=== PATIENT | female | born 1995 | race Hispanic/Latino ===

== ENCOUNTER 2018-06-23 15:54 | Emergency (ER) | payer OTHER, SELFPAY ==
--- OUTSIDE RECORDS SUMMARY | 2018-06-23 15:56 | XMS REPORT ---
:1995 Author Organization [facility] Address [address] [place] [address] [address]. Castillo [address] [place] [address] Care Team Providers Name Role Phone UNKNOWN, REFFERING Primary Care Provider Unavailable THEO WING Unavailable Unavailable Problems This patient has no known problems. Allergies, Adverse Reactions, Alerts This patient has no known allergies or adverse reactions. Medications This patient has no known medications. Results Test Description Test Time Test Comments Text Results Atomic Results Result Comments HIV Rapid 2017-01-28 11:44:00 Test Item Value Reference Range Comments HIV 1/2 Antibody (test Non-Reactive Non-Reactive HIV1/2 Antibody screen result code=HIV1/2AB) indicates the absence of HIV1 and [id number].However, A Non-Reactive screen result does not rule out exposure orinfection. If an acute infection is suspected, HIV RNA Quantitative is recommended. P24 Antigen (test Non-Reactive Non-Reactive P24 Ag screen result indicates code=P24) the absence of P24 antigen, which is anindicator of HIV-1 acute infection.However, A Non-Reactive screen does not rule out exposure or infection.If acute HIV-1 is suspected, HIV RNA Quantitative is recommended. Hep B Surface [id number] 09:41:00 Test Item Value Reference Range Comments Hep Bs Ag (test code=HBSAG) Nonreactive Non-Reactive BHCG, Serum, [id number] 08:32:00 Test Item Value Reference Range Comments Preg Qual [Se] (test code=BSHCG) POSITIVE Negative Comprehensive Metabolic [id number] 08:31:00 Test Item Value Reference Range Comments Sodium (test code=NA) 137 mmol/L 135-145 Potassium (test code=K) 3.6 mmol/L 3.5-5.1 Chloride (test code=CL) 102 mmol/L 98-105 Carbon Dioxide (test 22 mmol/L 22-29 code=CO2) Glucose (test code=GLU) 67 mg/dL 70-115 Blood Urea Nitrogen 4 mg/dL 6-20 (test code=BUN) Creatinine (test 0.4 mg/dL 0.5-0.9 code=CREAT) Calcium (test code=CA) 8.9 mg/dL 8.3-10.5 Prot Total (test 5.6 g/dL 6.4-8.3 code=TP) Albumin (test code=ALB) 3.2 g/dL 3.5-5.2 A/G Ratio (test 1.3 Ratio code=AGRATIO) Globulin (test 2.4 2.9-3.1 code=GLOB) Bili Total (test 0.4 mg/dL 0.1-0.9 code=TBIL) Alk Phos (test 66 U/L 35-104 code=APHOS) AST (test code=AST) 22 U/L 1-32 ALT (test code=ALT) 13 U/L 1-33 BUN/Creatinine Ratio 10.0 (test code=BCRATIO) Anion Gap (test 13 mmol/L 7-16 code=AGAP) Estimated GFR (test >60 mL/min/1.73m2 eGFR (estimated Glomerular code=GFR) Filtration Rate) is an estimated value,calculated from the patient's serum creatinine using the MDRD equation.It is NOT the patient's actual GFR. The eGFR provides a more clinicallyuseful measure of kidney disease than serum creatinine alone.This calculation takes sex and race into account, if the informationis provided. If the race is not provided, and the patient isAfrican-Beninese, multiply by 1.212. If sex is not provided, and thepatient is female, multiply by 0.742. Results for patients <18 years ofage have not been validated by the MDRD study and should be interpretedwith caution.eGFR Result Interpretation:eGFR > or=60 is in the Normal RangeeGFR < 60 may mean kidney diseaseeGFR < 15 may mean kidney failureRanges recommended by the National Kidney Foundation,http://nkdep.nih .gov TIBC and [id number] 08:31:00 Test Item Value Reference Range Comments Iron (test code=FE) 26 ug/dL 37-145 UIBC (test code=UIBC) 406 ug/dL 112-346 TIBC (test code=TIBC) 432 ug/dL 149-491 % Saturation (test code=PSAT) 6 % 20-50 CBC with [id number] 08:19:00 Test Item Value Reference Range Comments WBC (test code=WBC) 14.3 K/cumm 4.4-10.5 RBC (test code=RBC) 3.28 M/cumm 3.75-5.20 Hemoglobin (test code=HGB) 8.9 gm/dL 12.2-14.8 Hematocrit (test code=HCT) 28.4 % 36.5-44.4 MCV (test code=MCV) 86.3 fL 80-100 MCH (test code=MCH) 27.0 pg 27.0-32.5 MCHC (test code=MCHC) 31.3 g/dL 32.0-37.5 RDW (test code=RDW) 14.4 % 11.5-14.5 Platelet Count (test code=PLTCT) 363 K/cumm 140-440 MPV (test code=MPV) 7.5 fL Diff Method (test code=DIFFM) Auto Neutrophil (test code=NEUT) 71.6 % 36-70 Lymphocyte (test code=LYMPH) 18.6 % 12-44 Monocyte (test code=MONO) 7.7 % 0-11 Eosinophil (test code=EOS) 1.9 % 0-7 Basophil (test code=BASO) 0.3 % 0-2 Neutro Abs (test code=ANEUT) 10.2 K/cumm 1.6-7.4 Lymph Abs (test code=ALYMPH) 2.6 K/cumm 0.5-4.6 Estill Abs (test code=AMONO) 1.1 K/cumm 0.0-1.2 Eos Abs (test code=AEOS) 0.27 K/cumm 0.00-0.74 Baso Abs (test code=ABASO) 0.0 K/cumm 0.00-0.21 RPR, [id number] 11:04:00 Test Item Value Reference Range Comments RPR (test code=RPR) Non-Reactive Non-Reactive Thyroid Stimulating Hormone (TSH)2017-01-26 05:33:00 Test Item Value Reference Range Comments TSH (test code=TSH) 1.00 mIU/mL 0.270-4.200 Comprehensive Metabolic [id number] 05:23:00 Test Item Value Reference Range Comments Sodium (test code=NA) 137 mmol/L 135-145 Potassium (test code=K) 3.6 mmol/L 3.5-5.1 Chloride (test code=CL) 104 mmol/L 98-105 Carbon Dioxide (test 21 mmol/L 22-29 code=CO2) Glucose (test code=GLU) 78 mg/dL 70-115 Blood Urea Nitrogen 5 mg/dL 6-20 (test code=BUN) Creatinine (test 0.5 mg/dL 0.5-0.9 code=CREAT) Calcium (test code=CA) 8.5 mg/dL 8.3-10.5 Prot Total (test 5.2 g/dL 6.4-8.3 code=TP) Albumin (test code=ALB) 3.1 g/dL 3.5-5.2 A/G Ratio (test 1.5 Ratio code=AGRATIO) Globulin (test 2.1 2.9-3.1 code=GLOB) Bili Total (test 0.3 mg/dL 0.1-0.9 code=TBIL) Alk Phos (test 64 U/L 35-104 code=APHOS) AST (test code=AST) 14 U/L 1-32 ALT (test code=ALT) 8 U/L 1-33 BUN/Creatinine Ratio 10.0 (test code=BCRATIO) Anion Gap (test 12 mmol/L 7-16 code=AGAP) Estimated GFR (test >60 mL/min/1.73m2 eGFR (estimated Glomerular code=GFR) Filtration Rate) is an estimated value,calculated from the patient's serum creatinine using the MDRD equation.It is NOT the patient's actual GFR. The eGFR provides a more clinicallyuseful measure of kidney disease than serum creatinine alone.This calculation takes sex and race into account, if the informationis provided. If the race is not provided, and the patient isAfrican-Beninese, multiply by 1.212. If sex is not provided, and thepatient is female, multiply by 0.742. Results for patients <18 years ofage have not been validated by the MDRD study and should be interpretedwith caution.eGFR Result Interpretation:eGFR > or=60 is in the Normal RangeeGFR < 60 may mean kidney diseaseeGFR < 15 may mean kidney failureRanges recommended by the National Kidney Foundation,http://nkdep.nih .gov Lipid [id number] 05:23:00 Test Item Value Reference Range Comments Cholesterol (test 203 mg/dL 0-200 code=CHOL) Triglycerides (test 153 mg/dL 9-200 code=TRIG) HDL (test code=HDL) 73 mg/dL 50-60 Chol/HDL (test 2.8 Ratio 0.0-4.4 code=CHOLPHDL) LDL, Calculated (test 99 0-130 (NOTE)RISK OF HEART code=LDLC) DISEASEPublished by Beninese Heart AssociationAnalyte Optimal Boderline Increased RiskCHOL <200 200-239 >240TRIG <150 150-199 >200HDL Male: >60 <40HDL Female: >60 <50LDL <100 130-159 >160LDL NEAR OPTIMAL IS 100-129 VLDL (test code=VLDL) 31 mg/dL 5-40 LDL/HDL (test code=LDLPHDL) 1 CBC with [id number] 05:05:00 Test Item Value Reference Range Comments WBC (test code=WBC) 14.1 K/cumm 4.4-10.5 RBC (test code=RBC) 2.97 M/cumm 3.75-5.20 Hemoglobin (test code=HGB) 8.2 gm/dL 12.2-14.8 Hematocrit (test code=HCT) 25.5 % 36.5-44.4 MCV (test code=MCV) 85.6 fL 80-100 MCH (test code=MCH) 27.7 pg 27.0-32.5 MCHC (test code=MCHC) 32.4 g/dL 32.0-37.5 RDW (test code=RDW) 13.8 % 11.5-14.5 Platelet Count (test code=PLTCT) 321 K/cumm 140-440 MPV (test code=MPV) 7.7 fL Diff Method (test code=DIFFM) Auto Neutrophil (test code=NEUT) 74.8 % 36-70 Lymphocyte (test code=LYMPH) 15.7 % 12-44 Monocyte (test code=MONO) 7.2 % 0-11 Eosinophil (test code=EOS) 2.0 % 0-7 Basophil (test code=BASO) 0.2 % 0-2 Neutro Abs (test code=ANEUT) 10.6 K/cumm 1.6-7.4 Lymph Abs (test code=ALYMPH) 2.2 K/cumm 0.5-4.6 Estill Abs (test code=AMONO) 1.0 K/cumm 0.0-1.2 Eos Abs (test code=AEOS) 0.29 K/cumm 0.00-0.74 Baso Abs (test code=ABASO) 0.0 K/cumm 0.00-0.21
--- NOTE | 2018-06-23 16:39 | ER ---
Nurse's Notes [facility] Name: Kelsea Toussaint Age: 22 yrs Sex: Female : 1995 Arrival Date: 06/23/2018 Time: 15:57 Bed DIS1 Private MD: Diagnosis: Hordeolum internum right upper eyelid Presentation: 06/23 16:02 Presenting complaint: Patient states: "I though I had a stye but now I don't know what aa5 it is on my eye". Transition of care: patient was not received from another setting of care. Onset of symptoms was May 2018. Risk Assessment: Do you want to hurt yourself or someone else? Patient reports no desire to harm self or others. Initial Sepsis Screen: Does the patient meet any 2 criteria? No. Patient's initial sepsis screen is negative. Does the patient have a suspected source of infection? No. Patient's initial sepsis screen is negative. Care prior to arrival: None. 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 - Social history:: Smoking status: Patient/guardian denies using tobacco. - Ebola Screening: : No symptoms or risks identified at this time. Screenin:15 Abuse screen: Denies threats or abuse. Nutritional screening: No deficits noted. aa5 Tuberculosis screening: No symptoms or risk factors identified. Fall Risk None identified. Assessment: 16:08 General: Appears comfortable, Behavior is calm, cooperative. Pain: Complains of pain in aa5 right upper eyelid. Neuro: Level of Consciousness is awake, alert, obeys commands, Oriented to person, place, time, situation. Cardiovascular: No deficits noted. Respiratory: Airway is patent Respiratory effort is even, unlabored, Respiratory pattern is regular, symmetrical. GI: No signs and/or symptoms were reported involving the gastrointestinal system. : No signs and/or symptoms were reported regarding the genitourinary system. EENT: stye noted to right upper eyelid . Derm: Skin is pink, warm \\T\\ dry. Musculoskeletal: Range of motion: intact in all extremities. Vital Signs: 16:03 BP 112 / 71; Pulse 88; Resp 16 S; Temp 99.0(TE); Pulse Ox 99% on R/A; Weight 50.8 kg aa5 (R); Height 5 ft. 0 in. (152.40 cm) (R); Pain 7/10; 16:03 Body Mass Index 21.87 (50.80 kg, 152.40 cm) aa5 ED Course: 15:57 Patient arrived in ED. mr 16:01 Arm band placed on. aa5 16:01 Patient has correct armband on for positive identification. aa5 16:03 Triage completed. aa5 16:10 Liliana Gipson, RN is Primary Nurse. aa5 16:15 No provider procedures requiring assistance completed. aa5 16:18 Delvis Neri PA is PHCP. cp 16:18 Cortez Syed MD is Attending Physician. cp 16:38 Charline Toledo MD is Referral Physician. cp 17:06 Patient did not have IV access during this emergency room visit. ss Administered Medications: No medications were administered Outcome: 16:39 Discharge ordered by MD. cp 17:06 Discharged to home ambulatory, with family. ss 17:06 Condition: good 17:06 Discharge instructions given to patient, family, Instructed on discharge instructions, follow up and referral plans. medication usage, Demonstrated understanding of instructions, follow-up care, medications, Prescriptions given X 2. 17:07 Patient left the ED. ss Signatures: Shani Cullen Audri, RN RN aa5 Mahi Lynch RN RN ss Delvis Neri PA PA cp Corrections: (The following items were deleted from the chart) 16:05 16:03 BP 112 / 71; Pulse 88bpm; Resp 16bpm; Spontaneous; Pulse Ox 99% RA; Temp 99.0F aa5 Temporal; aa5
--- NOTE | 2018-06-23 16:39 | EDPHYS ---
Physician Documentation [facility] Name: Kelsea Toussaint Age: 22 yrs Sex: Female : 1995 Arrival Date: 06/23/2018 Time: 15:57 Bed DIS1 Private MD: ED Physician Cortez Syed HPI: 06/23 16:33 This 22 yrs old Female presents to ER via Ambulatory with complaints of Eye cp Swelling. 16:33 The patient is experiencing swelling, right upper eyelid. Onset: The symptoms/episode cp began/occurred 1 week(s) ago. Duration: the symptoms are continuous. Associated signs and symptoms: Pertinent negatives: fever, drainage, redness. Patient wears glasses. 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 - Social history:: Smoking status: Patient/guardian denies using tobacco. - Ebola Screening: : No symptoms or risks identified at this time. ROS: 16:35 Constitutional: Negative for body aches, chills, fever, poor PO intake. cp 16:35 Eyes: Positive for swelling, of the right upper eyelid, Negative for discharge, redness, visual disturbance. 16:35 ENT: Negative for drainage from ear(s), ear pain, sore throat, hoarseness. 16:35 Respiratory: Negative for cough, shortness of breath, wheezing. 16:35 Abdomen/GI: Negative for abdominal pain. 16:35 Skin: Negative for cellulitis, rash. 16:35 Neuro: Negative for altered mental status, headache. 16:35 All other systems are negative. Exam: 16:36 Head/Face: Normocephalic, atraumatic. cp 16:36 Constitutional: The patient appears in no acute distress, alert, awake, non-toxic, well developed, well nourished. 16:36 Eyes: Periorbital structures: appear normal, Pupils: equal, round, and reactive to light and accomodation, Extraocular movements: intact throughout, Conjunctiva: normal, no exudate, no injection, Lids and lashes: stye, seen on the right lid. 16:36 ENT: External ear(s): are unremarkable, Ear canal(s): are normal, clear, TM's: dullness, bilaterally, Nose: is normal, Mouth: Lips: moist, Oral mucosa: pink and intact, moist, Posterior pharynx: is normal, airway is patent, no erythema, no exudate, Voice: is normal. 16:36 Neck: ROM/movement: is normal, is supple, without pain, no range of motions limitations, no nuchal rigidity, Lymph nodes: no appreciated lymphadenopathy. 16:36 Chest/axilla: Inspection: normal. 16:36 Cardiovascular: Rate: normal. 16:36 Respiratory: the patient does not display signs of respiratory distress, Respirations: normal, no use of accessory muscles, no retractions, no splinting, no tachypnea. 16:36 Skin: cellulitis, is not appreciated, no rash present. Vital Signs: 16:03 BP 112 / 71; Pulse 88; Resp 16 S; Temp 99.0(TE); Pulse Ox 99% on R/A; Weight 50.8 kg aa5 (R); Height 5 ft. 0 in. (152.40 cm) (R); Pain 7/10; 16:03 Body Mass Index 21.87 (50.80 kg, 152.40 cm) aa5 MDM: 16:31 Patient medically screened. cp 16:38 Data reviewed: vital signs, nurses notes, and as a result, I will discharge patient. cp 16:38 Differential diagnosis: Foreign body in right eye. stye. Counseling: I had a detailed cp discussion with the patient and/or guardian regarding: the historical points, exam findings, and any diagnostic results supporting the discharge/admit diagnosis, the need for outpatient follow up, an opthalmologist, to return to the emergency department if symptoms worsen or persist or if there are any questions or concerns that arise at home. 06/23 16:58 Order name: Urine Dipstick--Ancillary (enter results) eb 06/23 16:58 Order name: Urine --Ancillary (enter results) 06/23 16:41 Order name: Urine Test (obtain specimen); Complete Time: 16:59 cp Administered Medications: No medications were administered Disposition: 17:10 Chart complete. cp 17:30 Co-signature as Attending Physician, Cortez Syed MD. rn Disposition: 06/23/18 16:39 Discharged to Home. Impression: Hordeolum internum right upper eyelid. - Condition is Stable. - Discharge Instructions: Stye. - Prescriptions for Erythromycin 5 mg/gram (0.5 %) Ophthalmic Ointment - apply 1 centimeter by OPHTHALMIC route 2-3 times daily for 7 days apply to right upper lid; 1 tube. Doxycycline Monohydrate 100 mg Oral Tablet - take 1 tablet by ORAL route every 12 hours for 10 days; 20 tablet. - Medication Reconciliation Form, Thank You Letter, Antibiotic Education, Prescription Opioid Use form. - Follow up: Charline Toledo MD; When: 1 week; Reason: swelling persists. - Problem is new. - Symptoms are unchanged. - Notes: Apply warm compresses to right upper eyelid throughout day Signatures: Dispatcher [employer] EDMS Cortez Syed MD MD rn Calderon, Audri RN RN aa5 Mahi Lynch RN RN ss Delvis Neri, HALIMA PA cp Corrections: (The following items were deleted from the chart) 17:07 16:39 06/23/2018 16:39 Discharged to Home. Impression: Hordeolum internum right upper ss eyelid. Condition is Stable. Forms are Medication Reconciliation Form, Thank You Letter, Antibiotic Education, Prescription Opioid Use. Follow up: Charline Toledo; When: 1 week; Reason: swelling persists. Problem is new. Symptoms are unchanged. cp 06/24 16:27 06/23 16:45 Differential diagnosis: Foreign body in stye, cellulitis cp cp
[2018-06-23 18:35] LABS: Urine Blood NEGATIVE (NEG); Urine Glucose NEGATIVE (NEG); Urine Protein TRACE (NEG)
== END 2018-06-23 17:07 | disposition home or self-care (01) ==
LOC: ER 15:54
DX: H00.021 Hordeolum internum right upper eyelid (principal); Z88.0 Allergy status to penicillin; Z88.1 Allergy status to other antibiotic agents; Z88.5 Allergy status to narcotic agent; Z88.8 Allergy status to other drugs, medicaments and biological substances
CPT/HCPCS: 81003; 81025; 99282

== ENCOUNTER 2018-10-20 00:27 | Emergency (ER) | payer SELFPAY ==
--- OUTSIDE RECORDS SUMMARY | 2018-10-20 00:29 | XMS REPORT ---
:1995 [facility] Address [address] [place] [address] Dr. Castillo [address] [place] [address] Care Team Providers Name Role Phone UNKNOWN, [...] code=HIV1/2AB) indicates the absence of HIV1 and [id number].However, A Non-Reactive screen result does not rule [...] RNA Quantitative is recommended. Hep B Surface [id number] 09:41:00 Test Item Value Reference Range Comments Hep Bs Ag (test code=HBSAG) Nonreactive Non-Reactive BHCG, Serum, [id number] 08:32:00 Test Item Value Reference Range Comments Preg Qual [Se] (test code=BSHCG) POSITIVE Negative Comprehensive Metabolic [id number] 08:31:00 Test Item Value Reference Range Comments [...] race is not provided, and the patient isAfrican-Azerbaijani, multiply by 1.212. If sex is not [...] the National Kidney Foundation,http://nkdep.nih .gov TIBC and [id number] 08:31:00 Test Item Value Reference Range Comments Iron (test code=FE) 26 ug/dL 37-145 UIBC (test code=UIBC) 406 ug/dL 112-346 TIBC (test code=TIBC) 432 ug/dL 149-491 % Saturation (test code=PSAT) 6 % 20-50 CBC with [id number] 08:19:00 Test Item Value Reference Range Comments [...] Lymph Abs (test code=ALYMPH) 2.6 K/cumm 0.5-4.6 Leake Abs (test code=AMONO) 1.1 K/cumm 0.0-1.2 Eos Abs (test code=AEOS) 0.27 K/cumm 0.00-0.74 Baso Abs (test code=ABASO) 0.0 K/cumm 0.00-0.21 RPR, [id number] 11:04:00 Test Item Value Reference Range Comments RPR (test code=RPR) Non-Reactive Non-Reactive Thyroid Stimulating Hormone (TSH)2017-01-26 05:33:00 Test Item Value Reference Range Comments TSH (test code=TSH) 1.00 mIU/mL 0.270-4.200 Comprehensive Metabolic [id number] 05:23:00 Test Item Value Reference Range Comments [...] race is not provided, and the patient isAfrican-Azerbaijani, multiply by 1.212. If sex is not provided, and thepatient is female, multiply by 0.742. Results for patients <18 years ofage have not been validated by the MDRD study and should be interpretedwith caution.eGFR Result Interpretation:eGFR > or=60 is in the Normal RangeeGFR < 60 may mean kidney diseaseeGFR < 15 may mean kidney failureRanges recommended by the National Kidney Foundation,http://nkdep.nih .gov Lipid [id number] 05:23:00 Test Item Value Reference Range Comments Cholesterol (test 203 mg/dL 0-200 code=CHOL) Triglycerides (test 153 mg/dL 9-200 code=TRIG) HDL (test code=HDL) 73 mg/dL 50-60 Chol/HDL (test 2.8 Ratio 0.0-4.4 code=CHOLPHDL) LDL, Calculated (test 99 0-130 (NOTE)RISK OF HEART code=LDLC) DISEASEPublished by [place]ij[place] Heart AssociationAnalyte Optimal Boderline Increased RiskCHOL <200 200-239 >240TRIG <150 150-199 >200HDL Male: >60 <40HDL Female: >60 <50LDL <100 130-159 >160LDL NEAR OPTIMAL IS 100-129 VLDL (test code=VLDL) 31 mg/dL 5-40 LDL/HDL (test code=LDLPHDL) 1 CBC with [id number] 05:05:00 Test Item Value Reference Range Comments [...] Lymph Abs (test code=ALYMPH) 2.2 K/cumm 0.5-4.6 Leake Abs (test code=AMONO) 1.0 K/cumm 0.0-1.2 Eos Abs (test code=AEOS) 0.29 K/cumm 0.00-0.74 Baso Abs (test code=ABASO) 0.0 K/cumm 0.00-0.21
[2018-10-20] MEDS ORDERED: KETOROLAC 30 MG/ML INJ ONE (01:00)
[2018-10-20] MEDS ORDERED: ONDANSETRON 4 MG/2 ML VIAL ONE (01:00)
[2018-10-20] MEDS ORDERED: NA CHLORIDE 0.9% 500 ML ONE (01:00)
[2018-10-20 01:37] LABS: Absolute Lymphocytes (CBC) 2.9 K/uL (0.7-4.9); Basophils % 0.5 % (0-1.3); Eosinophils % 1.7 % (0-4.4); Hematocrit 31.4 % (36.0-45.0); Lymphocytes % 28.6 % (15.3-44.8); MPV 8.1 fL (7.6-11.3); Monocytes % 9.6 % (3.3-12.3); RBC Red Blood Cell Count 4.46 M/uL (3.86-4.86)
[2018-10-20 01:46] LABS: ALT/SGPT 16 U/L (12-78); AST/SGOT 19 U/L (15-37); Albumin 3.2 g/dL (3.4-5.0); Alkaline Phosphatase 59 U/L (45-117); BUN Blood Urea Nitrogen 14 mg/dL (7-18); Bicarbonate 25 mmol/L (21-32); Bilirubin Direct < 0.1 mg/dL (0-0.2); Bilirubin Total 0.2 mg/dL (0.2-1.0); Glucose Level 108 mg/dL (74-106); Lipase 241 U/L (73-393); Potassium 3.4 mmol/L (3.5-5.1); Protein, Total 8.1 g/dL (6.4-8.2); Sodium Level 139 mmol/L (136-145)
[2018-10-20 02:33] LABS: Urine Blood 2+ (NEG); Urine Glucose NEGATIVE (NEG); Urine Protein NEGATIVE (NEG); Urine Specific Gravity 1.025 (1.005-1.030); Urine pH 6.5 (5.0-7.0)
--- NOTE | 2018-10-20 03:54 | EDPHYS ---
Physician Documentation [facility] Name: Kelsea Toussaint Age: 23 yrs Sex: Female : 1995 Arrival Date: 10/20/2018 Time: 00:28 Bed 16 Private MD: ED Physician Delvis Anaya HPI: 10/20 00:44 This 23 yrs old Female presents to ER via Ambulatory with complaints of Flank rogelio Pain - right side. 00:44 The patient complains of pain in the right mid back. The pain does not radiate. Onset: rogelio The symptoms/episode began/occurred today. Modifying factors: The symptoms are alleviated by nothing. remaining still, the symptoms are aggravated by movement. Associated signs and symptoms: The patient has no apparent associated signs or symptoms. Severity of pain: At its worst the pain was mild in the emergency department the pain is unchanged. The patient has not experienced similar symptoms in the past. 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 - Social history:: Smoking status: Patient/guardian denies using tobacco, Patient uses alcohol, occasionally. Patient/guardian denies using street drugs, IV drugs. - Ebola Screening: : Patient negative for fever greater than or equal to 101.5 degrees Fahrenheit, and additional compatible Ebola Virus Disease symptoms Patient denies exposure to infectious person Patient denies travel to an Ebola-affected area in the 21 days before illness onset. - Family history:: not pertinent. ROS: 00:44 Constitutional: Negative for fever, chills, and weight loss, Eyes: Negative for injury, rogelio pain, redness, and discharge, ENT: Negative for injury, pain, and discharge, Neck: Negative for injury, pain, and swelling, Cardiovascular: Negative for chest pain, palpitations, and edema, Abdomen/GI: Negative for abdominal pain, nausea, vomiting, diarrhea, and constipation, : Negative for injury, bleeding, discharge, and swelling, MS/Extremity: Negative for injury and deformity, Skin: Negative for injury, rash, and discoloration, Neuro: Negative for headache, weakness, numbness, tingling, and seizure, Psych: Negative for depression, anxiety, suicide ideation, homicidal ideation, and hallucinations, Allergy/Immunology: Negative for hives, rash, and allergies, Endocrine: Negative for neck swelling, polydipsia, polyuria, polyphagia, and marked weight changes, Hematologic/Lymphatic: Negative for swollen nodes, abnormal bleeding, and unusual bruising. 00:44 Respiratory: Positive for pleurisy, of the right scapular area and right mid back. Exam: 00:44 Constitutional: This is a well developed, well nourished patient who is awake, alert, rogelio and in no acute distress. Head/Face: Normocephalic, atraumatic. Eyes: Pupils equal round and reactive to light, extra-ocular motions intact. Lids and lashes normal. Conjunctiva and sclera are non-icteric and not injected. Cornea within normal limits. Periorbital areas with no swelling, redness, or edema. ENT: Nares patent. No nasal discharge, no septal abnormalities noted. Tympanic membranes are normal and external auditory canals are clear. Oropharynx with no redness, swelling, or masses, exudates, or evidence of obstruction, uvula midline. Mucous membranes moist. Neck: Trachea midline, no thyromegaly or masses palpated, and no cervical lymphadenopathy. Supple, full range of motion without nuchal rigidity, or vertebral point tenderness. No Meningismus. Chest/axilla: Normal chest wall appearance and motion. Nontender with no deformity. No lesions are appreciated. Cardiovascular: Regular rate and rhythm with a normal S1 and S2. No gallops, murmurs, or rubs. Normal PMI, no JVD. No pulse deficits. Respiratory: Lungs have equal breath sounds bilaterally, clear to auscultation and percussion. No rales, rhonchi or wheezes noted. No increased work of breathing, no retractions or nasal flaring. Abdomen/GI: Soft, non-tender, with normal bowel sounds. No distension or tympany. No guarding or rebound. No evidence of tenderness throughout. Back: No spinal tenderness. No costovertebral tenderness. Full range of motion. Skin: Warm, dry with normal turgor. Normal color with no rashes, no lesions, and no evidence of cellulitis. MS/ Extremity: Pulses equal, no cyanosis. Neurovascular intact. Full, normal range of motion. Neuro: Awake and alert, GCS 15, oriented to person, place, time, and situation. Cranial nerves II-XII grossly intact. Motor strength 5/5 in all extremities. Sensory grossly intact. Cerebellar exam normal. Normal gait. Psych: Awake, alert, with orientation to person, place and time. Behavior, mood, and affect are within normal limits. Vital Signs: 00:36 BP 130 / 90; Pulse 84; Resp 16; Temp 98.9(O); Pulse Ox 94% on R/A; Weight 52.62 kg (R); ao Height 5 ft. 0 in. (152.40 cm) (R); Pain 10/10; 01:45 BP 115 / 72; Pulse 83; Resp 20 S; Pulse Ox 100% on R/A; cc3 02:23 BP 122 / 73; Pulse 84; Resp 20 S; Pulse Ox 100% on R/A; cc3 03:30 BP 116 / 83; Pulse 81; Resp 17 S; Pulse Ox 100% on R/A; cc3 00:36 Body Mass Index 22.65 (52.62 kg, 152.40 cm) ao MDM: 00:34 Patient medically screened. cp 00:46 Data reviewed: vital signs, nurses notes, lab test result(s), EKG, radiologic studies, [facility] CT scan, plain films. 10/20 00:44 Order name: Basic Metabolic Panel; Complete Time: 03:05 [facility] 10/20 00:44 Order name: CBC with Diff; Complete Time: 03:05 [facility] 10/20 00:44 Order name: Creatinine for Radiology; Complete Time: 03:05 [facility] 10/20 00:44 Order name: Hepatic Function; Complete Time: 03:05 [facility] 10/20 00:44 Order name: Lipase; Complete Time: 03:05 [facility] 10/20 00:44 Order name: Urine Culture [facility] 10/20 00:44 Order name: Chest Single View XRAY [facility] 10/20 00:44 Order name: CT Aorta for Dissection [facility] 10/20 01:24 Order name: Urine Dipstick--Ancillary (enter results); Complete Time: 03:05 mw2 10/20 01:24 Order name: Urine --Ancillary (enter results); Complete Time: 03:05 mw2 10/20 00:44 Order name: IV Saline Lock; Complete Time: :11 rogelio 10/20 00:44 Order name: Labs collected and sent; Complete Time: : [facility] 10/20 00:44 Order name: Urine Dipstick-Ancillary (obtain specimen); Complete Time: 01:36 [facility] 10/20 00:44 Order name: Urine Test (obtain specimen); Complete Time: :36 [facility] Administered Medications: 01:00 Drug: NS 0.9% 500 ml Route: IV; Rate: bolus; Site: left antecubital; cc3 01:40 Follow up: Response: No adverse reaction; IV Status: Completed infusion; IV Intake: cc3 500ml 01:05 Drug: TORadol 30 mg Route: IVP; Site: left antecubital; cc3 01:40 Follow up: Response: No adverse reaction; Pain is decreased cc3 01:07 Drug: Zofran 4 mg Route: IVP; Site: left antecubital; cc3 01:40 Follow up: Response: No adverse reaction cc3 04:00 Drug: Potassium Effervescent Tablet 25 mEq Route: PO; cc3 04:15 Follow up: Response: No adverse reaction cc3 Disposition: 10/20/18 03:52 Discharged to Home. Impression: Other ovarian cysts - 7.6 cm right dermoid cyst, Pleurisy, Anemia, unspecified, Hypokalemia. - Condition is Stable. - Discharge Instructions: Iron Deficiency Anemia, Adult, Anemia, Nonspecific, Ovarian Cyst, Pleurisy, Ovarian Cyst, [id number], Pleurisy, Mnql-tw-[id number], Iron Deficiency Anemia, Adult, Ohsg-id-Gjlh, Hypokalemia. - Prescriptions for Tramadol 50 mg Oral Tablet - take 1 tablet by ORAL route every 8 hours as needed; 26 tablet. Motrin IB 200 mg Oral Tablet - take 2 tablet by ORAL route every 6 hours As needed as needed with food; 30 tablet. - Medication Reconciliation Form, Thank You Letter, Antibiotic Education, Prescription Opioid Use form. - Follow up: Private Physician; When: 2 - 3 days; Reason: Recheck today's complaints, Continuance of care, Re-evaluation by your physician. Follow up: Rachel Hall MD; When: 2 - 3 days; Reason: Recheck today's complaints, Continuance of care, Re-evaluation by your physician. - Problem is new. - Symptoms have improved. Signatures: Dispatcher [employer] EDMS Delvis Anaya MD MD cha Page, Corey, PA PA cp Ortiz, Alex, RN RN Faby Tidwell cc3 Corrections: (The following items were deleted from the chart) 03:54 03:52 10/20/2018 03:52 Discharged to Home. Impression: Other ovarian cysts - 7.6 cm rogelio right dermoid cyst; Pleurisy. Condition is Stable. Forms are Medication Reconciliation Form, Thank You Letter, Antibiotic Education, Prescription Opioid Use. Follow up: Private Physician; When: 2 - 3 days; Reason: Recheck today's complaints, Continuance of care, Re-evaluation by your physician. Problem is new. Symptoms have improved. [facility] 03:56 03:54 10/20/2018 03:52 Discharged to Home. Impression: Other ovarian cysts - 7.6 cm rogelio right dermoid cyst; Pleurisy. Condition is Stable. Discharge Instructions: Ovarian Cyst, Pleurisy, Ovarian Cyst, Yfyc-[id number]-Qwyj, Pleurisy, Mywv-fw-Vqag. Prescriptions for Tramadol 50 mg Oral Tablet - take 1 tablet by ORAL route every 8 hours as needed; 26 tablet, Motrin IB 200 mg Oral Tablet - take 2 tablet by ORAL route every 6 hours As needed as needed with food; 30 tablet. and Forms are Medication Reconciliation Form, Thank You Letter, Antibiotic Education, Prescription Opioid Use. Follow up: Private Physician; When: 2 - 3 days; Reason: Recheck today's complaints, Continuance of care, Re-evaluation by your physician. Follow up: Rachel Hall; When: 2 - 3 days; Reason: Recheck today's complaints, Continuance of care, Re-evaluation by your physician. Problem is new. Symptoms have improved. [facility] 04:16 03:56 10/20/2018 03:52 Discharged to Home. Impression: Other ovarian cysts - 7.6 cm cc3 right dermoid cyst; Pleurisy; Anemia, unspecified; Hypokalemia. Condition is Stable. Discharge Instructions: Ovarian Cyst, Pleurisy, Ovarian Cyst, Whoj-mb-Kjuc, Pleurisy, Ccvq-xh-Theh, Iron Deficiency Anemia, Adult, Anemia, Nonspecific, Iron Deficiency Anemia, Adult, Xelj-fh-Njdm, Hypokalemia. Prescriptions for Tramadol 50 mg Oral Tablet - take 1 tablet by ORAL route every 8 hours as needed; 26 tablet, Motrin IB 200 mg Oral Tablet - take 2 tablet by ORAL route every 6 hours As needed as needed with food; 30 tablet. and Forms are Medication Reconciliation Form, Thank You Letter, Antibiotic Education, Prescription Opioid Use. Follow up: Private Physician; When: 2 - 3 days; Reason: Recheck today's complaints, Continuance of care, Re-evaluation by your physician. Follow up: Rachel Hall; When: 2 - 3 days; Reason: Recheck today's complaints, Continuance of care, Re-evaluation by your physician. Problem is new. Symptoms have improved. rogelio
--- NOTE | 2018-10-20 03:54 | ER ---
Nurse's Notes [facility] Name: Kelsea Toussaint Age: 23 yrs Sex: Female : 1995 Arrival Date: 10/20/2018 Time: 00:28 Bed 16 Private MD: Diagnosis: Other ovarian cysts-7.6 cm right dermoid cyst;Pleurisy;Anemia, unspecified;Hypokalemia Presentation: 10/20 00:34 Presenting complaint: Patient states: Had back pain on the right side started at 2000. ao Patient denies nausea and or vomiting. Transition of care: patient was not received from another setting of care. Onset of symptoms was October 19, 2018 at 20:00. Risk Assessment: Do you want to hurt yourself or someone else? Patient reports no desire to harm self or others. Initial Sepsis Screen: Does the patient meet any 2 criteria? No. Patient's initial sepsis screen is negative. Does the patient have a suspected source of infection? No. Patient's initial sepsis screen is negative. Care prior to arrival: None. 00:34 Method Of Arrival: Ambulatory ao 00:34 Acuity: VICENTE 3 ao Triage Assessment: 00:35 General: Appears in no apparent distress. uncomfortable, Behavior is calm, cooperative, cc3 appropriate for age. Pain: Complains of pain in right flank pain. EENT: No signs and/or symptoms were reported regarding the EENT system. Neuro: Level of Consciousness is awake, alert, obeys commands, Oriented to person, place, time, situation, Appropriate for age. Cardiovascular: Denies chest pain. Respiratory: Airway is patent Respiratory effort is even, unlabored, Respiratory pattern is regular, symmetrical. GI: Abdomen is round non-distended. : No signs and/or symptoms were reported regarding the genitourinary system. Derm: No signs and/or symptoms reported regarding the dermatologic system. Musculoskeletal: Circulation, motion, and sensation intact. Range of motion: intact in all extremities. 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 - Social history:: Smoking status: Patient/guardian denies using tobacco, Patient uses alcohol, occasionally. Patient/guardian denies using street drugs, IV drugs. - Ebola Screening: : Patient negative for fever greater than or equal to 101.5 degrees Fahrenheit, and additional compatible Ebola Virus Disease symptoms Patient denies exposure to infectious person Patient denies travel to an Ebola-affected area in the 21 days before illness onset. - Family history:: not pertinent. Screenin:38 Abuse screen: Denies threats or abuse. Denies injuries from another. Nutritional ao screening: No deficits noted. Tuberculosis screening: No symptoms or risk factors identified. Fall Risk None identified. Assessment: 00:35 General: see triage assessment. cc3 01:40 Reassessment: Patient appears in no apparent distress at this time. Patient and/or cc3 family updated on plan of care and expected duration. Pain level reassessed. Patient is alert, oriented x 3, equal unlabored respirations, skin warm/dry/pink. 02:23 Reassessment: Patient appears in no apparent distress at this time. Patient and/or cc3 family updated on plan of care and expected duration. Pain level reassessed. Patient is alert, oriented x 3, equal unlabored respirations, skin warm/dry/pink. Patient came back from CT scan department. 03:30 Reassessment: Patient appears in no apparent distress at this time. Patient and/or cc3 family updated on plan of care and expected duration. Pain level reassessed. Patient is alert, oriented x 3, equal unlabored respirations, skin warm/dry/pink. 04:15 Reassessment: Patient appears in no apparent distress at this time. Patient and/or cc3 family updated on plan of care and expected duration. Pain level reassessed. Patient is alert, oriented x 3, equal unlabored respirations, skin warm/dry/pink. Dr. Anaya discharged the patient home with prescription given. IV cannula removed and patient left ER vitally stable and ambulatory with her friend. Vital Signs: 00:36 BP 130 / 90; Pulse 84; Resp 16; Temp 98.9(O); Pulse Ox 94% on R/A; Weight 52.62 kg (R); ao Height 5 ft. 0 in. (152.40 cm) (R); Pain 10/10; 01:45 BP 115 / 72; Pulse 83; Resp 20 S; Pulse Ox 100% on R/A; cc3 02:23 BP 122 / 73; Pulse 84; Resp 20 S; Pulse Ox 100% on R/A; cc3 03:30 BP 116 / 83; Pulse 81; Resp 17 S; Pulse Ox 100% on R/A; cc3 00:36 Body Mass Index 22.65 (52.62 kg, 152.40 cm) ao ED Course: 00:28 Patient arrived in ED. am2 00:34 Delvis Neri PA is PHCP. cp 00:34 Delvis Anaya MD is Attending Physician. cp 00:35 Triage completed. ao 00:37 Faby Domínguez is Primary Nurse. cc3 00:37 Arm band placed on right wrist. Patient placed in an exam room, on a stretcher, on ao oxygen, on pulse oximetry, Patient notified of wait time. 00:38 Patient has correct armband on for positive identification. Pulse ox on. NIBP on. ao 01:00 Inserted saline lock: 20 gauge in left antecubital area, using aseptic technique. Blood cc3 collected. 01:08 Chest Single View XRAY In Process Unspecified. EDMS 01:33 Radiology exam delayed due to lab results not completed at this time. (HCG) (BUN/Creatinine) test not completed at this time. 02:17 CT completed. Patient tolerated procedure well. Patient moved to CT via wheelchair. Patient moved back from CT. 02:18 CT Aorta for Dissection In Process Unspecified. EDMS 03:54 Rachel Hall MD is Referral Physician. rogelio 04:15 No provider procedures requiring assistance completed. IV discontinued, intact, cc3 bleeding controlled, No redness/swelling at site. Pressure dressing applied. Administered Medications: 01:00 Drug: NS 0.9% 500 ml Route: IV; Rate: bolus; Site: left antecubital; cc3 01:40 Follow up: Response: No adverse reaction; IV Status: Completed infusion; IV Intake: cc3 500ml 01:05 Drug: TORadol 30 mg Route: IVP; Site: left antecubital; cc3 01:40 Follow up: Response: No adverse reaction; Pain is decreased cc3 01:07 Drug: Zofran 4 mg Route: IVP; Site: left antecubital; cc3 01:40 Follow up: Response: No adverse reaction cc3 04:00 Drug: Potassium Effervescent Tablet 25 mEq Route: PO; cc3 04:15 Follow up: Response: No adverse reaction cc3 Intake: 01:40 IV: 500ml; Total: 500ml. cc3 Outcome: 03:52 Discharge ordered by MD. mercado 04:15 Discharged to home ambulatory, with friend. cc3 04:15 Condition: stable 04:15 Discharge instructions given to patient, Instructed on discharge instructions, follow up and referral plans. medication usage, Demonstrated understanding of instructions, follow-up care, medications, Prescriptions given X 2. 04:16 Patient left the ED. cc3 Signatures: Dispatcher [employer] EDMS Delvis Anaya MD MD cha Hagler, Delvis Vasquez PA PA cp Ortiz, Alex, RN RN Cynthia Smith Charlene cc3
[2018-10-20] MEDS ORDERED: POTASSIUM 25 MEQ EFFERV TAB ONE (04:07)
--- NOTE | 2018-10-20 08:32 | RAD REPORT ---
EXAM DESCRIPTION: CT - Angio Aorta For Dissection - 10/20/2018 3:55 am CLINICAL HISTORY: Chest pain radiating to the back. DISSECTION COMPARISON: No comparisons TECHNIQUE: CT angiography of the aorta was performed with MIPs. All CT scans are performed using dose optimization technique as appropriate and may include automated exposure control or mA/KV adjustment according to patient size. FINDINGS: A left aortic arch is present with normal branching pattern of the great vessels.No acute aortic finding is seen such as aneurysm, penetrating ulcer or dissection. The celiac axis, SMA, JEANINE and renal arteries are widely patent. No evidence of pulmonary embolism. The lungs are clear. The liver demonstrates no focal mass or biliary dilatation.The spleen, pancreas, adrenal glands and k idneys are within normal limits for arterial phase imaging. No bowel obstruction, free fluid or abscess.No pathologic enlarged lymphadenopathy identified. Mild thoracolumbar scoliosis noted.L5-S1 posterior disc protrusion suspected. Large anterior right pelvic mass is present compressing the urinary bladder. This measures 7.2 x 6.5 cm contains varying densities including a calcification. This likely represents a ovarian dermoid. IMPRESSION: No acute aortic finding is demonstrated. Large ovarian dermoid suspected on the right (7.2 x 6.5 cm). Consider followup MR female pelvis greg col for further assessment.
--- NOTE | 2018-10-20 08:34 | RAD REPORT ---
EXAM DESCRIPTION: RAD - Chest Single View - 10/20/2018 1:06 am CLINICAL HISTORY: COUGH Chest pain. COMPARISON: Chest Pa And Lat (2 Views) dated 01/22/2016; Angio Aorta For Dissection dated 10/20/2018 FINDINGS: Portable technique limits examination quality. The lungs are grossly clear. The heart is normal in size. No displaced fractures. IMPRESSION: No acute intrathoracic process suspected.
== END 2018-10-20 04:16 | disposition home or self-care (01) ==
LOC: ER 00:27
DX: N83.291 Other ovarian cyst, right side (principal); R09.1 Pleurisy; D64.9 Anemia, unspecified; E87.6 Hypokalemia; Z88.0 Allergy status to penicillin; Z88.1 Allergy status to other antibiotic agents; Z88.5 Allergy status to narcotic agent; Z88.8 Allergy status to other drugs, medicaments and biological substances
CPT/HCPCS: 36415; 71045; 71275; 74175; 80048; 80076; 81003; 81025; 83690; 85025; 87086; 87088; 96361; 96374; 96375; 99285; J2405; Q9967

== ENCOUNTER 2020-11-17 04:21 | Emergency (ER) | payer SELFPAY ==
--- OUTSIDE RECORDS SUMMARY | 2020-11-17 04:24 | XMS REPORT | Continuity of Care Document ---
:1995 Author Organization [facility] t Address [address] [place] [address] Care Team Providers Name Role Phone UNKNOWN Primary Care Physician Unavailable Visit, Nurse Attending Clinician Unavailable Kareem ELLSWORTH, N Attending Clinician Melodie WING Attending Clinician Unavailable Melodie WING Admitting Clinician Unavailable Problems This patient has no known problems. Allergies, Adverse Reactions, Alerts This patient has no known allergies or adverse reactions. Medications This patient has no known medications. Procedures This patient has no known procedures. Encounters Start End Encounter Admission Attending Care Care Encounter Source Date/Time Date/Time Type Type Clinicians Facility Department ID 2020-08-08 2020-08-08 Nurse Visit, [facility] [id number] 15:11:27 15:30:04 Visit Shalonda INSURANCE VERIFICATION CLERK [id number] Nurse [facility] [id number] MATERNAL [id number] & CHILD 107 [facility] 2020-05-09 2020-05-09 Nurse Visit, LAJOSE RAMON [id number] 08:07:49 08:48:50 Visit Janellechxiomara INSURANCE VERIFICATION CLERK [id number] Nurse [facility] [id number] MATERNAL [id number] & CHILD 107 [facility] 2020-05-09 2020-05-09 Telephone MALKA Serna [id number] 00:00:00 00:00:00 Richelle Rush INSURANCE VERIFICATION CLERK [id number] [facility] [id number] MATERNAL [id number] & CHILD [address] [place] [address] Results Test Description Test Time Test Comments Results Result Comments Source HIV Rapid 2017-01-28 11:44:00 Test Item Value Reference Range Interpretation Comme nts HIV 1/2 Antibody (test Non-Reactive Non-Reactive N HIV1/ 2 Antibody screen result code = HIV1/2AB) indicates t he absence of HIV1 and MNC8ibysujptu.H owever, A Non-Reactive sc reen result does not rule out exposu re orinfection. If an acute infect ion is suspected, HIV RNA Quantit ative is recommended. P24 Antigen (test code Non-Reactive Non-Reactive N P24 A g screen result indicates the = P24) absence of P24 antigen, which is anindicator of HIV-1 acute infection.Howev er, A Non-Reactive screen does not rule out exposure or infection.If acute HIV-1 is suspected, HIV RNA Quantitative is recommended. Hep B Surface [id number] 09:41:00 Test Item Value Reference Range Interpretation Comments Hep Bs Ag (test code = HBSAG) Nonreactive Non-Reactive A BHCG, Serum, [id number] 08:32:00 Test Item Value Reference Range Interpretation Comments Preg Qual [Se] (test code = BSHCG) POSITIVE Negative A TIBC and [id number] 08:31:00 Test Item Value Reference Range Interpretation Comments Iron (test code = FE) 26 ug/dL 37-145 L UIBC (test code = UIBC) 406 ug/dL 112-346 H TIBC (test code = TIBC) 432 ug/dL 149-491 N % Saturation (test code = PSAT) 6 % 20-50 L Comprehensive Metabolic [id number] 08:31:00 Test Item Value Reference Range Interpretation Comments Sodium (test code = 137 mmol/L 135-145 N NA) Potassium (test 3.6 mmol/L 3.5-5.1 N code = K) Chloride (test code 102 mmol/L 98-105 N = CL) Carbon Dioxide 22 mmol/L 22-29 N (test code = CO2) Glucose (test code 67 mg/dL 70-115 L = GLU) Blood Urea Nitrogen 4 mg/dL 6-20 L (test code = BUN) Creatinine (test 0.4 mg/dL 0.5-0.9 L code = CREAT) Calcium (test code 8.9 mg/dL 8.3-10.5 N = CA) Prot Total (test 5.6 g/dL 6.4-8.3 L code = TP) Albumin (test code 3.2 g/dL 3.5-5.2 L = ALB) A/G Ratio (test 1.3 Ratio code = AGRATIO) Globulin (test code 2.4 2.9-3.1 L = GLOB) Bili Total (test 0.4 mg/dL 0.1-0.9 N code = TBIL) Alk Phos (test code 66 U/L 35-104 N = APHOS) AST (test code = 22 U/L 1-32 N AST) ALT (test code = 13 U/L 1-33 N ALT) BUN/Creatinine 10.0 Ratio (test code = BCRATIO) Anion Gap (test 13 mmol/L 7-16 N code = AGAP) Estimated GFR (test >60 eGFR (es timated code = GFR) mL/min/1.73m2 Glomerular Fareed tration Rate) is an est imated value,calculate d from the patient's s jimmy creatinine usin g the MDRD equation.I t is NOT the patient 's actual GFR. The eGFR provides a more clinicallyusefu l measure of kidn ey disease than se rum creatinine alone.This calculation kavitha es sex and race into account, if the informationis provided. If th e race is not provided , and the patient isAfrican-Ameri can, multiply by 1.2 12. If sex is not prov ided, and thepatient is female, multipl y by 0.742. Results for patients <18 ye ars ofage have not been validated by th e MDRD study and shoul d be interpretedwith caution.eGFR Re sult Interpretation: eGFR > or = 60 is in t he Normal RangeeGF R < 60 may mean kidney diseaseeGFR < 1 5 may mean kidney failureRange s recommended by the National Kidney Foundation,http ://nkd ep.nih.gov CBC with [id number] 08:19:00 Test Item Value Reference Range Interpretation Comments WBC (test code = WBC) 14.3 K/cumm 4.4-10.5 H RBC (test code = RBC) 3.28 M/cumm 3.75-5.20 L Hemoglobin (test code = HGB) 8.9 gm/dL 12.2-14.8 L Hematocrit (test code = HCT) 28.4 % 36.5-44.4 L MCV (test code = MCV) 86.3 fL 80-100 N MCH (test code = MCH) 27.0 pg 27.0-32.5 N MCHC (test code = MCHC) 31.3 g/dL 32.0-37.5 L RDW (test code = RDW) 14.4 % 11.5-14.5 N Platelet Count (test code = 363 K/cumm 140-440 N PLTCT) MPV (test code = MPV) 7.5 fL Diff Method (test code = DIFFM) Auto Neutrophil (test code = NEUT) 71.6 % 36-70 H Lymphocyte (test code = LYMPH) 18.6 % 12-44 N Monocyte (test code = MONO) 7.7 % 0-11 N Eosinophil (test code = EOS) 1.9 % 0-7 N Basophil (test code = BASO) 0.3 % 0-2 N Neutro Abs (test code = ANEUT) 10.2 K/cumm 1.6-7.4 H Lymph Abs (test code = ALYMPH) 2.6 K/cumm 0.5-4.[address] Abs (test code = AMONO) 1.1 K/cumm 0.0-1.2 N Eos Abs (test code = AEOS) 0.27 K/cumm 0.00-0.74 N Baso Abs (test code = ABASO) 0.0 K/cumm 0.00-0.21 N RPR, [id number] 11:04:00 Test Item Value Reference Range Interpretation Comments RPR (test code = RPR) Non-Reactive Non-Reactive N Thyroid Stimulating Hormone (TSH)2017-01-26 05:33:00 Test Item Value Reference Range Interpretation Comments TSH (test code = TSH) 1.00 mIU/mL 0.270-4.200 N Comprehensive Metabolic [id number] 05:23:00 Test Item Value Reference Range Interpretation Comments Sodium (test code = 137 mmol/L 135-145 N NA) Potassium (test 3.6 mmol/L 3.5-5.1 N code = K) Chloride (test code 104 mmol/L 98-105 N = CL) Carbon Dioxide 21 mmol/L 22-29 L (test code = CO2) Glucose (test code 78 mg/dL 70-115 N = GLU) Blood Urea Nitrogen 5 mg/dL 6-20 L (test code = BUN) Creatinine (test 0.5 mg/dL 0.5-0.9 N code = CREAT) Calcium (test code 8.5 mg/dL 8.3-10.5 N = CA) Prot Total (test 5.2 g/dL 6.4-8.3 L code = TP) Albumin (test code 3.1 g/dL 3.5-5.2 L = ALB) A/G Ratio (test 1.5 Ratio code = AGRATIO) Globulin (test code 2.1 2.9-3.1 L = GLOB) Bili Total (test 0.3 mg/dL 0.1-0.9 N code = TBIL) Alk Phos (test code 64 U/L 35-104 N = APHOS) AST (test code = 14 U/L 1-32 N AST) ALT (test code = 8 U/L 1-33 N ALT) BUN/Creatinine 10.0 Ratio (test code = BCRATIO) Anion Gap (test 12 mmol/L 7-16 N code = AGAP) Estimated GFR (test >60 eGFR (es timated code = GFR) mL/min/1.73m2 Glomerular Fareed tration Rate) is an est imated value,calculate d from the patient's s jimmy creatinine usin g the MDRD equation.I t is NOT the patient 's actual GFR. The eGFR provides a more clinicallyusefu l measure of kidn ey disease than se rum creatinine alone.This calculation kavitha es sex and race into account, if the informationis provided. If th e race is not provided , and the patient isAfrican-Ameri can, multiply by 1.2 12. If sex is not prov ided, and thepatient is female, multipl y by 0.742. Results for patients <18 ye ars ofage have not been validated by th e MDRD study and rivka nicole be interpretedwith caution.eGFR Re sult Interpretation: eGFR > or = 60 is in t he Normal RangeeGF R < 60 may mean kidney diseaseeGFR < 1 5 may mean kidney failureRange s recommended by the National Kidney Foundation,http ://nkd ep.nih.gov Lipid [id number] 05:23:00 Test Item Value Reference Range Interpretation Comments Cholesterol (test 203 mg/dL 0-200 H code = CHOL) Triglycerides (test 153 mg/dL 9-200 N code = TRIG) HDL (test code = 73 mg/dL 50-60 H HDL) Chol/HDL (test code 2.8 Ratio 0.0-4.4 N = CHOLPHDL) LDL, Calculated 99 0-130 N (NOTE)RISK O F HEART (test code = LDLC) DISEASEPu blished by [place] Heart AssociationAnal yte Optim al Boderline Increased RiskC HOL <200 200-239 >240TRI G <150 150-199 >200HDL Male: >60 <40HDL Female: >60 <50 LDL < 100 130-15 9 >160 LDL NEAR OPTIMAL IS 100- 129 VLDL (test code = 31 mg/dL 5-40 N VLDL) LDL/HDL (test code = 1 LDLPHDL) CBC with [id number] 05:05:00 Test Item Value Reference Range Interpretation Comments WBC (test code = WBC) 14.1 K/cumm 4.4-10.5 H RBC (test code = RBC) 2.97 M/cumm 3.75-5.20 L Hemoglobin (test code = HGB) 8.2 gm/dL 12.2-14.8 L Hematocrit (test code = HCT) 25.5 % 36.5-44.4 L MCV (test code = MCV) 85.6 fL 80-100 N MCH (test code = MCH) 27.7 pg 27.0-32.5 N MCHC (test code = MCHC) 32.4 g/dL 32.0-37.5 N RDW (test code = RDW) 13.8 % 11.5-14.5 N Platelet Count (test code = 321 K/cumm 140-440 N PLTCT) MPV (test code = MPV) 7.7 fL Diff Method (test code = DIFFM) Auto Neutrophil (test code = NEUT) 74.8 % 36-70 H Lymphocyte (test code = LYMPH) 15.7 % 12-44 N Monocyte (test code = MONO) 7.2 % 0-11 N Eosinophil (test code = EOS) 2.0 % 0-7 N Basophil (test code = BASO) 0.2 % 0-2 N Neutro Abs (test code = ANEUT) 10.6 K/cumm 1.6-7.4 H Lymph Abs (test code = ALYMPH) 2.2 K/cumm 0.5-4.[address] Abs (test code = AMONO) 1.0 K/cumm 0.0-1.2 N Eos Abs (test code = AEOS) 0.29 K/cumm 0.00-0.74 N Baso Abs (test code = ABASO) 0.0 K/cumm 0.00-0.21 N
[2020-11-17 05:06] LABS: Absolute Lymphocytes (CBC) 1.1 K/uL (0.7-4.9); Basophils % 0.3 % (0-1.3); Hematocrit 37.7 % (36.0-45.0); Lymphocytes % 7.2 % (15.3-44.8); RBC Red Blood Cell Count 4.35 M/uL (3.86-4.86)
[2020-11-17 05:13] LABS: BUN Blood Urea Nitrogen 7 mg/dL (7-18); Bicarbonate 23 mmol/L (21-32); Glucose Level 160 mg/dL (74-106); Sodium Level 140 mmol/L (136-145)
[2020-11-17 05:17] LABS: Protime INR 0.95
[2020-11-17] MEDS ORDERED: ACETAMINOPHEN 500 MG TAB ONE (05:44)
[2020-11-17] MEDS ORDERED: KETOROLAC 30 MG/ML INJ ONE (05:52)
[2020-11-17] MEDS ORDERED: FENTANYL CITR 100 MCG/2 ML ONE (06:21)
[2020-11-17 06:38] LABS: Blood Morphology Comment NOT SEEN (NOT SEEN); Platelet Estimate ADEQ
--- NOTE | 2020-11-17 08:39 | RAD REPORT ---
EXAM DESCRIPTION: CT - Lower Ext Angio - 11/17/2020 7:38 am CLINICAL HISTORY: knee injury Trauma, knee injury COMPARISON: Knee Right 3 View dated 11/17/2020; Angio Aorta For Dissection dated 10/20/2018 FINDINGS: CT angiography of the right lower extremity was performed with volume rendering. Fracture involving the fibular head is present. Impacted fracture the medial tibial plateau is also s een with 3-4 mm of depression. A small lipohemarthrosis is present. No evidence of vascular injury or flow abnormality of the right lower extremity arterial system. No soft tissue mass or hematoma is seen. 8 cm right adnexal lesion is seen which may represent a hemorrhagic cyst or dermoid. This is incomple tely assessed was present on the 2019 comparative study. Follow-up pelvic sonography or MRI of the pe lvis could be obtained if clinically indicated. IMPRESSION: No evidence of significant flow abnormality of the right lower extremity arterial system .
--- NOTE | 2020-11-17 10:04 | ER ---
Nurse's Notes [facility] Name: Kelsea Toussaint Age: 25 yrs Sex: Female : 1995 Arrival Date: 11/17/2020 Time: : Bed 2 Private MD: Diagnosis: Acute, closed right tibial plateau fracture with minimal depression;Acute, closed right fibular head fracture, nondisplaced. 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 Coronavirus screen: Client denies travel out of the [place] in the last 14 days. Ebola Screen: No symptoms or risks identified at this time. Initial Sepsis Screen: Does the patient meet any 2 criteria? No. Patient's initial sepsis screen is negative. Does the patient have a suspected source of infection? No. Patient's initial sepsis screen is negative. Risk Assessment: Do you want to hurt yourself or someone else? Patient reports no desire to harm self or others. Onset of symptoms was November 17, 2020 at 04:00. 04:41 Method Of Arrival: Wheelchair rv 04:41 Acuity: VICENTE 3 rv Triage Assessment: 04:43 General: Appears uncomfortable, Behavior is crying. Pain: Complains of pain in right rv knee. Neuro: Level of Consciousness is awake, alert, obeys commands, Oriented to person, place, time, situation. Cardiovascular: Patient's skin is warm and dry. Respiratory: Airway is patent Respiratory effort is even, unlabored. Musculoskeletal: Swelling present in right knee. 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 - Social history:: Smoking status: Patient denies any tobacco usage or history of. Screenin:43 Abuse screen: Denies threats or abuse. Denies injuries from another. Nutritional rv screening: No deficits noted. Tuberculosis screening: No symptoms or risk factors identified. Fall Risk None identified. Assessment: 05:39 Reassessment: patient is crying from pain. vital signs as follows: 112/64, 131HR, 19RR, rv 100%RA. referred to Dr Stone. Toradol given as ordered. 06:04 Reassessment: Dr. Stone aware of patient discomfort, crying; Patient reports symptoms lp1 of back rash related to episode when given Morphine and PCN previously; Verbal order by Dr. Stone for Fentanyl 50mcg IV now. 07:00 Reassessment: No changes from previously documented assessment. Patient and/or family tw2 updated on plan of care and expected duration. Pain level reassessed. Patient is alert, oriented x 3, equal unlabored respirations, skin warm/dry/pink. 07:55 Reassessment: No changes from previously documented assessment. Patient and/or family tw2 updated on plan of care and expected duration. Pain level reassessed. Patient is alert, oriented x 3, equal unlabored respirations, skin warm/dry/pink. 09:04 Reassessment: Patient appears in no apparent distress at this time. Patient and/or tw2 family updated on plan of care and expected duration. Pain level reassessed. Patient is alert, oriented x 3, equal unlabored respirations, skin warm/dry/pink. pt appears to be sleeping at this time. 10:43 Reassessment: Patient appears in no apparent distress at this time. No changes from tw2 previously documented assessment. Patient and/or family updated on plan of care and expected duration. Pain level reassessed. Patient is alert, oriented x 3, equal unlabored respirations, skin warm/dry/pink. Vital Signs: 04:41 BP 117 / 72; Pulse 106; Resp 16; Temp 98.4; Pulse Ox 97% ; Weight 68.04 kg; Height 5 rv ft. (152.40 cm); Pain 10/10; 05:41 BP 112 / 64; Pulse 131; Resp 19; Pulse Ox 100% on R/A; rv 06:59 BP 103 / 69; Pulse 115; Resp 17; Pulse Ox 100% on R/A; rv 07:55 BP 117 / 73; Pulse 105; Resp 16; Pulse Ox 95% on R/A; tw2 09:05 BP 105 / 60; Pulse 98; Resp 17; Pulse Ox 96% on R/A; tw2 10:22 BP 102 / 71; Pulse 105; Resp 17; Pulse Ox 98% on R/A; tw2 04:41 Body Mass Index 29.29 (68.04 kg, 152.40 cm) rv ED Course: 04:22 Patient arrived in ED. am2 04:22 Jae Stone MD is Attending Physician. 7 04:39 Gino Nair, RN is Primary Nurse. rv 04:42 Triage completed. rv 04:43 Arm band placed on right wrist. Patient placed in the treatment room, on a stretcher, rv Patient notified of wait time. 04:44 Patient has correct armband on for positive identification. Pulse ox on. NIBP on. rv 04:44 Initial lab(s) drawn, by me, sent to lab. Inserted saline lock: 20 gauge in right rv antecubital area, using aseptic technique. Blood collected. 04:58 Knee Right 3 View XRAY In Process Unspecified. EDMS 06:34 Tib Fib Right XRAY In Process Unspecified. EDMS 06:36 Ankle Right 3 View XRAY In Process Unspecified. EDMS 06:36 Foot Right 3 View XRAY In Process Unspecified. EDMS 07:12 Attending Physician role handed off by Jae Stone MD rn 07:12 Cortez Syed MD is Attending Physician. rn 07:38 Lower Ext Angio In Process Unspecified. EDMS 09:05 Primary Nurse role handed off by Gino Nair, TRICIA tw2 09:05 Nisha Cox, RN is Primary Nurse. tw2 10:02 Renan Calle MD is Referral Physician. rn 10:43 No provider procedures requiring assistance completed. IV discontinued, intact, tw2 bleeding controlled, No redness/swelling at site. Pressure dressing applied. Administered Medications: 05:29 Drug: Tylenol 1000 mg Route: PO; rv 05:39 Drug: TORadol 30 mg Route: IVP; Site: right antecubital; rv 06:09 Drug: fentaNYL (PF) 50 mcg {Note: rass 1.} Route: IVP; Site: right antecubital; rv 10:21 Follow up: Response: No adverse reaction; Pain is decreased; RASS: Alert and Calm (0) tw2 06:21 Drug: NS 0.9% 1000 ml Route: IV; Rate: 1000 ml; Site: right antecubital; rv 07:22 Follow up: Response: No adverse reaction; IV Status: Completed infusion; IV Intake: tw2 1000ml Intake: 07:22 IV: 1000ml; Total: 1000ml. Outcome: 10:03 Discharge ordered by . rn 10:43 Discharged to home via wheelchair, with crutches. tw2 10:43 Condition: stable 10:43 Discharge instructions given to patient, Instructed on discharge instructions, follow up and referral plans. no drinking with medication, no driving heavy equipment, medication usage, safety practices, crutch walking, Demonstrated understanding of instructions, follow-up care, medications, crutch walking, Prescriptions given X 1. 10:44 Patient left the ED. Signatures: Dispatcher [employer] EDMS Cortez Syed MD MD rn Pena, Laura, RN RN lp1 Nisha Cox RN RN tw2 Cynthia Desir Ronaldo, RN RN Jae Sampson MD MD [id number]
--- NOTE | 2020-11-17 10:05 | EDPHYS ---
Physician Documentation [facility] Name: Kelsea Toussaint Age: 25 yrs Sex: Female : 1995 Arrival Date: 11/17/2020 Time: 04: Bed 2 Private MD: ED Physician Cortez Syed HPI: 11/17 05:16 This 25 yrs old Female presents to ER via Wheelchair with complaints of Knee mh7 Injury. 05:16 The patient presents with an injury. The complaints affect the right knee. Context: The mh7 problem was sustained on a street or driveway, resulted from the patient falling, Lifting someone, the patient is not able to bear weight, the patient is not able to ambulate, Problem is a result from a previous injury: No. Onset: The symptoms/episode began/occurred today. Modifying factors: The symptoms are alleviated by nothing. the symptoms are aggravated by movement, weight bearing. Associated signs and symptoms: Pertinent positives: swelling, Pertinent negatives calf tenderness, fever, nausea, numbness, rash, tingling, vomiting, warmth, weakness. 05:19 Treatment prior to arrival includes: no previous treatment. Severity of symptoms: At mh7 their worst the symptoms were moderate, earlier today, in the emergency department the symptoms are unchanged. 05:19 States that she had been drinking alcohol and lifted someone weighing over 200 lbs then mh7 fell onto her right knee.. 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 - Social history:: Smoking status: Patient denies any tobacco usage or history of. ROS: 05:19 Constitutional: Negative for fever, chills, and weight loss, Eyes: Negative for injury, mh7 pain, redness, and discharge, ENT: Negative for injury, pain, and discharge, Neck: Negative for injury, pain, and swelling, Cardiovascular: Negative for chest pain, palpitations, and edema, Respiratory: Negative for shortness of breath, cough, wheezing, and pleuritic chest pain, Abdomen/GI: Negative for abdominal pain, nausea, vomiting, diarrhea, and constipation, Back: Negative for injury and pain, : Negative for injury, bleeding, discharge, and swelling, Skin: Negative for injury, rash, and discoloration, Neuro: Negative for headache, weakness, numbness, tingling, and seizure, Psych: Negative for depression, anxiety, suicide ideation, homicidal ideation, and hallucinations, Allergy/Immunology: Negative for hives, rash, and allergies, Endocrine: Negative for neck swelling, polydipsia, polyuria, polyphagia, and marked weight changes, Hematologic/Lymphatic: Negative for swollen nodes, abnormal bleeding, and unusual bruising. Exam: 05:34 Head/Face: Normocephalic, atraumatic. Eyes: Pupils equal round and reactive to light, mh7 extra-ocular motions intact. Lids and lashes normal. Conjunctiva and sclera are non-icteric and not injected. Cornea within normal limits. Periorbital areas with no swelling, redness, or edema. Neck: Trachea midline, no thyromegaly or masses palpated, and no cervical lymphadenopathy. Supple, full range of motion without nuchal rigidity, or vertebral point tenderness. No Meningismus. Chest/axilla: Normal chest wall appearance and motion. Nontender with no deformity. No lesions are appreciated. Cardiovascular: Regular rate and rhythm with a normal S1 and S2. No gallops, murmurs, or rubs. Normal PMI, no JVD. No pulse deficits. Respiratory: Lungs have equal breath sounds bilaterally, clear to auscultation and percussion. No rales, rhonchi or wheezes noted. No increased work of breathing, no retractions or nasal flaring. Abdomen/GI: Soft, non-tender, with normal bowel sounds. No distension or tympany. No guarding or rebound. No evidence of tenderness throughout. Back: No spinal tenderness. No costovertebral tenderness. Full range of motion. Skin: Warm, dry with normal turgor. Normal color with no rashes, no lesions, and no evidence of cellulitis. 05:34 Neuro: Awake and alert, GCS 15, oriented to person, place, time, and situation. Cranial nerves II-XII grossly intact. Motor strength 5/5 in all extremities. Sensory grossly intact. Cerebellar exam normal. Normal gait. Psych: Awake, alert, with orientation to person, place and time. Behavior, mood, and affect are within normal limits. 05:34 Constitutional: The patient appears in no acute distress, alert, awake, uncomfortable. 05:34 Musculoskeletal/extremity: Extremities: noted in the right leg and right knee: decreased ROM, pain, swelling, tenderness, ROM: limited active range of motion, in the right leg and right knee, limited active range of motion due to pain, in the right leg and right knee, limited passive range of motion due to pain, in the right leg and right knee, Circulation is intact in all extremities. Pulses: are normal with no appreciated deficits, Perfusion: the patient is normally perfused throughout, Perfusion: the extremity is normally perfused throughout, Calf tenderness, is absent, Edema, is not appreciated, Sensation intact. Compartment Syndrome exam of affected extremity: is normal. no numbness, no tingling, no sensation deficit, no palor, no weak pulses, Joints: the right knee displays limited range of motion, painful range of motion, swelling, tenderness, Weight bearing: is unable to bear weight, Tendon exam: specific tendon testing normal through active and passive range of motion Vital Signs: 04:41 BP 117 / 72; Pulse 106; Resp 16; Temp 98.4; Pulse Ox 97% ; Weight 68.04 kg; Height 5 rv ft. (152.40 cm); Pain 10/10; 05:41 BP 112 / 64; Pulse 131; Resp 19; Pulse Ox 100% on R/A; rv 06:59 BP 103 / 69; Pulse 115; Resp 17; Pulse Ox 100% on R/A; rv 07:55 BP 117 / 73; Pulse 105; Resp 16; Pulse Ox 95% on R/A; tw2 09:05 BP 105 / 60; Pulse 98; Resp 17; Pulse Ox 96% on R/A; tw2 10:22 BP 102 / 71; Pulse 105; Resp 17; Pulse Ox 98% on R/A; tw2 04:41 Body Mass Index 29.29 (68.04 kg, 152.40 cm) rv MDM: 07:13 Patient medically screened. rn 07:13 Differential diagnosis: dislocation, closed fracture, contusion. Data reviewed: vital rn signs, nurses notes, radiologic studies, plain films. Counseling: I had a detailed discussion with the patient and/or guardian regarding: the historical points, exam findings, and any diagnostic results supporting the discharge/admit diagnosis, radiology results. ED course: Signed out to me by Dr. Stone, his plan is to obtain CT angio lower extremity to make sure vasculature ok, and wants to dc home for ortho f/u if CT angio neg.. 10:02 ED course: CT angio leg no acute findings, will dc home per Luis Dsouza's plan with knee rn immobilizer and ortho f/u, non-weight bearing.. 11/17 04:33 Order name: Basic Metabolic Panel [facility] 11/17 04:33 Order name: CBC with Diff; Complete Time: 07:11 [facility] 11/17 04:33 Order name: Type And Screen; Complete Time: 06:16 [facility] 11/17 04:33 Order name: Protime (+inr); Complete Time: 06:16 [facility] 11/17 04:33 Order name: Ptt, Activated; Complete Time: 06:16 [facility] 11/17 04:33 Order name: Test, Serum; Complete Time: 06:16 [facility] 11/17 04:32 Order name: Knee Right 3 View XRAY [facility] 11/17 04:33 Order name: Basic Metabolic Panel; Complete Time: 05:19 [facility] 11/17 05:08 Order name: Tib Fib Right XRAY [facility] 11/17 05:08 Order name: Ankle Right 3 View XRAY [facility] 11/17 05:08 Order name: Foot Right 3 View XRAY [facility] 11/17 05:12 Order name: Manual Differential; Complete Time: 07:11 [facility] 11/17 06:30 Order name: ABO/RH no charge; Complete Time: 07:11 [facility] 11/17 07:08 Order name: Lower Ext Angio [facility] 11/17 04:33 Order name: Labs collected and sent; Complete Time: 04:44 [facility] 11/17 10:20 Order name: Knee Immobilizer; Complete Time: 10:20 tw2 11/17 10:20 Order name: Crutches; Complete Time: 10:20 tw2 Administered Medications: 05:29 Drug: Tylenol 1000 mg Route: PO; rv 05:39 Drug: TORadol 30 mg Route: IVP; Site: right antecubital; rv 06:09 Drug: fentaNYL (PF) 50 mcg {Note: rass 1.} Route: IVP; Site: right antecubital; rv 10:21 Follow up: Response: No adverse reaction; Pain is decreased; RASS: Alert and Calm (0) tw2 06:21 Drug: NS 0.9% 1000 ml Route: IV; Rate: 1000 ml; Site: right antecubital; rv 07:22 Follow up: Response: No adverse reaction; IV Status: Completed infusion; IV Intake: tw2 1000ml Disposition: 11/17/20 10:03 Discharged to Home. Impression: Acute, closed right tibial plateau fracture with minimal depression, Acute, closed right fibular head fracture, nondisplaced.. - Condition is Stable. - Discharge Instructions: Knee Immobilizer, Tibial and Fibular Fracture, Adult, Nondisplaced Tibial Plateau Fracture. - Prescriptions for Tramadol 50 mg Oral Tablet - take 1 tablet by ORAL route every 8 hours as needed; 20 tablet. - Medication Reconciliation Form, Thank You Letter, Antibiotic Education, Prescription Opioid Use, SBAR form form. - Follow up: Renan Calle MD; When: 2 - 3 days; Reason: Recheck today's complaints, Re-evaluation by your physician. - Problem is new. - Symptoms have improved. Signatures: Dispatcher [employer] EDMS Cortez Syed MD MD rn Pena, Laura RN RN lp1 Nisha Cox RN RN tw2 Gino Nair RN RN rv Jae Stone MD MD 7 Corrections: (The following items were deleted from the chart) 10:04 10:03 11/17/2020 10:03 Discharged to Home. Impression: Acute, closed right tibial rn plateau fracture with minimal depression. Condition is Stable. Forms are SBAR form, Medication Reconciliation Form, Thank You Letter, Antibiotic Education, Prescription Opioid Use. Follow up: Dr. Renan Calle; When: 2 - 3 days; Reason: Recheck today's complaints, Re-evaluation by your physician. Problem is new. Symptoms have improved. rn 10:44 10:04 11/17/2020 10:03 Discharged to Home. Impression: Acute, closed right tibial tw2 plateau fracture with minimal depression; Acute, closed right fibular head fracture, nondisplaced.. Condition is Stable. Forms are SBAR form, Medication Reconciliation Form, Thank You Letter, Antibiotic Education, Prescription Opioid Use. Follow up: Dr. Renan Calle; When: 2 - 3 days; Reason: Recheck today's complaints, Re-evaluation by your physician. Problem is new. Symptoms have improved. rn
[2020-11-17 10:48] VITALS: TEMP 98.4
[2020-11-17 10:55] VITALS: BP 102/71; O2SAT 98
--- NOTE | 2020-11-17 11:36 | RAD REPORT ---
EXAM DESCRIPTION: XR Right Knee, 3 Views CLINICAL HISTORY: Trauma TECHNIQUE: Three views of the right knee. COMPARISON: No relevant prior studies available. FINDINGS: Bones/joints: There is acute nondisplaced fracture of the proximal right fibular head. There is a nondisplaced fracture fragment of the medial right tibial metaphysis. No dislocation. Soft tissues: No abnormality noted. IMPRESSION: There are acute fractures of the proximal right fibular head and medial tibial plateau. Electronically signed by: Princess Lin MD 11/17/2020 5:15 AM WOOLEN TESTER Due to temporary technical issues with the PACS/Fluency reporting system, reports are being signed by the in house radiologist without review as a courtesy to ensure prompt reporting. The interpreting r adiologist is fully responsible for the content of the report.
--- NOTE | 2020-11-17 11:38 | RAD REPORT ---
EXAM DESCRIPTION: Tib Fib Right CLINICAL HISTORY: Trauma/pain COMPARISON: None. FINDINGS: 2 views of the right tibia/fibula. Acute minimally displaced fracture of the fibular head. Minimally depressed medial tibial plateau fracture. Normal osseous mineralization. IMPRESSION: 1. Acute minimally displaced fracture of the fibular head. 2. Minimally depressed medial tibial plateau fracture. Electronically signed by: Jatinder Paige 11/17/2020 6:42 AM DIRECTOR NEWS Due to temporary technical issues with the PACS/Fluency reporting system, reports are being signed by the in house radiologist without review as a courtesy to ensure prompt reporting. The interpreting r adiologist is fully responsible for the content of the report.
--- NOTE | 2020-11-17 11:39 | RAD REPORT ---
EXAM DESCRIPTION: Ankle Right 3 View CLINICAL HISTORY: Trauma COMPARISON: None. FINDINGS: 3 views of the right ankle. No acute fracture or dislocation. Normal osseous mineralizatio n. Tibial plafond and talar dome have appropriate alignment. IMPRESSION: Electronically signed by: Jatinder Paige 11/17/2020 6:42 AM STRUCTURAL STEEL IRONWORKER -[id number] Due to temporary technical issues with the PACS/Fluency reporting system, reports are being signed by the in house radiologist without review as a courtesy to ensure prompt reporting. The interpreting r adiologist is fully responsible for the content of the report.
--- NOTE | 2020-11-17 11:40 | RAD REPORT ---
EXAM DESCRIPTION: Foot Right 3 View CLINICAL HISTORY: Trauma COMPARISON: None. FINDINGS: 3 views of the right foot. No acute fracture or dislocation. Normal osseous mineralization . Tarsals and metatarsals appear appropriately aligned. IMPRESSION: 1. No acute fracture or dislocation. Electronically signed by: Jatinder Paige 11/17/2020 6:43 AM MARBLE CEILING INSTALLER Due to temporary technical issues with the PACS/Fluency reporting system, reports are being signed by the in house radiologist without review as a courtesy to ensure prompt reporting. The interpreting r adiologist is fully responsible for the content of the report.
== END 2020-11-17 10:44 | disposition home or self-care (01) ==
LOC: ER 04:21
PROC: 2W3QX1Z Immobilization of Right Lower Leg using Splint (ICD-10-PCS; principal; 2020-11-17)
DX: S82.141A Displaced bicondylar fracture of right tibia, initial encounter for closed fracture (principal); S82.831A Other fracture of upper and lower end of right fibula, initial encounter for closed fracture; W19.XXXA Unspecified fall, initial encounter; Y93.89 Activity, other specified; Y92.89 Other specified places as the place of occurrence of the external cause; Z88.0 Allergy status to penicillin; Z88.1 Allergy status to other antibiotic agents; Z88.5 Allergy status to narcotic agent; Z88.8 Allergy status to other drugs, medicaments and biological substances
CPT/HCPCS: 36415; 73706; 80048; 84703; 85025; 85610; 85730; 86850; 86900; 86901; 96361; 96374; 96375; 99284; J3010; Q9967

== ENCOUNTER 2021-10-31 12:37 | Emergency (ER) | payer SELFPAY ==
--- OUTSIDE RECORDS SUMMARY | 2021-10-31 12:46 | XMS REPORT | Continuity of Care Document ---
:1995 Author Organization [facility] t Address [address] [place] [address] Care Team Providers Name Role Phone UNKNOWN Primary Care Physician Unavailable KELVIN HERNÁNDEZ Attending Clinician Unavailable Naomi GLEASON Attending Clinician Unavailable Kelvin Hernández MD Attending Clinician Summer SHERIFF Attending Clinician Unavailable Michelle Andrews MD Attending Clinician Tanner FITZPATRICK Attending Clinician Unavailable Room, Ortho Cast Attending Clinician Unavailable Doctor Unassigned, Name Attending Clinician Unavailable Tanner Powers Attending Clinician Bree USE R Attending Clinician Sarah CLARKE, M Attending Clinician Unavailable Saad CLARKE, M Attending Clinician Only, Test Attending Clinician Unavailable Ksenia Leon Attending Clinician Unavailable Visit, Nurse Attending Clinician Unavailable Naomi Girard Attending Clinician Shikha MINIATURE SET CONSTRUCTOR, N Attending Clinician Victor Manuel TRIVEDI Attending Clinician Unavailable Bri MEJIAP, R Attending Clinician Ksenia GREGORY Attending Clinician Unavailable BETZY VALDEZ Attending Clinician Unavailable Gina CLARKE, C Attending Clinician Bhargav, Attending Clinician Unavailable Shanna PALOMARES, Hattie Attending Clinician Melodie WING Attending Clinician Unavailable KELVIN HERNÁNDEZ Admitting Clinician Unavailable Kelvin Hernández MD Admitting Clinician Melodie WING Admitting Clinician Unavailable Payers Payer Name Policy Type Policy Number Effective Date Expiration Date S ource PHCS GENERIC [id number] 2020 00:00:00 MEDICAID PENDING PENDING 2021 00:00:00 WEBT[place] [id number] 2020 00:00:00 [place] [id number] 2020 WOMEN 00:00:00 Advance Directives Directive Decision Effective Termination Comments Source Date Date Healthcare Agents on N/A [facility] FileNameRelationshipHealthcare [facility] Agent Medical RelationshipCommunicationMercedes Zearing Bhavna [facility] Care [phone] (Mobile) m Problems Condition Condition Condition Status Onset Resolution Last Treating Co mments Source Name Details Category Date Date Treatment Clinician Date Derangemen Derangemen Disease Active Overview : Univers t of right t of right 507 Formattin ity of knee knee 00:00: g of this [place] ligament ligament 00 note Medica l might be Branch different from the original. Added automatic ally from request for surgery [id number] Closed Closed Disease Active Overview: Univer s fracture fracture 12-16 Formattin ity of of right of right 00:00: g of this [place] tibial tibial 00 note Medical plateau, plateau, might be Bran ch initial initial different encounter encounter from the original. Added automatic ally from request for surgery [id number] Knee Knee Disease Active Univers dislocatio dislocatio 12-16 it y of n, right, n, right, 00:00: [place] initial initial 00 Medical encounter encounter Bran ch Right knee Right knee Disease Active Overview : Univers pain, pain, 3-09 Formattin ity of unspecifie unspecifie 00:00: g of this [place] d d 00 note Medical chronicity chronicity might be Branch different from the original. Added automatic ally from request for surgery [id number] Over Over Disease Active Univers weight weight 8-10 ity of 00:00: [place] 00 Medical Branch Pain Pain Disease Active Univers pelvic pelvic 8-10 ity of 00:00: [place] 00 Medical Branch History of History of Disease Active U nivers chlamydia chlamydia 4-04 ity of 00:00: [place] [facility] Branch History of History of Disease Active U nivers depression depression 4-04 it y of 00:00: [place] 00 Medical Branch History of History of Disease Active U nivers anxiety anxiety 4-04 ity of 00:00: [place] 00 Medical Branch History of History of Disease Active Overview : Univers suicide suicide 4-04 Formattin ity o f attempt attempt 00:00: g of this [place] 00 note Medical might be Branch different from the original. 2017 with Tylenol overdose Right Right Disease Active Univers ovarian ovarian 4-04 ity of cyst cyst 00:00: [place] 00 Medical Branch Screening Screening Disease Active Uni vers examinatio examinatio 06-17 it y of n for STD n for STD 00:00: [place] renee (sexually (sexually 00 Medi nancy transmitte transmitte Br anch d disease) d disease) Disease Resolve 2018-12-28 2018-12-28 Univers labor in labor in d 5-14 00:00:00 20:15:13 it y of third third 00:00: [place] trimester trimester 00 Medi nancy without without Branch delivery delivery Non-stress Non-stress Disease Resolve 2018-12-28 2018-12-28 Univers test test d 5-11 00:00:00 20:15:10 ity of nonreactiv nonreactiv 00:00: [place] 00 Medical Branch Chlamydia Chlamydia Disease Resolve 2018-12-28 2018-12-28 Univers infection infection d 5-10 00:00:00 20:15:02 it[place] of affecting affecting 00:00[place]ancy in third in third Branch trimester, trimester, antepartum antepartum Threatened Threatened Disease Resolve 20182018-12-28 2018-12-28 Univers premature premature d 5-10 00:00:00 20:15:21 ity of labor labor 00:00: [place] complicati complicati 00 Me dical ng ng Branch , , less than less than 37 weeks, 37 weeks, antepartum antepartum , third , third trimester trimester 30 weeks 30 weeks Disease Resolve 20182018-12-28 2018-12-28 Univers gestation gestation d 5-10 00:00:00 20:14:55 ity of of of 00:00: [place] 00 Medi nancy Branch Yeast Yeast Disease Resolve 2018-12-28 2018-12-28 Univers infection infection d 5-10 00:00:00 20:15:27 ity of 00:00: [place] 00 Medical Branch Disease Resolve 2018-12-28 2018-12-28 Univers heart heart d 5-10 00:00:00 20:15:08 ity of rate/rhyth rate/rhyth 00:00: [place] m m 00 Medical abnormalit abnormalit Br anch y y affecting affecting management management of mother of mother Ovarian Ovarian Disease Resolve 2018-12-28 2018-12-28 Univers cyst in cyst in d 5-10 00:00:00 20:16:29 [place] of 00:[place]: [place] Anemia of Anemia of Disease Resolve 2018-12-28 2018-12-28 Univers mother in mother in d 4-26 00:00:00 20:14:59 ity of , , 00:00: [place] antepartum antepartum 00 Me dictn Branch Chlamydia Chlamydia Disease Resolve 2018-12-28 2018-12-28 Univers d 3-28 00:00:00 20:15:03 ity of 00:00: [place] 00 Medical Branch Supervisio Supervisio Disease Resolve 2018-12-28 2018-12-28 Univers n of high n of high d 3-27 00:00:00 20:15:19 ity of risk risk 00:00: [place] , , 00 Me dical antepartum antepartum Br anch , third , third trimester trimester Missed Missed Disease Resolve 2018-12-28 2018-12-28 Univers menses menses d 3-27 00:00:00 20:14:57 ity of 00:00: [place] 00 Medical Branch Tylenol Tylenol Disease Resolve 2018-12-28 2018-12-28 Univers overdose, overdose, d 01-24 00:00:00 20:15:25 ity of intentiona intentiona 00:00: [place] 00 Medical self-harm, self-harm, Br anch initial initial encounter encounter 34 weeks 34 weeks Disease Resolve 2018-12-27 2018-12-27 Univers gestation gestation d 6-12 00:00:00 21:41:55 ity of of of 00:00: [place] 00 [facility] Branch Disease Resolve 2018-12-27 2018-12-27 Univers labor in labor in d 6-12 00:00:00 21:41:55 it y of third third 00:00: [place] trimester trimester 00 [facility] with with Branch delivery, delivery, fetus 1 fetus 1 Liveborn Liveborn Disease Resolve 2018-12-27 2018-12-27 Univers infant by infant by d 6-12 00:00:00 21:41:55 ity of vaginal vaginal 00:00: [place] delivery delivery 00 Medica l Branch Precipitou Precipitou Disease Resolve 2018-12-27 2018-12-27 Univers s s d 6-12 00:00:00 21:41:55 ity of delivery, delivery, 00:00[place] delivered delivered 00 [facility] (current [facility] ation) Multiparit Multiparit Disease Resolve 2018-02-02 2018-02-02 Univers y y d 3 00:00:00 15:15:19 ity of 00:00: [place] 00 Medical Branch Disease Resolve 2017-06-17 2017-06-17 Univers care and care and d 05-09 00:00:00 16:24:53 it y of examinatio examinatio 00:00: [place] n of n of 00 Medical lactating lactating Bran ch mother mother Anemia of Anemia of Disease Resolve 2017-06-17 2017-06-17 Univers mother in mother in d 8-14 00:00:00 16:24:52 ity of , , 00:00: [place] 00 Me dical condition condition Bran ch Chlamydia Chlamydia Disease Resolve 2015-092017-06-17 2017-06-17 Univers infection infection d 2-20 00:00:00 16:25:00 ity of affecting affecting 00:00: [place] 00 [facility] 40 weeks 40 weeks Disease Resolve 2017-05-09 2017-05-09 Univers gestation gestation d 7-24 00:00:00 20:05:17 ity of of of 00:00: [place] 00 [facility] Research Research Disease Resolve 2017-05-09 2017-05-09 Univers study study d 7- 00:00:00 20:05:13 ity of patient: patient: 00:00: [place] ARRIVE- ARRIVE- 00 Medical Expectant Expectant Bran ch Managment Managment Arm Arm Pain of Pain of Disease Resolve 2017-05-09 2017-05-09 Univers round round d 7-05 00:00:00 20:05:23 ity of ligament ligament 00:00: [place] affecting affecting 00 [facility] , , Br anch antepartum antepartum Anemia of Anemia of Disease Resolve 2017-05-09 2017-05-09 Univers mother in mother in d 5-24 00:00:00 20:05:10 ity of , , 00:00: [place] antepartum antepartum 00 Me dical Branch 28 weeks 28 weeks Disease Resolve 2017-05-09 2017-05-09 Univers gestation gestation d 5-02 00:00:00 20:05:00 ity of of of 00:00: [place] 00 [facility] Maternal Maternal Disease Resolve 2017-05-09 2017-05-09 Univers mental mental d 5-02 00:00:00 20:05:06 ity of disorder, disorder, 00:00[place] antepartum antepartum 00 Me dical , third , third Branch trimester trimester Ovarian Ovarian Disease Resolve 2017-05-09 2017-05-09 Univers cyst cyst d 1-13 00:00:00 20:04:53 ity of affecting affecting 00:00: [place] , , 00 Me dical antepartum antepartum Br anch Supervisio Supervisio Disease Resolve 2015-092017-05-09 2017-05-09 Univers n of n of d 11-11 00:00:00 20:05:20 ity of high-risk high-risk 00:00: [place] 00 Medi nancy with with Branch insufficie insufficie nt nt care care Flu Flu Disease Resolve 2015-092017-05-09 2017-05-09 Univers vaccine vaccine d 11-11 00:00:00 20:04:57 ity of need need 00:00: [place] 00 Medical Branch Suicide Suicide Disease Resolve 2017-04-18 2017-04-18 Univers d 01-25 00:00:00 23:20:39 ity of 00:00: [place] 00 Medical Branch Bruise Bruise Disease Resolve 2014-092016-09-10 2016-09-10 Univers d 10-15 00:00:00 21:44:36 ity of 00:00: [place] 00 Medical Branch Surveillan Surveillan Disease Resolve 2016-09-10 2016-09-10 Univers ce of ce of d 05-16 00:00:00 21:44:38 ity of previously previously 00:00[place] prescribed prescribed 00 Me dical contracept contracept Br anch rose method rose method Breakthrou Breakthrou Disease Resolve 2016-09-10 2016-09-10 Univers gh gh d 05-16 00:00:00 21:44:33 ity of bleeding bleeding 00:00: [place] on on 00 Medical Nexplanon Nexplanon Bran ch Nexplanon Nexplanon Disease Resolve 2016-09-10 2016-09-[address] d 05-16 00:00:00 21:44:37 it y of 00:00: [place] 00 Medical Branch Anemia Anemia Disease Resolve 2016-09-10 2016-09-10 Univers d 05-16 00:00:00 21:44:35 ity of 00:00: [place] 00 Medical Branch Allergies, Adverse Reactions, Alerts Allergy Allergy Status Severity Reaction(s) Onset Inactive Treating Comm ents Source Name Type Date Date Clinician MORPHINE DRUG Active Anaphylaxis Uni vers INGREDI 03-09 ity of 00:00: [place] 00 Medical Branch PROMETHA DRUG Active Anaphylaxis Uni vers ZINE INGREDI 6-14 ity of 00:00: [place] 00 Medical Branch Morphine Propensi Active Anaphylaxis 2017-0 U nivers ty to 6-14 ity of adverse 00:00: [place] reaction 00 Medical s Branch Prometha Propensi Active Anaphylaxis 2017-0 U nivers zine ty to 614 ity of adverse 00:00: [place] reaction 00 Medical s Branch CODEINE DRUG Active Anaphylaxis 2014-0 Univ ers INGREDI 04-03 ity of 00:00: [place] 00 Medical Branch PENICILL Drug Active Rash 2014-0 Univers INS Class 04-03 ity of 00:00: [place] 00 Medical Branch Codeine Propensi Active Anaphylaxis 2015-0 Un jose ty to 04-03 ity of adverse 00:00: [place] reaction 00 Medical s Branch Penicill Propensi Active Rash 2014-0 Univer s ins ty to 04-03 ity of adverse 00:00: [place] reaction 00 Medical s Branch Social History Social Habit Start Date Stop Date Quantity Comments Source Exposure to Not sure [facility] SARS-CoV-2 [place] Medical (event) Branch Alcohol intake 2021-04-23 2021-04-23 Current drinker Unive rsity of 00:00:00 00:00:00 of alcohol [place] Medical (finding) Branch Tobacco use and 2021-04-23 2021-04-23 Never used Universit y of exposure 00:00:00 00:00:00 [place] [facility] History SDOH 2020-05-05 2020-05-05 3 University o f Alcohol Frequency 00:00:00 00:00:00 [place] M edical Branch History SDOH 2020-05-05 2020-05-05 3 University o f Alcohol Std 00:00:00 00:00:00 [place] Medical Drinks Branch History SDKY 2020-05-05 2020-05-05 99 University o f Alcohol Binge 00:00:00 00:00:00 [place] Medic al Branch Alcohol Comment 2016-09-10 2016-09-10 before she found Uni versity of 00:00:00 00:00:00 out she was [place] [facility] History of 2014-09-10 Smoker University of tobacco use 00:00:00 [facility] Branch Sex Ass[birth year] Universit y of 00:00:00 00:00:00 [place] [facility] Smoking Status Start Date Stop Date Source Former smoker 2021-04-23 00:00:00 2021-04-23 00:00:00 [facility] Medical Branch Medications Ordered Filled Start Stop Current Ordering Indication Dosage Frequency Signature Comments Components Source Medication Medication Date Date Medication? Clinician (SIG) Name Name HYDROcodone 2020- No 1{tbl} 1 tablet, Univers -acetaminop 02-03 Oral, ity of hen (NORCO 19:00: 19:38 ONCE, 1 [place] 5) 5-325 mg 00 :00 dose, Tue Med ical tablet 1 02/03/21 at Branc h tablet 1400, Routine, PACU HYDROcodone 2020- No 1{tbl} 1 tablet, Univers -acetaminop 02-03 Oral, ity of hen (NORCO 19:00: 19:38 ONCE, 1 [place] 5) 5-325 mg 00 :00 dose, Tue Med ical tablet 1 02/03/21 at Bran h tablet 1400, Routine, PACU HYDROmorpho Yes .2mg 0.2 mg, Uni vers ne 02-03 Slow IV ity of (DILAUDID) 18:57: Push, [place] injection 00 Q5MIN PRN, Medi nancy 0.2 mg 10 doses, Branch Starting Tue02/03/21 at 1357, Until Discontinu ed, Routine, Pain (scale 7-10), PACU
Us e approved by (Faculty): PACU USE -ANESTHESI A SERVICE-HY DROMORPHON E INJECTIONS ondansetron Yes 4mg 4 mg, Slow Univers (ZOFRAN 02-03 IV Push, ity of (PF)) 18:57: PRN, 1 [place] injection 4 00 dose, Medical mg Starting Branch Tue02/03/21 at 1357, Until Discontinu ed, Routine, Nausea and Vomiting (N/V), PACU acetaminoph No 1000mg 1,000 mg, Univers en ADULT 02-0312 IV ity of (OFIRMEV) 18:57: 18:56 Infusion, [place] injection 00 :00 Administer Medi nancy 1,000 mg over 15 Branch Minutes, Q6HPRN, Starting Tue02/03/21 at 1357, Until 02/04/21 at 1356, Routine, Pain (scale 4-6), PACU
In dication: Perioperat rose Patient acetaminoph 2020- No 1000mg 1,000 mg, Univers en ADULT 02-03 IV ity of (OFIRMEV) 18:57: 22:30 [place]fusion, [place] injection 00 :38 Administer Medi nancy 1,000 mg over 15 Branch Minutes, Q6HPRN, Starting Tue02/03/21 at 1357, Until Tue02/03/21 at 1730, Routine, Pain (scale 4-6), PACU
In dication: Perioperat rose Patient HYDROmorpho 2020- No .2mg 0.2 mg, Un jose ne 02-03 Slow IV ity of (DILAUDID) 18:57: 22:30 Push, [place] injection 00 :38 Q5MIN PRN, Medi nancy 0.2 mg 10 doses, Branch Starting Tue02/03/21 at 1357, Until Tue02/03/21 at 1730, Routine, Pain (scale 7-10), PACU
Us e approved by (Faculty): PACU USE -ANESTHESI A SERVICE-HY DROMORPHON E INJECTIONS ondansetron 2020- No 4mg 4 mg, Slow Univers (ZOFRAN 02-03 IV Push, ity of (PF)) 18:57: 22:30 PRN, 1 [place] injection 4 00 :38 dose, Medical mg Starting Branch Tue02/03/21 at 1357, Until Tue02/03/21 at 1730, Routine, Nausea and Vomiting (N/V), PACU FENTanyl PF Yes 25ug 25 mcg, Uni vers (SUBLIMAZE 02-03 Slow IV ity of (PF)) 18:56: Push, [place] injection 59 Q5MIN PRN, Medi nancy 25 mcg 4 doses, Branch Starting Tue02/03/21 at 1356, Until Discontinu ed, Routine, Pain (scale 4-6), PACU FENTanyl PF 2020- No 25ug 25 mcg, Un jose (SUBLIMAZE 02-03 Slow IV ity o f (PF)) 18:56: 22:30 Push, [place] injection 59 :38 Q5MIN PRN, Medi nancy 25 mcg 4 doses, Branch Starting Tue02/03/21 at 1356, Until Tue02/03/21 at 1730, Routine, Pain (scale 4-6), PACU lactated 2020- No 1000mL at 42 Unive rs ringers IV 5-11 05-11 mL/hr, ity of infusion 17:00: 17:52 1,000 mL, [place] 1,000 mL 00 :00 IV Medical Infusion, Branch ONCE, 1 dose, Tue02/03/21 at 1200, Routine, DSU Pre-op lactated 2020- No 1000mL at 42 Unive rs ringers IV 5-11 05-11 mL/hr, ity of infusion 17:00: 17:52 1,000 mL, [place] 1,000 mL 00 :00 IV Medical Infusion, Branch ONCE, 1 dose, Tue02/03/21 at 1200, Routine, DSU Pre-op methocarbam 2020-0 Yes [id number] 500mg Take 1 Univers oL 500 mg 5-11 [id number] tablet by ity of tablet 00:00: mouth (four) Medical times Branch daily. ketorolac 2020-0 Yes [id number] 10mg Take 1 Un jose 10 mg 5-11 tablet by ity of tablet 00:00: mouth 00 every 8 Medical (eight) Branch hours. methocarbam 2020-0 Yes [id number] 500mg Take 1 Univers oL 500 mg 5-11 [id number] tablet by ity of tablet 00:00: mouth (four) Medical times Branch daily. ketorolac 2020-0 Yes [id number] 10mg Take 1 Un jose 10 mg 5-11 tablet by ity of tablet 00:00: mouth 00 every 8 Medical (eight) Branch hours. methocarbam 2021-0 Yes [id number] 500mg Take 1 Univers oL 500 mg 5-11 [id number] tablet by ity of tablet 00:00: mouth 4 (four) Medical times Branch daily. ketorolac 2021-0 Yes [id number] 10mg Take 1 Un jose 10 mg 5-11 tablet by ity of tablet 00:00: [place] 00 every 8 Medical (eight) Branch hours. methocarbam 2021-0 Yes [id number] 500mg Take 1 Univers oL 500 mg 5-11 [id number] tablet by ity of tablet 00:00: mouth 4 (four) Medical times Branch daily. ketorolac 1-0 Yes [id number] 10mg Take 1 Un jose 10 mg 5-11 tablet by ity of tablet 00:00: mouth [place] 00 every 8 Medical (eight) Branch hours. methocarbam 2021-0 Yes [id number] 500mg Take 1 Univers oL 500 mg 5-11 [id number] tablet by ity of tablet 00:00: mouth 4 (four) Medical times Branch daily. ketorolac 2021-0 Yes [id number] 10mg Take 1 Un jose 10 mg 5-11 tablet by ity of tablet 00:00: mouth [place] 00 every 8 Medical (eight) Branch hours. methocarbam 2020-0 Yes [id number] 500mg Take 1 Univers oL 500 mg 5-11 [id number] tablet by ity of tablet 00:00: mouth (four) Medical times Branch daily. ketorolac 2020-0 Yes [id number] 10mg Take 1 Un jose 10 mg 5-11 tablet by ity of tablet 00:00: mouth [place] 00 every 8 Medical (eight) Branch hours. methocarbam 2020-0 Yes [id number] 500mg Take 1 Univers oL 500 mg 5-11 [id number] tablet by ity of tablet 00:00: mouth (four) Medical times Branch daily. ketorolac 2021-0 Yes [id number] 10mg Take 1 Un jose 10 mg 5-11 tablet by ity of tablet 00:00: mouth [place] 00 every 8 Medical (eight) Branch hours. methocarbam 1-0 Yes [id number] 500mg Take 1 Univers oL 500 mg 5-11 [id number] tablet by ity of tablet 00:00: mouth (four) Medical times Branch daily. ketorolac 2021-0 Yes [id number] 10mg Take 1 Un jose 10 mg 5-11 tablet by ity of tablet 00:00: mouth [place] 00 every 8 Medical (eight) Branch hours. methocarbam 2021-0 Yes [id number] 500mg Take 1 Univers oL 500 mg 5-11 [id number] tablet by ity of tablet 00:00: mouth 4 [place] 00 (four) Medical times Branch daily. ketorolac 2021-0 Yes [id number] 10mg Take 1 Un jose 10 mg 5-11 tablet by ity of tablet 00:00: mouth 00 every 8 Medical (eight) Branch hours. methocarbam 2021-0 Yes [id number] 500mg Take 1 Univers oL 500 mg 5-11 [id number] tablet by ity of tablet 00:00: mouth (four) Medical times Branch daily. ketorolac 2021-0 Yes [id number] 10mg Take 1 Un jose 10 mg 5-11 tablet by ity of tablet 00:00: [place] 00 every 8 Medical (eight) Branch hours. methocarbam 2021-0 Yes [id number] 500mg Take 1 Univers oL 500 mg 5-11 [id number] tablet by ity of tablet 00:00: mouth (four) Medical times Branch daily. ketorolac 1-0 Yes [id number] 10mg Take 1 Un jose 10 mg 5-11 tablet by ity of tablet 00:00: mouth every 8 Medical (eight) Branch hours. methocarbam 1-0 Yes [id number] 500mg Take 1 Univers oL 500 mg 5-11 [id number] tablet by ity of tablet 00:00: mouth (four) Medical times Branch daily. ketorolac 1-0 Yes [id number] 10mg Take 1 Un jose 10 mg 5-11 tablet by ity of tablet 00:00: [place] 00 every 8 Medical (eight) Branch hours. methocarbam 2021-0 Yes [id number] 500mg Take 1 Univers oL 500 mg 5-11 [id number] tablet by ity of tablet 00:00: mouth (four) Medical times Branch daily. ketorolac 2021-0 Yes [id number] 10mg Take 1 Un jose 10 mg 5-11 tablet by ity of tablet 00:00: mouth 00 every 8 Medical (eight) Branch hours. methocarbam 2021-0 Yes [id number] 500mg Take 1 Univers oL 500 mg 5-11 [id number] tablet by ity of tablet 00:00: mouth (four) Medical times Branch daily. ketorolac 2021-0 Yes [id number] 10mg Take 1 Un jose 10 mg 5-11 tablet by ity of tablet 00:00: mouth [place] 00 every 8 Medical (eight) Branch hours. methocarbam Yes [id number] 500mg Take 1 Univers oL 500 mg 5-11 [id number] tablet by ity of tablet 00:00: mouth 4 [place] 00 (four) Medical times Branch daily. ketorolac Yes [id number] 10mg Take 1 Un jose 10 mg 5-11 tablet by ity of tablet 00:00: mouth [place] 00 every 8 Medical (eight) Branch hours. cephALEXin 2020- No 500mg 500 mg, Un jose (KEFLEX) 01-14 Oral, ONCE ity of capsule 500 08:00: 07:06 NOW, 1 [place] mg 00 :00 dose, Tue Medical 01/14/21 at Branch 0300, DEVIN
Re ason for Anti-Infec tive: Empiric Therapy for Suspected Infection< br>Empiric Therapy Site: Skin / Soft tissue
Duration of therapy: 72 hours acetaminoph 2020- No 1{tbl} 1 tablet, [facility] en-codeine 01-14 Oral, ity of (TYLENOL 07:30: 06:25 ONCE, 1 [place] #3) 300-30 00 :00 dose, Tue Medi nancy mg tablet 1 01/14/21 at anch tablet 0230, DEVIN acetaminoph 2020- No 650mg 650 mg, U nivers en 01-14 Oral, ity of (TYLENOL) 05:15: 04:17 ONCE, 1 [place] tablet 650 00 :00 dose, Tue Medi nancy mg 01/14/21 at Branch 0015, DEVIN ketorolac 2020- No 15mg 15 mg, Unive rs (TORADOL) 01-14 Slow IV ity of injection 05:15: 04:40 Push, [place] 15 mg 00 :00 ONCE, 1 Medical dose, [facility] Branch 01/14/21 at 0015, DEVIN
Fa culty member approving Restricted medication : CHRISTINA BRITT cephALEXin 2020- No [id number] 500mg Take 1 Univers 500 mg 01-14 capsule by ity of capsule 00:00: 04:59 mouth 4 [place] 00 :00 (four) Medical times Branch daily for 7 days. acetaminoph 2020- No [id number] 1{tbl} Take 1 U nivers en-codeine 4-21 04-29 tablet by ity of 300-30 mg 00:00: 04:59 mouth [place] tablet 00 :00 every 6 Medical (six) Branch hours as needed for Pain (scale 7-10) for up to 7 days. Indication s: acute pain cephALEXin No [id number] 500mg Take 1 Univers 500 mg 4-21 -29 capsule by ity of capsule 00:00: 04:59 mouth 4 [place] 00 :00 (four) Medical times Branch daily for 7 days. acetaminoph 2020- No [id number] 1{tbl} Take 1 U nivers en-codeine 4-21 -29 tablet by ity of 300-30 mg 00:00: 04:59 mouth [place] tablet 00 :00 every 6 Medical (six) Branch hours as needed for Pain (scale 7-10) for up to 7 days. Indication s: acute pain cephALEXin No [id number] 500mg Take 1 Univers 500 mg 4-21 -29 capsule by ity of capsule 00:00: 04:59 mouth 4 [place] 00 :00 (four) Medical times Branch daily for 7 days. acetaminoph 2020- No [id number] 1{tbl} Take 1 U nivers en-codeine 4-21 -29 tablet by ity of 300-30 mg 00:00: 04:59 mouth [place] tablet 00 :00 every 6 Medical (six) Branch hours as needed for Pain (scale 7-10) for up to 7 days. Indication s: acute pain cephALEXin No [id number] 500mg Take 1 Univers 500 mg 4-21 -29 capsule by ity of capsule 00:00: 04:59 mouth 4 [place] 00 :00 (four) Medical times Branch daily for 7 days. acetaminoph 2020- No [id number] 1{tbl} Take 1 U nivers en-codeine 4-21 04-29 tablet by ity of 300-30 mg 00:00: 04:59 mouth [place] tablet 00 :00 every 6 Medical (six) Branch hours as needed for Pain (scale 7-10) for up to 7 days. Indication s: acute pain traMADoL 50 2020-0 2020- No [id number] 50mg Take 1 Uni vers mg tablet 01-01-16 tablet by ity of 00:00: 04:59 mouth [place] 00 :00 every 6 Medical (six) Branch hours as needed for Pain (scale 7-10) for up to 7 days. Indication s: acute pain traMADoL 50 2020-0 1- No [id number] 50mg Take 1 Uni vers mg tablet 01-01-16 tablet by ity of 00:00: 04:59 mouth [place] 00 :00 every 6 Medical (six) Branch hours as needed for Pain (scale 7-10) for up to 7 days. Indication s: acute pain aspirin 325 2020-0 Yes Closed 325mg Take 1 U nivers mg tablet 3-27 fracture of tablet by ity of 00:00: right mouth [place] 00 tibial daily. [facility] initial encounter aspirin 325 2020-0 Yes Closed 325mg Take 1 U nivers mg tablet 3-27 fracture of tablet by ity of 00:00: right mouth [place] 00 tibial daily. [facility] initial encounter aspirin 325 2020-0 Yes Closed 325mg Take 1 U nivers mg tablet 3-27 fracture of tablet by ity of 00:00: right mouth [place] 00 tibial daily. [facility] initial encounter aspirin 325 2020-0 Yes Closed 325mg Take 1 U nivers mg tablet 3-27 fracture of tablet by ity of 00:00: right mouth [place] 00 tibial daily. [facility] initial encounter aspirin 325 2020-0 Yes [id number] 325mg Take 1 Univers mg tablet 3-27 [id number] tablet by ity of 00:00: mouth [place] 00 daily. [facility] Branch aspirin 325 2020-0 Yes [id number] 325mg Take 1 Univers mg tablet 3-27 [id number] tablet by ity of 00:00: mouth [place] 00 daily. [facility] Branch aspirin 325 2020-0 Yes [id number] 325mg Take 1 Univers mg tablet 3-27 [id number] tablet by ity of 00:00: mouth [place] 00 daily. [facility] Branch aspirin 325 2020-0 Yes [id number] 325mg Take 1 Univers mg tablet 3-27 [id number] tablet by ity of 00:00: mouth [place] 00 daily. Medical Branch aspirin 325 2020-0 Yes [id number] 325mg Take 1 [facility] mg tablet 3- 376066 tablet by ity of 00:00: mouth [place] 00 daily. Medical Branch aspirin 325 2020-0 Yes [id number] 325mg Take 1 [facility] mg tablet 3-27 [id number] tablet by ity of 00:00: mouth [place] 00 daily. Medical Branch aspirin 325 2020-0 Yes [id number] 325mg Take 1 [facility] mg tablet 3- 408190 tablet by ity of 00:00: mouth [place] 00 daily. Medical Branch aspirin 325 2020-0 Yes [id number] 325mg Take 1 [facility] mg tablet 3- 657767 tablet by ity of 00:00: mouth [place] 00 daily. Medical Branch aspirin 325 2020-0 Yes [id number] 325mg Take 1 [facility] mg tablet 3- 770694 tablet by ity of 00:00: mouth [place] 00 daily. Medical Branch aspirin 325 2020-0 Yes [id number] 325mg Take 1 [facility] mg tablet 3 [id number] tablet by ity of 00:00: mouth [place] 00 daily. Medical Branch aspirin 325 2020-0 Yes [id number] 325mg Take 1 [facility] mg tablet 3 193388 tablet by ity of 00:00: mouth [place] 00 daily. Medical Branch aspirin 325 2020-0 Yes [id number] 325mg Take 1 [facility] mg tablet 3- 094307 tablet by ity of 00:00: mouth [place] 00 daily. Medical Branch aspirin 325 2020-0 Yes [id number] 325mg Take 1 [facility] mg tablet 3 [id number] tablet by ity of 00:00: mouth [place] 00 daily. Medical Branch aspirin 325 2020-0 Yes [id number] 325mg Take 1 [facility] mg tablet 3- 407133 tablet by ity of 00:00: mouth [place] 00 daily. Medical Branch aspirin 325 2020-0 2020- No [id number] 325mg Take 1 [facility] mg tablet 12-20 [id number] tablet by it y of 00:00: 00:00 mouth [place] 00 :00 daily. Medical Branch aspirin 325 2020-0 2021- No [id number] 325mg Take 1 [facility] mg tablet 12-20 [id number] tablet by it y of 00:00: 00:00 mouth [place] 00 :00 daily. Medical Branch gabapentin 2020-0 Yes Closed 100mg Take 1 Un jose 100 mg 3-26 fracture of capsule by ity of capsule 00:00: right mouth tibial (three) Medical plateau, times Branch initial daily. encounter methocarbam 2020-0 Yes Closed 500mg Take 1 U nivers oL 500 mg 3-26 fracture of tablet by ity of tablet 00:00: right mouth tibial (four) Medical plateau, times Branch initial daily. encounter gabapentin 2020-0 Yes Closed 100mg Take 1 Un jose 100 mg 3-26 fracture of capsule by ity of capsule 00:00: right mouth tibial (three) Medical plateau, times Branch initial daily. encounter methocarbam 2020-0 Yes Closed 500mg Take 1 U nivers oL 500 mg 3-26 fracture of tablet by ity of tablet 00:00: right mouth tibial (four) Medical plateau, times Branch initial daily. encounter gabapentin 2020- Yes Closed 100mg Take 1 Un jose 100 mg 3-26 fracture of capsule by ity of capsule 00:00: right mouth tibial (three) Medical plateau, times Branch initial daily. encounter methocarbam 2020-0 Yes Closed 500mg Take 1 U nivers oL 500 mg 3-26 fracture of tablet by ity of tablet 00:00: right mouth tibial (four) Medical plateau, times Branch initial daily. encounter gabapentin 2020-0 Yes Closed 100mg Take 1 Un jose 100 mg 3-26 fracture of capsule by ity of capsule 00:00: right mouth tibial (three) Medical plateau, times Branch initial daily. encounter methocarbam 2020-0 Yes Closed 500mg Take 1 U nivers oL 500 mg 3-26 fracture of tablet by ity of tablet 00:00: right mouth tibial (four) Medical plateau, times Branch initial daily. encounter gabapentin 2020-0 Yes [id number] 100mg Take 1 [facility] 100 mg 3-26 [id number] capsule by ity o f capsule 00:00: mouth (three) Medical times Branch daily. gabapentin 2020-0 Yes [id number] 100mg Take 1 Univers 100 mg 3-26 [id number] capsule by ity o f capsule 00:00: mouth (three) Medical times Branch daily. gabapentin 202-0 Yes [id number] 100mg Take 1 Univers 100 mg 3-26 [id number] capsule by ity o f capsule 00:00: mouth 3 (three) Medical times Branch daily. gabapentin 202-0 Yes [id number] 100mg Take 1 Univers 100 mg 3-26 [id number] capsule by ity o f capsule 00:00: mouth 3 (three) Medical times Branch daily. gabapentin 2020-0 Yes [id number] 100mg Take 1 Univers 100 mg 3-26 [id number] capsule by ity o f capsule 00:00: mouth 3 (three) Medical times Branch daily. gabapentin 2020-0 Yes [id number] 100mg Take 1 Univers 100 mg 3-26 [id number] capsule by ity o f capsule 00:00: mouth 3 (three) Medical times Branch daily. gabapentin 2020-0 Yes [id number] 100mg Take 1 Univers 100 mg 3-26 [id number] capsule by ity o f capsule 00:00: mouth (three) Medical times Branch daily. gabapentin 2020-0 Yes [id number] 100mg Take 1 Univers 100 mg 3-26 [id number] capsule by ity o f capsule 00:00: mouth (three) Medical times Branch daily. gabapentin 2020-0 Yes [id number] 100mg Take 1 Univers 100 mg 3-26 [id number] capsule by ity o f capsule 00:00: mouth (three) Medical times Branch daily. gabapentin 2020-0 Yes [id number] 100mg Take 1 Univers 100 mg 3-26 [id number] capsule by ity o f capsule 00:00: mouth (three) Medical times Branch daily. gabapentin 2020-0 Yes [id number] 100mg Take 1 Univers 100 mg 3-26 [id number] capsule by ity o f capsule 00:00: mouth 3 (three) Medical times Branch daily. gabapentin 2020-0 Yes [id number] 100mg Take 1 Univers 100 mg 3-26 [id number] capsule by ity o f capsule 00:00: mouth 3 (three) Medical times Branch daily. methocarbam 2021-0 Yes [id number] 500mg Take 1 Univers oL 500 mg 3-26 [id number] tablet by ity of tablet 00:00: mouth 4 (four) Medical times Branch daily. gabapentin 202-0 Yes [id number] 100mg Take 1 Univers 100 mg 3-26 [id number] capsule by ity o f capsule 00:00: mouth (three) Medical times Branch daily. methocarbam 202-0 Yes [id number] 500mg Take 1 Univers oL 500 mg 3-26 [id number] tablet by ity of tablet 00:00: mouth (four) Medical times Branch daily. gabapentin 2020-0 Yes [id number] 100mg Take 1 Univers 100 mg 3-26 [id number] capsule by ity o f capsule 00:00: mouth (three) Medical times Branch daily. methocarbam 2020-0 Yes [id number] 500mg Take 1 Univers oL 500 mg 3-26 [id number] tablet by ity of tablet 00:00: mouth (four) Medical times Branch daily. gabapentin 2020-0 Yes [id number] 100mg Take 1 [facility] 100 mg 3-26 [id number] capsule by ity o f capsule 00:00: mouth (three) Medical times Branch daily. methocarbam 2020-0 Yes [id number] 500mg Take 1 Univers oL 500 mg 3-26 [id number] tablet by ity of tablet 00:00: mouth (four) Medical times Branch daily. gabapentin 2020-0 Yes [id number] 100mg Take 1 [facility] 100 mg 3-26 [id number] capsule by ity o f capsule 00:00: mouth (three) Medical times Branch daily. methocarbam 2020-0 Yes [id number] 500mg Take 1 Univers oL 500 mg 3-26 [id number] tablet by ity of tablet 00:00: mouth (four) Medical times Branch daily. gabapentin 2020-0 Yes [id number] 100mg Take 1 Univers 100 mg 3-26 [id number] capsule by ity o f capsule 00:00: mouth (three) Medical times Branch daily. methocarbam 2020-0 Yes [id number] 500mg Take 1 Univers oL 500 mg 3-26 [id number] tablet by ity of tablet 00:00: mouth (four) Medical times Branch daily. gabapentin 2020-0 Yes [id number] 100mg Take 1 [facility] 100 mg 3-26 [id number] capsule by ity o f capsule 00:00: mouth (three) Medical times Branch daily. methocarbam 2020-0 Yes [id number] 500mg Take 1 Univers oL 500 mg 3-26 [id number] tablet by ity of tablet 00:00: mouth (four) Medical times Branch daily. gabapentin 2020-0 Yes [id number] 100mg Take 1 Univers 100 mg 3-26 [id number] capsule by ity o f capsule 00:00: mouth 3 (three) Medical times Branch daily. methocarbam 2020-0 Yes [id number] 500mg Take 1 Univers oL 500 mg 3-26 [id number] tablet by ity of tablet 00:00: mouth (four) Medical times Branch daily. gabapentin 2020-0 Yes [id number] 100mg Take 1 Univers 100 mg 3-26 [id number] capsule by ity o f capsule 00:00: mouth (three) Medical times Branch daily. methocarbam 2020-0 Yes [id number] 500mg Take 1 Univers oL 500 mg 3-26 [id number] tablet by ity of tablet 00:00: mouth (four) Medical times Branch daily. gabapentin 2020-0 Yes [id number] 100mg Take 1 Univers 100 mg 3-26 [id number] capsule by ity o f capsule 00:00: mouth (three) Medical times Branch daily. methocarbam 2020-0 Yes [id number] 500mg Take 1 Univers oL 500 mg 3-26 [id number] tablet by ity of tablet 00:00: mouth (four) Medical times Branch daily. gabapentin 2020-0 Yes [id number] 100mg Take 1 Univers 100 mg 3-26 [id number] capsule by ity o f capsule 00:00: mouth (three) Medical times Branch daily. methocarbam 2020-0 Yes [id number] 500mg Take 1 Univers oL 500 mg 3-26 [id number] tablet by ity of tablet 00:00: mouth (four) Medical times Branch daily. gabapentin 2020-0 Yes [id number] 100mg Take 1 Univers 100 mg 3-26 [id number] capsule by ity o f capsule 00:00: mouth (three) Medical times Branch daily. methocarbam 2020-0 Yes [id number] 500mg Take 1 Univers oL 500 mg 3-26 [id number] tablet by ity of tablet 00:00: mouth (four) Medical times Branch daily. gabapentin 2020-0 Yes [id number] 100mg Take 1 Univers 100 mg 3-26 [id number] capsule by ity o f capsule 00:00: mouth 3 (three) Medical times Branch daily. methocarbam 2020-0 Yes [id number] 500mg Take 1 Univers oL 500 mg 3-26 [id number] tablet by ity of tablet 00:00: mouth 4 (four) Medical times Branch daily. gabapentin 2020-0 Yes [id number] 100mg Take 1 Univers 100 mg 3-26 [id number] capsule by ity o f capsule 00:00: mouth 3 (three) Medical times Branch daily. methocarbam 2020-0 Yes [id number] 500mg Take 1 Univers oL 500 mg 3- [id number] tablet by ity of tablet 00:00: mouth (four) Medical times Branch daily. gabapentin 2020-0 Yes [id number] 100mg Take 1 Univers 100 mg 3-26 [id number] capsule by ity o f capsule 00:00: mouth 3 (three) Medical times Branch daily. gabapentin 2020-0 Yes [id number] 100mg Take 1 Univers 100 mg 3-26 [id number] capsule by ity o f capsule 00:00: mouth 3 (three) Medical times Branch daily. gabapentin 2020-0 Yes [id number] 100mg Take 1 Univers 100 mg 3-26 [id number] capsule by ity o f capsule 00:00: mouth 3 (three) Medical times Branch daily. gabapentin 2020-0 Yes [id number] 100mg Take 1 Univers 100 mg 3-26 [id number] capsule by ity o f capsule 00:00: mouth 3 (three) Medical times Branch daily. methocarbam 2020- No [id number] 500mg Take 1 Univers oL 500 mg -18 02- 095461 tablet by it y of tablet 00:00: 00:00 mouth [place] 00 :00 (four) Medical times Branch daily. methocarbam 2020-0 2020- No [id number] 500mg Take 1 Univers oL 500 mg 3- 05- 113625 tablet by it y of tablet 00:00: 00:00 mouth 4 [place] 00 :00 (four) Medical times Branch daily. Oxycodone 2020-1- No [id number] 10mg Take 1 Unive rs 10 mg Tab 3-26 04-03 tablet by ity of 00:00: 04:59 mouth [place] 00 :00 every 4 Medical (four) Branch hours as needed for Pain (scale 7-10) for up to 7 days. Indication s: acute pain aspirin 81 Yes 81mg Take 81 mg U nivers mg EC 3-17 by mouth ity of tablet 19:17: daily. [place] [address] Medical Branch acetaminoph Yes Take by Un jose en 3-17 mouth ity of (TYLENOL) 19:17: every 6 [place] 325 mg 48 (six) Medical tablet hours as Branch needed. ibuprofen Yes 200mg Take 200 Uni vers (ADVIL) 200 3-17 mg by ity of mg tablet 19:17: mouth [place] 48 every 6 Medical (six) Branch hours as needed. aspirin 81 Yes 81mg Take 81 mg U nivers mg EC 3-17 by mouth ity of tablet 19:17: daily. [address] Branch acetaminoph Yes Take by Un jose en 3-17 mouth ity of (TYLENOL) 19:17: every 6 [place] 325 mg 48 (six) Medical tablet hours as Branch needed. ibuprofen Yes 200mg Take 200 Uni vers (ADVIL) 200 3-17 mg by ity of mg tablet 19:17: mouth [place] 48 every 6 Medical (six) Branch hours as needed. aspirin 81 Yes 81mg Take 81 mg U nivers mg EC 3-10 by mouth ity of tablet 16:17: daily. [address] Branch aspirin 81 Yes 81mg Take 81 mg U nivers mg EC 3-10 by mouth ity of tablet 16:17: daily. [address] Branch aspirin 81 Yes 81mg Take 81 mg U nivers mg EC 3-10 by mouth ity of tablet 16:17: daily. [address] Branch aspirin 81 0 Yes 81mg Take 81 mg U nivers mg EC 3-10 by mouth ity of tablet 16:17: daily. [address] Branch HYDROcodone Yes 1{tbl} Take 1 Un jose -acetaminop 2-26 tablet by ity of hen 5-325 00:00: mouth [place] mg tablet 00 every 6 Medical (six) Branch hours as needed. HYDROcodone 202-0 Yes 1{tbl} Take 1 Un jose -acetaminop 2-26 tablet by ity of hen 5-325 00:00: mouth [place] mg tablet 00 every 6 Medical (six) Branch hours as needed. HYDROcodone 2020-0 Yes 1{tbl} Take 1 Un jose -acetaminop 2-26 tablet by ity of hen 5-325 00:00: mouth [place] mg tablet 00 every 6 Medical (six) Branch hours as needed. HYDROcodone 2020-0 Yes 1{tbl} Take 1 Un jose -acetaminop 2-26 tablet by ity of hen 5-325 00:00: mouth [place] mg tablet 00 every 6 Medical (six) Branch hours as needed. HYDROcodone 2020-0 Yes 1{tbl} Take 1 Un jose -acetaminop 2-26 tablet by ity of hen 5-325 00:00: mouth [place] mg tablet 00 every 6 Medical (six) Branch hours as needed. HYDROcodone 2020-0 Yes 1{tbl} Take 1 Un jose -acetaminop 2-26 tablet by ity of hen 5-325 00:00: mouth [place] mg tablet 00 every 6 Medical (six) Branch hours as needed. azithromyci 2020-0 2020- No [id number] 1000mg Take 2 Univers n 500 mg 8-14 08-16 tablets by ity of tablet 00:00: 04:59 mouth [place] 00 :00 daily for Medical 1 day. Branch azithromyci 2020-0 2020- No [id number] 1000mg Take 2 Univers n 500 mg 8-14 08-16 tablets by ity of tablet 00:00: 04:59 mouth [place] 00 :00 daily for Medical 1 day. Branch azithromyci 2020-0 2020- No [id number] 1000mg Take 2 Univers n 500 mg 8-14 08-16 tablets by ity of tablet 00:00: 04:59 mouth [place] 00 :00 daily for Medical 1 day. Branch azithromyci 2020-0 2020- No [id number] 1000mg Take 2 Univers n 500 mg 8-11 08-13 tablets by ity of tablet 00:00: 04:59 mouth [place] 00 :00 daily for Medical 1 day. Branch azithromyci 2020-0 2020- No [id number] 1000mg Take 2 Univers n 500 mg 05-0613 tablets by ity of tablet 00:00: 04:59 mouth [place] 00 :00 daily for Medical 1 day. Branch [place] 2019-0 2020- No [id number] 1000mg Take 2 Univers n 500 mg 8-13 tablets by ity of tablet 00:00: 04:59 mouth [place] 00 :00 daily for Medical 1 day. Branch No known No [facility] [place] [facility] [place] [facility] [place] [facility] [place] [facility] known [facility] medications [facility] No known [facility] Univers medications [facility] No [facility] Univers medications [facility] No known [facility] Univers medications [facility] No known [facility] Univers medications [facility] No known No Univers medications [facility] No known No Univers medications [facility] No known [facility] Univers medications [facility] No known No Univers medications [facility] No known No Univers medications [facility] No known No Univers medications [facility] No known No Univers medications [facility] No known No Univers medications [facility] Immunizations Ordered Immunization Filled Immunization Date Status Commen ts Source Name Name [facility] 2018-04-18 Completed University of 00:00:00 [place] [id number] 2018-04-18 Completed University of 00:00:00 [facility] 2018-04-18 Completed University of 00[facility]00:00 [facility] 2018-04-18 Completed University of 00[facility]00:00 [facility] 2018-04-18 Completed University of 00[facility]00:00 [facility] 2018-04-18 Completed University of 00[facility]00:00 [facility] 2018-04-18 Completed University of 00:00:00 [facility] 2018-04-18 Completed University of 00[facility]00:00 [facility] 2018-04-18 Completed University of 00[facility]00:00 [facility] 2018-04-18 Completed University of 00:00:00 [facility] 2018-04-18 Completed University of 00:00:00 [place] [facility] HPV9 2018-04-18 Completed University of 00:00:00 [place] [facility] HPV9 2018-04-18 Completed University of 00:00:00 [place] [facility] HPV9 2018-04-18 Completed University of 00:00:00 [place] [facility] HPV9 2018-04-18 Completed University of 00:00:00 [place] [facility] HPV9 2018-04-18 Completed University of 00:00:00 [place] [facility] HPV9 2018-04-18 Completed University of 00:00:00 [place] [facility] HPV9 2018-04-18 Completed University of 00:00:00 [place] [facility] HPV9 2018-04-18 Completed University of 00:00:00 [place] [facility] HPV9 2018-04-18 Completed University of 00:00:00 [place] [facility] HPV9 2018-04-18 Completed University of 00:00:00 [place] [facility] HPV9 2018-04-18 Completed University of 00:00:00 [place] [facility] HPV9 2018-04-18 Completed University of 00:00:00 [place] [facility] HPV9 2018-04-18 Completed University of 00:00:00 [place] [facility] HPV9 2018-04-18 Completed University of 00:00:00 [place] [facility] HPV9 2018-04-18 Completed University of 00:00:00 [place] [facility] HPV9 2018-04-18 Completed University of 00:00:00 [place] [facility] HPV9 2018-04-18 Completed University of 00:00:00 [place] [facility] HPV9 2018-04-18 Completed University of 00:00:00 [place] [facility] HPV9 2018-04-18 Completed University of 00:00:00 [place] [facility] HPV9 2018-04-18 Completed University of 00:00:00 [place] [facility] HPV9 2018-04-18 Completed University of 00:00:00 [place] [facility] HPV9 2018-04-18 Completed University of 00:00:00 [place] [facility] HPV9 2018-04-18 Completed University of 00:00:00 [place] [facility] HPV9 2018-04-18 Completed University of 00:00:00 [place] [facility] HPV9 2018-04-18 Completed University of 00:00:00 [place] [facility] HPV9 2018-04-18 Completed University of 00:00:00 [place] [facility] HPV9 2018-04-18 Completed University of 00:00:00 [place] [facility] HPV9 2018-04-18 Completed University of 00:00:00 [place] [facility] HPV9 2018-04-18 Completed University of 00:00:00 [place] [facility] HPV9 2018-04-18 Completed University of 00:00:00 [place] [facility] HPV9 2018-04-18 Completed University of 00:00:00 [place] [facility] HPV9 2018-04-18 Completed University of 00:00:00 [place] [facility] HPV9 2018-04-18 Completed University of 00:00:00 [place] [facility] HPV9 2018-04-18 Completed University of 00:00:00 [place] [facility] HPV9 2018-04-18 Completed University of 00:00:00 [place] [facility] HPV9 2018-04-18 Completed University of 00:00:00 [place] [facility] HPV9 2018-04-18 Completed University of 00:00:00 [place] [facility] HPV9 2018-04-18 Completed University of 00:00:00 [place] [facility] HPV9 2018-04-18 Completed University of 00:00:00 [place] [facility] HPV9 2018-04-18 Completed University of 00:00:00 [place] [facility] HPV9 2018-04-18 Completed University of 00:00:00 [place] [facility] HPV9 2018-04-18 Completed University of 00:00:00 [place] [facility] HPV9 2018-04-18 Completed University of 00:00:00 [place] [facility] HPV9 2018-04-18 Completed University of 00:00:00 [place] [facility] HPV9 2018-04-18 Completed University of 00:00:00 [place] [facility] HPV9 2018-04-18 Completed University of 00:00:00 [place] [facility] HPV9 2018-04-18 Completed University of 00:00:00 [place] [facility] HPV9 2018-04-18 Completed University of 00:00:00 [place] [facility] HPV9 2018-04-18 Completed University of 00:00:00 [place] [facility] HPV9 2018-04-18 Completed University of 00:00:00 [place] [facility] HPV9 2018-04-18 Completed University of 00:00:00 [place] [facility] HPV9 2018-04-18 Completed University of 00:00:00 [facility] Branch HPV9 2018-04-18 Completed University of 00:00:00 [facility] TDAP 2018-01-17 Completed University of 00:00:00 [facility] TDAP 2018-01-17 Completed University of 00:00:00 [place] [facility] TDAP 2018-01-17 Completed University of 00:00:00 [place] [facility] TDAP 2018-01-17 Completed University of 00:00:00 [place] [facility] TDAP 2018-01-17 Completed University of 00:00:00 [place] [facility] TDAP 2018-01-17 Completed University of 00:00:00 [place] [facility] TDAP 2018-01-17 Completed University of 00:00:00 [place] [facility] TDAP 2018-01-17 Completed University of 00:00:00 [place] [facility] TDAP 2018-01-17 Completed University of 00:00:00 [place] [facility] TDAP 2018-01-17 Completed University of 00:00:00 [place] [facility] TDAP 2018-01-17 Completed University of 00:00:00 [place] [facility] Tdap 2018-01-17 Completed University of 00:00:00 [place] [facility] Tdap 2018-01-17 Completed University of 00:00:00 [place] [facility] Tdap 2018-01-17 Completed University of 00:00:00 [place] [facility] Tdap 2018-01-17 Completed University of 00:00:00 [place] [facility] Tdap 2018-01-17 Completed University of 00:00:00 [place] [facility] Tdap 2018-01-17 Completed University of 00:00:00 [place] [facility] TDAP 2018-01-17 Completed University of 00:00:00 [place] [facility] TDAP 2018-01-17 Completed University of 00:00:00 [place] [facility] TDAP 2018-01-17 Completed University of 00:00:00 [place] [facility] TDAP 2018-01-17 Completed University of 00:00:00 [place] [facility] TDAP 2018-01-17 Completed University of 00:00:00 [place] [facility] TDAP 2018-01-17 Completed University of 00:00:00 [place] [facility] TDAP 2018-01-17 Completed University of 00:00:00 [place] [facility] TDAP 2018-01-17 Completed University of 00:00:00 [place] [facility] TDAP 2018-01-17 Completed University of 00:00:00 [place] [facility] TDAP 2018-01-17 Completed University of 00:00:00 [place] [facility] TDAP 2018-01-17 Completed University of 00:00:00 [place] [facility] TDAP 2018-01-17 Completed University of 00:00:00 [place] [facility] TDAP 2018-01-17 Completed University of 00:00:00 [place] [facility] TDAP 2018-01-17 Completed University of 00:00:00 [place] [facility] TDAP 2018-01-17 Completed University of 00:00:00 [place] [facility] TDAP 2018-01-17 Completed University of 00:00:00 [place] [facility] TDAP 2018-01-17 Completed University of 00:00:00 [place] [facility] TDAP 2018-01-17 Completed University of 00:00:00 [facility] TDAP 2018-01-17 Completed [facility] 00:00:00 [facility] TDAP 2018-01-17 Completed [facility] 00:00:00 [facility] TDAP 2018-01-17 Completed [facility] 00:00:00 [facility] TDAP 2018-01-17 Completed [facility] 00:00:00 [facility] TDAP 2018-01-17 Completed [facility] 00:00:00 [facility] TDAP 2018-01-17 Completed [facility] 00:00:00 [facility] TDAP 2018-01-17 Completed [facility] 00:00:00 [facility] TDAP 2018-01-17 Completed [facility] 00:00:00 [facility] TDAP 2018-01-17 Completed [facility] 00:00:00 [facility] TDAP 2018-01-17 Completed [facility] 00:00:00 [facility] TDAP 2018-01-17 Completed [facility] 00:00:00 [facility] TDAP 2018-01-17 Completed [facility] 00:00:00 [facility] TDAP 2018-01-17 Completed [facility] 00:00:00 [facility] TDAP 2018-01-17 Completed [facility] 00:00:00 [facility] TDAP 2018-01-17 Completed [facility] 00:00:00 [facility] TDAP 2018-01-17 Completed [facility] 00:00:00 [facility] TDAP 2018-01-17 Completed [facility] 00:00:00 [facility] TDAP 2018-01-17 Completed [facility] 00:00:00 [facility] TDAP 2018-01-17 Completed [facility] 00:00:00 [facility] TDAP 2018-01-17 Completed [facility] 00:00:00 [facility] TDAP 2018-01-17 Completed [facility] 00:00:00 [facility] TDAP 2018-01-17 Completed [facility] 00:00:00 [facility] TDAP 2018-01-17 Completed [facility] 00:00:00 [facility] TDAP 2018-01-17 Completed [facility] 00:00:00 [facility] TDAP 2018-01-17 Completed [facility] 00:00:00 [facility] TDAP 2018-01-17 Completed [facility] 00:00:00 [facility] TDAP 2018-01-17 Completed [facility] 00:00:00 [facility] TDAP 2018-01-17 Completed [facility] 00:00:00 [facility] TDAP 2018-01-17 Completed [facility] 00:00:00 [facility] HPV9 2017-06-17 Completed [facility] 00:00:00 [facility] HPV9 2017-06-17 Completed [facility] 00:00:00 [facility] HPV9 2017-06-17 Completed [facility] 00:00:00 [facility] HPV9 2017-06-17 Completed [facility] 00:00:00 [facility] HPV9 2017-06-17 Completed [facility] 00:00:00 [facility] HPV9 2017-06-17 Completed [facility] 00:00:00 [facility] HPV9 2017-06-17 Completed [facility] 00:00:00 [facility] HPV9 2017-06-17 Completed [facility] 00:00:00 [facility] HPV9 2017-06-17 Completed [facility] 00:00:00 [facility] HPV9 2017-06-17 Completed [facility] 00:00:00 [facility] HPV9 2017-06-17 Completed [facility] 00:00:00 [facility] HPV9 2017-06-17 Completed [facility] 00:00:00 [facility] HPV9 2017-06-17 Completed [facility] 00:00:00 [facility] HPV9 2017-06-17 Completed [facility] 00:00:00 [facility] HPV9 2017-06-17 Completed [facility] 00:00:00 [facility] HPV9 2017-06-17 Completed [facility] 00:00:00 [facility] HPV9 2017-06-17 Completed [facility] 00:00:00 [facility] HPV9 2017-06-17 Completed [facility] 00:00:00 [facility] HPV9 2017-06-17 Completed [facility] 00:00:00 [facility] HPV9 2017-06-17 Completed [facility] 00:00:00 [facility] HPV9 2017-06-17 Completed [facility] 00:00:00 [facility] HPV9 2017-06-17 Completed [facility] 00:00:00 [facility] HPV9 2017-06-17 Completed [facility] 00:00:00 [facility] HPV9 2017-06-17 Completed [facility] 00:00:00 [facility] HPV9 2017-06-17 Completed [facility] 00:00:00 [facility] HPV9 2017-06-17 Completed [facility] 00:00:00 [facility] HPV9 2017-06-17 Completed [facility] 00:00:00 [facility] HPV9 2017-06-17 Completed [facility] 00:00:00 [facility] HPV9 2017-06-17 Completed [facility] 00:00:00 [facility] HPV9 2017-06-17 Completed [facility] 00:00:00 [facility] HPV9 2017-06-17 Completed [facility] 00:00:00 [facility] HPV9 2017-06-17 Completed [facility] 00:00:00 [facility] HPV9 2017-06-17 Completed [facility] 00:00:00 [facility] HPV9 2017-06-17 Completed [facility] 00:00:00 [facility] HPV9 2017-06-17 Completed [facility] 00:00:00 [facility] HPV9 2017-06-17 Completed [facility] 00:00:00 [facility] HPV9 2017-06-17 Completed [facility] 00:00:00 [facility] HPV9 2017-06-17 Completed [facility] 00:00:00 [facility] HPV9 2017-06-17 Completed [facility] 00:00:00 [facility] HPV9 2017-06-17 Completed [facility] 00:00:00 [facility] HPV9 2017-06-17 Completed [facility] 00:00:00 [facility] HPV9 2017-06-17 Completed [facility] 00:00:00 [facility] HPV9 2017-06-17 Completed [facility] 00:00:00 [facility] HPV9 2017-06-17 Completed [facility] 00:00:00 [facility] HPV9 2017-06-17 Completed [facility] 00:00:00 [facility] HPV9 2017-06-17 Completed [facility] 00:00:00 [facility] HPV9 2017-06-17 Completed [facility] 00:00:00 [facility] HPV9 2017-06-17 Completed [facility] 00:00:00 [facility] HPV9 2017-06-17 Completed [facility] 00:00:00 [facility] HPV9 2017-06-17 Completed [facility] 00:00:00 [facility] HPV9 2017-06-17 Completed [facility] 00:00:00 [facility] HPV9 2017-06-17 Completed [facility] 00:00:00 [facility] HPV9 2017-06-17 Completed [facility] 00:00:00 [facility] HPV9 2017-06-17 Completed [facility] 00:00:00 [facility] HPV9 2017-06-17 Completed [facility] 00:00:00 [facility] HPV9 2017-06-17 Completed [facility] 00:00:00 [facility] HPV9 2017-06-17 Completed [facility] 00:00:00 [facility] HPV9 2017-06-17 Completed [facility] 00:00:00 [facility] HPV9 2017-06-17 Completed [facility] 00:00:00 [facility] HPV9 2017-06-17 Completed [facility] 00:00:00 [facility] HPV9 2017-06-17 Completed [facility] 00:00:00 [facility] HPV9 2017-06-17 Completed [facility] 00:00:00 [facility] HPV9 2017-06-17 Completed [facility] 00:00:00 [facility] HPV9 2017-06-17 Completed [facility] 00:00:00 [facility] HPV9 2017-04-20 Completed [facility] 00:00:00 [facility] HPV9 2017-04-20 Completed [facility] 00:00:00 [facility] HPV9 2017-04-20 Completed [facility] 00:00:00 [facility] HPV9 2017-04-20 Completed [facility] 00:00:00 [facility] HPV9 2017-04-20 Completed [facility] 00:00:00 [facility] HPV9 2017-04-20 Completed [facility] 00:00:00 [facility] HPV9 2017-04-20 Completed [facility] 00:00:00 [facility] HPV9 2017-04-20 Completed [facility] 00:00:00 [facility] HPV9 2017-04-20 Completed [facility] 00:00:00 [facility] HPV9 2017-04-20 Completed [facility] 00:00:00 [facility] HPV9 2017-04-20 Completed [facility] 00:00:00 [facility] HPV9 2017-04-20 Completed [facility] 00:00:00 [facility] HPV9 2017-04-20 Completed [facility] 00:00:00 [facility] HPV9 2017-04-20 Completed [facility] 00:00:00 [facility] HPV9 2017-04-20 Completed [facility] 00:00:00 [facility] HPV9 2017-04-20 Completed [facility] 00:00:00 [facility] HPV9 2017-04-20 Completed [facility] 00:00:00 [facility] HPV9 2017-04-20 Completed [facility] 00:00:00 [facility] HPV9 2017-04-20 Completed [facility] 00:00:00 [facility] HPV9 2017-04-20 Completed [facility] 00:00:00 [facility] HPV9 2017-04-20 Completed [facility] 00:00:00 [facility] HPV9 2017-04-20 Completed [facility] 00:00:00 [facility] HPV9 2017-04-20 Completed [facility] 00:00:00 [facility] HPV9 2017-04-20 Completed [facility] 00:00:00 [facility] HPV9 2017-04-20 Completed [facility] 00:00:00 [facility] HPV9 2017-04-20 Completed [facility] 00:00:00 [facility] HPV9 2017-04-20 Completed [facility] 00:00:00 [facility] HPV9 2017-04-20 Completed [facility] 00:00:00 [facility] HPV9 2017-04-20 Completed [facility] 00:00:00 [facility] HPV9 2017-04-20 Completed [facility] 00:00:00 [facility] HPV9 2017-04-20 Completed [facility] 00:00:00 [facility] HPV9 2017-04-20 Completed [facility] 00:00:00 [facility] HPV9 2017-04-20 Completed [facility] 00:00:00 [facility] HPV9 2017-04-20 Completed [facility] 00:00:00 [facility] HPV9 2017-04-20 Completed [facility] 00:00:00 [facility] HPV9 2017-04-20 Completed [facility] 00:00:00 [facility] HPV9 2017-04-20 Completed [facility] 00:00:00 [facility] HPV9 2017-04-20 Completed [facility] 00:00:00 [facility] HPV9 2017-04-20 Completed [facility] 00:00:00 [facility] HPV9 2017-04-20 Completed [facility] 00:00:00 [facility] HPV9 2017-04-20 Completed [facility] 00:00:00 [facility] HPV9 2017-04-20 Completed [facility] 00:00:00 [facility] HPV9 2017-04-20 Completed [facility] 00:00:00 [facility] HPV9 2017-04-20 Completed [facility] 00:00:00 [facility] HPV9 2017-04-20 Completed [facility] 00:00:00 [facility] HPV9 2017-04-20 Completed [facility] 00:00:00 [facility] HPV9 2017-04-20 Completed [facility] 00:00:00 [facility] HPV9 2017-04-20 Completed [facility] 00:00:00 [facility] HPV9 2017-04-20 Completed [facility] 00:00:00 [facility] HPV9 2017-04-20 Completed [facility] 00:00:00 [facility] HPV9 2017-04-20 Completed [facility] 00:00:00 [facility] HPV9 2017-04-20 Completed [facility] 00:00:00 [facility] HPV9 2017-04-20 Completed [facility] 00:00:00 [facility] HPV9 2017-04-20 Completed [facility] 00:00:00 [facility] HPV9 2017-04-20 Completed [facility] 00:00:00 [facility] HPV9 2017-04-20 Completed [facility] 00:00:00 [facility] HPV9 2017-04-20 Completed [facility] 00:00:00 [facility] HPV9 2017-04-20 Completed [facility] 00:00:00 [facility] HPV9 2017-04-20 Completed [facility] 00:00:00 [facility] HPV9 2017-04-20 Completed [facility] 00:00:00 [facility] HPV9 2017-04-20 Completed [facility] 00:00:00 [facility] HPV9 2017-04-20 Completed [facility] 00:00:00 [facility] HPV9 2017-04-20 Completed [facility] 00:00:00 [facility] HPV9 2017-04-20 Completed [facility] 00:00:00 [facility] TDAP 2017-02-14 Completed [facility] 00:00:00 [facility] TDAP 2017-02-14 Completed [facility] 00:00:00 [facility] TDAP 2017-02-14 Completed [facility] 00:00:00 [facility] TDAP 2017-02-14 Completed [facility] 00:00:00 [facility] TDAP 2017-02-14 Completed [facility] 00:00:00 [facility] TDAP 2017-02-14 Completed [facility] 00:00:00 [facility] TDAP 2017-02-14 Completed [facility] 00:00:00 [facility] TDAP 2017-02-14 Completed [facility] 00:00:00 [facility] TDAP 2017-02-14 Completed [facility] 00:00:00 [facility] TDAP 2017-02-14 Completed [facility] 00:00:00 [facility] TDAP 2017-02-14 Completed [facility] 00:00:00 [facility] Tdap 2017-02-14 Completed [facility] 00:00:00 [facility] Tdap 2017-02-14 Completed [facility] 00:00:00 [facility] Tdap 2017-02-14 Completed [facility] 00:00:00 [facility] Tdap 2017-02-14 Completed [facility] 00:00:00 [facility] Tdap 2017-02-14 Completed [facility] 00:00:00 [facility] Tdap 2017-02-14 Completed [facility] 00:00:00 [facility] TDAP 2017-02-14 Completed [facility] 00:00:00 [facility] TDAP 2017-02-14 Completed [facility] 00:00:00 [facility] TDAP 2017-02-14 Completed [facility] 00:00:00 [facility] TDAP 2017-02-14 Completed [facility] 00:00:00 [facility] TDAP 2017-02-14 Completed [facility] 00:00:00 [facility] TDAP 2017-02-14 Completed [facility] 00:00:00 [facility] TDAP 2017-02-14 Completed [facility] 00:00:00 [facility] TDAP 2017-02-14 Completed [facility] 00:00:00 [facility] TDAP 2017-02-14 Completed [facility] 00:00:00 [facility] TDAP 2017-02-14 Completed [facility] 00:00:00 [facility] TDAP 2017-02-14 Completed [facility] 00:00:00 [facility] TDAP 2017-02-14 Completed [facility] 00:00:00 [facility] TDAP 2017-02-14 Completed [facility] 00:00:00 [facility] TDAP 2017-02-14 Completed [facility] 00:00:00 [facility] TDAP 2017-02-14 Completed [facility] 00:00:00 [facility] TDAP 2017-02-14 Completed [facility] 00:00:00 [facility] TDAP 2017-02-14 Completed [facility] 00:00:00 [facility] TDAP 2017-02-14 Completed [facility] 00:00:00 [facility] TDAP 2017-02-14 Completed [facility] 00:00:00 [facility] TDAP 2017-02-14 Completed [facility] 00:00:00 [facility] TDAP 2017-02-14 Completed [facility] 00:00:00 [facility] TDAP 2017-02-14 Completed [facility] 00:00:00 [facility] TDAP 2017-02-14 Completed [facility] 00:00:00 [facility] TDAP 2017-02-14 Completed [facility] 00:00:00 [facility] TDAP 2017-02-14 Completed [facility] 00:00:00 [facility] TDAP 2017-02-14 Completed [facility] 00:00:00 [facility] TDAP 2017-02-14 Completed [facility] 00:00:00 [facility] TDAP 2017-02-14 Completed [facility] 00:00:00 [facility] TDAP 2017-02-14 Completed [facility] 00:00:00 [facility] TDAP 2017-02-14 Completed [facility] 00:00:00 [facility] TDAP 2017-02-14 Completed [facility] 00:00:00 [facility] TDAP 2017-02-14 Completed [facility] 00:00:00 [facility] TDAP 2017-02-14 Completed [facility] 00:00:00 [facility] TDAP 2017-02-14 Completed [facility] 00:00:00 [facility] TDAP 2017-02-14 Completed [facility] 00:00:00 [facility] TDAP 2017-02-14 Completed [facility] 00:00:00 [facility] TDAP 2017-02-14 Completed [facility] 00:00:00 [facility] TDAP 2017-02-14 Completed [facility] 00:00:00 [facility] TDAP 2017-02-14 Completed [facility] 00:00:00 [facility] TDAP 2017-02-14 Completed [facility] 00:00:00 [facility] TDAP 2017-02-14 Completed [facility] 00:00:00 [facility] TDAP 2017-02-14 Completed [facility] 00:00:00 [facility] TDAP 2017-02-14 Completed [facility] 00:00:00 [facility] TDAP 2017-02-14 Completed [facility] 00:00:00 [facility] TDAP 2017-02-14 Completed [facility] 00:00:00 [facility] TDAP 2017-02-14 Completed [facility] 00:00:00 [facility] TDAP 2017-02-14 Completed [facility] 00:00:00 [facility] Influenza Virus 2016-09-10 Completed [facility] IM 3+ 00:00:00 [facility] Influenza Virus 2016-09-10 Completed [facility] IM 3+ 00:00:00 [facility] Influenza Virus 2016-09-10 Completed [facility] 3+ 00:00:00 [facility] Influenza Virus 2016-09-10 Completed [facility] 3+ 00:00:00 [facility] Influenza Virus 2016-09-10 Completed [facility] 3+ 00:00:00 [facility] Influenza Virus 2016-09-10 Completed [facility] 3+ 00:00:00 [facility] Influenza Virus 2016-09-10 Completed [facility] 3+ 00:00:00 [facility] Influenza Virus 2016-09-10 Completed [facility] 3+ 00:00:00 [facility] Influenza Virus 2016-09-10 Completed [facility] 3+ 00:00:00 [facility] Influenza Virus 2016-09-10 Completed [facility] 3+ 00:00:00 [facility] Influenza Virus 2016-09-10 Completed [facility] 3+ 00:00:00 [facility] Influenza Virus 2016-09-10 Completed [facility] 3+ 00:00:00 [facility] Influenza Virus 2016-09-10 Completed [facility] 3+ 00:00:00 [facility] Influenza Virus 2016-09-10 Completed [facility] 3+ 00:00:00 [facility] Influenza Virus 2016-09-10 Completed [facility] 3+ 00:00:00 [facility] Influenza Virus 2016-09-10 Completed [facility] IM 3+ 00:00:00 [facility] Influenza Virus 2016-09-10 Completed [facility] 3+ 00:00:00 [facility] Influenza Virus 2016-09-10 Completed [facility] 3+ 00:00:00 [facility] Influenza Virus 2016-09-10 Completed [facility] 3+ 00:00:00 [facility] Influenza Virus 2016-09-10 Completed [facility] 3+ 00:00:00 [facility] Influenza Virus 2016-09-10 Completed [facility] 3+ 00:00:00 [facility] Influenza Virus 2016-09-10 Completed [facility] 3+ 00:00:00 [facility] Influenza Virus 2016-09-10 Completed [facility] 3+ 00:00:00 [facility] Influenza Virus 2016-09-10 Completed [facility] 3+ 00:00:00 [facility] Influenza Virus 2016-09-10 Completed [facility] 3+ 00:00:00 [facility] Influenza Virus 2016-09-10 Completed [facility] 3+ 00:00:00 [facility] Influenza Virus 2016-09-10 Completed [facility] 3+ 00:00:00 [facility] Influenza Virus 2016-09-10 Completed [facility] 3+ 00:00:00 [facility] Influenza Virus 2016-09-10 Completed [facility] 3+ 00:00:00 [facility] Influenza Virus 2016-09-10 Completed [facility] 3+ 00:00:00 [facility] Influenza Virus 2016-09-10 Completed [facility] 3+ 00:00:00 [facility] Influenza Virus 2016-09-10 Completed [facility] 3+ 00:00:00 [facility] Influenza Virus 2016-09-10 Completed [facility] 3+ 00:00:00 [facility] Influenza Virus 2016-09-10 Completed [facility] 3+ 00:00:00 [facility] Influenza Virus 2016-09-10 Completed [facility] 3+ 00:00:00 [facility] Influenza Virus 2016-09-10 Completed [facility] 3+ 00:00:00 [facility] Influenza Virus 2016-09-10 Completed [facility] 3+ 00:00:00 [facility] Influenza Virus 2016-09-10 Completed [facility] 3+ 00:00:00 [facility] Influenza Virus 2016-09-10 Completed [facility] 3+ 00:00:00 [facility] Influenza Virus 2016-09-10 Completed [facility] 3+ 00:00:00 [facility] Influenza Virus 2016-09-10 Completed [facility] 3+ 00:00:00 [facility] Influenza Virus 2016-09-10 Completed [facility] 3+ 00:00:00 [facility] Influenza Virus 2016-09-10 Completed [facility] 3+ 00:00:00 [facility] Influenza Virus 2016-09-10 Completed [facility] 3+ 00:00:00 [facility] Influenza Virus 2016-09-10 Completed [facility] 3+ 00:00:00 [facility] Influenza Virus 2016-09-10 Completed [facility] 3+ 00:00:00 [facility] Influenza Virus 2016-09-10 Completed [facility] 3+ 00:00:00 [facility] Influenza Virus 2016-09-10 Completed [facility] 3+ 00:00:00 [facility] Influenza Virus 2016-09-10 Completed [facility] 3+ 00:00:00 [facility] Influenza Virus 2016-09-10 Completed [facility] 3+ 00:00:00 [facility] Influenza Virus 2016-09-10 Completed [facility] 3+ 00:00:00 [facility] Influenza Virus 2016-09-10 Completed [facility] 3+ 00:00:00 [facility] Influenza Virus 2016-09-10 Completed [facility] 3+ 00:00:00 [facility] Influenza Virus 2016-09-10 Completed [facility] 3+ 00:00:00 [facility] Influenza Virus 2016-09-10 Completed [facility] 3+ 00:00:00 [facility] Influenza Virus 2016-09-10 Completed [facility] 3+ 00:00:00 [facility] Influenza Virus 2016-09-10 Completed [facility] 3+ 00:00:00 [facility] Influenza Virus 2016-09-10 Completed [facility] 3+ 00:00:00 [facility] Influenza Virus 2016-09-10 Completed [facility] 3+ 00:00:00 [facility] Influenza Virus 2016-09-10 Completed [facility] 3+ 00:00:00 [facility] Influenza Virus 2016-09-10 Completed [facility] 3+ 00:00:00 [facility] Influenza Virus 2016-09-10 Completed [facility] 3+ 00:00:00 [facility] Influenza Virus 2016-09-10 Completed [facility] 3+ 00:00:00 [facility] Influenza Virus 2016-09-10 Completed [facility] 3+ 00:00:00 [facility] Meningococcal 2015-06-24 Completed [facility] Polysaccharide 00:00:00 [facility] (groups A, C, Y and Branc h W-135) conjugate vaccine (MCV4P) Meningococcal 2015-06-24 Completed [facility] Polysaccharide 00:00:00 [facility] (groups A, C, Y and Branc h W-135) conjugate vaccine (MCV4P) Meningococcal 2015-06-24 Completed [facility] Polysaccharide 00:00:00 [facility] (groups A, C, Y and Branc h W-135) conjugate vaccine (MCV4P) Meningococcal 2015-06-24 Completed [facility] Polysaccharide 00:00:00 [facility] (groups A, C, Y and Branc h W-135) conjugate vaccine (MCV4P) Meningococcal 2015-06-24 Completed [facility] Polysaccharide 00:00:00 [facility] (groups A, C, Y and Branc h W-135) conjugate vaccine (MCV4P) Meningococcal 2015-06-24 Completed [facility] Polysaccharide 00:00:00 [facility] (groups A, C, Y and Branc h W-135) conjugate vaccine (MCV4P) Meningococcal 2015-06-24 Completed [facility] Polys[facility] 00:00:00 [place] [facility] (groups A, C, Y and Branc h W-135) conjugate vaccine (MCV4P) Meningococcal 2015-06-24 Completed [facility] Polysaccharide 00:00:00 [place] [facility] (groups A, C, Y and Branc h W-135) conjugate vaccine (MCV4P) Meningococcal 2015-06-24 Completed [facility] Polysaccharide 00:00:00 [place] [facility] (groups A, C, Y and Branc h W-135) conjugate vaccine (MCV4P) Meningococcal 2015-06-24 Completed [facility] Polysaccharide 00:00:00 [place] [facility] (groups A, C, Y and Branc h W-135) conjugate vaccine (MCV4P) Meningococcal 2015-06-24 Completed [facility] Polys[facility] 00:00:00 [place] [facility] (groups A, C, Y and Branc h W-135) conjugate vaccine (MCV4P) Meningococcal 2015-06-24 Completed [facility] Polysaccharide 00:00:00 [place] [facility] (groups A, C, Y and Branc h W-135) conjugate vaccine (MCV4P) Meningococcal 2015-06-24 Completed [facility] Polysaccharide 00:00:00 [place] [facility] (groups A, C, Y and Branc h W-135) conjugate vaccine (MCV4P) Meningococcal 2015-06-24 Completed [facility] Polysaccharide 00:00:00 [place] [facility] (groups A, C, Y and Branc h W-135) conjugate vaccine (MCV4P) Meningococcal 2015-06-24 Completed [facility] Polysaccharide 00:00:00 [place] [facility] (groups A, C, Y and Branc h W-135) conjugate vaccine (MCV4P) Meningococcal 2015-06-24 Completed [facility] Polysaccharide 00:00:00 [place] [facility] (groups A, C, Y and Branc h W-135) conjugate vaccine (MCV4P) Meningococcal 2015-06-24 Completed [facility] Polysaccharide 00:00:00 [place] [facility] (groups A, C, Y and Branc h W-135) conjugate vaccine (MCV4P) Meningococcal 2015-06-24 Completed [facility] Polysaccharide 00:00:00 [place] [facility] (groups A, C, Y and Branc h W-135) conjugate vaccine (MCV4P) Meningococcal 2015-06-24 Completed [facility] Polysaccharide 00:00:00 [place] [facility] (groups A, C, Y and Branc h W-135) conjugate vaccine (MCV4P) Meningococcal 2015-06-24 Completed [facility] Polysaccharide 00:00:00 [place] [facility] (groups A, C, Y and Branc h W-135) conjugate vaccine (MCV4P) Meningococcal 2015-06-24 Completed [facility] Polysaccharide 00:00:00 [place] [facility] (groups A, C, Y and Branc h W-135) conjugate vaccine (MCV4P) Meningococcal 2015-06-24 Completed [facility] Polysaccharide 00:00:00 [place] [facility] (groups A, C, Y and Branc h W-135) conjugate vaccine (MCV4P) Meningococcal 2015-06-24 Completed [facility] Polysaccharide 00:00:00 [place] [facility] (groups A, C, Y and Branc h W-135) conjugate vaccine (MCV4P) Meningococcal 2015-06-24 Completed [facility] Polysaccharide 00:00:00 [place] [facility] (groups A, C, Y and Branc h W-135) conjugate vaccine (MCV4P) Meningococcal 2015-06-24 Completed [facility] Polysaccharide 00:00:00 [place] [facility] (groups A, C, Y and Branc h W-135) conjugate vaccine (MCV4P) Meningococcal 2015-06-24 Completed [facility] Polysaccharide 00:00:00 [place] [facility] (groups A, C, Y and Branc h W-135) conjugate vaccine (MCV4P) Meningococcal 2015-06-24 Completed [facility] Polysaccharide 00:00:00 [place] [facility] (groups A, C, Y and Branc h W-135) conjugate vaccine (MCV4P) Meningococcal 2015-06-24 Completed [facility] Polysaccharide 00:00:00 [place] [facility] (groups A, C, Y and Branc h W-135) conjugate vaccine (MCV4P) Meningococcal 2015-06-24 Completed [facility] Polysaccharide 00:00:00 [place] [facility] (groups A, C, Y and Branc h W-135) conjugate vaccine (MCV4P) Meningococcal 2015-06-24 Completed [facility] Polysaccharide 00:00:00 [place] [facility] (groups A, C, Y and Branc h W-135) conjugate vaccine (MCV4P) Meningococcal 2015-06-24 Completed [facility] Polysaccharide 00:00:00 [place] [facility] (groups A, C, Y and Branc h W-135) conjugate vaccine (MCV4P) Meningococcal 2015-06-24 Completed [facility] Polysaccharide 00:00:00 [place] [facility] (groups A, C, Y and Branc h W-135) conjugate vaccine (MCV4P) Meningococcal 2015-06-24 Completed [facility] Polysaccharide 00:00:00 [place] [facility] (groups A, C, Y and Branc h W-135) conjugate vaccine (MCV4P) Meningococcal 2015-06-24 Completed [facility] Polysaccharide 00:00:00 [place] [facility] (groups A, C, Y and Branc h W-135) conjugate vaccine (MCV4P) Meningococcal 2015-06-24 Completed [facility] Polysaccharide 00:00:00 [place] [facility] (groups A, C, Y and Branc h W-135) conjugate vaccine (MCV4P) Meningococcal 2015-06-24 Completed [facility] Polysaccharide 00:00:00 [place] [facility] (groups A, C, Y and Branc h W-135) conjugate vaccine (MCV4P) Meningococcal 2015-06-24 Completed [facility] Polysaccharide 00:00:00 [place] [facility] (groups A, C, Y and Branc h W-135) conjugate vaccine (MCV4P) Meningococcal 2015-06-24 Completed [facility] Polysaccharide 00:00:00 [place] [facility] (groups A, C, Y and Branc h W-135) conjugate vaccine (MCV4P) Meningococcal 2015-06-24 Completed [facility] Polysaccharide 00:00:00 [place] [facility] (groups A, C, Y and Branc h W-135) conjugate vaccine (MCV4P) Meningococcal 2015-06-24 Completed [facility] Polysaccharide 00:00:00 [place] [facility] (groups A, C, Y and Branc h W-135) conjugate vaccine (MCV4P) Meningococcal 2015-06-24 Completed [facility] Polysaccharide 00:00:00 [place] [facility] (groups A, C, Y and Branc h W-135) conjugate vaccine (MCV4P) Meningococcal 2015-06-24 Completed [facility] Polysaccharide 00:00:00 [place] [facility] (groups A, C, Y and Branc h W-135) conjugate vaccine (MCV4P) Meningococcal 2015-06-24 Completed [facility] Polysaccharide 00:00:00 [place] [facility] (groups A, C, Y and Branc h W-135) conjugate vaccine (MCV4P) Meningococcal 2015-06-24 Completed [facility] Polysaccharide 00:00:00 [place] [facility] (groups A, C, Y and Branc h W-135) conjugate vaccine (MCV4P) Meningococcal 2015-06-24 Completed [facility] Polysaccharide 00:00:00 [place] [facility] (groups A, C, Y and Branc h W-135) conjugate vaccine (MCV4P) Meningococcal 2015-06-24 Completed [facility] Polysaccharide 00:00:00 [place] [facility] (groups A, C, Y and Branc h W-135) conjugate vaccine (MCV4P) Meningococcal 2015-06-24 Completed [facility] Polysaccharide 00:00:00 [place] [facility] (groups A, C, Y and Branc h W-135) conjugate vaccine (MCV4P) Meningococcal 2015-06-24 Completed [facility] Polysaccharide 00:00:00 [place] [facility] (groups A, C, Y and Branc h W-135) conjugate vaccine (MCV4P) Meningococcal 2015-06-24 Completed [facility] Polysaccharide 00:00:00 [place] [facility] (groups A, C, Y and Branc h W-135) conjugate vaccine (MCV4P) Meningococcal 2015-06-24 Completed [facility] Polysaccharide 00:00:00 [place] [facility] (groups A, C, Y and Branc h W-135) conjugate vaccine (MCV4P) Meningococcal 2015-06-24 Completed [facility] Polysaccharide 00:00:00 [place] [facility] (groups A, C, Y and Branc h W-135) conjugate vaccine (MCV4P) Meningococcal 2015-06-24 Completed [facility] Polysaccharide 00:00:00 [place] [facility] (groups A, C, Y and Branc h W-135) conjugate vaccine (MCV4P) Meningococcal 2015-06-24 Completed [facility] Polysaccharide 00:00:00 [place] [facility] (groups A, C, Y and Branc h W-135) conjugate vaccine (MCV4P) Meningococcal 2015-06-24 Completed [facility] Polysaccharide 00:00:00 [place] [facility] (groups A, C, Y and Branc h W-135) conjugate vaccine (MCV4P) Meningococcal 2015-06-24 Completed [facility] Polysaccharide 00:00:00 [place] [facility] (groups A, C, Y and Branc h W-135) conjugate vaccine (MCV4P) Meningococcal 2015-06-24 Completed [facility] Polysaccharide 00:00:00 [place] [facility] (groups A, C, Y and Branc h W-135) conjugate vaccine (MCV4P) Meningococcal 2015-06-24 Completed [facility] Polysaccharide 00:00:00 [place] [facility] (groups A, C, Y and Branc h W-135) conjugate vaccine (MCV4P) Meningococcal 2015-06-24 Completed [facility] Polysaccharide 00:00:00 [place] [facility] (groups A, C, Y and Branc h W-135) conjugate vaccine (MCV4P) Meningococcal 2015-06-24 Completed [facility] Polysaccharide 00:00:00 [place] [facility] (groups A, C, Y and Branc h W-135) conjugate vaccine (MCV4P) Meningococcal 2015-06-24 Completed [facility] Polysaccharide 00:00:00 [place] [facility] (groups A, C, Y and Branc h W-135) conjugate vaccine (MCV4P) Meningococcal 2015-06-24 Completed [facility] Polysaccharide 00:00:00 [place] [facility] (groups A, C, Y and Branc h W-135) conjugate vaccine (MCV4P) Meningococcal 2015-06-24 Completed [facility] Polysaccharide 00:00:00 [place] [facility] (groups A, C, Y and Branc h W-135) conjugate vaccine (MCV4P) Meningococcal 2015-06-24 Completed [facility] Polysaccharide 00:00:00 [place] [facility] (groups A, C, Y and Branc h W-135) conjugate vaccine (MCV4P) Meningococcal 2015-06-24 Completed [facility] Polysaccharide 00:00:00 [place] [facility] (groups A, C, Y and Branc h W-135) conjugate vaccine (MCV4P) Td 2012-05-04 Completed [facility] 00:00:00 [facility] Td 2012-05-04 Completed [facility] 00:00:00 [facility] Td 2012-05-04 Completed [facility] 00:00:00 [facility] Td 2012-05-04 Completed [facility] 00:00:00 [facility] Td 2012-05-04 Completed [facility] 00:00:00 [facility] Td 2012-05-04 Completed [facility] 00:00:00 [facility] Td 2012-05-04 Completed [facility] 00:00:00 [facility] Td 2012-05-04 Completed [facility] 00:00:00 [facility] Td 2012-05-04 Completed [facility] 00:00:00 [facility] Td 2012-05-04 Completed [facility] 00:00:00 [facility] Td 2012-05-04 Completed [facility] 00:00:00 [facility] Td 2012-05-04 Completed [facility] 00[facility]00:00 [facility] Td 2012-05-04 Completed [facility] 00:00:00 [facility] Td 2012-05-04 Completed [facility] 00:00:00 [facility] Td 2012-05-04 Completed [facility] 00:00:00 [facility] Td 2012-05-04 Completed [facility] 00:00:00 [facility] Td 2012-05-04 Completed [facility] 00:00:00 [facility] Td 2012-05-04 Completed [facility] 00:00:00 [facility] Td 2012-05-04 Completed [facility] 00:00:00 [facility] Td 2012-05-04 Completed [facility] 00:00:00 [facility] Td 2012-05-04 Completed [facility] 00:00:00 [facility] Td 2012-05-04 Completed [facility] 00:00:00 [facility] Td 2012-05-04 Completed [facility] 00:00:00 [facility] Td 2012-05-04 Completed [facility] 00:00:00 [facility] Td 2012-05-04 Completed [facility] 00:00:00 [facility] Td 2012-05-04 Completed [facility] 00:00:00 [facility] Td 2012-05-04 Completed [facility] 00:00:00 [facility] Td 2012-05-04 Completed [facility] 00:00:00 [facility] Td 2012-05-04 Completed [facility] 00:00:00 [facility] Td 2012-05-04 Completed [facility] 00:00:00 [facility] Td 2012-05-04 Completed [facility] 00:00:00 [facility] Td 2012-05-04 Completed [facility] 00:00:00 [facility] Td 2012-05-04 Completed [facility] 00:00:00 [facility] Td 2012-05-04 Completed [facility] 00:00:00 [facility] Td 2012-05-04 Completed [facility] 00:00:00 [facility] Td 2012-05-04 Completed [facility] 00:00:00 [facility] Td 2012-05-04 Completed [facility] 00:00:00 [facility] Td 2012-05-04 Completed [facility] 00:00:00 [facility] Td 2012-05-04 Completed [facility] 00:00:00 [facility] Td 2012-05-04 Completed [facility] 00:00:00 [facility] Td 2012-05-04 Completed [facility] 00:00:00 [facility] Td 2012-05-04 Completed [facility] 00:00:00 [facility] Td 2012-05-04 Completed [facility] 00:00:00 [facility] Td 2012-05-04 Completed [facility] 00:00:00 [facility] Td 2012-05-04 Completed [facility] 00:00:00 [facility] Td 2012-05-04 Completed [facility] 00:00:00 [facility] Td 2012-05-04 Completed [facility] 00:00:00 [facility] Td 2012-05-04 Completed [facility] 00:00:00 [facility] Td 2012-05-04 Completed [facility] 00:00:00 [facility] Td 2012-05-04 Completed [facility] 00:00:00 [facility] Td 2012-05-04 Completed [facility] 00:00:00 [facility] Td 2012-05-04 Completed [facility] 00:00:00 [facility] Td 2012-05-04 Completed [facility] 00:00:00 [facility] Td 2012-05-04 Completed [facility] 00:00:00 [facility] Td 2012-05-04 Completed [facility] 00:00:00 [facility] Td 2012-05-04 Completed [facility] 00:00:00 [facility] Td 2012-05-04 Completed [facility] 00:00:00 [facility] Td 2012-05-04 Completed [facility] 00:00:00 [facility] Td 2012-05-04 Completed [facility] 00:00:00 [facility] Td 2012-05-04 Completed [facility] 00:00:00 [facility] Td 2012-05-04 Completed [facility] 00:00:00 [facility] Td 2012-05-04 Completed [facility] 00:00:00 [facility] Td 2012-05-04 Completed [facility] 00:00:00 [facility] Td 2012-05-04 Completed [facility] 00:00:00 [facility] Vital Signs Vital Name Observation Time Observation Value Comments Source Body temperature 2021-04-23 22:11:00 35.61 [facility]isi [facility] Body weight 2021-04-23 22:11:00 64.864 kg [facility] BMI 2021-04-23 22:11:00 27.93 kg/m2 [facility] Body temperature 2021-03-12 19:23:00 36.22 [facility] Body weight 2021-03-12 19:23:00 64.864 kg [facility] BMI 2021-03-12 19:23:00 27.93 kg/m2 [facility] Systolic blood 2021-02-03 20:05:00 107 mm[Hg] Univer sity of pressure [facility] Diastolic blood 2021-02-03 20:05:00 69 mm[Hg] Unive rsity of pressure [facility] Heart rate 2021-02-03 20:05:00 84 /min [facility] Respiratory rate 2021-02-03 20:05:00 14 /min Univ ersity of [facility] Oxygen saturation in 2021-02-03 20:05:00 100 /min [facility] Arterial blood by [facility] Pulse oximetry Branch Body temperature 2021-02-03 19:00:00 36.11 Bisi [facility] ers[facility] of [facility] Body height 2021-02-03 17:53:00 152.4 cm [facility] Body weight 2021-02-03 17:53:00 65.772 kg [facility] BMI 2021-02-03 17:53:00 28.32 kg/m2 [facility] Systolic blood 2021-02-03 20:05:00 107 mm[Hg] Univer sity of pressure [facility] Diastolic blood 2021-02-03 20:05:00 69 mm[Hg] Unive rsity of pressure [facility] Heart rate 2021-02-03 20:05:00 84 /min [facility] Respiratory rate 2021-02-03 20:05:00 14 /min Univ ersity of [facility] Oxygen saturation in 2021-02-03 20:05:00 100 /min [facility] Arterial blood by [facility] nancy Pulse oximetry Branch Body temperature 2021-02-03 19:00:00 36.11 Bisi [facility] Body height 2021-02-03 17:53:00 152.4 cm [facility] Body weight 2021-02-03 17:53:00 65.772 kg [facility] BMI 2021-02-03 17:53:00 28.32 kg/m2 [facility] Body temperature 2021-01-29 21:06:00 36.5 Bisi [facility] Body height 2021-01-29 21:06:00 152.4 cm [facility] Body weight 2021-01-29 21:06:00 65.772 kg [facility] BMI 2021-01-29 21:06:00 28.32 kg/m2 [facility] Body temperature 2021-01-29 21:06:00 36.5 Bisi [facility] Body height 2021-01-29 21:06:00 152.4 cm [facility] Body weight 2021-01-29 21:06:00 65.772 kg [facility] BMI 2021-01-29 21:06:00 28.32 kg/m2 [facility] Body temperature 2021-01-29 21:06:00 36.5 [facility]isi [facility] Body height 2021-01-29 21:06:00 152.4 cm [facility] Body weight 2021-01-29 21:06:00 65.772 kg [facility] BMI 2021-01-29 21:06:00 28.32 kg/m2 [facility] Body temperature 2021-01-29 21:06:00 36.5 [facility]isi [facility] Body height 2021-01-29 21:06:00 152.4 cm [facility] Body weight 2021-01-29 21:06:00 65.772 kg [facility] BMI 2021-01-29 21:06:00 28.32 kg/m2 [facility] Body temperature 2021-01-15 20:45:00 36.06 Bisi [facility] Body weight 2021-01-15 20:45:00 65.772 kg [facility] BMI 2021-01-15 20:45:00 28.32 kg/m2 [facility] Body temperature 2021-01-14 07:00:00 37.11 Bisi Univ ersity of [facility] Oxygen saturation in 2021-01-14 06:55:00 100 /min [facility] of Arterial blood by [facility] Pulse oximetry Branch Systolic blood 2021-01-14 06:55:00 125 mm[Hg] Univer sity of pressure [facility] Diastolic blood 2021-01-14 06:55:00 78 mm[Hg] Unive rsity of pressure [facility] Heart rate 2021-01-14 06:55:00 91 /min [facility]i ty of [facility] Respiratory rate 2021-01-14 06:55:00 17 /min Univ ersity of [facility] Body height 2021-01-14 03:27:00 152.4 cm [facility] of [facility] Body weight 2021-01-14 03:27:00 65.772 kg [facility]i [facility] BMI 2021-01-14 03:27:00 28.32 kg/m2 [facility] Body temperature 2021-01-01 18:34:00 36.11 Bisi [facility] Body weight 2021-01-01 18:34:00 77.111 kg [facility] BMI 2021-01-01 18:34:00 33.20 kg/m2 [facility] Body temperature 2020-12-02 17:24:00 36.5 Bisi [facility] ers[facility] of [facility] Body temperature 2020-11-27 21:22:00 36.06 Bisi Univ ers[facility] of [facility] Body height 2020-11-27 21:22:00 152.4 cm [facility] [place] [facility] Body weight 2020-11-27 21:22:00 65.772 kg [facility] BMI 2020-11-27 21:22:00 28.32 kg/m2 [facility] Systolic blood 2020-05-09 13:29:00 116 mm[Hg] Univer sity of pressure [facility] Diastolic blood 2020-05-09 13:29:00 68 mm[Hg] Unive rsity of pressure [facility] Heart rate 2020-05-09 13:29:00 84 /min [facility] Body temperature 2020-05-09 13:29:00 36.11 Bisi [facility] ers[facility] of [facility] Respiratory rate 2020-05-09 13:29:00 16 /min Univ [facility] Body height 2020-05-09 13:29:00 152.4 cm [facility] Body weight 2020-05-09 13:29:00 63.957 kg [facility] BMI 2020-05-09 13:29:00 27.54 kg/m2 [facility] Systolic blood 2020-05-09 13:29:00 116 mm[Hg] [facility] sity [facility] pressure [facility] Diastolic blood 2020-05-09 13:29:00 68 mm[Hg] Unive rsity of pressure [facility] Heart rate 2020-05-09 13:29:00 84 /min [facility] Body temperature 2020-05-09 13:29:00 36.11 Bisi [facility] Respiratory rate 2020-05-09 13:29:00 16 /min Univ [facility] Body height 2020-05-09 13:29:00 152.4 cm [facility] Body weight 2020-05-09 13:29:00 63.957 kg [facility] BMI 2020-05-09 13:29:00 27.54 kg/m2 [facility] Systolic blood 2020-05-05 14:06:00 114 mm[Hg] [facility]ity of pressure [facility] Diastolic blood 2020-05-05 14:06:00 76 mm[Hg] Unive rsity of pressure [facility] Heart rate 2020-05-05 14:06:00 84 /min [facility] Body temperature 2020-05-05 14:06:00 36.78 Bisi [facility] Respiratory rate 2020-05-05 14:06:00 16 /min [facility] Body height 2020-05-05 14:06:00 152.4 cm [facility] Body weight 2020-05-05 14:06:00 63.64 kg [facility] BMI 2020-05-05 14:06:00 27.40 kg/m2 [facility] Systolic blood 2019-04-26 15:44:00 118 mm[Hg] [facility]ity of pressure [facility] Diastolic blood 2019-04-26 15:44:00 64 mm[facility]Hg[facility] Heart rate 2019-04-26 15:44:00 74 /min [facility] Body temperature 2019-04-26 15:44:00 36.94 Bisi [facility] Respiratory rate 2019-04-26 15:44:00 18 /min [facility] Body height 2019-04-26 15:44:00 152.4 cm [facility] Body weight 2019-04-26 15:44:00 53.156 kg [facility] BMI 2019-04-26 15:44:00 22.89 kg/m2 [facility] Procedures Procedure Date / Time Performing Clinician Source Performed XR KNEE <3 VW RIGHT 2021-03-12 19:35:32 Antonio Hernández [facility] FL TIME OR 2021-02-03 19:08:54 [facility] (NON-REPORTABLE) [facility] [place] TIME OR 2021-02-03 19:08:54 [facility] (NON-REPORTABLE) [facility] EXTERNAL FIXATOR REMOVAL 2021-02-03 18:11:00 Antonio Hernández [facility] OF LOWER EXTREMITY [facility] MANIPULATION KNEE 2021-02-03 18:11:00 [facility]dez [facility] POCT TEST 2021-02-03 17:15:00 Awilda Martinez [facility] POCT TEST 2021-02-03 [facility] 2021-02-03 16:57:00 Antonio Hernández [facility] TESTING) [facility] COVID-19 (ID NOW RAPID 2021-02-03 16:57:[address] [facility] TESTING) [facility] CONSENT/REFUSAL FOR 2021-02-03 16:47:36 Doctor Unassigned, No [facility] [place] [facility] Name [facility] CONSENT/REFUSAL FOR 2021-02-03 16:47:36 [facility] DAY SURGERY - VICTOR 2021-02-03 05:01:00 Doctor Unassigned, No [facility] LAKES Name [facility] XR KNEE <3 VW RIGHT 2021-01-29 21:17:13 Antonio Hernández [facility] XR KNEE <3 VW RIGHT 2021-01-29 21:17:13 Antonio Hernández [facility] XR FEMUR 2 VW RIGHT 2021-01-14 05:04:04 Christina Britt [facility] XR TIBIA FIBULA 2 VW 2021-01-14 05:04:04 Christina Britt [facility] POCT TEST 2021-01-14 04:38:00 Christina Britt [facility] COMP. METABOLIC PANEL 2021-01-14 04:18:00 Christina Britt [facility] ([id number]) [facility] SEDIMENTATION RATE 2021-01-14 04:18:00 Christina Britt [facility] CBC WITH DIFF 2021-01-14 04:18:00 Christina Britt Ramsay o [facility] CONSENT/REFUSAL FOR 2021-01-14 03:11:40 [facility] EXTERNAL PROVIDER 2020-12-09 05:01:00 Doctor Unassigned, No [facility] RECORDS [facility] GC & CHLAMYDIA AMPLIFIED 2020-08-08 22:26:00 [facility] 2020-05-05 13:10:26 [facility]igned, [facility] Plan of Care Planned Activity Planned Date Details Comments Source Future Scheduled 2028-01-18 DTaP,Tdap,and Td [facility] Test 00:00:00 Vaccines (4 - Td) Medical Br anch [code = DTaP,Tdap,and Td Vaccines (4 - Td)] Future Scheduled 2028-01-18 DTaP,Tdap,and Td Univers ity [facility] Test 00:00:00 Vaccines (4 - Td) Medical Br anch [code = DTaP,Tdap,and Td Vaccines (4 - Td)] Future Scheduled 2028-01-18 DTaP,Tdap,and Td Univers ity [facility] Test 00:00:00 Vaccines (4 - Td) Medical Br anch [code = DTaP,Tdap,and Td Vaccines (4 - Td)] Future Scheduled 2028-01-18 DTaP,Tdap,and Td Univers ity [facility] Test 00:00:00 Vaccines (4 - Td) Medical Br anch [code = DTaP,Tdap,and Td Vaccines (4 - Td)] Future Scheduled 2021-08-08 Screening for [facility] Test 00:00:00 Chlamydia trachomatis Medica l Branch (procedure) [code = 018169327] Future Scheduled 2021-08-08 Screening for [facility] Test 00:00:00 Chlamydia trachomatis Medica l Branch (procedure) [code = 600250602] Future Scheduled 2021-08-08 Screening for University [facility] Test 00:00:00 Chlamydia trachomatis Medica l Branch (procedure) [code = 622572463] Future Scheduled 2021-08-08 Screening for [facility] Test 00:00:00 Chlamydia trachomatis Medica l Branch (procedure) [code = 403884591] Future Scheduled 2021-05-27 INFLUENZA VACCINE [facility] [place] [facility] 00:00:00 (Season Ended) [code Medical Branch = INFLUENZA VACCINE (Season Ended)] Future Scheduled 2021-05-27 INFLUENZA VACCINE [facility] [place] Test 00:00:00 (Season Ended) [code Medical Branch = INFLUENZA VACCINE (Season Ended)] Future Scheduled 2021-05-27 INFLUENZA VACCINE [facility] [place] Test 00:00:00 (Season Ended) [code Medical Branch = INFLUENZA VACCINE (Season Ended)] Future Scheduled 2021-05-27 INFLUENZA VACCINE [facility] [place] Test 00:00:00 (Season Ended) [code Medical Branch = INFLUENZA VACCINE (Season Ended)] Future Scheduled 2021-05-05 Depression screening [facility] [place] Test 00:00:00 (procedure) [code = Medical Branch 323334676] Future Scheduled 2021-05-05 Depression screening [facility] [place] Test 00:00:00 (procedure) [code = Medical Branch 566410558] Future Scheduled 2021-05-05 Depression screening [facility] [place] Test 00:00:00 (procedure) [code = Medical Branch 546583062] Future Scheduled 2021-05-05 Depression screening [facility] [place] Test 00:00:00 (procedure) [code = Medical Branch 448115972] Future Scheduled 2021-04-18 Screening for [facility] [place] Test 00:00:00 malignant neoplasm of Medica l Branch cervix (procedure) [code = 640325686] Future Scheduled 2021-04-18 Screening for [facility] [place] Test 00:00:00 malignant neoplasm of Medica l Branch cervix (procedure) [code = 883877971] Future Scheduled 2021-04-18 Screening for [facility] [place] Test 00:00:00 malignant neoplasm of Medica l Branch cervix (procedure) [code = 036133535] Future Scheduled 2021-04-18 Screening for [facility] [place] Test 00:00:00 malignant neoplasm of Medica l Branch cervix (procedure) [code = 492642394] Future Scheduled 2014 Hepatitis C screening [facility] [place] [facility] 00:00:00 (procedure) [code = Medical Branch 540478926] Future Scheduled 2014 Hepatitis C screening [facility] [place] [facility] 00:00:00 (procedure) [code = Medical Branch 011744083] Future Scheduled 2014 Hepatitis C screening [facility] [place] [facility] 00:00:00 (procedure) [code = Medical Branch 363861058] Future Scheduled 2014 Hepatitis C screening [facility] [place] [facility] 00:00:00 (procedure) [code = Medical Branch 848527012] Future Scheduled 2012 SARS-CoV-2 (COVID-19) [facility] [place] [facility] 00:00:00 Vaccine (1) [code = Medical Branch SARS-CoV-2 (COVID-19) Vaccine (1)] Future Scheduled 2012 SARS-CoV-2 (COVID-19) [facility] [place] [facility] 00:00:00 Vaccine (1) [code = Medical Branch SARS-CoV-2 (COVID-19) Vaccine (1)] Future Scheduled 2012 SARS-CoV-2 (COVID-19) [facility] [place] [facility] 00:00:00 Vaccine (1) [code = Medical Branch SARS-CoV-2 (COVID-19) Vaccine (1)] Future Scheduled 2012 SARS-CoV-2 (COVID-19) [facility] [place] [facility] 00:00:00 Vaccine (1) [code = Medical Branch SARS-CoV-2 (COVID-19) Vaccine (1)] Future Scheduled 2002 PNEUMOCOCCAL 0-64 [facility] [place] Test 00:00:00 YEARS COMBINED SERIES Medica l Branch (1 of 3 - PCV13) [code = PNEUMOCOCCAL 0-64 YEARS COMBINED SERIES (1 of 3 - PCV13)] Future Scheduled 2002 PNEUMOCOCCAL 0-64 [facility] [place] Test 00:00:00 YEARS COMBINED SERIES Medica l Branch (1 of 3 - PCV13) [code = PNEUMOCOCCAL 0-64 YEARS COMBINED SERIES (1 of 3 - PCV13)] Future Scheduled 2002 PNEUMOCOCCAL 0-64 [facility] [place] Test 00:00:00 YEARS COMBINED SERIES Medica l Branch (1 of 3 - PCV13) [code = PNEUMOCOCCAL 0-64 YEARS COMBINED SERIES (1 of 3 - PCV13)] Future Scheduled 2002 PNEUMOCOCCAL 0-64 [facility] [place] Test 00:00:00 YEARS COMBINED SERIES Medica l Branch (1 of 3 - PCV13) [code = PNEUMOCOCCAL 0-64 YEARS COMBINED SERIES (1 of 3 - PCV13)] Encounters Start End Encounter Admission Attending Care Care Encounter Source Date/Time Date/Time Type Type Clinicians Facility Department ID 2021-07-26 Outpatient Ksenia HERNÁNDEZ [facility] [id number] Univers 17:44:43 ANTONIO victoria [facility] 2021-07-[address] [facility] [id number] Univers 14:14[facility] [facility] [id number] Univers 07:52:18 [facility] 2021-07-26 Inpatient Ksenia HERNÁNDEZ [facility] [id number] Univers 05:03:23 ANTOINO victoria [facility] 2021-07-26 Inpatient RASTA [facility] SOR [id number] Univers 04:36:19 ANTONIO renita [facility] 2021-11-12 2021-11-12 [facility] [id number] [id number]-20 Univers 13:15:00 13:15:00 CHER [id number] genovevay o f [facility] 2021-11-12 2021-11-12 Outpatient R NASRA, [facility] [id number] Univers 13:15:00 13:15:00 CHER tomasy o aaron [facility] 2021-07-30 2021-07-30 Outpatient R RASTA [facility] [id number] [id number]-20 Univers 16:20:00 16:20:00 ANTONIO [id number] renita [facility] 2021-07-30 2021-07-30 [facility] [id number] Univers 16:20:00 16:20:00 ANTONIO [facility] 2021-05-12 2021-05-12 Outpatient R NASRA, [facility] [id number] [id number]-20 Univers 14:15:00 14:15:00 CHER [id number] ity o [facility] 2021-05-12 2021-05-12 [facility] [id number] Univers 14:15:00 14:15:00 CHER villasenor [facility] 2021-04-23 2021-04-23 [facility] 1.2.840.114 [id number] Univers 16:44:50 23:59:00 Encounter [facility]2.7.2.686 [facility] AT [phone] Az apurva DALE 809 [facility] 2021-04-23 2021-04-23 Office [facility] [id number] Univers 17:05:33 17:15:56 Visit [place] [facility].13.10 [facility] 4.2.7.2.686 [facility] AT [id number] Az apurva DALE 198 [facility] 2021-04-23 2021-04-23 [facility] [id number] Univers 16:40:00 16:40:00 ANTONIO victoria [facility] 2021-04-23 2021-04-23 Outpatient [facility] [id number] [id number]-20 Univers 16:00:00 16:00:00 ANTONIO [id number] [facility] 2021-04-23 2021-04-23 Letter [facility] [id number] Univers 00:00:00 00:00:00 (Out) Antonio SPECIALTY 350.1.13.10 ity of [place] [facility] 4.2.7.2.686 [facility] AT [phone] Az jennaananda CHITO 198 [facility] 2021-03-24 2021-03-24 Outpatient R [facility] [id number] Univers 08:20:00 08:20:00 [id number] ity [facility] 2021-03-24 2021-03-24 [facility] [id number] Univers 08:20:00 08:20:00 JOHANNY ity [facility] 2021-03-17 2021-03-[address] [facility] [id number] Univers 10:00:00 10:00:00 [id number] ity [facility] 2021-03-16 2021-03-16 Outpatient R [facility] [id number] Univers 08:00:00 08:00:00 [id number] ity [facility] 2021-03-16 2021-03-16 [facility] [id number] Univers 08:00:00 08:00:00 [facility] 2021-03-12 2021-03-12 Hospital [facility] 1.2.840.114 [id number] Univers 14:23:47 23:59:00 Encounter Antonio SPECIALTY [id number] ity [place] [facility] 4.2.7.2.686 [facility] AT [phone] Az apurva DALE 809 [facility] 2021-03-12 2021-03-12 Office [facility] [id number] Univers 14:13:56 14:57:27 Visit Antonio SPECIALTY 350.1.13.10 ity of [place] [facility] 4.2.7.2.686 [facility] AT [id number] Az apurva DALE 198 [facility] 2021-03-12 2021-03-12 [facility] [id number] [id number]-20 Univers 14:40:00 14:40:00 ANTONIO [id number] ity [facility] 2021-03-12 2021-03-12 [facility] [id number] Univers 14:40:00 14:40:00 ANTONIO ity [facility] 2021-02-25 2021-02-25 Letter Juliana [facility] 1.2.840.114 [id number] Univers 00:00:00 00:00:00 (Out) Iris Nicole SPECIALTY 350.1.13.10 ity of CARE 4.2.7.2.686 [facility] AT [phone] Az apurva FLORIRenita [address] [place] [address] 2021-02-19 2021-02-19 Outpatient [facility] [id number] [id number]-20 Univers 09:40:00 09:40:00 CATHY [id number] ity [facility] 2021-02-19 2021-02-19 Outpatient R [facility] [id number] Univers 09:40:00 09:40:00 CATHY [facility] 2021-02-05 2021-02-05 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 2.840.114 [id number] Univers 13:59:47 14:29:47 Visit Antonio Hernández SPECIALTY 350 .1.13.10 ity of CARE 4.2.7.2.686 [facility] AT [phone] Az apurva FLORIRenita [address] [place] [address] 2021-02-05 2021-02-05 Outpatient R [facility] [id number] Univers 14:00:00 14:00:00 [id number] ity [facility] 2021-02-05 2021-02-05 Outpatient R [facility] [id number] Univers 14:00:00 14:00:00 ity [facility] 2021-02-04 2021-02-04 Telephone [facility] 1.2.840.114 [id number] Univers 00:00:00 00:00:00 [place] SPECIALTY 350.1.13.10 itSamuel [facility] 4.2.7.2.686 [place] [phone] Az apurva FLORIRenita [address] [place] [address] 2021-02-03 2021-02-03 [facility] 1.2.840.114 [id number] Univers 11:47:00 15:25:00 Encounter [place] [facility] [id number] ity of [place] 4.2.7.2.686 [facility] [id number] [address] ([facility]) 2021-02-03 2021-02-03 Surgery [facility] [id number] Univers 13:50:00 15:11:00 [place] SPECIALTY 350.1.13.10 ity of [facility] 4.2.7.2.686 [facility] AT [phone] Az dical VICTORY 020 [facility] 2021-02-03 2021-02-03 Outpatient Ksenia FITZPATRICK [facility] [id number] [id number]-20 Univers 15:00:00 15:00:00 CATHY [id number] ity [facility] 2021-02-03 2021-02-03 Orders Doctor RATLIFF 1.2.840.114 [id number] Univers 00:00:00 00:00:00 Only Unassigned, ESTRADA 350.1.13.10 ity of [place] [facility] 4.2.7.2.686 Rodrigo [id number] [address] 2021-02-02 2021-02-[address] [facility] [id number] Univers 14:45:00 14:45:00 [id number] ity [facility] 2021-01-29 2021-01-29 [facility] 1.2.840.114 [id number] Univers 16:10:26 23:59:00 Encounter [place] SPECIALTY 350.1.13.10 ity of [facility] 4.2.7.2.686 [facility] [place] AT [phone] Az dicananda VICTORY [address] [place] 2021-01-29 2021-01-29 [facility] [id number] [id number]-20 Univers 16:50:00 16:50:00 ANTONIO [id number] ity of [facility] 2021-01-29 2021-01-29 Outpatient [facility] [id number] Univers 16:50:00 16:50:00 ANTONIO ity [facility] 2021-01-29 2021-01-29 Office [facility] [id number] Univers 15:49:26 16:43:46 Visit Antonio SPECIALTY 350.1.13.10 ity of [place] CARE 4.2.7.2.686 [facility] AT [phone] Az dicananda DALE 198 [facility] 2021-01-22 2021-01-22 [facility] 1.2.922.212 [id number] Univers 00:00:00 00:00:00 Cathy J SPECIALTY 350.1.13.10 ity of CARE 4.2.7.2.686 [facility] AT [phone] Az apurva DALE [address] [place] [address] 2021-01-15 2021-01-15 Office [facility] 1.2.331.801 [id number] Univers 15:42:36 16:25:50 Visit [place] SPECIALTY 350.1.13.10 ity of [facility] 4.2.7.2.686 [facility] AT [phone] Az apurva DALE [address] [place] [address] 2021-01-15 2021-01-15 [facility] [id number] [id number]-20 Univers 15:00:00 15:00:00 ANTONIO [id number] [facility] 2021-01-15 2021-01-15 [facility] [id number] Univers 15:00:00 15:00:00 ANTONIO [facility] 2021-01-13 2021-01-14 Emergency [facility] 1.2.604.161 [id number] Univers 22:42:00 02:25:00 Christina Blancas 350.1.13.10 i ty of [place] 4.2.7.2.686 [facility] [place] [phone] [address] 2021-01-14 2021-01-14 Patient [facility] 1.2.321.634 [id number] Univers 00:00:00 00:00:00 Secure Msg [place] SPECIALTY 350.1.13.10 ity of [place] 4.2.7.2.686 [place] [id number] Az apurva DALE 198 [facility] 2021-01-13 2021-01-13 Nurse Maida Smith 1.2.840.114 [id number] Univers 00:00:00 00:00:00 Triage ESTRADA 350.1.13.10 it y of [facility] 4.2.7.2.686 Rodrigo as [id number] [facility] [address] [place] 2021-01-01 2021-01-01 Office [facility] 1.2.491.405 [id number] Univers 13:28:30 13:48:30 Visit Cathy Hart SPECIALTY 350.1.13.10 ity of [facility] 4.2.7.2.686 [place] [id number] Az apurva DALE [address] [place] [address] 2021-01-01 2021-01-01 Outpatient R [facility] [id number] [id number]-20 Univers 11:00:00 11:00:00 CATHY [id number] [facility] 2021-01-01 2021-01-01 Outpatient R [facility] [id number] Univers 11:00:00 11:00:00 CATHY [facility] 2021-01-01 2021-01-01 Telephone [facility] 1.2.840.114 [id number] Univers 00:00:00 00:00:00 Cathy Hart SPECIALTY 350.1.13.10 ity of [facility] 4.2.7.2.686 [place] [phone] Az apurva DALE [address] [place] [address] 2020-12-23 2020-12-23 Transition Sabino Nash 1.2.840.114 [id number] Univers 00:00:00 00:00:00 of Care Leonie Taylor 350.1.13.10 i ty of [place].2.7.2.686 [place] [id number] [facility] [address] [place] 2020-12-16 2020-12-[address] [facility] 1.2.840.114 [id number] Univers 00:00:00 00:00:00 [place] SPECIALTY 350.1.13.10 ity of [facility] 4.2.7.2.686 [place] [id number] Az dical VICTORY 198 [facility] 2020-12-12 2020-12-12 Laboratory Only, Adc Test [facility] 1.2.840. 114 [id number] Univers 10:51:08 11:06:08 Only Nanette, Cathy Blancas 350.1.13. 10 ity of [place] 4.2.7.2.686 [place] [phone] [facility] [address] [place] 2020-12-12 2020-12-12 Outpatient R [facility] [id number] Univers 11:00:00 11:00:00 [id number] ity [facility] 2020-12-12 2020-12-12 [facility] [id number] Univers 11:00:00 11:00:00 CATHY ity [facility] 2020-12-09 2020-12-09 Orders Doctor RATLIFF 1.2.840.114 [id number] Univers 00:00:00 00:00:00 Only Unassigned, ESTRADA 350.1.13.10 ity of [place] [facility] 4.2.7.2.686 Rodrigo as [id number] [facility] [address] [place] 2020-12-05 2020-12-05 Telephone [facility] 1.2.840.114 [id number] Univers 00:00:00 00:00:00 [place] SPECIALTY 350.1.13.10 ity of [facility] 4.2.7.2.686 [facility] AT [id number] Az dicananda DALE 198 [facility] 2020-12-04 2020-12-[address] [facility] [id number] Univers 14:30:00 14:30:00 [id number] ity [facility] 2020-12-04 2020-12-04 Telephone [facility] 1.2.840.114 [id number] Univers 00:00:00 00:00:00 [place] SPECIALTY 350.1.13.10 ity of [facility] 4.2.7.2.686 [place] [id number] Az dicananda VICTORY 198 [facility] 2020-12-02 2020-12-02 [facility] 1.2.840.114 [id number] Univers 14:52:17 23:59:00 Encounter [place] SPECIALTY 350.1.13.10 ity of [place] C[place] 4.2.7.2.686 [place] AT [id number] Az apurva RUBYY 804 [facility] 2020-12-02 2020-12-02 Office [facility] [id number] Univers 11:19:31 12:10:19 Visit [place] SPECIALTY 350.1.13.10 ity of [place] 4.2.7.2.686 [place] AT [id number] Az apurva DALE 198 [facility] 2020-12-02 2020-12-02 Outpatient Ksenia HERNÁNDEZ [facility] [id number] [id number]-20 Univers 11:50:00 11:50:00 ANTONIO [id number] [facility] 2020-12-02 2020-12-02 Outpatient [facility] [id number] Univers 11:50:00 11:50:00 [facility] 2020-11-27 2020-11-27 [facility] 12.840.114 [id number] Univers 15:25:00 23:59:00 Encounter [place] SPECIALTY 350.1.13.10 ity of [place] CARE 4.2.7.2.686 [place] AT [id number] Az apurva DALE 809 [facility] 2020-11-27 2020-11-27 Office [facility] [id number] Univers 15:14:18 16:21:09 Visit [place] SPECIALTY 350.1.13.10 ity of [place] CARE 4.2.7.2.686 [place] AT [id number] Az apurva DALE 198 [facility] 2020-11-27 2020-11-27 Outpatient Ksenia HERNÁNDEZ [facility] [id number] [id number]-20 Univers 15:00:00 15:00:00 ANTONIO [id number] [facility] 2020-11-27 2020-11-27 Outpatient Ksenia HERNÁNDEZ [facility] [id number] Univers 15:00:00 15:00:00 ANTONIO [facility] 2020-11-19 2020-11-19 Outpatient RICKEY Leon [id number] [facility] 13:30:00 13:30:00 Vance [id number] [facility] 2020-08-08 2020-08-08 Nurse Visit, [facility] 1.2.840.114 [id number] 15:11:27 15:30:04 Visit Ang-Rmchp AUDIO VIDEO TECHNICIAN 350.1.13.10 Nurse REGIONAL 4.2.7.2.686 MATERNAL [id number] & CHILD 107 [facility] 2020-08-08 2020-08-08 Nurse Visit, [facility] Nurse [facility] 1.2 .840.114 [id number] [facility] 15:11:27 15:30:04 Visit Cher Gleason AUDIO VIDEO TECHNICIAN 350.1.13. 10 ity of [facility] 4.2.7.2.686 Rodrigo as MATERNAL [id number] Med ical & CHILD [address] [place] [address] 2020-08-08 2020-08-08 Outpatient R NASRA [facility] [id number] Univers 15:00:00 15:00:00 CHER victoria o f [facility] 2020-08-08 2020-08-08 Outpatient R [facility] [id number] Univers 13:30:00 13:30:00 [id number] [facility] 2020-08-08 2020-08-08 Outpatient R [facility] [id number] Univers 13:30:00 13:30:00 [facility] 2020-05-09 2020-05-09 Nurse Visit, [facility] 1.2.840.114 [id number] 08:07:49 08:48:50 [facility] AUDIO VIDEO TECHNICIAN 350.1.13.10 Nurse REGIONAL 4.2.7.2.686 MATERNAL [id number] & CHILD 107 [facility] 2020-05-09 2020-05-09 Nurse Visit, [facility] Nurse [facility] 1.2 .840.114 [id number] Univers 08:07:49 08:48:50 Visit Vinita Trivedi AUDIO VIDEO TECHNICIAN 350.1.13.10 ity of [facility] 4.2.7.2.686 Rodrigo as MATERNAL [phone] Med ical & CHILD [address] [place] [address] 2020-05-09 2020-05-09 Outpatient R [facility] [id number] Univers 08:00:00 08:00:00 [id number] ity [facility] 2020-05-09 2020-05-09 Outpatient R SHIKHA [facility] [id number] Univers 08:00:00 08:00:00 VINITA ity [facility] 2020-05-09 2020-05-09 Telephone [facility] 1.2.840.114 [id number] 00:00:00 00:00:00 Vinita N AUDIO VIDEO TECHNICIAN 350.1.13.10 REGIONAL 4.2.7.2.686 MATERNAL [id number] & CHILD [address] [place] [address] 2020-05-09 2020-05-09 Telephone [facility] 1.2.840.114 [id number] Univers 00:00:00 00:00:00 Vinita N AUDIO VIDEO TECHNICIAN 350.1.13.10 it y of REGIONAL 4.2.7.2.686 Rodrigo as MATERNAL [phone] Med ical & CHILD [address] [place] [address] 2020-05-06 2020-05-06 Telephone [facility] 1.2.172.021 [id number] [facility] 00:00:00 00:00:00 Rosdulcenda R AUDIO VIDEO TECHNICIAN 350.1.13.10 ity of REGIONAL 4.2.7.2.686 Rodrigo as MATERNAL [phone] [facility] & CHILD [address] [place] [address] 2020-05-05 2020-05-05 Office [facility] 1.2.840.114 [id number] Univers 08:14:02 09:52:07 Visit Rosdulcenda R AUDIO VIDEO TECHNICIAN 350.1.13.10 ity of REGIONAL 4.2.7.2.686 Rodrigo as MATERNAL [id number] [facility] ical & CHILD [address] [place] [address] 2020-05-05 2020-05-05 Outpatient R BRI [facility] [id number] Univers 08:30:00 08:30:00 ROSHUNDA ity o f [facility] 2020-05-05 2020-05-05 Outpatient R BRI [facility] [id number] Univers 08:30:00 08:30:00 ÁLVARO [id number] ity o f [facility] 2020-05-05 2020-05-05 Orders Doctor GAUDENCIO [id number] Univers 00:00:00 00:00:00 Only Unassigned, ESTRADA [id number] ity of [facility] [id number] Rodrigo as [id number] [facility] 009 [place] 2020-02-20 2020-02-20 [facility] [id number] Univers 00:00:00 00:00:00 V[place] N AUDIO VIDEO TECHNICIAN [id number] it y of [facility] [id number] Rodrigo as MATERNAL [id number] Med ical & CHILD [address] [place] [address] 2019-12-26 2019-12-26 Outpatient R [facility] [id number] Univers 12:00:00 12:00:00 [id number] ity of [facility] 2019-12-26 2019-12-26 Outpatient R PARETS [facility] [id number] Univers 12:00:00 12:00:00 COURTNEY ity of [facility] 2019-05-01 2019-05-01 Case Gina RATLIFF [id number] Univers 00:00:00 00:00:00 Management , Elicia DORADO 350.1.13.10 ity of HOSPITAL 4.2.7.2.686 [place] as [phone] [facility] 025 [place] 2019-04-26 2019-04-26 Office Pool, [facility] Resident UNIVERSIT 1.2.8 40.114 [id number] Univers 10:33:39 11:17:37 Visit Cale Otero [facility] 350.1.13.10 ity of [place] [phone] [facility] 113 Branch 2019-03-27 2019-03-27 Patient Doctor GAUDENCIO [id number] Univers 00:00:00 00:00:00 Secure Msg Unassigned, ESTRADA 350.1.13.10 ity of [facility] 4.2.7.2.686 Rodrigo as [phone] Medi nancy 044 Branch 2019-03-23 2019-03-23 Patient Doctor GAUDENCIO [id number] Univers 00:00:00 00:00:00 Secure Msg Unassigned, ESTRADA 350.1.13.10 ity of [facility] 4.2.7.2.686 Rodrigo as [phone] Medi nancy 044 Branch Results Test Description Test Time Test Comments Results Result Sourc e Comments XR KNEE <3 VW 2021-02-24 1. Postsurgical Univer sity of RIGHT 7 changes involving the Rodrigo as Medical 21:26:50 right knee are Branch identified as above.No evidence for acute osseous abnormality is visualized. RL: 2831 ORDERING PHYSICIAN: ANTONIO HERNÁNDEZ 2 VIEWS OF THE RIGHT KNEE. DATE: ?03/12/2021 CLINICAL HISTORY: ?Right knee pain. COMPARISON: ?01/29/2021. FINDINGS: ?Frontal and lateral views of the right knee demonstrate medialplate and screw fixation of a proximal tibial metaphyseal fracture with 2threaded screws traversing the medial tibial plateau. The appearance hasnot changed from the prior study. The previously visualized externalfixation devices within the distal femur and proximal tibia have beenremoved. No evidence for acute fracture or subluxation is identified. Nosignificant knee effusion is present. [facility], Radiant Results Inft User - 03/12/2021 4:27 PM CDT ORDERING PHYSICIAN: ANTONIO HERNÁNDEZ2 VIEWS OF THE RIGHT KNEE.DATE: 03/12/2021LINICAL HISTORY: Right knee pain.COMPARISON: 01/29/2021.FINDINGS: Frontal and lateral views of the right knee demonstrate medialplate and screw fixation of a proximal tibial metaphyseal fracture with 2threaded screws traversing the medial tibial plateau. The appearance hasnot changed from the prior study. The previously visualized externalfixation devices within the distal femur and proximal tibia have beenremoved. No evidence for acute fracture or subluxation is identified. Nosignificant knee effusion is present.IMPRESSION1. Postsurgical changes involving the right knee are identified as above.No evidence for acute osseous abnormality is visualized.RL: 2831 TIME OR 2021-01-24 These images do not Unive rsity of (NON-REPORTABLE) 1 require a Radiology [facility] 19:10:21 diagnostic report. [place] TIME OR 2021-01-24 These images do not Unive rsity of (NON-REPORTABLE) 1 require a Radiology [facility] 19:10:21 diagnostic report. [place] COVID-19 (ID NOW RAPID TESTING) 2021-02-03 17:33:08 Test Item Value Reference Range Interpretation Comme nts SARS-CoV-2 Rapid ID NOW (test code Not Detected Not Detected = 70304-6) GIOVANNI (test code = GIOVANNI) ID NOW COVID-19 Assay is an isothermal nucleic acid amplification test intended for the qualitative detection of nucleic acid from SARS-CoV-2 viral RNA in nasopharyngeal (CEMENT MASON) specimens. It is used under Emergency Use Authorization (EUA) by FDA. The limit of detection (LOD) of the assay is 125 Genome Equivalents/mL. A positive result is indicative of the presence of SARS-CoV-2 RNA. ?Clinical correlation with patient history and other diagnostic information is necessary to determine patient infection status. A negative (Not Detected) result does not preclude SARS-CoV-2 infection. In patients with clinical symptoms and other tests that are consistent with SARS-CoV-2 infection, negative results should be treated as presumptive negative and a new specimen should be tested with alternative PCR molecular test. Invalid: Please collect a new specimen for repeat patient testing if clinically indicated. Lab Interpretation (test code = Normal 51017-1) [facility]2021-02-03 17:33:08 Test Item Value Reference Range Interpretation Comments SARS-CoV-2 Rapid ID NOW Not Detected Not Detected (test code = 38571-6) GIOVANNI (test code = GIOVANNI) ID NOW COVID-19 Assay is an isothermal nucleic acid amplification test intended for the qualitative detection of nucleic acid from SARS-CoV-2 viral RNA in nasopharyngeal (CEMENT MASON) specimens. It is used under Emergency Use Authorization (EUA) by FDA. The limit of detection (LOD) of the assay is 125 Genome Equivalents/mL. A positive result is indicative of the presence of SARS-CoV-2 RNA. ?Clinical correlation with patient history and other diagnostic information is necessary to determine patient infection status. A negative (Not Detected) result does not preclude SARS-CoV-2 infection. In patients with clinical symptoms and other tests that are consistent with SARS-CoV-2 infection, negative results should be treated as presumptive negative and a new specimen should be tested with alternative PCR molecular test. Invalid: Please collect a new specimen for repeat patient testing if clinically indicated. Lab Interpretation Normal (test code = 54783-8) [facility] [id number] 17:15:00 Test Item Value Reference Range Interpretation Comments POCT PREG (test code = 1605) Negative On board controls acceptable with C Yes Line (test code = 3574) POCT PREG LOT # (test code = 3575) POCT PREG TEST DATE (test code = 3576) Lab Interpretation (test code = Normal 73417-4) [facility] [id number] 17:15:00 Test Item Value Reference Range Interpretation Comments POCT PREG (test code = 1605) Negative On board controls acceptable with C Yes Line (test code = 3574) POCT PREG LOT # (test code = 3575) POCT PREG TEST DATE (test code = 3576) Lab Interpretation (test code = Normal 83072-4) [facility]3 VW [id number] 00:16:33 Hardware fixation, securing a proximal tibial fracture withoutcomplication.XR KNEE <3 VW RIGHT INDICATION: pain COMPARISON: 11/27/2020 and 01/14/2021 FINDINGS: External fixator device with screws extending through the femur and tibia.Hardware fixation of the proximal tibial fracture without complicat ion.Healing/healed fibular head fracture. [facility], Radiant Results Inft User - 01/29/2021 7:17 PM CDTXR KNEE <3 VW RIGHTINDICATION: pain COMPARISON: 11/27/2020 and 01/14/2021FINDINGS:External fixator device with screws extending through the femur and tibia.Hardware fixation of the proximal tibial fracture without complication.Healing/healed fibular head fracture.IMPRESSIONHardware fixation, securing a proximal tibial fracture withoutcomplication.[facility]3 VW [id number] 00:16:33 Hardware fixation, securing a proximal tibial fracture withoutcomplication.[facility], Radiant Results Inft User - 01/29/2021 7:17 PM CDTXR KNEE <3 VW RIGHTINDICATION: pain COMPARISON: 11/27/2020 and 01/14/2021FINDINGS:External fixator device with screws extending through the femur and tibia.Hardware fixation of the proximal tibial fracture without complication.Healing/healed fibular head fracture.IMPRESS IONHardware fixation, securing a proximal tibial fracture withoutcomplication. [facility] Worth[facility]. METABOLIC PANEL (89748)2021-01-14 05:30:37 Test Item Value Reference Range Interpretation Comments NA (test code = 141 mmol/L 135-145 1731159545) K (test code = 3.7 mmol/L 3.5-5.0 7756514654) CL (test code = 104 mmol/L 98-108 4960619657) CO2 TOTAL (test code 26 mmol/L 23-31 = 3708588047) AGAP (test code = 2-16 3998452709) BUN (test code = 8 mg/dL 7-23 4434944110) GLUCOSE (test code = 98 mg/dL 70-110 5993976384) CREATININE (test code 0.64 mg/dL 0.50-1.04 = 5254532891) TOTAL BILI (test code 0.5 mg/dL 0.1-1.1 = 3075669096) CALCIUM (test code = 9.0 mg/dL 8.6-10.6 5940970563) T PROTEIN (test code 7.5 g/dL 6.3-8.2 = 8113951228) ALBUMIN (test code = 4.2 g/dL 3.5-5.0 3563119561) ALK PHOS (test code = 54 U/L 34-122 1751260564) ALTv (test code = 10 U/L 5-35 1742-6) AST(SGOT) (test code 26 U/L 13-40 = 8977103113) eGFR (test code = mL/min/1.73m2 3057751758) GIOVANNI (test code = GIOVANNI) Association of Glomerular Filtration Rate (GFR) and Staging of Kidney Disease* + + +- +| GFR (mL/min/1.73 m2) ?| With Kidney Damage ?| ?Without Kidney Damage+ ------+ ----+ ------+| ?>90 ?| ?Stage one ?| ? Normal ?+ -+ + -+| ?60-89 ?| ?Stage two ?| ? Decreased GFR ? + + +- +| ?30-59 ?| ?Stage three ?| ? Stage three ? + + +- +| ?15-29 ?| ?Stage four ? | ? Stage four ?+ -+ + -+| ?<15 (or dialysis) ? ?| ?Stage five ? | ? Stage five ?+ -+ + -+ *Each stage assumes the associated GFR level has been in effect for at least three months. ?Stages 1 to 5, with or without kidney disease, indicate chronic kidney disease. Notes: Determination of stages one and two (with eGFR >59mL/min/1.73 m2) requires estimation of kidney damage for at least three months as defined by structural or functional abnormalities of the kidney, manifested by either:Pathological abnormalities or Markers of kidney damage (including abnormalities in the composition of the blood or urine or abnormalities in imaging tests). [facility] WorthSEDIMENTATION [id number] 05:27:36 Test Item Value Reference Range Interpretation Comments ESR (test code = See_Comment [Automated message] [id number]) The system [employer] generated this result transmitted ref erence range: 0 - 20 m m/HR. The reference r sumeet was not used to interpret this result as normal/abnor mal. Lab Interpretation (test Normal code = 37255-0) [facility] Worth[facility] [id number] 04:38:00 Test Item Value Reference Range Interpretation Comments POCT PREG (test code = 1605) negative On board controls acceptable with present C Line (test code = 3574) POCT PREG LOT # (test code = 3575) [id number] POCT PREG TEST DATE (test 2022-08-25 code = 3576) Lab Interpretation (test code = Normal 81984-2) [facility] WITH [id number] 04:29:05 Test Item Value Reference Range Interpretation Comments WBC (test code = See_Comment [Automated 6690-2) message] The sy stem which generated this result transmitted reference range : 4.30 - 11.10 10*3/?L. The reference range was not used to interpret this result as normal/abnormal . RBC (test code = See_Comment [Automated 789-8) message] The sy stem which generated this result transmitted reference range : 3.93 - 5.25 10*6/?L. The reference range was not used to interpret this result as normal/abnormal . HGB (test code = 12.4 g/dL 11.6-15.0 718-7) HCT (test code = 37.4 % 35.7-45.2 4544-3) MCV (test code = 88.4 fL 80.6-95.5 787-2) MCH (test code = 29.3 pg 25.9-32.8 785-6) MCHC (test code = 33.2 g/dL 31.6-35.1 786-4) RDW-SD (test code = 44.0 fL 39.0-49.9 23248-2) RDW-CV (test code = 13.6 % 12.0-15.5 788-0) PLT (test code = See_Comment H [Automated 777-3) message] The sy stem which generated this result transmitted reference range : 166 - 358 10*3/ ?L. The reference r sumeet was not used to interpret this result as normal/abnormal . MPV (test code = 9.5 fL 9.5-12.9 23911-7) NRBC/100 WBC (test See_Comment [Automat ed code = 3862372937) message] The system which generated this result transmitted reference range : 0.0 - 10.0 /100 WBCs. The refer ence range was not u sed to interpret th is result as normal/abnormal . NRBC x10^3 (test code <0.01 See_Comment [Auto mated = 4664165670) message] The s ystem which generated this result transmitted reference range : 10*3/?L. The reference range was not used to interpret this result as normal/abnormal . GRAN MAT (NEUT) % 60.7 % (test code = 770-8) IMM GRAN % (test code 0.40 % = 1170676719) LYMPH % (test code = 27.2 % 736-9) MONO % (test code = 7.1 % 5905-5) EOS % (test code = 4.1 % 713-8) BASO % (test code = 0.5 % 706-2) GRAN MAT x10^3(ANC) 4.93 10*3/uL 1.88-7.09 (test code = 3507510673) IMM GRAN x10^3 (test 0.03 10*3/uL 0.00-0.06 code = 3964479202) LYMPH x10^3 (test code 2.21 10*3/uL 1.32-3.29 = 731-0) MONO x10^3 (test code 0.58 10*3/uL 0.33-0.92 = 742-7) EOS x10^3 (test code = 0.33 10*3/uL 0.03-0.39 711-2) BASO x10^3 (test code 0.04 10*3/uL 0.01-0.07 = 704-7) Lab Interpretation Abnormal (test code = 66167-7) [facility]OWER EXTRM W/O C [id number] 14:22:00 [facility] 1995 Sex: F Patient Name: PLACIDO WALKER Unit No: [id number] EXAMS: CPT CODE: [id number] CT LOWER EXTRM W/[place] [address] CT OF THE RIGHT KNEE WITH SAGITTAL AND CORONAL RECONSTRUCTIONS DIAGNOSIS: There is a mildly comminuted depressed fracture of the anterior medial tibial plateau with 8 mm of depression. An avulsion fracture of the tibial spines is noted with presumed avulsion of the anterior cruciate ligament and posterior displacement of the tibia relative to the femur Also noted is a displaced fracture of the fibular head with proximal and medial displacement of the proximal fracture fragment. COMMENT: COMPARISON: No prior exams available. Scans were performed with thin sections and reconstructions were obtained. CT radiation dose optimization is achieved for this examination by the use of a CT protocol in accordance with ACR practice standards and adherence to municipal maintenance worker's recommendations. Multiple fractures are present as described. at 1422 Reported and signed by: Claudio Aj MD CC: Vance Leon MD Technologist: Enrique Mantilla,RT(R) CTDI: DLP: Trnscrpt: 11/19/2020 (7158) t.SDR.JCL [facility] NAME: PLACIDO WALKER [address] [facility] PHYS: BRIMA. - Vance Leon MD : 1995 AGE: 25SEX: F [place] [address] LOC: Y.RAD PHONE #: [phone] EXAM DATE: 11/19/2020 STATUS: REG CLI FAX #: [phone] RAD #: D/C DT PAGE 1 Signed Report Patient Name: PLACIDO WALKER Unit No: [id number] EXAMS: CPT CODE: [id number] CT LOWER EXTRM W/[place] [address] <Continued> Orig Print D/T: S: 11/19/2020 (6528) [facility] NAME: PLACIDO WALKER [address] [facility] PHYS: BRIMA. - Vance Leon MD : 1995 AGE: 25 SEX: F [place] [address] LOC: Y.RAD PHONE #: [phone] EXAM DATE: 11/19/2020 STATUS: REG CLI FAX #: [phone] RAD #: D/C DT PAGE 2 Signed ReportGC & CHLAMYDIA AMPLIFIED [id number] 18:22:00 Test Item Value Reference Range Interpretation Comments C. trachomatis Nucleic Negative Negative Acid (test code = 62342-5) N. gonorrhoeae Nucleic Negative Negative Acid (test code = 93975-0) GIOVANNI (test code = GIOVANNI) Reliable results are dependent on adequate specimen collection. ? A positive result obtained from a patient after therapeutic treatment cannot be interpreted as indicating the presence of viable organisms. ?For patients on whom a false positive result may have adverse psychosocial impact, retesting is advised. Indeterminate: Unable to generate a valid test result on this specimen. ?Please submit a new specimen for repeat testing if clinically indicated. Chlamydia trachomatis/Neisseria gonorrhoeae nucleic acid amplification testing (NAAT) has not been validated for medico-legal specimens (sexual abuse in moy-pubertal and pre-pubertal children, sexual assault, and legal cases). ?Culture for Chlamydia trachomatis and/or Neisseria gonorrhoeae from clinically appropriate sites is the method of choice in these cases. ? Results from this testing should be interpreted in conjunction with other laboratory and clinical data available to the clinician.For females in general, a urine specimen is a second-line option because it is considered less sensitive than a cervical swab for Chlamydia trachomatis and/or Neisseria gonorrhoeae NAAT. Lab Interpretation Normal (test code = 94503-6) [facility] Worth[facility] [id number] 11:44:00 Test Item Value Reference Range Interpretation Comments HIV 1/2 Antibody Non-Reactive Non-Reactive N HIV1/2 Anti body screen (test code = result indicate s the HIV1/2AB) absence of HIV1 and RAN6usbdmhgra.H owever, A Non-Reactive screen result does not rule out exposure orinfection. I f an acute infection is suspected, HIV RNA Quantitative is recommended. P24 Antigen (test Non-Reactive Non-Reactive N P24 Ag scr een result code = P24) indicates the a bsence of P24 antigen, which is anindicator of HIV-1 acute infection.Howev er, A Non-Reactive sc reen does not rule o ut exposure or infection.If ac galileo HIV-1 is suspec alexis, HIV RNA Quantit ative is recommended. Hep B Surface [id number] 09:41:00 Test Item Value Reference Range Interpretation Comments Hep Bs Ag (test code = HBSAG) Nonreactive Non-Reactive A BHCG, Serum, [id number] 08:32:00 Test Item Value Reference Range Interpretation Comments Preg Qual [Se] (test code = BSHCG) POSITIVE Negative A Comprehensive Metabolic [id number] 08:31:00 Test Item Value Reference Range Interpretation [...] ars ofage have not been validated by gely wright MDRD study and rivka nicole be interpretedwith caution.eGFR Re sult Interpretation: eGFR > or = 60 is in t he Normal RangeeGF R < 60 may mean kidney diseaseeGFR < 1 5 may mean kidney failureRange s recommended by the National Kidney Foundation,http ://nkd ep.nih.gov TIBC and [id number] 08:31:00 Test Item Value Reference Range Interpretation Comments Iron (test code = FE) 26 ug/dL 37-145 L UIBC (test code = UIBC) 406 ug/dL 112-346 H TIBC (test code = TIBC) 432 ug/dL 149-491 N % Saturation (test code = PSAT) 6 % 20-50 L CBC with [id number] 08:19:00 Test Item Value Reference Range Interpretation [...] code = ALYMPH) 2.6 K/cumm 0.5-4.6 N [place] Abs (test code = AMONO) 1.1 K/cumm 0.0-1.2 N Eos Abs (test code = AEOS) 0.27 K/cumm 0.00-0.74 N Baso Abs (test code = ABASO) 0.0 K/cumm 0.00-0.21 N RPR, [id number] 11:04:00 Test Item Value Reference Range Interpretation Comments RPR (test code = RPR) Non-Reactive Non-Reactive N Thyroid Stimulating Hormone (TSH)2017-01-26 05:33:00 Test Item Value Reference Range Interpretation Comments TSH (test code = TSH) 1.00 mIU/mL 0.270-4.200 N Comprehensive Metabolic [id number] 05:23:00 Test Item Value Reference Range Interpretation [...] the National Kidney Foundation,http ://nkd ep.nih.gov Lipid [id number] 05:23:00 Test Item Value Reference Range Interpretation Comments Cholesterol (test 203 mg/dL 0-200 H code = CHOL) Triglycerides (test 153 mg/dL 9-200 N code = TRIG) HDL (test code = 73 mg/dL 50-60 H HDL) Chol/HDL (test code 2.8 Ratio 0.0-4.4 N = CHOLPHDL) LDL, Calculated 99 0-130 N (NOTE)RISK O F HEART (test code = LDLC) DISEASEPu blished by [place] Heart AssociationAnal yte Optim al Boderline Increased RiskC HOL <200 200-239 >240TRI G <150 150-199 >200HDL Male: >60 <40HDL Female: >60 <50 LDL < 100 130-15 9 >160 LDL NEAR OPTIMAL IS 100- 129 VLDL (test code = 31 mg/dL 5-40 N VLDL) LDL/HDL (test code = 1 LDLPHDL) CBC with [id number] 05:05:00 Test Item Value Reference Range Interpretation [...] code = ALYMPH) 2.2 K/cumm 0.5-4.6 N [place] Abs (test code = AMONO) 1.0 K/cumm 0.0-1.2 N Eos Abs (test code = AEOS) 0.29 K/cumm 0.00-0.74 N Baso Abs (test code = ABASO) 0.0 K/cumm 0.00-0.21 N"
[2021-10-31 13:45] LABS: SARS-COV-2 RT PCR NEGATIVE (NEGATIVE)
[2021-10-31 14:44] LABS: Absolute Lymphocytes (CBC) 1.7 K/uL (0.7-4.9); Hematocrit 39.9 % (36.0-45.0); Lymphocytes % 14.9 % (15.3-44.8); MPV 7.7 fL (7.6-11.3); RBC Red Blood Cell Count 4.57 M/uL (3.86-4.86)
[2021-10-31 14:46] LABS: Urine Blood 1+ (Negative); Urine Glucose Negative (Negative); Urine Protein Negative (Negative); Urine pH 5.5 (5.0-7.0)
[2021-10-31 15:11] LABS: BUN Blood Urea Nitrogen 5 mg/dL (7-18); Bicarbonate 25 mmol/L (21-32); Glucose Level 101 mg/dL (74-106); Sodium Level 137 mmol/L (136-145)
[2021-10-31 15:21] LABS: Urine Bacteria 20-50 /HPF (<20); Urine RBC <5 /HPF (NONE SEEN)
--- NOTE | 2021-10-31 15:21 | RAD REPORT ---
EXAM DESCRIPTION: CT - Abdomen Pelvis W Contrast - 10/31/2021 2:51 pm CLINICAL HISTORY: Abdominal pain COMPARISON: 2019 TECHNIQUE: Computed axial tomography of the abdomen pelvis was obtained. 100 cc Isovue-300 was admin istered intravenously. Oral contrast was not requested which limits evaluation of bowel. All CT scans are performed using dose optimization technique as appropriate and may include automated exposure control or mA/KV adjustment according to patient size. FINDINGS: The liver, spleen, pancreas, adrenal and kidneys appear unremarkable. There is no evidence of diverticulitis. Normal appendix A 8.3 centimeter right adnexal mass contains fat, fluid and calcification. It has enlarged since the prior exam in which it measured 6.7 centimeters. No significant free fluid IMPRESSION: Enlargement of an 8.3 centimeter right adnexal mass consistent with a dermoid
--- NOTE | 2021-10-31 15:28 | ER ---
Nurse's Notes [facility] Name: Kelsea Toussaint Age: 26 yrs Sex: Female : 1995 Arrival Date: 10/31/2021 Time: 12:39 Bed 11 Private MD: Diagnosis: UTI/ Urinary tract infection, site not specified;Acute upper respiratory infection, unspecified Presentation: 10/31 12:52 Chief complaint: Patient states: cough, sharp stomach pain, throwing up, runny nose, jh5 fever. Coronavirus screen: Vaccine status: Patient reports being unvaccinated. Client denies travel out of the [place] in the last 14 days. Ebola Screen: Patient negative for fever greater than or equal to 101.5 degrees Fahrenheit, and additional compatible Ebola Virus Disease symptoms Patient denies exposure to infectious person. Patient denies travel to an Ebola-affected area in the 21 days before illness onset. Initial Sepsis Screen: Does the patient meet any 2 criteria? No. Patient's initial sepsis screen is negative. Does the patient have a suspected source of infection? No. Patient's initial sepsis screen is negative. Risk Assessment: Do you want to hurt yourself or someone else? Patient reports no desire to harm self or others. Onset of symptoms was October 28, 2021. 12:52 Method Of Arrival: Ambulatory [facility] 12:52 Acuity: VICENTE 3 5 Triage Assessment: 12:55 General: Appears in no apparent distress. well groomed, well developed, Behavior is 5 calm, cooperative, appropriate for age. Pain: Complains of pain in abdomen. 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 - Social history:: Smoking status: Patient denies any tobacco usage or history of. Vital Signs: 12:52 BP 130 / 89; Pulse 102; Resp 18; Temp 97.5; Pulse Ox 99% ; Weight 65.77 kg; Height 5 [facility] ft. 0 in. (152.40 cm); 12:52 Body Mass Index 28.32 (65.77 kg, 152.40 cm) [facility] ED Course: 12:39 Patient arrived in ED. as 12:50 Bryanna Zhu FNP-C [facility] kb 12:50 Cortez Syed MD is Attending Physician. kb 12:55 Triage completed. [facility] 12:55 Arm band placed on right wrist. [facility] 14:29 Cathy Bailey, RN is Primary Nurse. [facility] 14:51 CT Abd/Pelvis - IV Contrast Only In Process Unspecified. EDMS Administered Medications: 15:31 Drug: Macrobid (nitrofurantoin) 100 mg Route: PO; [facility] Outcome: 15:28 Discharge ordered by MD. kb 15:35 Patient left the ED. [facility] Signatures: Dispatcher [employer] EDMS Bryanna Zhu FNP-C FNP-Jael Smith as Cathy Bailey, RN RN [facility]
--- NOTE | 2021-10-31 15:28 | EDPHYS ---
Physician Documentation [facility] Name: Kelsea Toussaint Age: 26 yrs Sex: Female : 1995 Arrival Date: 10/31/2021 Time: 12:39 Bed 11 Private MD: ED Physician Cortez Syed HPI: 10/31 15:08 This 26 yrs old Female presents to ER via Ambulatory with complaints of Sore kb Throat, Cough, Vomiting, Fever. 15:08 The patient has not recently seen a physician. Pt reports abd pain, n/v, fever, cough, kb runny nose and sore throat. 15:08 The patient presents with abdominal pain right lower quadrant. Onset: The kb symptoms/episode began/occurred 3 day(s) ago. The symptoms do not radiate. Associated signs and symptoms: Pertinent positives: fever, nausea, vomiting. The symptoms are described as constant. Modifying factors: The symptoms are alleviated by nothing, the symptoms are aggravated by nothing. Severity of pain: At its worst the pain was moderate in the emergency department the pain is unchanged. The patient has not experienced similar symptoms in the past. 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 - Social history:: Smoking status: Patient denies any tobacco usage or history of. ROS: 15:08 Cardiovascular: Negative for chest pain, palpitations, and edema. kb 15:08 Constitutional: Positive for fever. 15:08 ENT: Positive for rhinorrhea, sore throat. 15:08 Respiratory: Positive for cough. 15:08 Abdomen/GI: Positive for abdominal pain, nausea and vomiting, Negative for diarrhea, constipation. 15:08 All other systems are negative. Exam: 15:07 Constitutional: This is a well developed, well nourished patient who is awake, alert, kb and in no acute distress. Head/Face: Normocephalic, atraumatic. ENT: Moist Mucous membranes Cardiovascular: Regular rate and rhythm with a normal S1 and S2. No gallops, murmurs, or rubs. No pulse deficits. Respiratory: Respirations even and unlabored. No increased work of breathing. Talking in full sentences Skin: Warm, dry with normal turgor. Normal color. MS/ Extremity: Pulses equal, no cyanosis. Neurovascular intact. Full, normal range of motion. Neuro: Awake and alert, GCS 15, oriented to person, place, time, and situation. Moves all extremities. Normal gait. Psych: Awake, alert, with orientation to person, place and time. Behavior, mood, and affect are within normal limits. 15:07 Abdomen/GI: Inspection: abdomen appears normal, Bowel sounds: normal, in all quadrants, Palpation: soft, in all quadrants, moderate abdominal tenderness, in the right lower quadrant. Vital Signs: 12:52 BP 130 / 89; Pulse 102; Resp 18; Temp 97.5; Pulse Ox 99% ; Weight 65.77 kg; Height 5 jh5 ft. 0 in. (152.40 cm); 12:52 Body Mass Index 28.32 (65.77 kg, 152.40 cm) jh5 MDM: 12:50 Patient medically screened. kb 15:07 Data reviewed: vital signs, nurses notes. Data interpreted: Pulse oximetry: on room air kb is 99 %. Interpretation: normal. 15:27 Counseling: I had a detailed discussion with the patient and/or guardian regarding: the kb historical points, exam findings, and any diagnostic results supporting the discharge/admit diagnosis, lab results, radiology results, the need for outpatient follow up, a family practitioner, to return to the emergency department if symptoms worsen or persist or if there are any questions or concerns that arise at home. 10/31 12:54 Order name: Strep; Complete Time: 13:21 kb 10/31 12:54 Order name: COVID-19/FLU A+B (Document "Date of Onset" if Symptomatic); Complete Time: kb 13:49 10/31 12:54 Order name: Basic Metabolic Panel; Complete Time: 15:13 kb 10/31 12:54 Order name: CBC with Diff; Complete Time: 14:49 kb 10/31 13:21 Order name: Throat Culture EDKY 10/31 14:44 Order name: Urine Dipstick-Ancillary; Complete Time: 14:49 EDMS 10/31 12:54 Order name: IV Saline Lock; Complete Time: 14:29 kb 10/31 12:54 Order name: Labs collected and sent; Complete Time: 14:29 kb 10/31 12:55 Order name: CT Abd/Pelvis - IV Contrast Only; Complete Time: 15:24 kb 10/31 13:51 Order name: Urine Dipstick-Ancillary (obtain specimen); Complete Time: 14:45 kb 10/31 14:45 Order name: Urine --Ancillary (enter results) 10/31 14:46 Order name: Urine Microscopic Only; Complete Time: 15:22 ss 10/31 15:22 Order name: Urine Culture EDKY 10/31 13:51 Order name: Urine Test (obtain specimen); Complete Time: 14:45 kb Administered Medications: 15:31 Drug: Macrobid (nitrofurantoin) 100 mg Route: PO; jh5 Disposition: 15:57 Co-signature as Attending Physician, Cortez Syed MD. rn Disposition Summary: 10/31/21 15:28 Discharge Ordered Location: Home kb Condition: Stable kb Diagnosis - UTI/ Urinary tract infection, site not specified kb - Acute upper respiratory infection, unspecified kb Followup: kb - With: Emergency Department - When: As needed - Reason: Worsening of condition Followup: kb - With: Private Physician - When: 2 - 3 days - Reason: Recheck today's complaints, Continuance of care, Re-evaluation by your physician Discharge Instructions: - Discharge Summary Sheet kb - Urinary Tract Infection, Adult, [id number] kb - Upper Respiratory Infection, Adult, [id number] kb - Viral Respiratory Infection, [id number] kb Forms: - Medication Reconciliation Form kb - Thank You Letter kb - Antibiotic Education kb - Prescription Opioid Use kb Prescriptions: - Macrobid 100 mg Oral Capsule - take 1 capsule by ORAL route every 12 hours for 10 days; 20 capsule; Refills: kb 0, Product Selection Permitted Signatures: Dispatcher [employer] EDBryanna Shannon, MACHINE FELLER-C MACHINE FELLER-Cortez Arteaga MD MD rn Rees, Jessica, RN RN 5
[2021-10-31] MEDS ORDERED: NITROFURAN MACRO 100 MG CAP PO ONE (15:32)
[2021-10-31 16:20] VITALS: BP 130/89; TEMP 97.5; O2SAT 99
== END 2021-10-31 15:35 | disposition home or self-care (01) ==
LOC: ER 12:37
DX: N39.0 Urinary tract infection, site not specified (principal); J06.9 Acute upper respiratory infection, unspecified; Z20.822 Contact with and (suspected) exposure to COVID-19; Z88.0 Allergy status to penicillin; Z88.1 Allergy status to other antibiotic agents; Z88.5 Allergy status to narcotic agent; Z88.8 Allergy status to other drugs, medicaments and biological substances
CPT/HCPCS: 0240U; 36415; 74177; 80048; 81003; 81015; 81025; 82565; 85025; 87070; 87081; 87086; 87088; 99283; Q9967

== ENCOUNTER 2022-01-27 17:35 | Emergency (ER) | payer SELFPAY ==
--- OUTSIDE RECORDS SUMMARY | 2022-01-27 17:39 | XMS REPORT | Continuity of Care Document ---
:1995 Author Organization [facility] t Address [address] [place] [address] Care Team Providers Name Role Phone UNKNOWN Primary Care Physician Unavailable Naomi Girard Attending Clinician Kelvin Hernández MD Attending Clinician Ksenia Leon Attending Clinician Unavailable Visit, Nurse Attending Clinician Unavailable Victor Manuel Angel Attending Clinician Melodie WING Attending Clinician Unavailable Melodie WING Admitting Clinician Unavailable Payers Payer Name Policy Type Policy Number Effective Date Expiration Date S greg [facility] [id number] 2020 [facility] [id number] 00:00:00 [facility] dical 2020-[facility] Branch tPPO Advance Directives Directive Decision Effective Termination Comments Source Date Date Healthcare Agents on N/A [facility] ersity FileNameRelationshipHealthcare [facility] Agent Medical RelationshipCommunicationMershare medical [facility] Care [phone] (Mobile) m Problems Condition Condition Condition Status Onset Resolution Last Treating Co mments Source Name Details Category Date Date Treatment Clinician Date Gonorrhea Gonorrhea Disease Active Uni vers 2-09 ity of 00:00: [place] 00 Medical Branch Other Other Disease Active Univers general general 11-02 ity of counseling [place] advice and advice 00 Me dical for for Branch contracept contracept rose rose management management Derangemen Derangemen Disease Active Overview : Univers t of right t of right 01-30 Added it y of knee knee 00:00: automatic [place] ligament ligament 00 ally from Med ical request Branch for surgery [id number] Derangemen Derangemen Disease Active Overview : Univers t of right t of right 01-30 Formattin ity of knee knee 00:00: g of this [place] ligament ligament 00 note Medica l might be Branch different from the original. Added automatic ally from request for surgery [id number] Closed Closed Disease Active Overview: Univer s fracture fracture 12-16 Formattin ity of of right of right 00:00: g of this Rodrigo as tibial tibial 00 note Medical plateau, plateau, might be Bran ch initial initial different encounter encounter from the original. Added automatic ally from request for surgery [id number] Knee Knee Disease Active Univers dislocatio dislocatio 12-16 it y of n, right, n, right, [place] initial initial 00 Medical encounter encounter Bran ch Right knee Right knee Disease Active Overview : Univers pain, pain, 12-02 Formattin ity of unspecifie unspecifie 00:00: g of this [place] d d 00 note Medical chronicity chronicity might be Branch different from the original. Added automatic ally from request for surgery [id number] Over Over Disease Active Univers weight weight 8-10 ity of 00:00: [place] 00 Medical Branch Pain Pain Disease Active Univers pelvic pelvic 8-10 ity of 00:00: [place] 00 Medical Branch History of History of Disease Active U nivers chlamydia chlamydia 4-04 ity of 00:00: [place] [facility] History of History of Disease Active U nivers depression depression 4-04 it y of 00:00: [place] [facility] History of History of Disease Active U nivers anxiety anxiety 4-04 ity of 00:00: [place] [facility] History of History of Disease Active Overview : Univers suicide suicide 4-04 Formattin ity o f attempt attempt 00:00: g of this [place] 00 note Medical might be Branch different from the original. 2017 with Tylenol overdose Right Right Disease Active Univers ovarian ovarian 4-04 ity of cyst cyst 00:00: [place] 00 Medical Branch Disease Resolve 2018-12-28 2018-12-28 Univers labor in labor in d 5-14 00:00:00 20:15:13 it y of third third 00:00: [place] trimester trimester 00 [facility] without without Branch delivery delivery Non-stress Non-stress Disease Resolve 2018-12-28 2018-12-28 Univers test test d 5-11 00:00:00 20:15:10 ity of nonreactiv nonreactiv [place] Medical [place] Chlamydia Chlamydia Disease Resolve 2018-12-28 2018-12-28 Univers infection infection d 5-10 00:00:00 20:15:02 [place] of affecting affecting 00[place] 00 [facility] in third in third Branch trimester, trimester, antepartum antepartum Threatened Threatened Disease Resolve 2018-12-28 2018-12-28 Univers premature premature d 5-10 00:00:00 20:15:21 ity of labor labor 00:00: [place] complicati complicati 00 Me dical ng ng Branch , , less than less than 37 weeks, 37 weeks, antepartum antepartum , third , third trimester trimester 30 weeks 30 weeks Disease Resolve 2018-12-28 2018-12-28 Univers gestation gestation d 5-10 00:00:00 20:14:55 ity of of of 00:00: [place] 00 [facility] Branch Yeast Yeast Disease Resolve 2018-12-28 2018-12-28 Univers infection infection d 5-10 00:00:00 20:15:27 ity of 00:00: [address] Branch Disease Resolve 2018-12-28 2018-12-28 Univers heart heart d 5- 00:00:00 20:15:08 ity of rate/rhyth rate/rhyth 00:00[place] m [place] 00 Medical abnormalit abnormalit Br anch y y affecting affecting management management of mother of mother Ovarian Ovarian Disease Resolve 2018-12-28 2018-12-28 Univers cyst in cyst in d 5- 00:00:00 20:16:29 [place] of [place] [facility] Anemia of Anemia of Disease Resolve 2018-12-28 2018-12-28 Univers mother in mother in d - 00:00:00 20:14:59 ity of , , [place] antepartum antepartum 00 [facility] Branch Chlamydia Chlamydia Disease Resolve 2018-12-28 2018-12-28 Univers d 3-28 00:00:00 20:15:03 ity of 00:00: [address] Branch Supervisio Supervisio Disease Resolve 2018-12-28 2018-12-28 Univers n of high n of high d 3-27 00:00:00 20:15:19 ity of risk risk 00:00: [place] , , 00 Wy dical antepartum antepartum Br anch , third , third trimester trimester Missed Missed Disease Resolve 2018-12-28 2018-12-28 Univers menses menses d 3-27 00:00:00 20:14:57 ity of 00:00: [address] Branch Tylenol Tylenol Disease Resolve 2018-12-28 2018-12-28 Univers overdose, overdose, d 5 00:00:00 20:15:25 ity of intentiona intentiona 00:00[place] 00 Medical self-harm, self-harm, Br anch initial initial encounter encounter 34 weeks 34 weeks Disease Resolve 2018-12-27 2018-12-27 Univers gestation gestation d 6-12 00:00:00 21:41:55 ity of of of 00:00: [place] 00 [facility] Branch Disease Resolve 2018-12-27 2018-12-27 Univers labor in labor in d 6-12 00:00:00 21:41:55 it y of third third 00:00: [place] trimester trimester 00 [facility] with with Branch delivery, delivery, fetus 1 fetus 1 Liveborn Liveborn Disease Resolve 2018-12-27 2018-12-27 Univers by by d 6-12 00:00:00 21:41:55 ity of vaginal vaginal 00:00: [place] delivery delivery 00 Medica l Branch Precipitou Precipitou Disease Resolve 2018-12-27 2018-12-27 Univers s s d 6-12 00:00:00 21:41:55 ity of delivery, delivery, 00[place] delivered 00 [facility] (current (current [facility] Multiparit Multiparit Disease Resolve 2018-02-02 2018-02-02 Univers y y d 3-27 00:00:00 15:15:19 ity of 00:00: [place] 00 Medical Branch Screening Screening Disease Active 2017-12-20 2017-12-20 Univers examinatio examinatio 06-17 00:00:00 15:56:47 ity of n for STD n for STD 00:00: [place] s (sexually (sexually 00 [facility] transmitte transmitte Br anch d disease) d disease) Disease Resolve 2017-06-17 2017-06-17 Univers care and care and d 8-14 00:00:00 16:24:53 it y of examinatio examinatio [...] of affecting affecting 00:[place] [facility] Branch 40 weeks 40 weeks Disease Resolve 2017-05-09 2017-05-09 Univers gestation gestation d 7-24 00:00:00 20:05:17 ity of of of 00:00: [place] 00 [facility] Research Research Disease Resolve 2017-05-09 2017-05-09 [facility] study study d 7- 00:00:00 20:05:13 ity of patient: patient: 00:00: [place] ARRIVE- ARRIVE- 00 Medical Expectant Expectant Bran ch Managment Managment Arm Arm Pain of Pain of Disease Resolve 2017-05-09 2017-05-09 [facility] round round d 7-05 00:00:00 20:05:23 ity of ligament ligament 00:00: [place] affecting affecting 00 [facility] , , Br anch antepartum antepartum Anemia of Anemia of Disease Resolve 2017-05-09 2017-05-09 Univers mother in mother in d 5-24 00:00:00 20:05:10 ity of , , [place] antepartum antepartum 00 Me dical Branch 28 weeks 28 weeks Disease Resolve 2017-05-09 2017-05-09 [facility] gestation gestation d 5-02 00:00:00 20:05:00 ity of of of 00:00: [place] 00 [facility] Branch Maternal Maternal Disease Resolve 2017-05-09 2017-05-09 [facility] mental mental d 5-02 00:00:00 20:05:06 ity [...] 2017-05-09 Univers n of n of d 2-16 00:00:00 20:05:20 ity of high-risk high-risk 00:[place] 00 [facility] with with Branch insufficie insufficie nt nt care care Flu Flu Disease Resolve 2015-092017-05-09 2017-05-09 Univers vaccine vaccine d 2-16 00:00:00 20:04:57 ity of need need 00:00: [...] ents Source Name Type Date Date Clinician Morphine Propensi Active Anaphylaxis 2016-0 U nivers ty to 6-14 ity of adverse 00:00: [place] reaction 00 Medical s Branch Prometha Propensi Active Anaphylaxis U nivers zine ty to 6-14 ity of adverse 00:00: [place] reaction Medical s Branch Penicill Propensi Active Rash Univer s ins ty to 7-09 ity of adverse 00:00: [place] reaction 00 Medical s Branch Social History Social Habit Start Date Stop Date Quantity Comments Source Exposure to Not sure [facility] SARS-CoV-2 [place] [facility] (event) Branch Alcohol intake 2021-11-06 2021-11-06 Current drinker Unive rsity of 00:00:00 00:00:00 of alcohol [place] [facility] (finding) Branch Tobacco use and 2021-01-15 2021-01-15 Never used Universit y of exposure 00:00:00 00:00:00 [place] [facility] History SDOH 2020-05-05 2020-05-05 3 University o f Alcohol Frequency 00:00:00 00:00:00 [place] M edical Branch History [facility] 2020-05-05 2020-05-05 3 University o f Alcohol Std 00:00:00 00:00:00 [place] Medical Drinks Branch History [facility] 2020-05-05 2020-05-05 99 University o f Alcohol Binge 00:00:00 00:00:00 [place] [facility] Branch Alcohol Comment 2016-09-10 2016-09-10 before she found Uni versity of 00:00:00 00:00:00 out she was [place] [facility] History of 2014-09-10 Smoker University of tobacco use 00:00:00 [facility] [place] [facility] Sex Assigned At [birth year] Universit y of 00:00:00 00:00:00 [facility] [place] [facility] Smoking Status Start Date Stop Date Source Former smoker 2021-04-23 00:00:00 2021-04-23 00:00:00 Universi ty of [facility] [place] [facility] Medications Ordered Filled Start Stop Current Ordering Indication Dosage Frequency Signature Comments Components Source Medication Medication Date Date Medication? Clinician (SIG) Name Name metroNIDAZO Yes [id number] 500mg Take 1 Univers LE 500 mg 2-22 tablet by ity o f tablet 00:00: mouth 2 [place] 00 (two) Medical times Branch daily. Nitrofurant Yes 100mg Take 100 U nivers oin&Nit. 2-07 mg by ity of Macrocryst 11:18: mouth. [place] (MACROBID) 31 Medical 100 mg Branch capsule aspirin 325 Yes Closed 325mg Take 1 U nivers mg tablet 3-27 fracture of tablet by ity of 00:00: right mouth [place] 00 tibial daily. Medical plateau, Branch initial encounter aspirin 325 Yes Closed 325mg Take 1 U nivers mg tablet 3-27 fracture of tablet by ity of 00:00: right mouth [place] 00 tibial daily. Medical plateau, Branch initial encounter aspirin 325 Yes Closed 325mg Take 1 U nivers mg tablet 3-27 fracture of tablet by ity of 00:00: right mouth tibial daily. Medical plateau, Branch initial encounter aspirin 325 2020-0 Yes Closed 325mg Take 1 U nivers mg tablet 3-27 fracture of tablet by ity of 00:00: right mouth tibial daily. Medical plateau, Branch initial encounter gabapentin Yes Closed 100mg Take 1 Un jose 100 mg 3-26 fracture of capsule by ity of capsule 00:00: right mouth tibial (three) Medical plateau, times Branch initial daily. encounter methocarbam Yes Closed 500mg Take 1 U nivers oL 500 mg 3-26 fracture of tablet by ity of tablet 00:00: right mouth tibial (four) Medical plateau, times Branch initial daily. encounter gabapentin Yes Closed 100mg Take 1 Un jose 100 mg 3-26 fracture of capsule by ity of capsule 00:00: right mouth tibial (three) Medical plateau, times Branch initial daily. encounter methocarbam Yes Closed 500mg Take 1 U nivers oL 500 mg 3-26 fracture of tablet by ity of tablet 00:00: right mouth tibial (four) Medical plateau, times Branch initial daily. encounter gabapentin 0 Yes Closed 100mg Take 1 Un jose 100 mg 3-26 fracture of capsule by ity of capsule 00:00: right mouth tibial (three) Medical plateau, times Branch initial daily. encounter methocarbam Yes Closed 500mg Take 1 U nivers oL 500 mg 3-26 fracture of tablet by ity of tablet 00:00: right mouth tibial (four) Medical plateau, times Branch initial daily. encounter gabapentin Yes Closed 100mg Take 1 Un jose 100 mg 3-26 fracture of capsule by ity of capsule 00:00: right mouth tibial (three) Medical plateau, times Branch initial daily. encounter methocarbam 0 Yes Closed 500mg Take 1 U nivers oL 500 mg 3-26 fracture of tablet by ity of tablet 00:00: right mouth tibial (four) Medical plateau, times Branch initial daily. encounter Immunizations Ordered Immunization Filled Immunization Date Status Commen ts Source Name Name HPV9 2018-04-18 Completed University of 00:00:00 [facility] [place] [facility] HPV9 2018-04-18 Completed University of 00:00:00 [facility] [place] [facility] HPV9 2018-04-18 Completed University of 00:00:00 [facility] [place] [facility] HPV9 2018-04-18 Completed University of 00:00:00 [facility] [place] [facility] HPV9 2018-04-18 Completed University of 00:00:00 [facility] [place] [facility] TDAP 2018-01-17 Completed University of 00:00:00 [facility] [place] [facility] TDAP 2018-01-17 Completed University of 00:00:00 [facility] [place] [facility] TDAP 2018-01-17 Completed University of 00:00:00 [facility] [place] [facility] TDAP 2018-01-17 Completed University of 00:00:00 [facility] [place] [facility] TDAP 2018-01-17 Completed University of 00:00:[address] [facility] 2017-06-17 Completed University of 00:00:[address] [facility] [place] 2017-06-17 Completed University of 00:00:[address] [facility] [place] 2017-06-17 Completed University of 00:00:[address] [facility] [place] 2017-06-17 Completed University of 00:00:[address] [facility] [place] 2017-06-17 Completed University of 00:00:[address] [facility] [place] 2017-04-20 Completed University of 00:00:[address] [facility] [place] 2017-04-20 Completed University of 00:00:[address] [facility] 2017-04-20 Completed University of 00:00:[address] [facility] [place] 2017-04-20 Completed University of 00:00:[address] [facility] [place] 2017-04-20 Completed University of 00:00:00 [facility] [place] [facility] TDAP 2017-02-14 Completed University of 00:00:00 [facility] [place] [facility] TDAP 2017-02-14 Completed University of 00:00:00 [facility] [place] [facility] TDAP 2017-02-14 Completed University of 00:00:00 [facility] [place] [facility] TDAP 2017-02-14 Completed University of 00:00:00 [facility] [place] [facility] TDAP 2017-02-14 Completed University of 00:00:00 [facility] [place] [facility] Influenza Virus 2016-09-10 Completed Universit y of Vaccine Quad IM 3+ 00:00:00 [facility] Influenza Virus 2016-09-10 Completed Universit y of Vaccine Quad IM 3+ 00:00:00 [facility] Influenza Virus 2016-09-10 Completed Universit y of Vaccine Quad IM 3+ 00:00:00 [facility] Influenza Virus 2016-09-10 Completed Universit y of Vaccine Quad IM 3+ 00:00:00 [facility] Influenza Virus 2016-09-10 Completed Universit y of Vaccine Quad IM 3+ 00:00:00 [facility] Meningococcal 2015-06-24 Completed University of Polysaccharide 00:00:00 [...] Meningococcal 2015-06-24 Completed University of Polysaccharide 00:00:00 [place] Medi nancy (groups A, C, Y and Branc h W-135) conjugate vaccine (MCV4P) Meningococcal 2015-06-24 Completed University of Polysaccharide 00:00:00 [place] Medi nancy (groups A, C, Y and Branc h W-135) conjugate vaccine (MCV4P) Td 2012-05-04 Completed University of 00:00:00 [facility] [place] [facility] Td 2012-05-04 Completed University of 00:00:00 [facility] [place] [facility] Td 2012-05-04 Completed University of 00:00:00 [facility] [place] [facility] Td 2012-05-04 Completed University of 00:00:00 [facility] [place] [facility] Td 2012-05-04 Completed University of 00:00:00 [facility] [place] [facility] Vital Signs Vital Name Observation Time Observation Value Comments Source Body temperature 2021-01-29 21:06:00 36.5 [facility] Body height 2021-01-29 21:06:00 152.4 cm [facility] Body weight 2021-01-29 21:06:00 65.772 kg [facility] BMI 2021-01-29 21:06:00 28.32 kg/m2 [facility] Procedures Procedure Date / Time Performed Performing Clinician Sourc e XR KNEE <3 VW RIGHT 2021-01-29 21:17:13 Jesse Hernández ity of [place] [facility] [facility] Plan of Care Planned Activity Planned Date Details Comments Source Future Scheduled 2028-01-18 DTaP,Tdap,and Td Univers ity [facility] Test 00:00:00 Vaccines (4 - Td) Medical Br anch [code = DTaP,Tdap,and Td Vaccines (4 - Td)] Future Scheduled 2028-01-18 DTaP,Tdap,and Td Univers ity [facility] Test 00:00:00 Vaccines (4 - Td) Medical Br anch [code = DTaP,Tdap,and Td Vaccines (4 - Td)] Future Scheduled 2028-01-18 DTaP,Tdap,and Td Univers ity [facility] Test 00:00:00 Vaccines (4 - Td) Medical Br anch [code = DTaP,Tdap,and Td Vaccines (4 - Td)] Future Scheduled 2028-01-18 DTaP,Tdap,and Td Univers ity [facility] Test 00:00:00 Vaccines (4 - Td) Medical Br anch [code = DTaP,Tdap,and Td Vaccines (4 - Td)] Future Scheduled 2021-08-08 Screening for [facility] Test 00:00:00 Chlamydia trachomatis Medica l Branch (procedure) [code = 630116439] Future Scheduled 2021-08-08 Screening for [facility] Test 00:00:00 Chlamydia trachomatis Medica l Branch (procedure) [code = 827465820] Future Scheduled 2021-08-08 Screening for [facility] Test 00:00:00 Chlamydia trachomatis Medica l Branch (procedure) [code = 788287325] Future Scheduled 2021-08-08 Screening for [facility] Test 00:00:00 Chlamydia trachomatis Medica l Branch (procedure) [code = 383547510] Future Scheduled 2021-05-27 INFLUENZA VACCINE [facility] [place] Test 00:00:00 (Season Ended) [code Medical Branch = INFLUENZA VACCINE (Season Ended)] Future Scheduled 2021-05-27 INFLUENZA VACCINE [facility] [place] Test 00:00:00 (Season Ended) [code Medical Branch = INFLUENZA VACCINE (Season Ended)] Future Scheduled 2021-05-27 INFLUENZA VACCINE [facility] [place] Test 00:00:00 (Season Ended) [code Medical Branch = INFLUENZA VACCINE (Season Ended)] Future Scheduled 2021-05-27 INFLUENZA VACCINE [facility] [place] Test 00:00:00 (Season Ended) [code Medical Branch = INFLUENZA VACCINE (Season Ended)] Future Scheduled 2021-05-05 Depression screening Uni [facility] [place] Test 00:00:00 (procedure) [code = Medical Branch [id number]] Future Scheduled 2021-05-05 Depression screening [facility] [place] Test 00:00:00 (procedure) [code = Medical Branch [id number]] Future Scheduled 2021-05-05 Depression screening Uni [facility] [place] Test 00:00:00 (procedure) [code = Medical Branch [id number]] Future Scheduled 2021-05-05 Depression screening [facility] [place] Test 00:00:00 (procedure) [code = Medical Branch [id number]] Future Scheduled 2021-04-18 Screening for [facility] [place] Test 00:00:00 malignant neoplasm of Medica l Branch cervix (procedure) [code = 443609945] Future Scheduled 2021-04-18 Screening for [facility] [place] Test 00:00:00 malignant neoplasm of Medica l Branch cervix (procedure) [code = 688292530] Future Scheduled 2021-04-18 Screening for [facility] [place] Test 00:00:00 malignant neoplasm of Medica l Branch cervix (procedure) [code = 891510737] Future Scheduled 2021-04-18 Screening for [facility] [place] Test 00:00:00 malignant neoplasm of Medica l Branch cervix (procedure) [code = 398481116] Future Scheduled 2014 Hepatitis C screening Un iversity of [place] Test 00:00:00 (procedure) [code = Medical Branch [id number]] Future Scheduled 2014 Hepatitis C screening [facility] [place] Test 00:00:00 (procedure) [code = Medical Branch [id number]] Future Scheduled 2014 Hepatitis C screening [facility] [place] Test 00:00:00 (procedure) [code = Medical Branch [id number]] Future Scheduled 2014 Hepatitis C screening [facility] [place] Test 00:00:00 (procedure) [code = Medical Branch [id number]] Future Scheduled 2012 SARS-CoV-2 (COVID-19) Un iversity [...] Scheduled 2002 PNEUMOCOCCAL 0-64 [facility] [place] Test 00:00:00 YEARS COMBINED SERIES Medica l Branch (1 of 3 - PCV13) [code = PNEUMOCOCCAL 0-64 YEARS COMBINED SERIES (1 of 3 - PCV13)] Future Scheduled 2002 PNEUMOCOCCAL 0-64 [facility] [place] Test 00:00:00 YEARS COMBINED SERIES Medica l Branch (1 of 3 - PCV13) [code = PNEUMOCOCCAL 0-64 YEARS COMBINED SERIES (1 of 3 - PCV13)] Future Scheduled 2002 PNEUMOCOCCAL 0-64 [facility] [place] Test 00:00:00 YEARS COMBINED SERIES Medica l Branch (1 of 3 - PCV13) [code = PNEUMOCOCCAL 0-64 YEARS COMBINED SERIES (1 of 3 - PCV13)] Future Scheduled 2002 PNEUMOCOCCAL 0-64 [facility] s[facility] [place] Test 00:00:00 YEARS COMBINED SERIES Medica l Branch (1 of 3 - PCV13) [code = PNEUMOCOCCAL 0-64 YEARS COMBINED SERIES (1 of 3 - PCV13)] Encounters Start End Encounter Admission Attending Care Care Encounter Source Date/Time Date/Time Type Type Clinicians Facility Department ID 2021-11-17 2021-11-17 Marielle Gleason [facility] [id number] [facility] 00:00:00 00:00:00 Cara Salgado JOINT FINISHER [id number] ity [facility] [id number] Rodrigo as MATERNAL [phone] Med ical & CHILD [address] [place] [address] 2020-11-19 2020-11-19 Outpatient RICKEY Leon RADI [id number] [facility] 13:30:00 13:30:00 Vance [id number] [facility] 2020-08-08 2020-08-08 Nurse Visit, [facility] [id number] 15:11:27 15:30:04 Visit [facility] JOINT FINISHER [id number] Nurse REGIONAL [id number] MATERNAL [id number] & CHILD 107 [facility] 2020-05-09 2020-05-09 Nurse Visit, [facility] [id number] 08:07:49 08:48:50 Visit [facility] JOINT FINISHER [id number] Nurse REGIONAL [id number] MATERNAL [phone] & CHILD 107 [facility] 2020-05-09 2020-05-09 [facility] [id number] 00:00:00 00:00:00 Richelle Rush JOINT FINISHER [id number] REGIONAL [id number] MATERNAL [phone] & CHILD 107 [facility] Results Test Description Test Time Test Comments Results Result Sour e Comments XR KNEE <3 VW Hardware fixation, Un iversity of RIGHT 7 securing a proximal [place] [facility] 00:16:33 tibial fracture Branch withoutcomplication. [facility], Radiant Results Inft User - 01/29/2021 7:17 PM CDTXR KNEE <3 VW RIGHTINDICATION: pain COMPARISON: 11/27/2020 and 01/14/2021FINDINGS:Ex ternal fixator device with screws extending through the femur and tibia.Hardware fixation of the proximal tibial fracture without complication.Healing /healed fibular head fracture.IMPRESSIONH ardware fixation, securing a proximal tibial fracture withoutcomplication. - CT LOWER EXTRM 2020-10-28 W/O C RT 4 14:22:00 [facility] 1995 Sex: F * Patient Name: PLACIDO WALKER Unit No: [id number] EXAMS: CPT CODE: [id number] CT LOWER EXTRM W/[place] [address] [place] OF THE RIGHT KNEE WITH SAGITTAL [...] with ACR practice standards and adherence to advertising job titles's recommendations. Multiple fractures are present as described. at 1422 Reported and signed by: Claudio Aj MD CC: Vance Leon MD Technologist: Enrique Mantilla,RT(R) CTDI: DLP: Trnscrpt: 11/19/2020 (1422) t.SDR.JCL [facility] NAME: PLACIDO WALKER [address] [facility] PHYS: [id number] - Vance Leon MD : 1995 AGE: 25 SEX: F [place], [place] [address] LOC: Y.RAD PHONE #: [phone] EXAM DATE: 11/19/2020 STATUS: REG CLI FAX #: [phone] RAD #: D/C DT PAGE 1 Signed Report Patient Name: PLACIDO WALKER Unit No: [id number] EXAMS: CPT CODE: [id number] CT LOWER EXTRM W/[place] [address] <Continued> Orig Print D/T: S: 11/19/2020 (1425) [facility] NAME: PLACIDO WALKER [address] PHYS: Vance Crocker MD : 1995 AGE: 25 SEX: F [place], [place] [address] LOC: Y.RAD PHONE #: [phone] EXAM DATE: 11/19/2020 STATUS: REG CLI FAX #: [phone] RAD #: D/C DT PAGE 2 Signed Report HIV Rapid 2017-01-28 11:44:00 Test Item Value Reference Range Interpretation Comme nts HIV 1/2 Antibody (test Non-Reactive Non-Reactive N HIV1/ 2 Antibody screen result code = HIV1/2AB) indicates t he absence of HIV1 and QSH0tjrwdjaee.H owever, A Non-Reactive sc reen result does [...] RNA Quantitative is recommended. Hep B Surface [id number] 09:41:00 Test Item Value Reference Range Interpretation Comments Hep Bs Ag (test code = HBSAG) Nonreactive Non-Reactive A BHCG, Serum, [id number] 08:32:00 Test Item Value Reference Range Interpretation Comments Preg Qual [Se] (test code = BSHCG) POSITIVE Negative A Comprehensive Metabolic [id number] 08:31:00 Test Item Value Reference Range Interpretation [...] validated by th e MDRD study and savannahul d be interpretedwith caution.eGFR Re sult Interpretation: eGFR > or = 60 is in t he Normal RangeeGF R < 60 may mean kidney diseaseeGFR < 1 5 may mean kidney failureRange s recommended by the National Kidney Foundation,http ://nkd ep.nih.gov TIBC and [id number] 08:31:00 Test Item Value Reference Range Interpretation Comments Iron (test code = FE) 26 ug/dL 37-145 L UIBC (test code = UIBC) 406 ug/dL 112-346 H TIBC (test code = TIBC) 432 ug/dL 149-491 N % Saturation (test code = PSAT) 6 % 20-50 L CBC with [id number] 08:19:00 Test Item Value Reference Range Interpretation [...] code = ALYMPH) 2.6 K/cumm 0.5-4.6 N Aiken Abs (test code = AMONO) 1.1 K/cumm 0.0-1.2 N Eos Abs (test code = AEOS) 0.27 K/cumm 0.00-0.74 N Baso Abs (test code = ABASO) 0.0 K/cumm 0.00-0.21 N RPR, [id number] 11:04:00 Test Item Value Reference Range Interpretation Comments RPR (test code = RPR) Non-Reactive Non-Reactive N Thyroid Stimulating Hormone (TSH)2017-01-26 05:33:00 Test Item Value Reference Range Interpretation Comments TSH (test code = TSH) 1.00 mIU/mL 0.270-4.200 N Comprehensive Metabolic [id number] 05:23:00 Test Item Value Reference Range Interpretation [...] is not provided , and the patient isPietro can, multiply by 1.2 12. If sex is not prov ided, and thepatient is female, multipl y by 0.742. Results for patients <18 ye ars ofage have not been validated by th e MDRD study and rivka d be interpretedwith caution.eGFR Re sult Interpretation: eGFR > or = 60 is in t he Normal RangeeGF R < 60 may mean kidney diseaseeGFR < 1 5 may mean kidney failureRange s recommended by the National Kidney Foundation,http ://nkd ep.nih.gov Lipid [id number] 05:23:00 Test Item Value Reference Range Interpretation Comments Cholesterol (test 203 mg/dL 0-200 H code = CHOL) Triglycerides (test 153 mg/dL 9-200 N code = TRIG) HDL (test code = 73 mg/dL 50-60 H HDL) Chol/HDL (test code 2.8 Ratio 0.0-4.4 N = CHOLPHDL) LDL, Calculated 99 0-130 N (NOTE)RISK O F HEART (test code = LDLC) DISEASEPu blished by [place] Heart AssociationAnal yte Optim al Boderline Increased RiskC HOL <200 200-239 >240TRI G <150 150-199 >200HDL Male: >60 <40HDL Female: >60 <50 LDL < 100 130-15 9 >160 LDL NEAR OPTIMAL IS 100- 129 VLDL (test code = 31 mg/dL 5-40 N VLDL) LDL/HDL (test code = 1 LDLPHDL) CBC with [id number] 05:05:00 Test Item Value Reference Range Interpretation [...] code = ALYMPH) 2.2 K/cumm 0.5-4.6 N Aiken Abs (test code = AMONO) 1.0 K/cumm 0.0-1.2 N Eos Abs (test code = AEOS) 0.29 K/cumm 0.00-0.74 N Baso Abs (test code = ABASO) 0.0 K/cumm 0.00-0.21 N
[2022-01-27 18:36] LABS: Urine Blood 3+ (Negative); Urine Glucose Negative (Negative); Urine Protein 1+ (Negative); Urine Specific Gravity >=1.030 (1.005-1.030); Urine pH 6.5 (5.0-7.0)
[2022-01-27 19:02] LABS: Urine Bacteria <20 /HPF (<20); Urine RBC <5 /HPF (NONE SEEN)
[2022-01-27 19:24] LABS: Absolute Lymphocytes (CBC) 1.7 K/uL (0.7-4.9); Hematocrit 37.6 % (36.0-45.0); Lymphocytes % 20.7 % (15.3-44.8); MPV 8.3 fL (7.6-11.3); RBC Red Blood Cell Count 4.34 M/uL (3.86-4.86)
[2022-01-27 19:28] LABS: Protime INR 1.04
[2022-01-27 19:40] LABS: BUN Blood Urea Nitrogen 10 mg/dL (7-18); Bicarbonate 29 mmol/L (21-32); Glucose Level 94 mg/dL (74-106); Potassium 3.7 mmol/L (3.5-5.1); Sodium Level 139 mmol/L (136-145)
[2022-01-27 19:42] LABS: HCG, Quantitative < 1 mIU/mL (1-3)
--- NOTE | 2022-01-27 20:19 | RAD REPORT ---
EXAM DESCRIPTION: US - Extremity Venous Uni Ltd - 01/27/2022 8:11 pm CLINICAL HISTORY: Swelling COMPARISON: None. TECHNIQUE: Real-time sonographic evaluation of the right lower extremity deep venous system was perf ormed. FINDINGS: Normal compressibility, flow augmentation, phasic flow and spontaneous flow is identified in the right lower extremity deep venous system. No intraluminal filling defects seen. IMPRESSION: No DVT in the right lower extremity.
--- NOTE | 2022-01-27 20:23 | RAD REPORT ---
EXAM DESCRIPTION: US - Transvaginal Study Probe - 01/27/2022 8:11 pm CLINICAL HISTORY: VAGINAL BLEEDING Abdomen Pelvis W Contrast dated 10/31/2021 FINDINGS: The uterus is normal in size, shape and echotexture. The uterus measures 8.4 cm The endometrial stripe measures 5 mm, normal. Complex right adnexal mass with cystic and solid components measuring 9 cm x 7.6 cm x 5.8 cm. There i s an echogenic portion which shadowing along the margin. The left ovary measures 2.4 x 1.5 x 2.4 cm w ith volume of 4.4 cc. Blood flow is present in the left ovary. IMPRESSION: Right adnexal mass consistent with a dermoid. The left ovary demonstrates vascular flow.
[2022-01-27] MEDS ORDERED: KETOROLAC 30 MG/ML INJ ONE (20:40)
--- NOTE | 2022-01-27 21:14 | ER ---
Nurse's Notes [facility] Name: Kelsea Toussaint Age: 26 yrs Sex: Female : 1995 Arrival Date: 01/27/2022 Time: 17:43 Bed 26 Private MD: Diagnosis: Other ovarian cysts Presentation: 01/27 18:08 Chief complaint: Patient states: Spotting since yesterday, LMP 2 weeks ago. Coronavirus jl7 screen: At this time, the client does not indicate any symptoms associated with coronavirus-19. Ebola Screen: No symptoms or risks identified at this time. Initial Sepsis Screen: Does the patient meet any 2 criteria? No. Patient's initial sepsis screen is negative. Does the patient have a suspected source of infection? No. Patient's initial sepsis screen is negative. Risk Assessment: Do you want to hurt yourself or someone else? Patient reports no desire to harm self or others. Onset of symptoms was January 26, 2022. 18:08 Method Of Arrival: Ambulatory 7 18:08 Acuity: VICENTE 3 jl7 Triage Assessment: 18:10 General: Appears in no apparent distress. uncomfortable, Behavior is calm, cooperative, jl7 appropriate for age. Pain: Complains of pain in anterior aspect of right lateral abdomen Pain currently is 7 out of 10 on a pain scale. : Reports vaginal bleeding that is spotty. 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 - Social history:: Smoking status: Patient denies any tobacco usage or history of. Screenin:10 Abuse screen: Denies threats or abuse. Nutritional screening: No deficits noted. jb4 Tuberculosis screening: No symptoms or risk factors identified. Fall Risk None identified. Assessment: 18:10 General: Appears in no apparent distress. comfortable, Behavior is calm, cooperative. jb4 Pain: Complains of pain in right lower quadrant Pain radiates to right low back Pain currently is 7 out of 10 on a pain scale. Neuro: Level of Consciousness is awake, alert, obeys commands, Oriented to person, place, time, situation. Cardiovascular: Patient's skin is warm and dry. Respiratory: Airway is patent Respiratory effort is even, unlabored, Respiratory pattern is regular, symmetrical. GI: Abdomen is flat, non-distended. : Urine is clear. EENT: No signs and/or symptoms were reported regarding the EENT system. Derm: Skin is intact, Skin is pink, warm \T\ dry. Musculoskeletal: Circulation, motion, and sensation intact. Range of motion: intact in all extremities. 19:00 Reassessment: Patient appears in no apparent distress at this time. Patient and/or jb4 family updated on plan of care and expected duration. Pain level reassessed. Patient is alert, oriented x 3, equal unlabored respirations, skin warm/dry/pink. 20:00 Reassessment: Patient appears in no apparent distress at this time. Patient and/or jb4 family updated on plan of care and expected duration. Pain level reassessed. Patient is alert, oriented x 3, equal unlabored respirations, skin warm/dry/pink. 21:00 Reassessment: Patient appears in no apparent distress at this time. Patient and/or jb4 family updated on plan of care and expected duration. Pain level reassessed. Patient is alert, oriented x 3, equal unlabored respirations, skin warm/dry/pink. 22:00 Reassessment: Patient appears in no apparent distress at this time. Patient and/or jb4 family updated on plan of care and expected duration. Pain level reassessed. Patient is alert, oriented x 3, equal unlabored respirations, skin warm/dry/pink. 22:22 Reassessment: Attempted to call report, Receiving facility hung up, attempted to call jb4 back. placed on hold for 7 minutes with no answer. 22:40 Reassessment: Patient reports pain 8/10, Verbal order per Dr. Hernandez for Fentanyl lp1 25mcg IV now; EMS at bedside for transfer. Vital Signs: 18:08 BP 142 / 95; Pulse 92; Resp 17; Temp 98.2; Pulse Ox 97% on R/A; Weight 68.04 kg; Height jl7 5 ft. 0 in. (152.40 cm); Pain 7/10; 20:00 BP 130 / 66; Pulse 93; Resp 16; Pulse Ox 99% on R/A; jb4 22:00 BP 142 / 80; Pulse 78; Resp 16; Pulse Ox 98% on R/A; jb4 18:08 Body Mass Index 29.29 (68.04 kg, 152.40 cm) jl7 ED Course: 17:43 Patient arrived in ED. am2 17:49 Delvis Neri PA is PHCP. cp 17:49 Cortez Syed MD is Attending Physician. cp 18:02 Cale Thompson, TRICIA is Primary Nurse. jb4 18:09 Triage completed. jl7 18:10 Arm band placed on right wrist. jl7 18:10 Patient has correct armband on for positive identification. Bed in low position. Call jb4 light in reach. Side rails up X 1. Client placed on continuous cardiac and pulse oximetry monitoring. NIBP monitoring applied. 18:10 Initial lab(s) drawn, by me. Inserted saline lock: 20 gauge in right antecubital area, jb4 using aseptic technique. Blood collected. 19:19 Joesph Hernandez MD is Attending Physician. cp 20:13 US Extremity Venous Unilateral Ltd In Process Unspecified. EDMS 20:13 US Transvaginal Study (Probe) In Process Unspecified. EDMS 21:42 initiated a transfer with Juliet Galvin from [facility] Transfer [facility]. mw2 21:54 administrative approval given by Juliet Galvin/ patient has been accepted to [address] to the ER/ Dr. Howell accepted the patient in transfer/report to be called to [phone]. 22:49 No provider procedures requiring assistance completed. Patient transferred, IV remains jb4 in place. Administered Medications: 20:37 Drug: Ketorolac 15 mg Route: IVP; Site: right antecubital; jb4 21:00 Follow up: Response: No adverse reaction; Marked relief of symptoms jb4 22:02 Drug: NS 0.9% 1000 ml Route: IV; Rate: 1 bolus; Site: right antecubital; jb4 22:48 Follow up: Response: No adverse reaction; IV Status: Infusion continued upon transfer jb4 22:02 Drug: fentaNYL (PF) 25 mcg Route: IVP; Site: right antecubital; jb4 22:20 Follow up: Response: No adverse reaction; Marked relief of symptoms jb4 22:46 Drug: fentaNYL (PF) 25 mcg Route: IVP; Site: right antecubital; jb4 22:48 Follow up: Response: Medication administered at discharge. jb4 Outcome: 21:13 ER care complete, transfer ordered by MD. hsieh 22:49 Transferred by ground EMS to [facility], Transfer form jb4 completed. X-rays sent w/ patient. 22:49 Condition: improved 22:49 Discharge instructions given to patient, Instructed on the need for transfer, Demonstrated understanding of instructions. 22:49 Patient left the ED. jb4 Signatures: Dispatcher [employer] EDMS Cary Echeverria, RN RN lp1 Delvis Neri PA PA cp Bryson, James RN RN jb4 Angela Dubon RN RN jl7 Cynthia Desir 2 Marcela Foster 2
--- NOTE | 2022-01-27 21:15 | EDPHYS ---
Physician Documentation [facility] Name: Kelsea Toussaint Age: 26 yrs Sex: Female : 1995 Arrival Date: 01/27/2022 Time: 17:43 Bed 26 Private MD: ED Physician Joesph Hernandez HPI: 01/27 18:30 This 26 yrs old Female presents to ER via Ambulatory with complaints of cp Vaginal Bleeding, Nausea/Vomiting. 18:30 The patient presents with vaginal bleeding that is moderate, with clots. Onset: The cp symptoms/episode began/occurred yesterday, and became worse today. Associated signs and symptoms: Pertinent positives: nausea, vomiting, lower abdominal pain, Pertinent negatives: constipation, diarrhea, dysuria, fever. The patient is sexually active, does not use protection during intercourse. The patient's method of control includes nothing. 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 - Social history:: Smoking status: Patient denies any tobacco usage or history of. ROS: 18:35 Abdomen/GI: Positive for abdominal pain, nausea, vomiting, Negative for diarrhea, cp constipation. 18:35 Constitutional: Negative for body aches, chills, fever. cp 18:35 Respiratory: Negative for cough, shortness of breath, wheezing. 18:35 : Positive for vaginal bleeding, Negative for urinary symptoms. 18:35 Cardiovascular: Negative for chest pain, palpitations. cp 18:35 Neuro: Negative for altered mental status, dizziness, headache, weakness. 18:35 All other systems are negative. Exam: 18:40 Constitutional: The patient appears in no acute distress, alert, awake, non-toxic, well cp developed, well nourished. 18:40 Head/Face: Normocephalic, atraumatic. cp 18:40 Eyes: Periorbital structures: appear normal, Conjunctiva: normal, no exudate, no injection, Sclera: no appreciated abnormality, Lids and lashes: appear normal, bilaterally. 18:40 ENT: External ear(s): are unremarkable, Nose: is normal, Mouth: Lips: moist, Oral mucosa: pink and intact, moist, Posterior pharynx: Airway: no evidence of obstruction, patent. 18:40 Chest/axilla: Inspection: normal. 18:40 Cardiovascular: Rate: normal, Rhythm: regular, Edema: is not appreciated, JVD: is not appreciated. 18:40 Respiratory: the patient does not display signs of respiratory distress, Respirations: normal, no use of accessory muscles, no retractions, labored breathing, is not present, Breath sounds: are clear throughout, no decreased breath sounds, no stridor, no wheezing. 18:40 Abdomen/GI: Inspection: abdomen appears normal, Bowel sounds: active, all quadrants, Palpation: soft, in all quadrants, moderate abdominal tenderness, in the right lower quadrant, rebound tenderness, is not appreciated, voluntary guarding, is elicited in the right lower quadrant. 18:40 Back: CVA tenderness, is absent. 18:40 Neuro: Orientation: to person, place \\T\\ time. Mentation: is normal, Motor: moves all fours, strength is normal, Sensation: is normal. Vital Signs: 18:08 BP 142 / 95; Pulse 92; Resp 17; Temp 98.2; Pulse Ox 97% on R/A; Weight 68.04 kg; Height jl7 5 ft. 0 in. (152.40 cm); Pain 7/10; 20:00 BP 130 / 66; Pulse 93; Resp 16; Pulse Ox 99% on R/A; jb4 22:00 BP 142 / 80; Pulse 78; Resp 16; Pulse Ox 98% on R/A; jb4 18:08 Body Mass Index 29.29 (68.04 kg, 152.40 cm) jl7 MDM: 18:05 Patient medically screened. cp 19:00 Differential diagnosis: appendicitis, cervicitis, dysfunctional uterine bleeding, cp dysmenorrhea, ectopic , malignancy, ovarian cyst, pelvic inflammatory disease, ruptured ectopic , uterine fibroids, urinary tract infection, vaginosis. 20:33 Counseling: I had a detailed discussion with the patient and/or guardian regarding: the cp historical points, exam findings, and any diagnostic results supporting the discharge/admit diagnosis, lab results, radiology results. 20:33 Data reviewed: vital signs, nurses notes, lab test result(s), radiologic studies, cp ultrasound. 20:35 Physician consultation: Rachel Hall MD regarding consult, patient's condition, cp left message on voicemail. 21:10 ED course: VSS. Patient reports continued abdominal pain and her primary HAND COLLATOR cp physician is at [facility]. Patient requests transfer to [facility] facility. 22:06 Physician consultation: was contacted at 21:55, regarding regarding transfer, to [facility]. cp patient's condition, accepting physician will be DR Howell, gynecology services. 01/27 18:15 Order name: Urine Microscopic Only; Complete Time: 19:52 01/27 19:52 Interpretation: Normal except: SQEPI 10-20. cp 01/27 18:36 Order name: Urine Dipstick-Ancillary; Complete Time: 18:49 EDND 01/27 18:49 Interpretation: Normal except: UKET Trace; UBLD 3+; UPROT 1+. cp 01/27 18:51 Order name: Basic Metabolic Panel; Complete Time: 19:52 01/27 19:53 Interpretation: Reviewed. cp 01/27 18:51 Order name: CBC with Diff; Complete Time: 19:52 01/27 19:53 Interpretation: Normal except: RDW 16.8. cp 01/27 18:51 Order name: Quantitative Hcg; Complete Time: 19:52 cp 01/27 19:53 Interpretation: Reviewed. cp 01/27 18:51 Order name: US Extremity Venous Unilateral Ltd; Complete Time: 20:28 cp 01/27 20:28 Interpretation: Report reviewed. cp 01/27 18:51 Order name: US Transvaginal Study (Probe); Complete Time: 20:28 cp 01/27 20:29 Interpretation: Reviewed report. cp 01/27 18:51 Order name: PT-INR; Complete Time: 19:52 cp 01/27 20:14 Interpretation: Reviewed. cp 01/27 18:51 Order name: Ptt, Activated; Complete Time: 19:52 cp 01/27 20:14 Interpretation: Reviewed. cp 01/27 21:37 Order name: COVID-19/FLU A+B (Document "Date of Onset" if Symptomatic); Complete Time: cp 22:36 01/27 22:36 Interpretation: Reviewed. 01/27 18:15 Order name: Urine Dipstick-Ancillary (obtain specimen); Complete Time: 18:37 cp 01/27 18:15 Order name: Urine Test (obtain specimen); Complete Time: 18:37 cp 01/27 18:51 Order name: IV Saline Lock; Complete Time: 18:54 cp 01/27 18:51 Order name: Labs collected and sent; Complete Time: 19:12 cp 01/27 18:51 Order name: NPO; Complete Time: 18:54 cp Administered Medications: 20:37 Drug: Ketorolac 15 mg Route: IVP; Site: right antecubital; jb4 21:00 Follow up: Response: No adverse reaction; Marked relief of symptoms jb4 22:02 Drug: NS 0.9% 1000 ml Route: IV; Rate: 1 bolus; Site: right antecubital; jb4 22:48 Follow up: Response: No adverse reaction; IV Status: Infusion continued upon transfer jb4 22:02 Drug: fentaNYL (PF) 25 mcg Route: IVP; Site: right antecubital; jb4 22:20 Follow up: Response: No adverse reaction; Marked relief of symptoms jb4 22:46 Drug: fentaNYL (PF) 25 mcg Route: IVP; Site: right antecubital; jb4 22:48 Follow up: Response: Medication administered at discharge. jb4 Disposition: 01/28 00:28 Co-signature as Attending Physician, Joesph Hernandez MD I agree with the assessment and kdr plan of care. Disposition Summary: 01/27/22 21:13 Transfer Ordered Transfer Location: [facility] cp Reason: Higher level of care cp Condition: Stable cp Problem: new cp Symptoms: have improved cp Accepting Physician: DR Howell(01/27/22 22:49) jb4 Diagnosis - Other ovarian cysts cp Forms: - Medication Reconciliation Form cp - SBAR form cp Signatures: Dispatcher [employer] Joesph Watts MD MD kdr Pena, Laura RN RN lp1 Delvis Neri PA PA Cale Cruz RN RN jb4 Angela Dubon RN RN jl7 Corrections: (The following items were deleted from the chart) 01/27 22:06 21:13 Doctor hsieh cp 22:49 22:06 DR Lynda hsieh jb4
[2022-01-27] MEDS ORDERED: FENTANYL CITR 100 MCG/2 ML ONE ×2 (22:01→22:47)
[2022-01-27] MEDS ORDERED: NA CHLORIDE 0.9% 1,000 ML ONE (22:01)
[2022-01-27 22:35] LABS: SARS-COV-2 RT PCR NEGATIVE (NEGATIVE)
[2022-01-27 23:28] VITALS: TEMP 98.2
[2022-01-27 23:33] VITALS: BP 142/80; O2SAT 98
== END 2022-01-27 22:49 | disposition short-term general hospital (02) ==
LOC: ER 17:35
DX: N83.299 Other ovarian cyst, unspecified side (principal); R11.2 Nausea with vomiting, unspecified; Z88.0 Allergy status to penicillin; Z88.1 Allergy status to other antibiotic agents; Z88.5 Allergy status to narcotic agent; Z88.8 Allergy status to other drugs, medicaments and biological substances
CPT/HCPCS: 0240U; 36415; 76830; 80048; 81003; 81015; 84702; 85025; 85610; 85730; 93971; 96361; 96374; 96375; 99285; J3010; J7030

== ENCOUNTER 2022-08-22 19:54 | Emergency (ER) | payer SELFPAY ==
--- OUTSIDE RECORDS SUMMARY | 2022-08-22 19:59 | XMS REPORT | Continuity of Care Document ---
:1995 Author Organization [facility] t Address [address] [place] [address] Care Team Providers Name Role Phone Vinita Angel Primary Care Physician ANTONIO HERNÁNDEZ Attending Clinician Unavailable CHER GLEASON Attending Clinician Unavailable AMERICA EGAN Attending Clinician Unavailable Provider, [facility] Attending Clinician Unavailable America Egan CNM Attending Clinician Doctor Unassigned, [place] Attending Clinician Unavailable SONNY GREGORY Attending Clinician Unavailable Rosibel Cher MARTE Attending Clinician ANIKET NGUYEN Attending Clinician Unavailable Moisés Nguyen MDng Ivan Attending Clinician Pcp, Patient Does Not Have A Attending Clinician [id number] Visit, [facility] Nurse Attending Clinician Unavailable Bri ELLSWORTH, Sonny Mccormack Attending Clinician Rasta PALOMARES, Antonio Warren Attending Clinician [phone] JOHANNY SHERIFF Attending Clinician Unavailable Iris Andrews MD Attending Clinician CATHY RICARDO Attending Clinician Unavailable Room, s Ortho Cast Attending Clinician Unavailable Nanette ELLSWORTH, Cathy Hart Attending Clinician CHRISTINA BRITT Attending Clinician Unavailable Christina Spann Attending Clinician Sarah RNMaida Attending Clinician Unavailable Saad CLARKE, Leonie Sewell Attending Clinician Only, Adc Test Attending Clinician Unavailable Vance Leon Attending Clinician Unavailable Vinita Angel Attending Clinician VINITA TRIVEDI Attending Clinician Unavailable LALY TUBBS Attending Clinician Unavailable Gina CLARKE, Elicia Salgado Attending Clinician [facility] Resident Attending Clinician Unavailable Cale Otero MD Attending Clinician THEO WING Attending Clinician Unavailable ANTONIO HERNÁNDEZ Admitting Clinician Unavailable ANIKET NGUYEN Admitting Clinician Unavailable Aniket Nguyen MD Admitting Clinician Antonio Hernández MD Admitting Clinician [phone] CHRISTINA BRITT Admitting Clinician Unavailable THEO WING Admitting Clinician Unavailable Payers Payer Name Policy Type Policy Number Effective Date Expiration Date S jaida PHCS GENERIC [id number] 2020 00:00:00 MEDICAID PENDING PENDING 2021 00:00:00 WEBT[place] [id number] 2020 00:00:00 [place]ALTHY [place] [id number] 2020 WOMEN 00:00:00 Problems Condition Condition Condition Status Onset Resolution Last Treating Co mments Source Name Details Category Date Date Treatment Clinician Date Gonorrhea Gonorrhea Disease Active Uni vers 209 ity of 00:00: [place] 00 Medical Branch [...] Added automatic ally from request for surgery [id number] Derangemen Derangemen Disease Active Overview : Univers t of right t of right 01-30 Added it y of knee knee 00:00: automatic [place] ligament ligament 00 ally from [facility] ica request Branch for surgery [id number] Closed Closed Disease Active Overview: Univer s fracture fracture 12-16 Formattin ity of of right of right 00:00: g of this [place] as tibial tibial 00 note Medical plateau, plateau, might be Bran ch initial initial different encounter encounter from the original. Added automatic ally from request for surgery [id number] Knee Knee Disease Active Univers dislocatio dislocatio 12-16 it y of n, right, n, right, [place] initial 00 Medical encounter encounter Bran ch Right knee Right knee Disease Active Overview : Univers pain, pain, 12-02 Formattin ity of unspecifie unspecifie 00:00: g of this [place] d d note Medical chronicity chronicity might be Branch different from the original. Added automatic ally from request for surgery [id number] Right knee Right knee Disease Active Overview : Univers pain, pain, 3-09 Formattin ity of unspecifie unspecifie 00:00: g of this [place] d d note Medical chronicity chronicity might be Branch different from the original. Added automatic ally from request for surgery [id number] Over Over Disease Active Univers weight weight 8-10 ity of 00:00: [place] 00 Medical Branch Pain Pain Disease Active Univers pelvic pelvic 8-10 ity of 00:00: [place] 00 Medical Branch History of History of Disease Active U nivers chlamydia chlamydia 4-04 ity of 00:00: [place] [facility] History of History of Disease Active U nivers depression depression 4-04 it y of 00:00: [place] [facility] History of History of Disease Active U nivers anxiety anxiety 4-04 ity of 00:00: [place] [facility] History of History of Disease Active Overview : Univers suicide suicide 4-04 Formattin ity o f attempt attempt 00:00: g of this [place] 00 note Medical might be Branch different from the original. 2017 with Tylenol overdose Right Right Disease Active Univers ovarian ovarian 4-04 ity of cyst cyst 00:00: [place] 00 Medical Branch Disease Resolve 2018-12-28 2018-12-28 Univers labor in labor in d 5-14 00:00:00 20:15:13 it y of third third 00:00: [place] trimester trimester 00 [facility] without without Branch delivery delivery Non-stress Non-stress Disease Resolve 2018-12-28 2018-12-28 Univers test test d 5-11 00:00:00 20:15:10 [place]y of nonreactiv nonreactiv [place] Medical [place] Chlamydia Chlamydia Disease Resolve 2018-12-28 2018-12-28 Univers infection infection d 5-10 00:00:00 20:15:02 [place] of affecting affecting 00:00[place] 00 [facility] in third in third Branch trimester, trimester, [...] 00:00:00 20:14:55 ity of of of 00:00: [place] 00 [facility] Branch Yeast Yeast Disease Resolve 2018-12-28 2018-12-28 Univers infection infection d 5-10 00:00:00 20:15:27 ity of 00:00: [address] Branch Disease Resolve 2018-12-28 2018-12-28 Univers heart heart d 5- 00:00:00 20:15:08 ity of rate/rhyth rate/rhyth 00:00[place] 00 Medical abnormalit abnormalit Br anch y y affecting affecting management management of mother of mother Ovarian Ovarian Disease Resolve 2018-12-28 2018-12-28 Univers cyst in cyst in d 5- 00:00:00 20:16:29 [place] of 00:[place] 00 [facility] Branch Anemia of Anemia of Disease Resolve 2018-12-28 2018-12-28 Univers mother in mother in d 4- 00:00:00 20:14:59 ity of , , 00:00[place] antepartum [facility]partum [facility] Chlamydia Chlamydia Disease Resolve 2018-12-28 2018-12-28 Univers d 3-28 00:00:00 20:15:03 ity of 00:00: [address] Branch Supervisio Supervisio Disease Resolve 2018-12-28 2018-12-28 Univers n of high n of high d 3-27 00:00:00 20:15:19 ity of risk risk 00:00: [place] , , 00 Ga dical antepartum antepartum Br anch , third , third trimester trimester Missed Missed Disease Resolve 2018-12-28 2018-12-28 Univers menses menses d 3-27 00:00:00 20:14:57 ity of 00:00: [address] Branch Tylenol Tylenol Disease Resolve 2018-12-28 2018-12-28 Univers overdose, overdose, d 5 00:00:00 20:15:25 ity of intentiona intentiona 00:00[place] 00 Medical self-harm, self-harm, Br anch initial initial encounter encounter 34 weeks 34 weeks Disease Resolve 2018-12-27 2018-12-27 Univers gestation gestation d 6-12 00:00:00 21:41:55 ity of of of 00:00: [place] 00 [facility] nancy Branch Disease Resolve 2018-12-27 2018-12-27 Univers labor in labor in d 6-12 00:00:00 21:41:55 it y of third third 00:00: [place] trimester trimester 00 [facility] with with Branch delivery, delivery, fetus 1 fetus 1 Liveborn Liveborn Disease Resolve 2018-12-27 2018-12-27 Univers infant by by d 6-12 00:00:00 21:41:55 ity of vaginal vaginal 00:00: [place] delivery delivery 00 Medica l Branch Precipitou Precipitou Disease Resolve 2018-12-27 2018-12-27 Univers s s d 6- 00:00:00 21:41:55 ity of delivery, delivery, 00[place] delivered 00 [facility] (current ([facility] Branch [facility] Multiparit Multiparit Disease Resolve 2018-02-02 2018-02-02 Univers y y d 12-20 00:00:00 15:15:19 ity of 00:00: [place] 00 Medical Branch Screening Screening Disease Active 2017-12-20 2017-12-20 Univers examinatio examinatio 06-17 00:00:00 15:56:47 ity of n for STD n for STD 00:00[place] (sexually (sexually 00 [facility] transmitte transmitte Br anch d disease) d [...] of affecting affecting 00:00[place] 00 [facility] Branch 40 weeks 40 weeks Disease Resolve 2017-05-09 2017-05-09 Univers gestation gestation d 7-24 00:00:00 20:05:17 ity of of of 00:00: [place] 00 [facility] Research Research Disease Resolve 2017-05-09 2017-05-09 [facility] study study d 7-12 00:00:00 20:05:13 ity of patient: patient: 00:00: [place] ARRIVE- ARRIVE- 00 Medical Expectant Expectant Bran ch Managment Managment Arm Arm Pain of Pain of Disease Resolve 2017-05-09 2017-05-09 Univers round round d 7-05 00:00:00 20:05:23 ity of ligament ligament 00:00: [place] affecting affecting 00 [facility] , , Br anch antepartum antepartum Anemia of Anemia of Disease Resolve 2017-05-09 2017-05-09 Univers mother in mother in d 5-24 00:00:00 20:05:10 ity of , , 00:00[place] antepartum antepartum 00 Me dical Branch 28 weeks 28 weeks Disease Resolve 2017-05-09 2017-05-09 Univers gestation gestation d 5-02 00:00:00 20:05:00 ity of of of 00:00: [place] 00 [facility] Branch Maternal Maternal Disease Resolve 2017-05-09 2017-05-09 Univers [...] of high-risk high-risk 00:00[place] 00 [facility] with with Branch insufficie insufficie nt nt care care Flu Flu Disease Resolve 2015-092017-05-09 2017-05-09 Univers vaccine vaccine d 2-16 00:00:00 20:04:57 ity of need need 00:00: [place] 00 Medical Branch Suicide Suicide Disease Resolve 2017-04-18 2017-04-18 Univers d - 00:00:00 23:20:39 ity of 00:00: [place] 00 Medical Branch Bruise Bruise Disease Resolve 2014-092016-09-10 2016-09-10 Univers d - 00:00:00 21:44:36 ity of 00:00: [place] 00 [...] of bleeding bleeding 00:00: [place] on on Medical Nexplanon Nexplanon Bran Nexplanon Nexplanon Disease Resolve 2016-09-10 2016-09-10 Univers [...] MORPHINE DRUG Active Anaphylaxis Uni vers INGREDI 6-14 ity of 00:00: [place] 00 Medical Branch PROMETHA DRUG Active Anaphylaxis Uni vers ZINE INGREDI 6-14 ity of 00:00: [place] 00 Medical Branch Morphine Propensi Active Anaphylaxis U nivers ty to 6-14 ity of adverse 00:00: [place] reaction 00 Medical s Branch Prometha Propensi Active Anaphylaxis U nivers zine ty to 6-14 ity of adverse 00:00: [place] reaction Medical s Branch Penicill Propensi Active Rash Univer s ins ty to 7-09 ity of adverse 00:00: [place] reaction 00 Medical s Branch Penicill Propensi Active Rash Univer s ins ty to 04-03 ity of adverse 00:00: [place] reaction 00 Medical s Branch PENICILL Drug Active Rash Univers INS Class 04-03 ity of 00:00: [place] 00 Medical Branch Penicill Propensi Active Rash Univer s ins ty to 04-03 ity of adverse 00:00: [place] reaction 00 Medical s Branch Social History Social Habit Start Date Stop Date Quantity Comments Source Exposure to 2022-08-07 2022-08-17 Not sure [facility] SARS-CoV-2 00:00:00 13:40:00 [place] [facility] (event) Branch Alcohol intake 2022-08-17 2022-08-17 Current drinker Unive rsity of 00:00:00 00:00:00 of alcohol [place] [facility] (finding) Branch History [facility] 2020-05-05 2020-05-05 3 University o f Alcohol Frequency 00:00:00 00:00:00 [facility] edical Branch History [facility] 2020-05-05 2020-05-05 3 University o f Alcohol Std 00:00:00 00:00:00 [place] Medical Drinks Branch History SDAL 2020-05-05 2020-05-05 99 University o f Alcohol Binge 00:00:00 00:00:00 [place] [facility] al Branch Tobacco use and 2016-09-10 2016-09-10 Smokeless tobacco Un iversity of exposure 00:00:00 00:00:[address] [facility] Alcohol Comment 2016-09-10 2016-09-10 before she found Uni versity of 00:00:00 00:00:00 out she was [facility] Branch History of 2014-09-10 Smoker University of tobacco use 00:00:00 [facility] Sex [birth year] At [birth year] Universit y of 00:00:00 00:00:00 [facility] Smoking Status Start Date Stop Date Source Ex-smoker 2016-09-10 00:00:00 2016-09-10 00:00:00 Universi ty of [place] [facility] Medications Ordered Filled Start Stop Current Ordering Indication Dosage Frequency Signature Comments Components Source Medication Medication Date Date Medication? Clinician (SIG) Name Name cefTRIAXone 2021-09- No [id number] 500mg Univers (ROCEPHIN) 10-17 ity of injection 20:15: 20:23 [place] 500 mg 00 :00 Medical Branch cefTRIAXone 2021-09- No [id number] 500mg 500 mg, Univers (ROCEPHIN) 10-17 Intramuscu it y of injection 20:15: 20:23 [place], ONCE, [place] 500 mg 00 :00 1 dose, On [facility] 08/17/22 at 1430, DEVIN
Re ason for Anti-Infec tive: Empiric Therapy for Suspected Infection< br>Empiric Therapy Site: Pelvic
Duration of therapy: 5 days cefTRIAXone 2021-09- No [id number] 500mg Univers (ROCEPHIN) 10-17 ity of injection 20:15: :23 [place] 500 mg 00 :00 [facility] Branch cefTRIAXone 2021-09- No [id number] 500mg 500 mg, Univers (ROCEPHIN) 10-17 Intramuscu it y of injection 20:15: 20:23 [place], ONCE, [place] 500 mg 00 :00 1 dose, On [facility] 08/17/22 at 1430, DEVIN
Re ason for Anti-Infec tive: Empiric Therapy for Suspected Infection< br>Empiric Therapy Site: Pelvic
Duration of therapy: 5 days cefTRIAXone 2021-09- No [id number] 250mg Univers (ROCEPHIN) 10-17 ity of 250 mg in 20:00: 20:16 [place] lidocaine 00 :37 Medical 1% (PF) Branch (XYLOCAINE) 1 mL injection cefTRIAXone 2021-09- No [id number] 250mg Univers (ROCEPHIN) 10-17 ity of 250 mg in 20:00: 20:16 [place] lidocaine 00 :37 Medical 1% (PF) Branch (XYLOCAINE) 1 mL injection ibuprofen Yes [id number] 600mg Take 1 Univers 600 mg 5-05 [id number] tablet by ity of tablet 00:00: mouth [place] 00 every 6 Medical (six) Branch hours as needed for Pain (scale 1-3) or Pain (scale 4-6). ibuprofen Yes [id number] 600mg Take 1 Univers 600 mg 5-05 [id number] tablet by ity of tablet 00:00: mouth [place] 00 every 6 Medical (six) Branch hours as needed for Pain (scale 1-3) or Pain (scale 4-6). ibuprofen 2021-0 Yes [id number] 600mg Take 1 Univers 600 mg 5- [id number] tablet by ity of tablet 00:00: mouth [place] 00 every 6 Medical (six) Branch hours as needed for Pain (scale 1-3) or Pain (scale 4-6). ibuprofen 2021-0 Yes [id number] 600mg Take 1 Univers 600 mg 5- [id number] tablet by ity of tablet 00:00: mouth [place] 00 every 6 Medical (six) Branch hours as needed for Pain (scale 1-3) or Pain (scale 4-6). acetaminoph 2022- No [id number] 650mg Take 2 Univers en 325 mg 5-05 05- [id number] tablets by i ty of tablet 00:00: 04:59 mouth [place] 00 :00 every 6 Medical (six) Branch hours as needed for Pain (scale 1-3), Pain (scale 4-6) or Alternate with ibuprofen for pain scale 4-6. acetaminoph 2022- No [id number] 650mg Take 2 Univers en 325 mg 5-05 05- [id number] tablets by i ty of tablet 00:00: 04:59 mouth [place] 00 :00 every 6 Medical (six) Branch hours as needed for Pain (scale 1-3), Pain (scale 4-6) or Alternate with ibuprofen for pain scale 4-6. acetaminoph 2022- No [id number] 650mg Take 2 Univers en 325 mg 5-05 - [id number] tablets by i ty of tablet 00:00: 04:59 mouth [place] 00 :00 every 6 Medical (six) Branch hours as needed for Pain (scale 1-3), Pain (scale 4-6) or Alternate with ibuprofen for pain scale 4-6. acetaminoph 2022- No [id number] 650mg Take 2 Univers en 325 mg 5-05 05-06 [id number] tablets by i ty of tablet 00:00: 04:59 mouth [place] 00 :00 every 6 Medical (six) Branch hours as needed for Pain (scale 1-3), Pain (scale 4-6) or Alternate with ibuprofen for pain scale 4-6. HYDROcodone 0 2021- No [id number] 1{tbl} Take 1 U nivers -acetaminop 5-05 05-13 tablet by it y of hen 5-325 00:00: 04:59 mouth [place] mg tablet 00 :00 every 6 Medical (six) Branch hours as needed for Pain (scale 7-10) for up to 7 days. Indication s: acute pain aspirin 325 2020-0 Yes Closed 325mg Take 1 U nivers mg tablet 3-27 fracture of tablet by ity of 00:00: right mouth tibial daily. Medical plateau, Branch initial encounter aspirin 325 0 Yes Closed 325mg Take 1 U nivers mg tablet 3-27 fracture of tablet by ity of 00:00: right mouth tibial daily. Medical plateau, Branch initial encounter aspirin 325 0 Yes Closed 325mg Take 1 U nivers [...] by ity of tablet 00:00: right mouth 4 tibial (four) Medical plateau, times Branch initial daily. encounter gabapentin Yes Closed 100mg Take 1 Un jose 100 mg 3-26 fracture of capsule by ity of capsule 00:00: right mouth 3 tibial (three) Medical plateau, times Branch initial daily. encounter methocarbam Yes Closed 500mg Take 1 U nivers oL 500 mg 3-26 fracture of tablet by ity of tablet 00:00: right mouth 4 tibial (four) Medical plateau, times Branch initial daily. encounter Immunizations Ordered Immunization Filled Immunization Date Status Commen ts Source Name Name [facility] 2018-04-18 Completed University of 00:00:00 [facility] HPV9 2018-04-18 Completed University of 00:00:00 [facility] HPV9 2018-04-18 Completed University of 00:00:00 [facility] HPV9 2018-04-18 Completed University of 00:00:00 [facility] HPV9 2018-04-18 Completed University of 00:00:00 [facility] Branch HPV9 2018-04-18 Completed University of 00:00:00 [facility] Branch HPV9 2018-04-18 Completed University of 00:00:00 [facility] HPV9 2018-04-18 Completed University of 00:00:00 [facility] TDAP 2018-01-17 Completed University of 00:00:00 [facility] TDAP 2018-01-17 Completed University of 00:00:00 [facility] Branch TDAP 2018-01-17 Completed University of 00:00:00 [facility] TDAP 2018-01-17 Completed University of 00:00:00 [facility] TDAP 2018-01-17 Completed University of 00:00:00 [facility] Branch TDAP 2018-01-17 Completed University of 00:00:00 [facility] Branch TDAP 2018-01-17 Completed University of 00:00:00 [facility] TDAP 2018-01-17 Completed University of 00:00:00 [facility] HPV9 2017-06-17 Completed University of 00:00:00 [facility] HPV9 2017-06-17 Completed University of 00:00:00 [facility] HPV9 2017-06-17 Completed University of 00:00:00 [facility] Branch HPV9 2017-06-17 Completed University of 00:00:00 [facility] Branch HPV9 2017-06-17 Completed University of 00:00:00 [facility] Branch HPV9 2017-06-17 Completed University of 00:00:00 [facility] HPV9 2017-06-17 Completed University of 00:00:00 [facility] Branch HPV9 2017-06-17 Completed University of 00:00:00 [facility] Branch HPV9 2017-04-20 Completed University of 00:00:00 [facility] Branch HPV9 2017-04-20 Completed University of 00:00:00 [facility] Branch HPV9 2017-04-20 Completed University of 00:00:00 [facility] Branch HPV9 2017-04-20 Completed University of 00:00:00 [facility] Branch HPV9 2017-04-20 Completed University of 00:00:00 [facility] HPV9 2017-04-20 Completed University of 00:00:00 [facility] HPV9 2017-04-20 Completed University of 00:00:00 [facility] HPV9 2017-04-20 Completed University of 00:00:00 [facility] TDAP 2017-02-14 Completed University of 00:00:00 [facility] TDAP 2017-02-14 Completed University of 00:00:00 [facility] TDAP 2017-02-14 Completed University of 00:00:00 [facility] TDAP 2017-02-14 Completed University of 00:00:00 [facility] TDAP 2017-02-14 Completed University of 00:00:00 [facility] TDAP 2017-02-14 Completed University of 00:00:00 [facility] TDAP 2017-02-14 Completed University of 00:00:00 [facility] TDAP 2017-02-14 Completed University of 00:00:00 [facility] Influenza Virus 2016-09-10 Completed Universit y of Vaccine Quad IM 3+ 00:00:00 [facility] Influenza Virus 2016-09-10 Completed Universit y of Vaccine Quad IM 3+ 00:00:00 [facility] Influenza Virus 2016-09-10 Completed Universit y of Vaccine Quad IM 3+ 00:00:00 [facility] Influenza Virus 2016-09-10 Completed Universit y of Vaccine Quad IM 3+ 00:00:00 [facility] Influenza Virus 2016-09-10 Completed Universit y of Vaccine Quad IM 3+ 00:00:00 [facility] Influenza Virus 2016-09-10 Completed Universit y of Vaccine Quad IM 3+ 00:00:00 [facility] Influenza Virus 2016-09-10 Completed Universit y of Vaccine Quad IM 3+ 00:00:00 [facility] Influenza Virus 2016-09-10 Completed Universit y of Vaccine Quad IM 3+ 00:00:00 [facility] Meningococcal 2015-06-24 Completed University of Polysaccharide [...] (MCV4P) Td 2012-05-04 Completed University of 00:00:00 [facility] Td 2012-05-04 Completed University of 00:00:00 [facility] Td 2012-05-04 Completed University of 00:00:00 [facility] Td 2012-05-04 Completed University of 00:00:00 [facility] Td 2012-05-04 Completed University of 00:00:00 [place] [facility] Td 2012-05-04 Completed University of 00:00:00 [place] [facility] Td 2012-05-04 Completed University of 00:00:00 [place] [facility] Td 2012-05-04 Completed University 00:00:00 [facility] Vital Signs Vital Name Observation Time Observation Value Comments Source Systolic blood 2022-08-17 19:41:00 127 mm[Hg] Univer sity of pressure [place] [facility] Diastolic blood 2022-08-17 19:41:00 71 mm[Hg] Unive rsity of pressure [place] [facility] Heart rate 2022-08-17 19:41:00 110 /min Universi ty of [facility] Branch Body temperature 2022-08-17 19:41:00 36.67 Bisi [facility] ersity of [facility] Respiratory rate 2022-08-17 19:41:00 16 /min [facility] ersity [facility] Body height 2022-08-17 19:41:00 152.[address] [facility] Body weight 2022-08-17 19:41:00 74.072 kg Universi ty of [place] [facility] BMI 2022-08-17 19:41:00 31.89 kg/m2 Universi ty of [facility] Branch Body temperature 2021-01-29 21:06:00 36.5 Bisi [facility] ersity of [facility] Body height 2021-01-29 21:06:00 152.4 cm Universi ty of [place] [facility] Body weight 2021-01-29 21:06:00 65.772 kg Universi ty of [facility] BMI 2021-01-29 21:06:00 28.32 kg/m2 Universi ty of [place] [facility] Body temperature 2021-01-29 21:06:00 36.5 Bisi [facility] ersity of [facility] Body height 2021-01-29 21:06:00 152.4 cm Universi ty of [place] [facility] Body weight 2021-01-29 21:06:00 65.772 kg Universi ty of [facility] BMI 2021-01-29 21:06:00 28.32 kg/m2 Universi ty of [facility] Procedures Procedure Date / Time Performed Performing Clinician Sourc e GC & CHLAMYDIA 2022-08-17 22:22:00 America Egan [facility] AMPLIFIED ASSAY [facility] POCT TEST 2022-08-17 19:45:00 America Egan [facility] EXTERNAL PROVIDER 2022-02-09 05:01:00 Doctor [facility] RECORDS Name Medical Branch XR KNEE <3 VW RIGHT 2021-01-29 21:17:13 Antonio Hernández [facility] Plan of Care Planned Activity Planned Date Details Comments Source Future Scheduled 2028-01-18 [facility]dap[facility] Vaccines (4 - Td) Medical Br anch [code = DTaP,Tdap,and Td Vaccines (4 - Td)] Future Scheduled 2028-01-18 DTaP,Tdap,and Td Univers ity [facility] Test 00:00:00 Vaccines (4 - Td) Medical Br anch [code = DTaP,Tdap,and Td Vaccines (4 - Td)] Future Scheduled 2028-01-18 [facility]dap,[facility] Td [facility] Vaccines (4 - Td) Medical Br anch [code = DTaP,Tdap,and Td Vaccines (4 - Td)] Future Scheduled 2028-01-18 DTaP,Tdap,and Td Univers ity [facility] Test 00:00:00 Vaccines (4 - Td) Medical Br anch [code = DTaP,Tdap,and Td Vaccines (4 - Td)] Future Scheduled 2021-08-08 Screening for [facility] Test 00:00:00 Chlamydia trachomatis Medica l Branch (procedure) [code = 404558283] Future Scheduled 2021-08-08 Screening for [facility] Test 00:00:00 Chlamydia trachomatis Medica l Branch (procedure) [code = 457115154] Future Scheduled 2021-08-08 Screening for [facility] Test 00:00:00 Chlamydia trachomatis Medica l Branch (procedure) [code = 149749340] Future Scheduled 2021-08-08 Screening for [facility] Test 00:00:00 Chlamydia trachomatis Medica l Branch (procedure) [code = 933044653] Future Scheduled 2021-05-[address] [facility]00:00 (Season Ended) [code Medical Branch [...] Test 00:00:00 (procedure) [code = Medical Branch 775944545] Future Scheduled 2021-05-05 Depression screening [facility] [place] Test 00:00:00 (procedure) [code = Medical Branch 788679041] Future Scheduled 2021-05-05 Depression screening [facility] [place] Test 00:00:00 (procedure) [code = Medical Branch 052675508] Future Scheduled 2021-05-05 Depression screening [facility] [place] Test 00:00:00 (procedure) [code = Medical Branch 766090759] Future Scheduled 2021-04-18 Screening for [facility] [place] Test 00:00:00 malignant neoplasm of Medica l Branch cervix (procedure) [code = 394913181] Future Scheduled 2021-04-18 Screening for [facility] [place] Test 00:00:00 malignant neoplasm of Medica l Branch cervix (procedure) [code = 245283565] Future Scheduled 2021-04-18 Screening for [facility] [place] Test 00:00:00 malignant neoplasm of Medica l Branch cervix (procedure) [code = 786385557] Future Scheduled 2021-04-18 Screening for [facility] [place] Test 00:00:00 malignant neoplasm of Medica l Branch cervix (procedure) [code = 559737217] Future Scheduled 2014 Hepatitis C screening [facility] [place] Test 00:00:00 (procedure) [code = Medical Branch [id number]] Future Scheduled 2014 Hepatitis C screening [facility] [place] Test 00:00:00 (procedure) [code = Medical Branch 232752410] Future Scheduled 2014 Hepatitis C screening [facility] [place] Test 00:00:00 (procedure) [code = Medical Branch 698152953] Future Scheduled 2014 Hepatitis C screening [facility] [place] Test 00:00:00 (procedure) [code = Medical Branch 951251178] Future Scheduled 2012 SARS-CoV-2 (COVID-19) Un iversity [...] Scheduled 2002 PNEUMOCOCCAL 0-64 [facility] [place] Test 00:00:00 YEARS COMBINED SERIES Medica l Branch (1 of 3 - PCV13) [code = PNEUMOCOCCAL 0-64 YEARS COMBINED SERIES (1 of 3 - PCV13)] Future Scheduled 2002 PNEUMOCOCCAL 0-64 [facility] [place] Test 00:00:00 YEARS COMBINED SERIES Medica l Branch (1 of 3 - PCV13) [code = PNEUMOCOCCAL 0-64 YEARS COMBINED SERIES (1 of 3 - PCV13)] Future Scheduled 2002 PNEUMOCOCCAL 0-64 [facility] [place] Test 00:00:00 YEARS COMBINED SERIES Medica l Branch (1 of 3 - PCV13) [code = PNEUMOCOCCAL 0-64 YEARS COMBINED SERIES (1 of 3 - PCV13)] Future Scheduled 2002 PNEUMOCOCCAL 0-64 [facility] [place] Test 00:00:00 YEARS COMBINED SERIES Medica l Branch (1 of 3 - PCV13) [code = PNEUMOCOCCAL 0-64 YEARS COMBINED SERIES (1 of 3 - PCV13)] Encounters Start End Encounter Admission Attending Care Care Encounter Source Date/Time Date/Time Type Type Clinicians Facility Department ID 2021-07-26 Outpatient R [facility]STA [facility] [id number] Univers 17:44:43 ANTONIO victoria [facility] 2021-07-26 Emergency [facility] [id number] Univers 14:14:[address] [facility] 2021-07-26 Emergency [facility] [id number] Univers 07:52:[address] [facility] 2021-07-26 [id number] Univers 05:03:23 ANTONIO julien [facility] 2021-07-26 Inpatient RASTA [facility] SOR [id number] Univers 04:36:19 ANTONIO renita [facility] 2022-08-17 2022-08-17 Outpatient R JULISA [facility] [id number] Univers 13:15:00 14:36:01 AMERICA tomasrenita [facility] 2022-08-17 2022-08-17 Office Provider, Shalonda [facility] 1 .2.840.114 [id number] Univers 13:15:00 14:36:01 Visit America Egan SLOT ROUTER 350.1.13.1 0 ity of [facility] 4.2.7.2.686 Rodrigo as MATERNAL [phone] Med ical & CHILD [address] [place] [address] 2022-08-17 2022-08-17 Outpatient R [facility] [id number] Univers 11:30:00 11:30:00 ity [facility] 2022-05-17 2022-05-17 Outpatient R ROSIBEL [facility] [id number] Univers 10:30:00 10:30:00 CHER tomasy o f [facility] 2022-02-11 2022-02-11 Outpatient R [facility] [id number] Univers 13:15:00 13:[facility] 2022-02-09 Orders Doctor RATLIFF 1.2.840.114 [id number] Univers 00:00:00 00:00:00 Only Unassigned, ESTRADA 350.1.13.10 [facility] 4.2.7.2.686 Rodrigo as [phone] [facility] 009 Branch 2022-02-01 2022-02-01 Outpatient Ksenia GREGORY [facility] [id number] Univers 10:30:00 10:30:00 [address]ANDIS tomasy o f [facility] 2022-02-01 2022-02-01 Outpatient Ksenia GREGORY [facility] [id number] Univers 10:30:00 10:30:00 [address] o f [facility] 2022-02-01 2022-02-01 [facility] 1.2.840.114 [id number] Univers 00:00:00 00:00:00 Cher Salgado SLOT ROUTER 350.1.13.10 ity [facility] 4.2.7.2.686 Rodrigo as MATERNAL [phone] Med ical & CHILD [address] [place] [address] 2022-01-28 2022-01-28 Outpatient X [facility] ERT [id number] Univers 00:18:00 09:00:00 MARCIAL ity [facility] 2022-01-28 2022-01-28 Emergency RAMON Nguyen 1.2.590.549 [id number] Univers 00:18:00 09:00:00 Marcial ESTRADA 350.1.13.10 it y [facility] 4.2.7.2.686 Rodrigo as [phone] [facility] 104 Branch 2022-01-28 2022-01-28 Outpatient X [facility] ERT [id number] Univers 00:18:00 09:00:[address] [facility] 2022-01-28 2022-01-28 Surgery RAMON Nguyen 1.2.840.114 [id number] Univers 02:20:00 05:25:00 Marcial ESTRADA 350.1.13.10 it y [facility] 4.2.7.2.686 Rodrigo as [phone] [facility] 103 Branch 2022-01-28 2022-01-28 Telephone Pcp, UNIVERSIT 1.2.840.114 [id number] Univers 00:00:00 00:00:00 Patient Y HEALTH 350.1.13.10 i ty of [facility] 4.2.7.2.686 Rodrigo as Have A [phone] [address] 2021-11-17 2021-11-17 [facility] 1.2.840.114 [id number] Univers 00:00:00 00:00:00 Cher Naomi SLOT ROUTER 350.1.13.10 ity of [facility] 4.2.7.2.686 Rodrigo as MATERNAL [phone] [facility] CH[facility] [address] [place] [address] 2021-11-12 2021-11-12 Outpatient R [facility] [id number] Univers 13:15:00 13:15:00 CHER villasenor [facility] 2021-11-06 2021-11-06 [facility] 1.2 .840.114 [id number] Univers 09:00:00 09:37:49 Visit Sonny Gregory SLOT ROUTER 350.1.13.10 ity of [facility] 4.2.7.2.686 Rodrigo as MATERNAL [phone] [address] 2021-11-06 2021-11-06 Outpatient Ksen[facility] [id number] Univers 09:00:00 09:00:[address] [facility] 2021-11-04 2021-11-04 Telephone [facility] 1.2.840.114 [id number] Univers 00:00:00 00:00:00 Cher Salgado SLOT ROUTER 350.1.13.10 ity of [facility] 4.2.7.2.686 Rodrigo as MATERNAL [phone] [facility] CHILD [address] [place] [address] 2021-11-03 2021-11-03 Outpatient [facility]sen[facility] [id number] Univers 11:00:00 11:00:[address] o f [facility] 2021-11-03 2021-11-03 Telephone [facility] 1.2.840.114 [id number] Univers 00:00:00 00:00:00 Cher Naomi SLOT ROUTER 350.1.13.10 ity of [facility] 4.2.7.2.686 Rodrigo as MATERNAL [phone] [facility] ical & CHILD [address] [place] [address] 2021-11-02 2021-11-02 Outpatient R ROSIBEL [facility] [id number] Univers 11:00:00 11:58:37 CHER villasenor [facility] 2021-11-02 2021-11-02 Office [facility] 1.2.232.342 [id number] Univers 11:00:00 11:58:37 Visit Cher Salgado SL[place] ROUTER 350.1.13.10 ity [facility] 4.2.7.2.686 Rodrigo as MATERNAL [phone] [facility] & CHILD [address] [place] [address] 2021-11-02 2021-11-02 Outpatient R ROSIBEL [facility] [id number] Univers 11:00:00 11:58:37 CHER villasenor [facility] 2021-11-02 2021-11-02 Outpatient R [facility] [id number] Univers 11:00:00 11:00:00 CHER villasenor [facility] 2021-07-30 2021-07-30 Outpatient [facility] [id number] Univers 16:20:00 16:20:00 ANTONIO victoria [facility] 2021-05-12 2021-05-12 Outpatient R ROSIBEL [facility] [id number] Univers 14:15:00 14:15:00 CHER villasenor [facility] 2021-04-23 2021-04-23 Hospital [facility] 1.2.840.114 [id number] Univers 16:44:50 23:59:00 Encounter Antonio MARIAH 350.1.13.10 [facility] [place].2.7.2.[place] [phone] [place] apurva DALE [address] [place] [address] 2021-04-23 2021-04-23 Outpatient [facility] [id number] Univers 16:44:50 23:59:00 ANTONIO victoria [facility] 2021-04-23 2021-04-23 Office [facility] 1.2.086.899 [id number] Univers 17:05:33 17:15:56 Visit Antonio SPECIALTY 350.1.13.10 ity of [place] [phone] [place] apurva DALE 198 [facility] 2021-04-23 2021-04-23 Outpatient Ksenia H[facility] [id number] Univers 16:40:00 16:40:00 ANTONIO victoria [facility] 2021-04-23 2021-04-23 Letter [facility] 1.2.130.718 [id number] Univers 00:00:00 00:00:00 (Out) Antonio SPECIALTY 350.1.13.10 ity of [place] [facility] 4.2.7.2.686 [facility] [phone] [place] apurva DALE 198 [facility] 2021-03-24 2021-03-24 Outpatient Ksenia [facility] [id number] Univers 08:20:00 08:20:00 JOHANNY [facility] 2021-03-16 2021-03-16 Outpatient Ksenia [facility] [id number] Univers 08:00:00 08:00:00 JOHANNY renita [facility] 2021-03-12 2021-03-12 [facility] 1.2.840.114 [id number] [facility] [place] 14:23:47 23:59:00 Encounter Antonio SPECIALTY 350.1.13.10 ity [place] [facility] 4.2.7.2.686 [facility] AT [phone] [place] apurva DALE 809 [facility] 2021-03-12 2021-03-12 Outpatient Ksenia [facility] [id number] Univers 14:23:47 23:59:00 ANTONIO victoria [facility] 2021-03-12 2021-03-12 Office [facility] 1.2.630.056 [id number] Univers 14:13:56 14:57:27 Visit Antonio SPECIALTY 350.1.13.10 ity of [place] [phone] [place] apurva DALE 198 [facility] 2021-03-122021-03-12 Outpatient R RASTA [facility] [id number] Univers 14:40:00 14:40:00 ANTONIO victoria [facility] 2021-02-25 2021-02-25 Jana Andrews [facility] 1.2.840.114 [id number] Univers 00:00:00 00:00:00 (Out) Iris Martinez SPECIALTY 350.1.13.10 ity of CARE 4.2.7.2.686 [facility] AT [phone] [place] jennaananda RUBYRenita [address] [place] [address] 2021-02-19 2021-02-19 Outpatient R NANETTE [facility] [id number] Univers 09:40:00 09:40:00 CATHY victoria [facility] 2021-02-05 2021-02-05 Wildlife Manager Room, Vls Ortho Cast [facility] 1. 2.840.114 [id number] Univers 13:59:47 14:29:47 Visit Antonio Hernández SPECIALTY 350 .1.13.10 ity of [facility] 4.2.7.2.686 [facility] AT [phone] [place] apurva FLORIRenita [address] [place] [address] 2021-02-05 2021-02-05 Outpatient R [facility] [id number] Univers 14:00:00 14:00:[address] [facility] 2021-02-04 2021-02-04 Telephone [facility] 1.2.840.114 [id number] Univers 00:00:00 00:00:00 Antonio SPECIALTY 350.1.13.10 ity of [place] HERNANDEZ 4.2.7.2.686 [facility] AT [phone] Ga jennaananda RUBYRenita [address] [place] [address] 2021-02-03 2021-02-03 Hospital Rasta [facility] 1.2.840.114 [id number] Univers 11:47:00 15:25:00 Encounter [facility] 350.1.13.10 ity of [place] 4.2.7.2.686 [facility] [phone] [address] ([facility]) 2021-02-03 2021-02-03 [facility] 1.2.840.657 [id number] Univers 13:50:00 15:11:00 Antonio SPECIALTY 350.1.13.10 ity of [place] [facility] 4.2.7.2.[place] [phone] Me dical VICTORY 020 [facility] 2021-02-03 2021-02-03 Orders Doctor GAUDENCIO 1.2.840.114 [id number] Univers 00:00:00 00:00:00 Only Unassigned, ESTRADA 350.1.13.10 ity of [place] [facility] 4.2.7.2.686 Rodrigo as [phone] [address] 2021-01-29 2021-01-29 Outpatient [facility] [id number] Univers 16:10:26 23:59:[address] [facility] 2021-01-29 2021-01-29 Hospital [facility] 1.2.840.114 [id number] Univers 16:10:26 23:59:00 Encounter Antonio SPECIALTY 350.1.13.10 ity of [facility] 4.2.7.2.686 [place] AT [phone] Ga dicananda VICTORY 809 [facility] 2021-01-29 2021-01-29 Outpatient Ksenia HERNÁNDEZ [facility] [id number] Univers 16:50:00 16:50:[address] [facility] 2021-01-29 2021-01-29 Office [facility] 1.2.316.896 [id number] Univers 15:49:26 16:43:46 Visit Antonio SPECIALTY 350.1.13.10 ity of [place] [facility] 4.2.7.2.686 [place] [phone] Ga dical VICTORY 198 [facility] 2021-01-22 2021-01-22 [facility] 1.2.347.030 [id number] Univers 00:00:00 00:00:00 Cathy J SPECIALTY 350.1.13.10 ity of [place]2.7.2.[place] AT [phone] Ga dical VICTORY 198 [facility] 2021-01-15 2021-01-15 Office [facility] 1.2.047.574 [id number] Univers 15:42:36 16:25:50 Visit Antonio SPECIALTY 350.1.13.10 ity [facility] 4.2.7.2.[place] AT [phone] [place] apurva DALE 198 [facility] 2021-01-15 2021-01-15 Outpatient [facility] [id number] Univers 15:00:00 15:00:00 ANTONIO ity [facility] 2021-01-13 2021-01-14 Emergency [facility] ERT [id number] Univers 22:42:00 02:25:00 CHRISTINA ity [facility] 2021-01-13 2021-01-14 Emergency [facility] 1.2.334.595 [id number] Univers 22:42:00 02:25:00 Christina Blancas 350.1.13.10 i ty [facility] [place]2.7.2.[place] [phone] [facility] [address] [place] 2021-01-14 2021-01-14 Patient [facility] 1.2.410.378 [id number] Univers 00:00:00 00:00:00 Secure Msg Antonio SPECIALTY 350.1.13.10 ity [facility] 4.2.7.2.[place] AT [phone] [place] apurva DALE 198 [facility] 2021-01-13 2021-01-13 Nurse Maida Smith 1.2.840.114 [id number] Univers 00:00:00 00:00:00 Triage ESTRADA 350.1.13.10 it y of [facility] 4.2.7.2.686 Rodrigo as [phone] [facility] [address] [place] 2021-01-01 2021-01-01 Office [facility] 1.2.770.753 [id number] Univers 13:28:30 13:48:30 Visit Cathy Hart SPECIALTY 350.1.13.10 ity of [facility] 4.2.7.2.686 [place] AT [phone] [place] apurva DALE 198 [facility] 2021-01-01 2021-01-01 Outpatient [facility] [id number] Univers 11:00:00 11:00:[address] [facility] 2021-01-01 2021-01-01 Telephone Nanette [facility] 1.2.840.114 [id number] Univers 00:00:00 00:00:00 Cathy Hart SPECIALTY 350.1.13.10 ity of [place] 4[place]2.7.2.[place] [phone] [place] apurva DALE 198 [facility] 2020-12-23 2020-12-23 Transition Sabino Nash 1.2.840.114 [id number] Univers 00:00:00 00:00:00 of Care Leonie Taylor 350.1.13.10 i ty of [place] 4.2.7.2.686 [place] [phone] [facility] [address] [place] 2020-12-16 2020-12-16 Telephone [facility] 1.2.840.114 [id number] Univers 00:00:00 00:00:00 Antonio SPECIALTY 350.1.13.10 ity of [facility] 4.2.7.2.686 [place] AT [phone] Ga jennaananda RUBYRenita 198 [facility] 2020-12-12 2020-12-12 Laboratory Only, Adc Test [facility] 1.2.840. 114 [id number] Univers 10:51:08 11:06:08 Only Cathy Ricardo 350.1.13. 10 ity of [place] 4[place]2.7.2.686 [place] [phone] [facility] [address] [place] 2020-12-12 2020-12-12 Outpatient R NANETTE [facility] [id number] Univers 11:00:00 11:00:[address] [facility] 2020-12-09 2020-12-09 Orders Doctor RATLIFF 1.2.840.114 [id number] Univers 00:00:00 00:00:00 Only Unassigned, ESTRADA 350.1.13.10 ity of [place] [facility] 4.2.7.2.686 Rodrigo as [phone] [facility] [address] [place] 2020-12-05 2020-12-05 Telephone [facility] 1.2.840.114 [id number] Univers 00:00:00 00:00:00 Antonio SPECIALTY 350.1.13.10 ity of [place] 4.2.7.2.686 [place] AT [phone] [place] apurva DALE 198 [facility] 2020-12-04 2020-12-04 Telephone [facility] 1.2.840.114 [id number] Univers 00:00:00 00:00:00 Antonio SPECIALTY 350.1.13.10 ity of [place] 4.2.7.2.686 [place] AT [phone] [place] apurva DALE 198 [facility] 2020-12-02 2020-12-02 [facility] 1.2.840.114 [id number] [facility] [place] 14:52:17 23:59:00 Encounter Antonio SPECIALTY 350.1.13.10 ity of [place] 4.2.7.2.686 [place] AT [id number] Ga apurva DALE 804 [facility] 2020-12-02 2020-12-02 Office [facility] 1.2.666.135 [id number] Univers 11:19:31 12:10:19 Visit Antonio SPECIALTY 350.1.13.10 ity of [place] 4.2.7.2.686 [place] AT [phone] [place] apurva DALE 198 [facility] 2020-12-02 2020-12-02 Outpatient [facility] [id number] Univers 11:50:00 11:50:[address] [facility] 2020-11-27 2020-11-27 [facility] 1.2.840.114 [id number] Univers 15:25:00 23:59:00 Encounter Antonio SPECIALTY 350.1.13.10 ity of [place] 4.2.7.2.686 [place] AT [phone] Ga apurva DALE 809 [facility] 2020-11-27 2020-11-27 Office [facility] 1.2.804.626 [id number] Univers 15:14:18 16:21:09 Visit Antonio SPECIALTY 350.1.13.10 ity of [place] 4.2.7.2.686 [place] AT [phone] [place] apurva DALE [address] [place] [address] 2020-11-27 2020-11-27 Outpatient R RASTA [facility] [id number] Univers 15:00:00 15:00:00 ANTONIO [facility] 2020-11-19 2020-11-19 Outpatient RICKEY Leon HCATO [id number] [facility] 14:10:29 14:10:29 [facility] 2020-08-08 2020-08-08 Nurse Visit, [facility] 1.2.840.114 [id number] 15:11:27 15:30:04 Visit Shalonda SLOT ROUTER 350.1.13.10 [facility] 4.2.7.2.686 MATERNAL [phone] & CHILD [address] [place] [address] 2020-08-08 2020-08-08 Nurse Visit, JanelleRmmehdi Nurse [facility] 1.2 .840.114 [id number] Univers 15:11:27 15:30:04 Visit Cher Gleason SLOT ROUTER 350.1.13. 10 [facility] 4.2.7.2.686 Rodrigo as MATERNAL [phone] Med ical & CHILD [address] [place] [address] 2020-08-08 2020-08-08 Outpatient R ROSIBEL [facility] [id number] Univers 15:00:00 15:00:[address] [facility] 2020-08-08 2020-08-08 Outpatient R [facility] [id number] Univers 13:30:00 13:30:00 [facility] 2020-05-09 2020-05-09 Nurse Visit, [facility] 1.2.840.114 [id number] 08:07:49 08:48:50 Visit Shalonda SLOT ROUTER 350.1.13.10 [facility] 4.2.7.2.686 MATERNAL [phone] & CHILD [address] [place] [address] 2020-05-09 2020-05-09 Nurse Visit, JanelleRmchxiomara Nurse [facility] 1.2 .840.114 [id number] Univers 08:07:49 08:48:50 Visit Vinita Trivedi SLOT ROUTER 350.1.13.10 ity of REGIONAL 4.2.7.2.686 Rodrigo as MATERNAL [phone] [facility] ical & CHILD [address] [place] [address] 2020-05-09 2020-05-09 Outpatient R SHIKHA [facility] [id number] Univers 08:00:00 08:00:[address] [facility] 2020-05-09 2020-05-09 Telephone [facility] 1.2.840.114 [id number] 00:00:00 00:00:00 Vinita Victor Manuel [employer] [id number] REGIONAL [id number] MATERNAL [phone] & CHILD [address] [place] [address] 2020-05-09 2020-05-09 [facility] 1.2.840.114 [id number] [facility] 00:00:00 00:00:00 Vinita Victor Manuel SL[employer] R[employer]TER 350.1.13.10 it y of REGIONAL [id number] Rodrigo as MATERNAL [phone] Med ical & CHILD [address] [place] [address] 2020-05-06 2020-05-06 [facility]phone [facility] [id number] Univers 00:00:00 00:00:00 Sonny R SL[employer] R[employer]TER 350.1.13.10 ity of REGIONAL [id number] Rodrigo as MATERNAL [phone] [facility] [address] [place] [address] 2020-05-05 2020-05-05 Office [facility] 1.2.840.114 [id number] Univers 08:14:02 09:52:07 Visit Sonny Mccormack SL[employer] ROUTER 350.1.13.10 ity of [facility] [id number] Rodrigo as MATERNAL [phone] [facility] [address] [place] [address] 2020-05-05 2020-05-05 Outpatient R BRI [facility] [id number] Univers 08:30:00 08:30:00 CHELLYNDA ity o f [facility] 2020-05-05 2020-05-05 Orders Doctor RATLIFF [id number] Univers 00:00:00 00:00:00 Only Unassigned, ESTRADA [id number] ity of [facility] 4.2.7.2.686 Rodrigo as [phone] [facility] [address] 2020-02-20 2020-02-20 Telephone Shikha [facility] [id number] Univers 00:00:00 00:00:00 Vinita Rush SL[employer]OUTER [id number] it y of REG[facility] 4.2.7.2.686 Rodrigo as MATERNAL [phone] Med ical & CHILD 107 [facility] 2019-12-26 2019-12-26 Outpatient R PARETS [facility] [id number] Univers 12:00:00 12:00:[address] of [facility] 2019-05-01 2019-05-01 Case Fuentes JOHN [id number] Univers 00:00:00 00:00:00 Management , Elicia Salgado ESTRADA [id number] ity of HOSPITAL 4.2.7.2.686 Rodrigo as [phone] [facility] [address] 2019-04-26 2019-04-26 Office Pool, [facility] Resident UNIVERSIT 1.2.8 40.114 [id number] Univers 10:33:39 11:17:37 Visit Cale Otero [facility] 350.1.13.10 ity of CL[place] [phone] [facility] [address] 2019-03-27 2019-03-27 Patient Doctor GAUDENCIO [id number] Univers 00:00:00 00:00:00 Secure Msg Unassigned, ESTRADA 350.1.13.10 ity of [facility] 4.2.7.2.686 Rodrigo as [phone] [facility] [address] [place] 2019-03-23 2019-03-23 Patient Doctor GAUDENCIO [id number] Univers 00:00:00 00:00:00 Secure Msg Unassigned, ESTRADA 350.1.13.10 ity of [facility] 4.2.7.2.686 Rodrigo as [phone] [address] Results Test Description Test Time Test Comments Results Result Comments Source POCT TEST 2022-08-17 19:48:00 Test Item Value Reference Range Interpretation Comme nts POCT PREG (test code = 1605) Positive On board controls acceptable with C Line (test code = 3574) Yes POCT PREG LOT # (test code = 3575) POCT PREG TEST DATE (test code = 3576) [id number] 19:48:00 Test Item Value Reference Range Interpretation Comments POCT PREG (test code = 1605) Positive On board controls acceptable with C Yes Line (test code = 3574) POCT PREG LOT # (test code = 3575) POCT PREG TEST DATE (test code = 3576) [facility]3 VW [id number] 00:16:33 Hardware fixation, securing a proximal tibial fracture withoutcomplication.[facility], Radiant Results Inft User - 01/29/2021 7:17 PM CDTXR KNEE <3 VW RIGHTINDICATION: pain COMPARISON: 11/27/2020 and 01/14/2021FINDINGS:External fixator device with screws extending through the femur and tibia.Hardware fixati on of the proximal tibial fracture without complication.Healing/healed fibular head fracture.IMPRESSIONHardware fixation, securing a proximal tibial fracture withoutcomplication.[facility]TRM W/O C RT 2020-11-19 14:22:00 [facility] DANIELLE : 1995 Sex: F Patient Name: WALKERTRENA WOLFLAQUITA SANTOS Unit No: [id number] EXAMS: CPT CODE: [id number] CT LOWER EXTRM W/O C [id number] CT OF THE RIGHT KNEE WITH SAGITTAL AND CORONAL RECONSTRUCTIONS DIAGNOSIS: There is a mildly comminuted depressed fracture of the anterior medial tibial plateau with 8 mm of depression. An avulsion fracture of the tibial spines is noted with presumed avulsion of the anterior cruciate ligament andposterior displacement of the tibia relative to the [...] with ACR practice standards and adherence to pathologist assistant's recommendations. Multiple fractures are present as described. at 1422 Reported and signed by: Claudio Aj MD CC: Vance Leon MD Technologist: Enrique Mantilla,RT(R) CTDI: DLP: Trnscrpt: 11/19/2020 (1422) t.SDR.JCL [facility] NAME: PLACIDO WALKER [address] [facility] PHYS: BRIMA. - Vance Leon MD : 1995 AGE: 25 SEX: F [place] [address] LOC: Y.RAD PHONE #: [phone] EXAM DATE: 11/19/2020 STATUS: REG CLI FAX #: [phone] RAD #: D/C DT PAGE 1 Signed Report Patient Name: PLACIDO WALKER Unit No: [id number] EXAMS: CPT CODE: [id number] CT LOWER EXTRM W/[place] [address] (Continued) Orig Print D/T: S: 11/19/2020 (1425) [facility] NAME: PLACIDO WALKER [address] [facility] PHYS: BRIMA. - Vance Leon MD : 1995 AGE: 25 SEX: F [place] [address] LOC: Y.RAD PHONE #: [phone] EXAM DATE: 11/19/2020 STATUS: REG CLI FAX #: [phone] RAD #: D/C DT PAGE 2 Signed ReportHIV [id number] 11:44:00 Test Item Value Reference Range Interpretation Comments HIV 1/2 Antibody Non-Reactive Non-Reactive N HIV1/2 Anti body screen (test code = result indicate s the HIV1/2AB) absence of HIV1 and TLV6reawzjppx.H owever, A Non-Reactive screen result does not [...] rule o ut exposure or infection.If ac alturas HIV-1 is suspec alexis, HIV RNA Quantit ative is recommended. Hep B Surface [id number] 09:41:00 Test Item Value Reference Range Interpretation Comments Hep Bs Ag (test code = HBSAG) Nonreactive Non-Reactive A BHCG, Serum, [id number] 08:32:00 Test Item Value Reference Range Interpretation Comments Preg Qual [Se] (test code = BSHCG) POSITIVE Negative A Comprehensive Metabolic [id number] 08:31:00 Test Item Value Reference Range Interpretation [...] National Kidney Foundation,http ://nkd ep.nih.gov TIBC and [id number] 08:31:00 Test Item Value Reference Range Interpretation Comments Iron (test code = FE) 26 ug/dL 37-145 L UIBC (test code = UIBC) 406 ug/dL 112-346 H TIBC (test code = TIBC) 432 ug/dL 149-491 N % Saturation (test code = PSAT) 6 % 20-50 L CBC with [id number] 08:19:00 Test Item Value Reference Range Interpretation [...] code = ALYMPH) 2.6 K/cumm 0.5-4.6 N Stephenson Abs (test code = AMONO) 1.1 K/cumm 0.0-1.2 N Eos Abs (test code = AEOS) 0.27 K/cumm 0.00-0.74 N Baso Abs (test code = ABASO) 0.0 K/cumm 0.00-0.21 N RPR, [id number] 11:04:00 Test Item Value Reference Range Interpretation Comments RPR (test code = RPR) Non-Reactive Non-Reactive N Thyroid Stimulating Hormone (TSH)2017-01-26 05:33:00 Test Item Value Reference Range Interpretation Comments TSH (test code = TSH) 1.00 mIU/mL 0.270-4.200 N Comprehensive Metabolic [id number] 05:23:00 Test Item Value Reference Range Interpretation [...] the National Kidney Foundation,http ://nkd ep.nih.gov Lipid [id number] 05:23:00 Test Item Value Reference Range Interpretation [...] DISEASEPu blished by [place] Heart AssociationAnal yte Optimal Boderli ne Increased RiskC HOL <200 200-239 >240TRI G <150 150-199 >200HDL Male: >60 <40HDL Fem jun: >60 <50LDL < 100 130-159 >160LDL NEAR OPTIMAL IS 100- 129 VLDL (test code = 31 mg/dL 5-40 N VLDL) LDL/HDL (test code = 1 LDLPHDL) CBC with [id number] 05:05:00 Test Item Value Reference Range Interpretation [...] code = ALYMPH) 2.2 K/cumm 0.5-4.6 N Stephenson Abs (test code = AMONO) 1.0 K/cumm 0.0-1.2 N Eos Abs (test code = AEOS) 0.29 K/cumm 0.00-0.74 N Baso Abs (test code = ABASO) 0.0 K/cumm 0.00-0.21 N
--- NOTE | 2022-08-22 21:22 | RAD REPORT ---
EXAM DESCRIPTION: US - Transvaginal OB - 08/22/2022 8:54 pm CLINICAL HISTORY: with vaginal bleeding COMPARISON: None. FINDINGS: The uterus measures 10 x 5 x 5 centimeters. The endometrial stripe measures 16 millimeter s. A gestational sac is not seen. Right oophorectomy. Left ovary normal in size and echotexture The right and left adnexa unremarkable No significant free fluid IMPRESSION: Nonvisualization of a gestational sac within the endometrium. These findings could represent an early intrauterine in which the gestational sac is not se en. and even an ectopic can also result in this appearance. This all should be cor related clinically and with serial beta HCG levels. Followup endovaginal sonogram in 1 week recommend ed
[2022-08-22 21:38] LABS: Absolute Lymphocytes (CBC) 2.7 K/uL (0.7-4.9); Hematocrit 37.4 % (36.0-45.0); Lymphocytes % 21.4 % (15.3-44.8); MCV 87.4 fL (80-100); MPV 7.7 fL (7.6-11.3); RBC Red Blood Cell Count 4.28 M/uL (3.86-4.86)
[2022-08-22 22:07] LABS: Urine Blood 3+ (Negative); Urine Glucose Negative (Negative); Urine Protein 1+ (Negative); Urine pH 6.5 (5.0-7.0)
[2022-08-22 23:36] LABS: Potassium 3.7 mmol/L (3.5-5.1)
[2022-08-22] MEDS ORDERED: NITROFURAN MACRO 100 MG CAP PO ONE (23:59)
[2022-08-23] MEDS ORDERED: FENTANYL CITR 100 MCG/2 ML ONE (00:15)
[2022-08-23] MEDS ORDERED: ONDANSETRON 4 MG/2 ML VIAL ONE (00:15)
--- NOTE | 2022-08-23 00:28 | EDPHYS ---
Physician Documentation [facility] Name: Kelsea Toussaint Age: 27 yrs Sex: Female : 1995 Arrival Date: 08/22/2022 Time: 19:55 Bed 8 Private MD: ED Physician Matt Ferreira HPI: 08/22 20:13 This 27 yrs old Female presents to ER via Ambulatory with complaints of jmm Vaginal Bleeding, + Preg <12wks. 20:13 The patient presents to the emergency department with vaginal bleeding, that is jmm moderate. Previous pregnancies: in previous pregnancies patient has had. The patient has not experienced similar symptoms in the past. This is a 27 year old that presents to the ED with complaints of heavy vaginal bleeding beginning earlier today. Patient states she is approx 5 to 6 weeks . . ROUND UP RING HAND: 20:13 3, Living 2 jmm 21:00 LMP 07/02/2022 kb3 Historical: - Allergies: 21:00 Amoxicillin; kb3 21:00 Codeine; kb3 21:00 Morphine; kb3 21:00 PENICILLINS; kb3 21:00 Promethazine; kb3 - Home Meds: 21:00 None [Active]; kb3 - PMHx: 21:00 Ovarian cyst; kb3 - PSHx: 21:00 Right oopherectomy; kb3 - Immunization history:: Adult Immunizations up to date, Client reports receiving the 2nd dose of the Covid vaccine, Last tetanus immunization: up to date. - Social history:: Smoking status: Patient denies any tobacco usage or history of. ROS: 20:13 Constitutional: Negative for fever, chills, and weight loss, Cardiovascular: Negative jmm for chest pain, palpitations, and edema, Respiratory: Negative for shortness of breath, cough, wheezing, and pleuritic chest pain. 20:13 : Positive for vaginal bleeding. 20:13 All other systems are negative. Exam: 20:13 Constitutional: This is a well developed, well nourished patient who is awake, alert, jmm and in no acute distress. Head/Face: atraumatic. Eyes: EOMI, no conjunctival erythema appreciated ENT: Moist Mucus Membranes Neck: Trachea midline, Supple Chest/axilla: Normal chest wall appearance and motion. Cardiovascular: Regular rate and rhythm. No edema appreciated Respiratory: Normal respirations, no respiratory distress appreciated Abdomen/GI: Non distended Back: Normal ROM Skin: General appearance color normal MS/ Extremity: Moves all extremities, no obvious deformities appreciated, no edema noted to the lower extremities Neuro: Awake and alert Psych: Behavior is normal, Mood is normal, Patient is cooperative and pleasant Vital Signs: 20:57 BP 121 / 77; Pulse 89; Resp 20; Temp 99.1; Pulse Ox 98% ; Weight 73.94 kg; Height 5 ft. kb3 0 in. (152.40 cm); Pain 2/10; 23:00 BP 127 / 86; Pulse 82; Resp 16; Pulse Ox 100% on R/A; jb4 08/23 00:42 BP 131 / 90; Pulse 83; Resp 16; Pulse Ox 100% on R/A; jb4 08/22 20:57 Body Mass Index 31.83 (73.94 kg, 152.40 cm) kb3 MDM: 08/22 20:26 Patient medically screened. [facility] 08/23 00:24 Data reviewed: vital signs, nurses notes. Counseling: I had a detailed discussion with [facility] the patient and/or guardian regarding: the historical points, exam findings, and any diagnostic results supporting the discharge/admit diagnosis, lab results, radiology results, the need for outpatient follow up, to return to the emergency department if symptoms worsen or persist or if there are any questions or concerns that arise at home. ED course: Patient will follow up with her obgyn tomorrow for reevaluation. Patient otherwise given strict return precautions. Patient understood and agrees with the plan of care. . 08/22 20:13 Order name: Abo/rh Typing; Complete Time: 23:32 [facility] 08/22 20:13 Order name: Basic Metabolic Panel; Complete Time: 23:37 [facility] 08/22 20:13 Order name: CBC with Diff; Complete Time: 22:19 [facility] 08/22 20:13 Order name: Quantitative Hcg; Complete Time: 23:37 [facility] 08/22 22:07 Order name: Urine Dipstick-Ancillary; Complete Time: 22:19 [facility] 08/22 23:01 Order name: Test Urine - POC sp 08/22 20:13 Order name: IV Saline Lock; Complete Time: 22:01 [facility] 08/22 20:13 Order name: Labs collected and sent; Complete Time: 22:01 [facility] 08/22 20:56 Order name: Transvaginal OB; Complete Time: 21:24 [facility] 08/22 20:13 Order name: NPO; Complete Time: 22:01 [facility] 08/22 20:13 Order name: Urine Dipstick-Ancillary (obtain specimen); Complete Time: 22:07 [facility] Administered Medications: 00:04 CANCELLED (allergyy): morphine 4 mg IVP once over 4 mins [facility] 00:10 Drug: Nitrofurantoin 100 mg Route: PO; jb4 00:44 Follow up: Response: No adverse reaction jb4 00:28 Drug: Zofran (Ondansetron) 4 mg Route: IVP; Site: right antecubital; jb4 00:44 Follow up: Response: No adverse reaction; Marked relief of symptoms jb4 00:28 Drug: fentaNYL (PF) 50 mcg Route: IVP; Site: right antecubital; jb4 00:43 Follow up: Response: No adverse reaction; Marked relief of symptoms; Pain is decreased jb4 Disposition: 01:13 Co-signature as Attending Physician, Matt Ferreira MD I agree with the assessment and rt plan of care. Disposition Summary: 08/23/22 00:27 Discharge Ordered Location: Home [facility] Condition: Stable [facility] Diagnosis - Threatened [facility] - UTI/ Urinary tract infection, site not specified [facility] Followup: [facility] - With: Private Physician - When: Tomorrow - Reason: Recheck today's complaints, Continuance of care, Re-evaluation by your physician Discharge Instructions: - Discharge Summary Sheet [facility] - Threatened Miscarriage [facility] Forms: - Medication Reconciliation Form [facility] - Thank You Letter [facility] - Antibiotic Education [facility] - Prescription Opioid Use [facility] Prescriptions: - Macrobid 100 mg Oral Capsule - take 1 capsule by ORAL route every 12 hours for 7 days; 14 capsule; Refills: 0, [facility] Product Selection Permitted Signatures: Dispatcher [employer] EDMS Carlton Harden PA PA jmCale Carmona, RN RN jb4 Iris Lagunas, RN RN kb3 Matt Ferreira MD MD rt Corrections: (The following items were deleted from the chart) 08/22 20:56 20:16 OB [employer]+US.RAD.BRZ ordered. EDNE EDMS 08/23 00:04 00:04 morphine 4 mg IVP once over 4 mins ordered. kaela sherwood
--- NOTE | 2022-08-23 00:28 | ER ---
Nurse's Notes [facility] Name: Kelsea Toussaint Age: 27 yrs Sex: Female : 1995 Arrival Date: 08/22/2022 Time: 19:55 Bed 8 Private MD: Diagnosis: Threatened ;UTI/ Urinary tract infection, site not specified Presentation: 08/22 20:33 Chief complaint[facility] to [facility]. 20:57 Chief complaint: Patient states: mild cramping and vaginal bleeding with clots that kb3 began at 1800 today. Pt reports positive test last week. LMP 07/02/2022. A0. Coronavirus screen: Vaccine status: Patient reports being unvaccinated. Client denies travel out of the [place] in the last 14 days. Ebola Screen: Patient negative for fever greater than or equal to 101.5 degrees Fahrenheit, and additional compatible Ebola Virus Disease symptoms Patient denies exposure to infectious person. Patient denies travel to an Ebola-affected area in the 21 days before illness onset. Initial Sepsis Screen: Does the patient meet any 2 criteria? No. Patient's initial sepsis screen is negative. Does the patient have a suspected source of infection? No. Patient's initial sepsis screen is negative. Risk Assessment: Do you want to hurt yourself or someone else? Patient reports no desire to harm self or others. Onset of symptoms was August 22, 2022 at 18:00. 20:57 Method Of Arrival: Ambulatory [facility] 20:57 Acuity: VICENTE 3 kb3 Triage Assessment: 21:00 General: Appears in no apparent distress. Behavior is calm, cooperative. Pain: kb3 Complains of pain in right lower quadrant and left lower quadrant Pain does not radiate. Pain currently is 2 out of 10 on a pain scale. Quality of pain is described as crampy. : Reports vaginal bleeding that is bright red, with clots. 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 - Social history:: Smoking status: Patient denies any tobacco usage or history of. Screenin:08 Abuse screen: Denies threats or abuse. Denies injuries from another. Nutritional aa9 screening: No deficits noted. Tuberculosis screening: No symptoms or risk factors identified. Fall Risk None identified. Assessment: 21:50 General: Appears in no apparent distress. comfortable, Behavior is calm, cooperative, aa9 appropriate for age. 21:50 Pain: Complains of pain in suprapubic area Quality of pain is described as crampy, Pain aa9 began 3 hours ago. Neuro: Level of Consciousness is awake, alert, obeys commands, Oriented to person, place, time, situation. Cardiovascular: Capillary refill < 3 seconds Patient's skin is warm and dry. Respiratory: Airway is patent Respiratory effort is even, unlabored. GI: No signs and/or symptoms were reported involving the gastrointestinal system. : Parent/caregiver report the patient having vaginal bleeding that is bright red with clots. Derm: Skin is intact, is healthy with good turgor, Skin is pale. 23:00 Reassessment: Patient appears in no apparent distress at this time. Patient and/or jb4 family updated on plan of care and expected duration. Pain level reassessed. Patient is alert, oriented x 3, equal unlabored respirations, skin warm/dry/pink. 08/23 00:42 Reassessment: Patient appears in no apparent distress at this time. Patient and/or jb4 family updated on plan of care and expected duration. Pain level reassessed. Patient is alert, oriented x 3, equal unlabored respirations, skin warm/dry/pink. Vital Signs: 08/22 20:57 BP 121 / 77; Pulse 89; Resp 20; Temp 99.1; Pulse Ox 98% ; Weight 73.94 kg; Height 5 ft. kb3 0 in. (152.40 cm); Pain 2/10; 23:00 BP 127 / 86; Pulse 82; Resp 16; Pulse Ox 100% on R/A; jb4 08/23 00:42 BP 131 / 90; Pulse 83; Resp 16; Pulse Ox 100% on R/A; jb4 08/22 20:57 Body Mass Index 31.83 (73.94 kg, 152.40 cm) kb3 ED Course: 08/22 19:55 Patient arrived in ED. jl7 20:00 Carlton Harden PA is PHCP. jmm 20:00 Matt Ferreira MD is Attending Physician. jmm 20:56 Transvaginal OB In Process Unspecified. EDMS 21:00 Triage completed. kb3 21:00 Arm band placed on right wrist. kb3 21:05 Taty Rodriguez, TRICIA is Primary Nurse. aa9 21:43 Missed attempt(s): 20 gauge in right antecubital area. Bleeding controlled, band aid aa9 applied, catheter tip intact. 21:50 Inserted saline lock: 20 gauge in right hand, using aseptic technique. Blood collected. aa9 22:01 Abo/rh Typing Sent. aa9 22:01 Basic Metabolic Panel Sent. aa9 22:01 Quantitative Hcg Sent. aa9 22:09 Patient has correct armband on for positive identification. Bed in low position. Call aa9 light in reach. Side rails up X2. Warm blanket given. 22:09 No provider procedures requiring assistance completed. aa9 08/23 00:42 IV discontinued, intact, bleeding controlled, No redness/swelling at site. Pressure jb4 dressing applied. Administered Medications: 00:04 CANCELLED (allergyy): morphine 4 mg IVP once over 4 mins jm 00:10 Drug: Nitrofurantoin 100 mg Route: PO; jb4 00:44 Follow up: Response: No adverse reaction jb4 00:28 Drug: Zofran (Ondansetron) 4 mg Route: IVP; Site: right antecubital; jb4 00:44 Follow up: Response: No adverse reaction; Marked relief of symptoms jb4 00:28 Drug: fentaNYL (PF) 50 mcg Route: IVP; Site: right antecubital; jb4 00:43 Follow up: Response: No adverse reaction; Marked relief of symptoms; Pain is decreased jb4 Medication: 08/22 22:09 VIS not applicable for this client. aa9 Outcome: 08/23 00:27 Discharge ordered by . jmm 00:42 Discharged to home ambulatory, with family. jb4 00:42 Condition: stable 00:42 Discharge instructions given to patient, Instructed on discharge instructions, follow up and referral plans. medication usage, Demonstrated understanding of instructions, follow-up care, medications, Prescriptions given X 2. 00:44 Patient left the ED. jb4 Signatures: Dispatcher [employer] EDMS Carlton Harden PA PA jmm Bryson, James RN RN jb4 Angela Dubon RN RN jl7 Taty Rodriguez, RN RN aa9 Iris Lagunas, RN RN kb3
[2022-08-23 00:48] VITALS: TEMP 99.1
[2022-08-23 00:50] VITALS: O2SAT 100
[2022-08-23 00:51] VITALS: BP 131/90
== END 2022-08-23 00:44 | disposition home or self-care (01) ==
LOC: ER 19:54
DX: O20.0 Threatened abortion (principal); N39.0 Urinary tract infection, site not specified
CPT/HCPCS: 36415; 76817; 80048; 81003; 81025; 84702; 85025; 86900; 86901; 96374; 96375; 99284; J2405; J3010

== ENCOUNTER 2023-08-07 03:49 | Emergency (ER) | payer SELFPAY ==
--- OUTSIDE RECORDS SUMMARY | 2023-08-07 03:54 | XMS REPORT | Continuity of Care Document ---
:1995 Author Organization [facility] t Address [address] [place] [address] [place] [id number] Care Team Providers Name Role Phone UNKNOWN, REFFERING Primary Care Physician Unavailable ANTONIO HERNÁNDEZ Attending Clinician Unavailable AMERICA EGAN Attending Clinician Unavailable Lab, [facility] Attending Clinician Unavailable America Egan CNM Attending Clinician CHER GLEASON Attending Clinician Unavailable Cliff Hickman MD Attending Clinician ALLYSON PORRAS Attending Clinician Unavailable ALLYSON PORRAS Attending Clinician Unavailable Trimester, [facility] Attending Clinician Unavailable Rosibel Cher MARTE Attending Clinician [phone] Doctor Unassigned, [place] Attending Clinician Unavailable Provider, Ang-chp Temp Attending Clinician Unavailable SONNY GREGORY Attending Clinician Unavailable ANIKET NGUYEN Attending Clinician Unavailable Wendy PALOMARES, Aniket Love Attending Clinician Pcp, Patient Does Not Have A Attending Clinician [phone] Visit, [facility] Nurse Attending Clinician Unavailable Sonny Merida Attending Clinician Rasta PALOMARES, Antonio Warren Attending Clinician [phone] JOHANNY SHERIFF Attending Clinician Unavailable Iris Andrews MD Attending Clinician CATHY RICARDO Attending Clinician Unavailable [facility] Ortho Cast Attending Clinician Unavailable Cathy Powers Attending Clinician CHRISTINA BRITT Attending Clinician Unavailable Christina Spann Attending Clinician Sarah CLARKE, Maida Sewell Attending Clinician Unavailable Leonie Nash RN Attending Clinician Only, Adc Test Attending Clinician Unavailable Vance Leon Attending Clinician Unavailable Vinita Angel Attending Clinician VINITA TRIVEDI Attending Clinician Unavailable LALY TUBBS Attending Clinician Unavailable Gina CLARKE, Elicia Salgado Attending Clinician [facility] Attending Clinician Unavailable Cale Otero MD Attending Clinician THEO WING Attending Clinician Unavailable ANTONIO HERNÁNDEZ Admitting Clinician Unavailable ANIKET NGUYEN Admitting Clinician Unavailable Aniket Nguyen MD Admitting Clinician Antonio Hernández MD Admitting Clinician [phone] CHRISTINA BRITT Admitting Clinician Unavailable THEO WING Admitting Clinician Unavailable Payers Payer Name Policy Type Policy Number Effective Date Expiration Date S our PHCS GENERIC [id number] 2020 00:00:00 MEDICAID PENDING PENDING 2021 00:00:00 [place] [id number] 2020 00:00:00 [place] [id number] 2020 WOMEN 00:00:00 Problems Condition Condition Condition Status Onset Resolution Last Treating Co mments Source Name Details Category Date Date Treatment Clinician Date Multiparit Multiparit Disease Active 2021-09 U nivers y y 10-23 ity of 00:00: [place] 00 Medical Branch Supervisio Supervisio Disease Active 2021-09 U nivers n of n of 10-23 ity of high-risk high-[place] Vaginal Vaginal Disease Active 2021-09 Overview: Univ ers bleeding bleeding 10-23 Formattin ity of during during 00:00: g of this [place] 00 note Medi nancy might be Branch different from the original. Beta at [facility] 9628 Gonorrhea Gonorrhea Disease Active Uni vers 11-04 ity of 00:00: [place] 00 Medical Branch Gonorrhea Gonorrhea Disease Active Overview: Univers in in 11-04 Formattin ity of 00:00: [place] of this [place] 00 note Medical might be Branch different from the original. pending corona Other Other Disease Active Univers general general 11-02 ity of counseling counseling 00:[place] and advice and advice 00 Nh dical for for Branch contracept contracept rose rose management management Derangemen Derangemen Disease Active Overview : Univers t of right t of right 01-30 Formattin ity of knee knee 00:00: g of this [place] ligament ligament 00 note Medica l might be Branch different from the original. Added automatic ally from request for surgery [id number] Closed Closed Disease Active Overview: Univer s fracture fracture 12-16 Formattin ity of of right of right 00:00: g of this [place] as tibial tibial 00 note Medical plateau, plateau, might be Bran ch initial initial different encounter encounter from the original. Added automatic ally from request for surgery [id number] Knee Knee Disease Active Univers dislocatio dislocatio 12-16 it y of n, right, n, right, [place] initial 00 Medical encounter encounter Bran ch Right knee Right knee Disease Active Overview : Univers pain, pain, 3-09 Formattin ity of unspecifie unspecifie 00:00: g of this [place] 00 note Medical chronicity chronicity might be Branch different from the original. Added automatic ally from request for surgery [id number] Right knee Right knee Disease Active Overview : Univers pain, pain, 3-09 Formattin ity of unspecifie unspecifie 00:00: g of this [place] 00 note Medical chronicity chronicity might be Branch different from the original. Added automatic ally from request for surgery [id number] Obesity in Obesity in Disease Active U nivers 8-10 ity of 00:00: 00 Medical Branch Over Over Disease Active Univers weight weight 8-10 ity of 00:00: Medical Branch Pain Pain Disease Active Univers pelvic pelvic 8-10 ity of 00:00: Medical Branch History of History of Disease Active U nivers chlamydia chlamydia 4-04 ity of 00:00: Medical Branch History of History of Disease Active U nivers depression depression 4-04 it y of 00:00: 00 Medical Branch History of History of Disease Active U nivers anxiety anxiety 4-04 ity of 00:00: Medical Branch History of History of Disease Active Overview : Univers suicide suicide 4-04 Formattin ity o f attempt attempt 00:00: g of this 00 note Medical might be Branch different from the original. 2017 with Tylenol overdose Right Right Disease Active Univers ovarian ovarian 4-04 ity of cyst cyst 00:00: 00 Medical Branch Allergies, Adverse Reactions, Alerts Allergy Allergy Status Severity Reaction(s) Onset Inactive Treating Comm ents Source Name Type Date Date Clinician MORPHINE DRUG Active Anaphylaxis 2017- Uni vers INGREDI 6-14 ity of 00:00: [place] 00 Medical Branch PROMETHA DRUG Active Anaphylaxis 2017- Uni vers ZINE INGREDI 6-14 ity of 00:00: 00 Medical Branch Morphine Propensi Active Anaphylaxis 2017-0 U nivers ty to 6-14 ity of adverse 00:00: [place] reaction 00 Medical s Branch Prometha Propensi Active Anaphylaxis 2017-0 U nivers zine ty to 6-14 ity of adverse 00:00: [place] reaction 00 Medical s Branch Penicill Propensi Active Rash 2014- Univer s ins ty to 04-03 ity of adverse 00:00: [place] reaction 00 Medical s Branch PENICILL Drug Active Rash 2014- Univers INS Class 04-03 ity of 00:00: [place] 00 Medical Branch Penicill Propensi Active Rash 2014-0 Univer s ins ty to 04-03 ity of adverse 00:00: [place] reaction 00 Medical s Branch Social History Social Habit Start Date Stop Date Quantity Comments Source ASSERTION 2022-07-16 University of 00:00:00 [facility] Branch Sexual orientation Univer [facility]ity [facility] [place] [facility] [place] Exposure to 2022-09-18 2022-09-28 Not sure University of SARS-CoV-2 (event) 00:00:00 09:43:00 [facility] History of Social 2022-08-17 2022-08-17 Univers ity of function 00:00:00 00:00:00 [facility] Alcohol intake 2020-05-05 2020-05-05 Current drinker Unive rsity of 00:00:00 00:00:00 of alcohol [place] [facility] (finding) Branch History SDAZ 2020-05-05 2020-05-05 3 University o f Alcohol Frequency 00:00:00 00:00:00 [place] M edical [facility] History SDAZ 2020-05-05 2020-05-05 3 University o f Alcohol Std Drinks 00:00:00 00:00:00 [place] [facility] History SDAZ 2020-05-05 2020-05-05 99 University o f Alcohol Binge 00:00:00 00:00:00 [place] [facility] Tobacco use and 2016-09-10 2016-09-10 Smokeless Universit y of exposure 00:00:00 00:00:00 tobacco non-user [facility] dical Branch Alcohol Comment 2016-09-10 2016-09-10 before she found Uni versity of 00:00:00 00:00:00 out she was [place] [facility] History of tobacco 2014-09-10 Cigarette Smoker University of use 00:00:00 [facility] Sex Ass[birth year] At [birth year] Universit y of 00:00:00 00:00:00 [facility] Smoking Status Start Date Stop Date Source Ex-smoker 2016-09-10 00:00:00 2016-09-10 00:00:00 [facility] [place] [facility] [place] Medications Ordered Filled Start Stop Current Ordering Indication Dosage Frequency Signature Comments Components Source Medication Medication Date Date Medication? Clinician (SIG) Name Name No known 2021-09 No No known Unive rs medications 1-29 medication it y of 14:39: s [address] No known 2021-09 No No known Unive rs medications 1-29 medication it y of 14:39: s [address] ibuprofen 2021-09- No [id number] 800mg Take 1 Univers 800 mg 1-29 12-14 tablet by ity of tablet 00:00: 05:59 mouth [place] 00 :00 every 6 Medical (six) Branch hours as needed for Pain (scale 1-3) or Pain (scale 4-6) for up to 14 days. ibuprofen 2021-09- No [id number] 800mg Take 1 Univers 800 mg 1-29 12-14 tablet by ity of tablet 00:00: 05:59 mouth [place] 00 :00 every 6 Medical (six) Branch hours as needed for Pain (scale 1-3) or Pain (scale 4-6) for up to 14 days. ibuprofen 2021-09- No [id number] 800mg Take 1 Univers 800 mg 1-29 12-14 tablet by ity of tablet 00:00: 05:59 mouth [place] 00 :00 every 6 Medical (six) Branch hours as needed for Pain (scale 1-3) or Pain (scale 4-6) for up to 14 days. ibuprofen 2021-09- No [id number] 800mg Take 1 Univers 800 mg 1-29 12-14 tablet by ity of tablet 00:00: 05:59 mouth [place] 00 :00 every 6 Medical (six) Branch hours as needed for Pain (scale 1-3) or Pain (scale 4-6) for up to 14 days. ibuprofen 2021-09- No [id number] 800mg Take 1 Univers 800 mg 1-29 12-14 tablet by ity of tablet 00:00: 05:59 mouth [place] 00 :00 every 6 Medical (six) Branch hours as needed for Pain (scale 1-3) or Pain (scale 4-6) for up to 14 days. ibuprofen 2021-09- No [id number] 800mg Take 1 Univers 800 mg 1-29 12-14 tablet by ity of tablet 00:00: 05:59 mouth [place] 00 :00 every 6 Medical (six) Branch hours as needed for Pain (scale 1-3) or Pain (scale 4-6) for up to 14 days. cefTRIAXone 2021-09- No [id number] 500mg Univers (ROCEPHIN) 10-17 ity of injection 20:15: 20:23 [place] 500 mg 00 :00 [facility] Branch cefTRIAXone 2021-09- No [id number] 500mg 500 mg, Univers (ROCEPHIN) 10-17 Intramuscu it y of injection 20:15: 20:23 [place], ONCE, [place] 500 mg 00 :00 1 dose, On [facility] 08/17/22 at 1430, DEVIN
Re ason for Anti-Infec tive: Empiric Therapy for Suspected Infection< br>Empiric Therapy Site: Pelvic
Duration of therapy: 5 days cefTRIAXone 2021-09- No [id number] 500mg Univers (ROCEPHIN) 10-17 ity of injection 20:15: 20:23 [place] 500 mg 00 :00 [facility] Branch cefTRIAXone 2021-09- No [id number] 500mg 500 mg, Univers (ROCEPHIN) 10-17 Intramuscu it y of injection 20:15: 20:23 [place], ONCE, [place] 500 mg 00 :00 1 dose, On [facility] 08/17/22 at 1430, DEVIN
Re ason for Anti-Infec tive: Empiric Therapy for Suspected Infection< br>Empiric Therapy Site: Pelvic
Duration of therapy: 5 days cefTRIAXone 2021-09- No [id number] 250mg Univers (ROCEPHIN) 10-17 ity of 250 mg in 20:00: 20:16 [place] lidocaine 00 :37 Medical 1% (PF) Branch (XYLOCAINE) 1 mL injection cefTRIAXone 2021-09- No [id number] 250mg Univers (ROCEPHIN) 10-17 ity of 250 mg in 20:00: 20:16 [place] lidocaine 00 :37 Medical 1% (PF) Branch (XYLOCAINE) 1 mL injection ibuprofen Yes [id number] 600mg Take 1 Univers 600 mg 5-05 [id number] tablet by ity of tablet 00:00: mouth [place] 00 every 6 Medical (six) Branch hours as needed for Pain (scale 1-3) or Pain (scale 4-6). ibuprofen 2021-0 Yes [id number] 600mg Take 1 Univers 600 mg 5-05 [id number] tablet by ity of tablet 00:00: mouth [place] 00 every 6 Medical (six) Branch hours as needed for Pain (scale 1-3) or Pain (scale 4-6). ibuprofen 2021-0 Yes [id number] 600mg Take 1 Univers 600 mg 5-05 [id number] tablet by ity of tablet 00:00: mouth [place] 00 every 6 Medical (six) Branch hours as needed for Pain (scale 1-3) or Pain (scale 4-6). ibuprofen 2021-0 Yes [id number] 600mg Take 1 Univers 600 mg 5-05 [id number] tablet by ity of tablet 00:00: mouth [place] 00 every 6 Medical (six) Branch hours as needed for Pain (scale 1-3) or Pain (scale 4-6). ibuprofen 2021-0 Yes [id number] 600mg Take 1 Univers 600 mg 5-05 [id number] tablet by ity of tablet 00:00: mouth [place] 00 every 6 Medical (six) Branch hours as needed for Pain (scale 1-3) or Pain (scale 4-6). acetaminoph 0 2022- No [id number] 650mg Take 2 Univers en 325 mg 5-05 05-06 [id number] tablets by i ty of tablet 00:00: 04:59 mouth [place] 00 :00 every 6 Medical (six) Branch hours as needed for Pain (scale 1-3), Pain (scale 4-6) or Alternate with ibuprofen for pain scale 4-6. acetaminoph 2021-0 2022- No [id number] 650mg Take 2 Univers en 325 mg 5-05 05-06 [id number] tablets by i ty of tablet 00:00: 04:59 mouth [place] 00 :00 every 6 Medical (six) Branch hours as needed for Pain (scale 1-3), Pain (scale 4-6) or Alternate with ibuprofen for pain scale 4-6. acetaminoph 0 2022- No [id number] 650mg Take 2 Univers en 325 mg 5-05 05-06 [id number] tablets by i ty of tablet 00:00: 04:59 mouth [place] 00 :00 every 6 Medical (six) Branch hours as needed for Pain (scale 1-3), Pain (scale 4-6) or Alternate with ibuprofen for pain scale 4-6. acetaminoph 2021-0 2022- No [id number] 650mg Take 2 Univers en 325 mg 01-28 [id number] tablets by i ty of tablet 00:00: 04:59 mouth [place] 00 :00 every 6 Medical (six) Branch hours as needed for Pain (scale 1-3), Pain (scale 4-6) or Alternate with ibuprofen for pain scale 4-6. acetaminoph 2021-2022- No [id number] 650mg Take 2 Univers en 325 mg 01-28 [id number] tablets by i ty of tablet 00:00: 04:59 mouth [place] 00 :00 every 6 Medical (six) Branch hours as needed for Pain (scale 1-3), Pain (scale 4-6) or Alternate with ibuprofen for pain scale 4-6. ibuprofen 2021-2021- No [id number] 600mg Take 1 Univers 600 mg 01-28 [id number] tablet by ity o f tablet 00:00: 00:00 mouth [place] 00 :00 every 6 Medical (six) Branch hours as needed for Pain (scale 1-3) or Pain (scale 4-6). acetaminoph 2021- No [id number] 650mg Take 2 Univers en 325 mg 01-28 [id number] tablets by i ty of tablet 00:00: 00:00 mouth [place] 00 :00 every 6 Medical (six) Branch hours as needed for Pain (scale 1-3), Pain (scale 4-6) or Alternate with ibuprofen for pain scale 4-6. ibuprofen 2021-0 2- No [id number] 600mg Take 1 Univers 600 mg 01-28 [id number] tablet by ity o f tablet 00:00: 00:00 mouth [place] 00 :00 every 6 Medical (six) Branch hours as needed for Pain (scale 1-3) or Pain (scale 4-6). acetaminoph 2021-0 2021- No [id number] 650mg Take 2 Univers en 325 mg 01-28 [id number] tablets by i ty of tablet 00:00: 00:00 mouth [place] 00 :00 every 6 Medical (six) Branch hours as needed for Pain (scale 1-3), Pain (scale 4-6) or Alternate with ibuprofen for pain scale 4-6. HYDROcodone 2021- No [id number] 1{tbl} Take 1 U nivers -acetaminop 5-05 05-13 tablet by it y of hen 5-325 00:00: 04:59 mouth [place] mg tablet 00 :00 every 6 Medical (six) Branch hours as needed for Pain (scale 7-10) for up to 7 days. Indication s: acute pain methocarbam 2021- No [id number] 500mg Take 1 Univers oL 500 mg 02-03 [id number] tablet by it y of tablet 00:00: 00:00 mouth 4 [place] 00 :00 (four) Medical times Branch daily. ketorolac 2021- No [id number] 10mg Take 1 Univers 10 mg 02-03 [id number] tablet by ity of tablet 00:00: 00:00 mouth [place] 00 :00 every 8 Medical (eight) Branch hours. methocarbam 2021- No [id number] 500mg Take 1 Univers oL 500 mg 02-03 [id number] tablet by it y of tablet 00:00: 00:00 mouth 4 [place] 00 :00 (four) Medical times Branch daily. ketorolac 2021- No [id number] 10mg Take 1 Univers 10 mg 02-03 [id number] tablet by ity of tablet 00:00: 00:00 mouth [place] 00 :00 every 8 Medical (eight) Branch hours. methocarbam 2021- No [id number] 500mg Take 1 Univers oL 500 mg 02-03 [id number] tablet by it y of tablet 00:00: 00:00 mouth 4 [place] 00 :00 (four) Medical times Branch daily. ketorolac 2021- No [id number] 10mg Take 1 Univers 10 mg -11-02 [id number] tablet by ity of tablet 00:00: 00:00 mouth [place] 00 :00 every 8 Medical (eight) Branch hours. aspirin 81 1- No 81mg Take 81 mg Univers mg EC 3-26 03-26 by mouth ity of tablet 13:07: 00:00 daily. [place] 05 :00 Medical Branch acetaminoph 2020- No Take by Un jose en 3-19 12-26 mouth ity of (TYLENOL) 13:07: 00:00 every 6 [place] 325 mg 05 :00 (six) Medical tablet hours as Branch needed. ibuprofen 2020- No 200mg Take 200 Un jose (ADVIL) 200 - 03-26 mg by ity of mg tablet 13:07: 00:00 mouth [place] 05 :00 every 6 Medical (six) Branch hours as needed. gabapentin 2021- No [id number] 100mg Take 1 Univers 100 mg 12-19 [id number] capsule by ity of capsule 00:00: 00:00 mouth 3 [place] 00 :00 (three) Medical times Branch daily. gabapentin 2021- No [id number] 100mg Take 1 Univers 100 mg 12-19 [id number] capsule by ity of capsule 00:00: 00:00 mouth 3 [place] 00 :00 (three) Medical times Branch daily. gabapentin 2021- No [id number] 100mg Take 1 Univers 100 mg 12-19 [id number] capsule by ity of capsule 00:00: 00:00 mouth 3 [place] 00 :00 (three) Medical times Branch daily. HYDROcodone 2020- No 1{tbl} Take 1 U nivers -acetaminop 2-19 12-26 tablet by it y of hen 5-325 00:00: 00:00 mouth [place] mg tablet 00 :00 every 6 Medical (six) Branch hours as needed. Immunizations Ordered Immunization Filled Date Status Comments Sour ce Name Immunization Name [facility] 2018-04-18 Completed University of 00:00:00 [facility] 2018-04-18 Completed University of 00:00:00 [facility] 2018-04-18 Completed University of 00:00:00 [facility] 2018-04-18 Completed University of 00:00:00 [facility] 2018-04-18 Completed University of 00:00:00 [facility] 2018-04-18 Completed University of 00:00:00 [facility] 2018-04-18 Completed University of 00:00:00 [facility] 2018-04-18 Completed University of 00:00:00 [place] [facility] HPV9 2018-04-18 Completed University of 00:00:00 [place] [facility] HPV9 2018-04-18 Completed University of 00:00:00 [place] [facility] HPV9 2018-04-18 Completed University of 00:00:00 [place] [facility] HPV9 2018-04-18 Completed University of 00:00:00 [place] [facility] HPV9 2018-04-18 Completed University of 00:00:00 [place] [facility] HPV9 2018-04-18 Completed University of 00:00:00 [place] [facility] TDAP 2018-01-17 Completed University of 00:00:00 [place] [facility] TDAP 2018-01-17 Completed University of 00:00:00 [place] [facility] TDAP 2018-01-17 Completed University of 00:00:00 [place] [facility] TDAP 2018-01-17 Completed University of 00:00:00 [place] [facility] TDAP 2018-01-17 Completed University of 00:00:00 [place] [facility] TDAP 2018-01-17 Completed University of 00:00:00 [place] [facility] TDAP 2018-01-17 Completed University of 00:00:00 [place] [facility] TDAP 2018-01-17 Completed University of 00:00:00 [place] [facility] TDAP 2018-01-17 Completed University of 00:00:00 [place] [facility] TDAP 2018-01-17 Completed University of 00:00:00 [place] [facility] TDAP 2018-01-17 Completed University of 00:00:00 [place] [facility] TDAP 2018-01-17 Completed University of 00:00:00 [place] [facility] TDAP 2018-01-17 Completed University of 00:00:00 [place] [facility] TDAP 2018-01-17 Completed University of 00:00:00 [facility] HPV9 2017-06-17 Completed University of 00:00:00 [place] [facility] HPV9 2017-06-17 Completed University of 00:00:00 [place] [facility] HPV9 2017-06-17 Completed University of 00:00:00 [place] [facility] HPV9 2017-06-17 Completed University of 00:00:00 [place] [facility] HPV9 2017-06-17 Completed University of 00:00:00 [place] [facility] HPV9 2017-06-17 Completed University of 00:00:00 [place] [facility] HPV9 2017-06-17 Completed University of 00:00:00 [place] [facility] HPV9 2017-06-17 Completed University of 00:00:00 [place] [facility] HPV9 2017-06-17 Completed University of 00:00:00 [place] [facility] HPV9 2017-06-17 Completed University of 00:00:00 [place] [facility] HPV9 2017-06-17 Completed University of 00:00:00 [place] [facility] HPV9 2017-06-17 Completed University of 00:00:00 [place] [facility] HPV9 2017-06-17 Completed University of 00:00:00 [place] [facility] HPV9 2017-06-17 Completed University of 00:00:00 [place] [facility] HPV9 2017-04-20 Completed University of 00:00:00 [place] [facility] HPV9 2017-04-20 Completed University of 00:00:00 [place] [facility] HPV9 2017-04-20 Completed University of 00:00:00 [place] [facility] HPV9 2017-04-20 Completed University of 00:00:00 [place] [facility] HPV9 2017-04-20 Completed University of 00:00:00 [place] [facility] HPV9 2017-04-20 Completed University of 00:00:00 [place] [facility] HPV9 2017-04-20 Completed University of 00:00:00 [place] [facility] HPV9 2017-04-20 Completed University of 00:00:00 [place] [facility] HPV9 2017-04-20 Completed University of 00:00:00 [place] [facility] HPV9 2017-04-20 Completed University of 00:00:00 [place] [facility] HPV9 2017-04-20 Completed University of 00:00:00 [place] [facility] HPV9 2017-04-20 Completed University of 00:00:00 [place] [facility] HPV9 2017-04-20 Completed University of 00:00:00 [place] [facility] HPV9 2017-04-20 Completed University of 00:00:00 [facility] TDAP 2017-02-14 Completed University of 00:00:00 [place] [facility] TDAP 2017-02-14 Completed University of 00:00:00 [place] [facility] TDAP 2017-02-14 Completed University of 00:00:00 [place] [facility] TDAP 2017-02-14 Completed University of 00:00:00 [place] [facility] TDAP 2017-02-14 Completed University of 00:00:00 [place] [facility] TDAP 2017-02-14 Completed University of 00:00:00 [place] [facility] TDAP 2017-02-14 Completed University of 00:00:00 [facility] TDAP 2017-02-14 Completed University of 00:00:00 [facility] TDAP 2017-02-14 Completed University of 00:00:00 [facility] TDAP 2017-02-14 Completed University of 00:00:00 [facility] TDAP 2017-02-14 Completed University of 00:00:00 [facility] TDAP 2017-02-14 Completed University of 00:00:00 [facility] TDAP 2017-02-14 Completed University of 00:00:00 [facility] TDAP 2017-02-14 Completed University of 00:00:00 [facility] Influenza Virus 2016-09-10 Completed Universit y of Vaccine Quad IM 3+ 00:00:00 [facility] Influenza Virus 2016-09-10 Completed Universit y of Vaccine Quad IM 3+ 00:00:00 [facility] Influenza Virus 2016-09-10 Completed Universit y of Vaccine Quad IM 3+ 00:00:00 [facility] Influenza Virus 2016-09-10 Completed Universit y of Vaccine Quad IM 3+ 00:00:00 [facility] Influenza Virus 2016-09-10 Completed Universit y of Vaccine Quad IM 3+ 00:00:00 [facility] Influenza Virus 2016-09-10 Completed Universit y of Vaccine Quad IM 3+ 00:00:00 [facility] Influenza Virus 2016-09-10 Completed Universit y of Vaccine Quad IM 3+ 00:00:00 [facility] Influenza Virus 2016-09-10 Completed Universit y of Vaccine Quad IM 3+ 00:00:00 [facility] Influenza Virus 2016-09-10 Completed Universit y of Vaccine Quad IM 3+ 00:00:00 [facility] Influenza Virus 2016-09-10 Completed Universit y of Vaccine Quad IM 3+ 00:00:00 [facility] Influenza Virus 2016-09-10 Completed Universit y of Vaccine Quad IM 3+ 00:00:00 [facility] Influenza Virus 2016-09-10 Completed Universit y of Vaccine Quad IM 3+ 00:00:00 [facility] Influenza Virus 2016-09-10 Completed Universit y of Vaccine Quad IM 3+ 00:00:00 [facility] Influenza Virus 2016-09-10 Completed Universit y of Vaccine Quad IM 3+ 00:00:00 [facility] Meningococcal 2015-06-24 Completed University of Polysaccharide 00:00:00 [...] (MCV4P) Td 2012-05-04 Completed University of 00:00:00 [facility] Td 2012-05-04 Completed University of 00:00:00 [facility] Td 2012-05-04 Completed University of 00:00:00 [facility] Td 2012-05-04 Completed University of 00:00:00 [facility] Td 2012-05-04 Completed University of 00:00:00 [facility] Td 2012-05-04 Completed University of 00:00:00 [facility] Td 2012-05-04 Completed University of 00:00:00 [facility] Td 2012-05-04 Completed University of 00:00:00 [facility] Td 2012-05-04 Completed University of 00:00:00 [facility] Td 2012-05-04 Completed University of 00:00:00 [facility] Td 2012-05-04 Completed University of 00:00:00 [facility] Td 2012-05-04 Completed University of 00:00:00 [facility] Td 2012-05-04 Completed University of 00:00:00 [facility] TD, NOS 2012-05-04 Completed University of 00:00:00 [facility] TD, NOS Unknown Completed [facility] Meningococcal Unknown Completed University [facility] Polysaccharide [facility] (groups A, C, Y and Branc h W-135) conjugate vaccine (MCV4P) Influenza Virus Unknown Completed Universit y of Vaccine Quad IM 3+ [facility] TDAP Unknown Completed [facility] HPV9 Unknown Completed [facility] HPV9 Unknown Completed [facility] TDAP Unknown Completed [facility] HPV9 Unknown Completed [facility] TD, NOS Unknown Completed [facility] Meningococcal Unknown Completed University [facility] Polysaccharide [place] [facility] (groups A, C, Y and Branc h W-135) conjugate vaccine (MCV4P) Influenza Virus Unknown Completed Universit y of Vaccine Quad IM 3+ [facility] TDAP Unknown Completed [facility] HPV9 Unknown Completed [facility] HPV9 Unknown Completed [facility] TDAP Unknown Completed [facility] HPV9 Unknown Completed [facility] TD, NOS Unknown Completed [facility] Meningococcal Unknown Completed [facility] Polysaccharide [place] [facility] (groups A, C, Y and Branc h W-135) conjugate vaccine (MCV4P) Influenza Virus Unknown Completed Universit y of Vaccine Quad IM 3+ [facility] TDAP Unknown Completed [facility] HPV9 Unknown Completed [facility] HPV9 Unknown Completed [facility] TDAP Unknown Completed [facility] HPV9 Unknown Completed [facility] TD, NOS Unknown Completed [facility] Meningococcal Unknown Completed [facility] Medi nancy (groups A, C, Y and Branc h W-135) conjugate vaccine (MCV4P) Influenza Virus Unknown Completed Universit y of Vaccine Quad IM 3+ [facility] TDAP Unknown Completed [facility] HPV9 Unknown Completed [facility] HPV9 Unknown Completed [facility] TDAP Unknown Completed [facility] HPV9 Unknown Completed [facility] TD, NOS Unknown Completed [facility] Meningococcal Unknown Completed [facility] Medi nancy (groups A, C, Y and Branc h W-135) conjugate vaccine (MCV4P) Influenza Virus Unknown Completed Universit y of Vaccine Quad IM 3+ [facility] TDAP Unknown Completed [facility] HPV9 Unknown Completed [facility] HPV9 Unknown Completed [facility] TDAP Unknown Completed [facility] HPV9 Unknown Completed [facility] TD, NOS Unknown Completed [facility] Meningococcal Unknown Completed [facility] nancy (groups A, C, Y and Branc h W-135) conjugate vaccine (MCV4P) Influenza Virus Unknown Completed Universit y of Vaccine Quad IM 3+ [facility] TDAP Unknown Completed [facility] HPV9 Unknown Completed [facility] HPV9 Unknown Completed [facility] TDAP Unknown Completed [facility] HPV9 Unknown Completed [facility] TD, NOS Unknown Completed [facility] Meningococcal Unknown Completed [facility] Medi nancy (groups A, C, Y and Branc h W-135) conjugate vaccine (MCV4P) Influenza Virus Unknown Completed Universit y of Vaccine Quad IM 3+ [facility] TDAP Unknown Completed [facility] HPV9 Unknown Completed [facility] HPV9 Unknown Completed [facility] TDAP Unknown Completed [facility] HPV9 Unknown Completed [facility] Vital Signs Vital Name Observation Time Observation Value Comments Source Systolic blood 2022-08-24 16:07:00 121 mm[Hg] Univer sity of pressure [facility] Diastolic blood 2022-08-24 16:07:00 75 mm[Hg] Unive rsity of pressure [facility] Heart rate 2022-08-24 16:07:00 88 /min Universi ty of [facility] Body temperature 2022-08-24 16:07:00 35.83 Bisi Univ ersity of [facility] Respiratory rate 2022-08-24 16:07:00 18 /min Univ ersity of [facility] Body height 2022-08-24 16:07:00 152.4 cm Universi ty of [facility] Body weight 2022-08-24 16:07:00 73.074 kg Universi ty of [facility] [place] BMI 2022-08-24 16:07:00 31.46 kg/m2 Universi ty of [facility] Systolic blood 2022-08-23 19:43:00 125 mm[Hg] Univer sity of pressure [facility] Diastolic blood 2022-08-23 19:43:00 80 mm[Hg] Unive rsity of pressure [facility] Body temperature 2022-08-23 19:43:00 36.56 Bisi Univ ersity of [facility] Respiratory rate 2022-08-23 19:43:00 18 /min Univ ersity of [facility] Body height 2022-08-23 19:43:00 152.4 cm Universi ty of [facility] Body weight 2022-08-23 19:43:00 73.71 kg Universi ty of [facility] BMI 2022-08-23 19:43:00 31.74 kg/m2 Universi ty of [facility] Systolic blood 2022-08-17 19:41:00 127 mm[Hg] Univer sity of pressure [facility] Diastolic blood 2022-08-17 19:41:00 71 mm[Hg] Unive rsity of pressure [facility] Heart rate 2022-08-17 19:41:00 110 /min Universi ty of [facility] Body temperature 2022-08-17 19:41:00 36.67 Bisi [facility] Respiratory rate 2022-08-17 19:41:00 16 /min [facility] ersFormerly [facility] Body height 2022-08-17 19:41:00 152.4 cm [facility] Body weight 2022-08-17 19:41:00 74.072 kg [facility] BMI 2022-08-17 19:41:00 31.89 kg/m2 [facility] Procedures Procedure Date / Time Performed Performing Clinician [facility] e TOTAL BETA HCG ASSAY 2022-09-28 16:10:00 Cliff Hickman iversFormerly [facility] POCT TEST 2022-08-23 19:42:[address] [facility] POCT URINALYSIS W/O 2022-08-23 19:42:00 Cher Gleason [facility] SPECIFIC Formerly [facility] ASSIGNMENT OF BENEFITS 2022-08-23 19:15:01 Doctor Unassigned, No [facility] GC & CHLAMYDIA 2022-08-17 22:22:00 America Egan [facility] AMPLIFIED [facility] POCT TEST 2022-08-17 19:45:00 America Egan [facility] EXTERNAL PROVIDER 2022-02-09 05:01:00 Doctor Unassigned, No [facility] Encounters Start End Encounter Admission Attending Care Care Encounter Source Date/Time Date/Time Type Type Clinicians Facility Department ID 2021-07-26 Outpatient Ksenia HERNÁNDEZ [facility] [id number] Univers 17:44:43 ANTONIO victoria [facility] 2021-07-26 Emergency [facility] [id number] Univers 14:14:14 julien [facility] 2021-07-26 Emergency [facility] [id number] Univers 07:52:18 julien [facility] 2021-07-26 Inpatient Ksenia HERNÁNDEZ [facility] [id number] Univers 05:03:23 ANTONIO victoria [facility] 2021-07-26 Inpatient RASTA INJOSE RAMON SOR [id number] Univers 04:36:19 ANTONIO victoria [facility] 2022-09-28 2022-09-28 Outpatient R JULISA [facility] [id number] Univers 10:30:00 10:30:00 AMERICA victoria [facility] 2022-09-28 2022-09-28 Cert Pharmacy Tech Lab, Ang-Rmchp [facility] 1.2.840. 114 [id number] Univers 10:30:00 10:30:00 Visit America Egan [facility] 350.1.13.1 0 ity of [facility] 4.2.7.2.686 Rodrigo as MATERNAL [phone] [facility] ical & CHILD [address] [place] [address] 2022-09-10 2022-09-10 Outpatient R [facility] [id number] Univers 11:00:00 11:00:00 CHER victoria o f [facility] 2022-09-09 2022-09-09 Case Vick, UNIVERSIT [id number] Univers 00:00:00 00:00:00 Management [facility] HEALTH 350.1.13.10 ity of [facility] [place] [phone] [address] 2022-09-07 2022-09-07 Telephone Hickman UNIVERSIT 1.2.840.114 [id number] Univers 00:00:00 00:00:00 [facility] HEALTH 350.1.13.10 i ty of [facility] [place] [id number] [address] 2022-09-03 2022-09-03 Outpatient Ksenia [facility] [id number] Univers 10:30:00 10:30:00 AMERICA victoria [facility] 2022-09-01 2022-09-01 Patient Hickman UNIVERSIT [id number] Univers 00:00:00 00:00:00 Secure Msg [facility] HEALTH 350.1.13.10 ity of [facility] [place] [id number] [address] 2022-08-31 2022-08-31 Outpatient Ksenia [facility] [id number] Univers 08:30:00 08:30:00 AMERICA itrenita [facility] 2022-08-24 2022-08-24 Outpatient R CHIQUITA ALLYSON [facility] [id number] Univers 10:00:00 10:47:49 ALLYSON PORRAS ity [facility] 2022-08-24 2022-08-24 Routine Trimester, [facility] Res-1st UNIVERSIT 1.2.840.114 [id number] Univers 10:00:00 10:47:49 Allyson Porras [facility] 350.1.13.10 ity of Visit CLINICS [place] [phone] [facility] [address] [place] 2022-08-23 2022-08-23 Outpatient R [facility] [id number] Univers 13:30:00 14:36:31 CHER victoria o f [facility] 2022-08-23 2022-08-23 Initial [facility] [id number] Univers 13:30:00 14:36:31 Cher Salgado [facility] 350.1.13.10 ity of Visit [facility] 4.2.7.2.686 Rodrigo as MATERNAL [phone] Med ical & CHILD [address] [place] [address] 2022-08-23 2022-08-23 Orders Doctor GAUDENCIO 1.2.840.114 [id number] Univers 00:00:00 00:00:00 Only Unassigned, ESTRADA 350.1.13.10 ity of [place] [facility] 4.2.7.2.686 Rodrigo as [phone] [facility] [address] [place] 2022-08-17 2022-08-17 Outpatient R JULISA [facility] [id number] Univers 13:15:00 14:36:01 AMERICA victoria [facility] 2022-08-17 2022-08-17 Office Provider, [facility] 1 .2.840.114 [id number] Univers 13:15:00 14:36:01 Visit America Egan [facility] 350.1.13.1 0 ity of REGIONAL 4.2.7.2.686 Rodrigo as MATERNAL [phone] Med ical & CHILD 107 [facility] 2022-08-17 2022-08-17 Outpatient R [facility] [id number] Univers 11:30:00 11:30:00 ity of [facility] 2022-05-17 2022-05-17 Outpatient R [facility] [id number] Univers 10:30:00 10:30:00 CHER victoria o [facility] 2022-02-11 2022-02-11 Outpatient R [facility] [id number] Univers 13:15:00 13:15:00 ity [facility] 2022-02-09 2022-02-09 Orders Doctor GAUDENCIO 1.2.840.114 [id number] Univers 00:00:00 00:00:00 Only Unassigned, ESTRADA 350.1.13.10 ity of [place] [facility] 4.2.7.2.686 Rodrigo as [phone] [address] 2022-02-01 2022-02-01 Outpatient R [facility] [id number] Univers 10:30:00 10:30:00 [facility] vict[facility] o [facility] 2022-02-01 2022-02-01 Outpatient R [facility] [id number] Univers 10:30:00 10:30:00 [facility] genovevarenita o [facility] 2022-02-01 2022-02-01 Telephone [facility] 1.2.840.114 [id number] Univers 00:00:00 00:00:00 Cher Salgado [facility] 350.1.13.10 ity of [facility] 4.2.7.2.686 Rodrigo as MATERNAL [id number] [facility] ical & CHILD [address] [place] [address] 2022-01-29 2022-01-29 Patient Doctor GAUDENCIO 1.2.840.114 [id number] Univers 00:00:00 00:00:00 Secure Msg Unassigned, ESTRADA 350.1.13.10 ity of [place] [facility] 4.2.7.2.686 Rodrigo as [id number] [facility] [address] [place] 2022-01-28 2022-01-28 Outpatient X , [facility] ERT [id number] Univers 00:18:00 09:00:00 MARCIAL ity [facility] 2022-01-28 2022-01-28 Emergency RAMON Nguyen [id number] Univers 00:18:00 09:00:00 Marcial ESTRADA 350.1.13.10 it y of [facility] 4.2.7.2.686 Rodrigo as [phone] [facility] [address] 2022-01-28 2022-01-28 Outpatient X WENDY [facility] ERT [id number] Univers 00:18:00 09:00:00 MARCIAL ity [facility] 2022-01-28 2022-01-28 Surgery RAMON Nguyen 1.2.840.114 [id number] Univers 02:20:00 05:25:00 Marcial ESTRADA 350.1.13.10 it y of [facility] 4.2.7.2.686 Rodrigo as [id number] [facility] [address] 2022-01-28 2022-01-28 Telephone Pcp, UNIVERSIT 1.2.840.114 [id number] Univers 00:00:00 00:00:00 Patient Y HEALTH 350.1.13.10 i ty of [facility] 4.2.7.2.686 Rodrigo as Have A [phone] [facility] [address] 2021-11-17 2021-11-17 Telephone [facility] 1.2.840.114 [id number] Univers 00:00:00 00:00:00 Cher Salgado [facility] 350.1.13.10 ity of [facility] 4.2.7.2.686 Rodrigo as MATERNAL [phone] Med ical & CHILD 107 [facility] 2021-11-12 2021-11-12 Outpatient R ROSIBEL [facility] [id number] Univers 13:15:00 13:15:00 CHER walker [facility] 2021-11-06 2021-11-06 [facility] 1.2 .840.114 [id number] Univers 09:00:00 09:37:49 Visit Sonny Gregory Ksenia [facility] 350.1.13.10 ity of [facility] 4.2.7.2.686 Rodrigo as MATERNAL [id number] [facility] & [address] 2021-11-06 2021-11-06 Outpatient Ksenia GREGORY [facility] [id number] Univers 09:00:00 09:00:00 SONNY victoria o aaron [facility] 2021-11-04 2021-11-04 Telephone [facility] 1.2.840.114 [id number] Univers 00:00:00 00:00:00 Cher C [facility] 350.1.13.10 ity of [facility] 4.2.7.2.686 Rodrigo as MATERNAL [id number] [address] 2021-11-03 2021-11-03 Outpatient Ksenia G[facility] [id number] Univers 11:00:00 11:00:00 CHELLYJENNYDemetri tomasrenita villasenor aaron [facility] 2021-11-03 2021-11-03 Telephone [facility] 1.2.840.114 [id number] Univers 00:00:00 00:00:00 Cher Salgado [facility] 350.1.13.10 ity of [facility] 4.2.7.2.686 Rodrigo as MATERNAL [id number] [facility] & [address] 2021-11-02 2021-11-02 Outpatient R [facility] [id number] Univers 11:00:00 11:58:37 CHER victoria o aaron [facility] 2021-11-02 2021-11-02 Office [facility] [id number] Univers 11:00:00 11:58:37 Visit Cher C [facility] 350.1.13.10 ity of [facility] 4.2.7.2.686 Rodrigo as MATERNAL [id number] [facility] & [address] 2021-11-02 2021-11-02 Outpatient R [facility] [id number] Univers 11:00:00 11:58:37 CHER tomasrenita o aaron [facility] 2021-11-02 2021-11-02 Outpatient R ROSIBEL [facility] [id number] Univers 11:00:00 11:00:00 CHER tomasrenita villasenor aaron [facility] 2021-07-30 2021-07-30 Outpatient R RASTA [facility] [id number] Univers 16:20:00 16:20:00 ANTONIO julien [facility] 2021-05-12 2021-05-12 Outpatient R ROSIBEL [facility] [id number] Univers 14:15:00 14:15:00 CHER julien hamilton walker [facility] 2021-04-23 2021-04-23 [facility] 1.2.840.114 [id number] Univers 16:44:50 23:59:00 Encounter Antonio SPECIALTY 350.1.13.10 ity [facility] 4.2.7.2.686 [facility] s [place] AT [phone] Nh apurva DALE 8[address] [facility] 2021-04-23 2021-04-23 Outpatient R [facility]ST[facility]LECT [facility] [id number] Univers 16:44:50 23:59:00 ANTONIO victoria [facility] 2021-04-23 2021-04-23 Office [facility] [id number] [facility] 17:05:33 17:15:56 Visit Antonio SPECIALTY 350.1.13.10 [facility] 4.2.7.2.686 [facility] [place] AT [id number] Nh apurva DALE 198 [facility] 2021-04-23 2021-04-23 Outpatient R [facility] [id number] Univers 16:40:00 16:40:00 ANTONIO victoria [facility] 2021-04-23 2021-04-23 Letter [facility] [id number] Univers 00:00:00 00:00:00 (Out) [place] SPECIALTY 350.1.13.10 [facility] 4.2.7.2.686 [facility] [place] AT [id number] Nh apurva DALE 198 [facility] 2021-03-24 2021-03-24 Outpatient Ksenia SHERIFF [facility] [id number] Univers 08:20:00 08:20:00 JOHANNY victoria [facility] 2021-03-16 2021-03-16 Outpatient Ksenia SHERIFF [facility] [id number] Univers 08:00:00 08:00:00 JOHANNY victoria [facility] 2021-03-12 2021-03-12 Hospital [facility] 1.2.840.114 [id number] Univers 14:23:47 23:59:00 Encounter [place] SPECIALTY 350.1.13.10 [facility] [place]2.7.2.[place] [phone] Nh apurva DALE 809 [facility] 2021-03-12 2021-03-12 Outpatient R RASTA [facility] [id number] Univers 14:23:47 23:59:00 ANTONIO victoria [facility] 2021-03-12 2021-03-12 [facility] [id number] Univers 14:13:56 14:57:27 Visit Antonio SPECIALTY 350.1.13.10 [facility] 4.2.7.2.686 [facility] AT [id number] Nh jennaananda DALE 198 [facility] 2021-03-12 2021-03-12 Outpatient R RASTA [facility] [id number] Univers 14:40:00 14:40:00 ANTONIO victoria [facility] 2021-02-25 2021-02-25 Letter Juliana [facility] 1.2.840.114 [id number] Univers 00:00:00 00:00:00 (Out) Iris Nicole SPECIALTY [facility].1.13.10 [facility] [place].2.7.2.[place] AT [id number] Nh jennaananda RUBYRenita 198 [facility] 2021-02-19 2021-02-19 Outpatient Ksenia RICARDO [facility] [id number] Univers 09:40:00 09:40:00 CATHY victoria [facility] 2021-02-13 2021-02-13 Patient Rasta [facility] [id number] [id number] Univers 00:00:00 00:00:00 Secure Msg [place] SPECIALTY 350.1.13.10 ity of [place].2.[place] AT [id number] Nh dical VICTORY 198 [facility] 2021-02-12 2021-02-12 Patient Rasta [facility] [id number] [id number] Univers 00:00:00 00:00:00 Secure Msg [place] SPECIALTY 350.1.13.10 ity of [place].2.[place] AT [phone] Nh dical VICTORY 198 [facility] 2021-02-12 2021-02-12 Patient [facility] [id number] Univers 00:00:00 00:00:00 Secure Msg [place] SPECIALTY 350.1.13.10 ity of [place].2.[place] AT [id number] Nh dical VICTORY 198 [facility] 2021-02-05 2021-02-05 Cert Pharmacy Tech Room, [facility] 1. 2.840.114 [id number] Univers 13:59:47 14:29:47 Visit Rasta Antonio [place] [facility] 350 .1.13.10 ity of CARE 4.2.7.2.686 [facility] C[facility] AT [phone] Nh dicananda RUBYY 198 [facility] 2021-02-05 2021-02-05 Outpatient R [facility] [id number] Univers 14:00:00 14:00:00 ity of [facility] 2021-02-04 2021-02-04 Telephone [facility] 1.2.840.114 [id number] Univers 00:00:00 00:00:00 Antonio SPECIALTY 350.1.13.10 ity of [place]2.[place] AT [id number] Nh dical VICTORY 198 [facility] 2021-02-03 2021-02-03 Hospital [facility] 1.2.840.114 [id number] Univers 11:47:00 15:25:00 Encounter [facility] 350.1.13.10 ity of [place] 4.2.7.2.686 [facility] [id number] [address] ([facility]) 2021-02-03 2021-02-03 Surgery Rasta [facility] [id number] [id number] Univers 13:50:00 15:11:00 Antonio SPECIALTY 350.1.13.10 ity of [place] 4.2.7.2.686 [facility] CENTER AT [phone] Nh apurva DALE 020 [facility] 2021-02-03 2021-02-03 Orders Doctor GAUDENCIO 1.2.840.114 [id number] Univers 00:00:00 00:00:00 Only Unassigned, ESTRADA 350.1.13.10 ity of [place] [facility] 4.2.7.[address] [place] [address] [id number] 37 [address] 2021-01-29 2021-01-29 Outpatient [facility]sen[facility] [id number] Univers 16:10:26 23:59:00 ANTONIO ity of [facility] 2021-01-29 2021-01-29 [facility] 1.2.840.114 [id number] Univers 16:10:26 23:59:00 Encounter Antonio SPECIALTY 350.1.13.10 ity of Kelvin HERNANDEZ 4.2.7.2.686 [facility] s [place] AT [phone] Nh apurva DALE 809 [facility] 2021-01-29 2021-01-29 Outpatient Ksenia [facility] [id number] Univers 16:50:00 16:50:00 ANTONIO ity of [facility] 2021-01-29 2021-01-29 [facility] 1.2.599.554 [id number] Univers 15:49:26 16:43:46 Visit Antonio SPECIALTY 350.1.13.10 ity of [place] HERNANDEZ 4.2.7.2.68[facility] s [place] AT [phone] Nh apurva DALE 198 [facility] 2021-01-22 2021-01-22 [facility]ill [facility] 1.2.014.080 [id number] Univers 00:00:00 00:00:00 Cathy Hart SPECIALTY 350.1.13.10 ity of CARE 4.2.7.2.686 [facility] AT [phone] Nh apurva DALE 198 [facility] 2021-01-15 2021-01-15 [facility] 1.2.254.081 [id number] Univers 15:42:36 16:25:50 Visit Antonio SPECIALTY 350.1.13.10 ity of [place] CARE 4.2.7.2.686 [facility] AT [phone] Nh apurva DALE [address] [place] [address] 2021-01-15 2021-01-15 Outpatient R [facility] [id number] Univers 15:00:00 15:00:00 ANTONIO victoria [facility] 2021-01-13 2021-01-14 Emergency X [facility] ERT [id number] Univers 22:42:00 02:25:00 CHRISTINA julien [facility] 2021-01-13 2021-01-14 Emergency [facility] 1.2.474.772 [id number] Univers 22:42:00 02:25:00 Christina Blancas 350.1.13.10 i ty [facility] 4.2.7.2.686 [facility] [phone] [facility] 084 [place] 2021-01-14 2021-01-14 [facility] 1.2.456.115 [id number] Univers 00:00:00 00:00:00 Secure Msg Antonio SPECIALTY 350.1.13.10 ity of [place] CARE 4.2.7.2.686 [facility] AT [phone] Nh apurva DALE 198 [facility] 2021-01-14 2021-01-14 [facility] 1.2.422.861 [id number] Univers 00:00:00 00:00:00 Secure Msg Antonio SPECIALTY 350.1.13.10 ity of [place] CARE 4.2.7.2.686 [facility] AT [phone] Nh apurva DALE 198 [facility] 2021-01-13 2021-01-13 Nurse Maida Smith 1.2.840.114 [id number] Univers 00:00:00 00:00:00 Triage ESTRADA 350.1.13.10 it y of HOSPITAL 4.2.7.2.686 Rodrigo as [phone] [facility] 019 [place] 2021-01-01 2021-01-01 Office [facility] 1.2.938.803 [id number] [facility] 13:28:30 13:48:30 Visit Cathy Hart SPECIALTY 350.1.13.10 it[place] AT [phone] [place] apurva DALE 198 [facility] 2021-01-01 2021-01-01 Outpatient R NANET[facility]ESELECT [facility] [id number] Univers 11:00:00 11:00:00 CATHY ity [facility] 2021-01-01 2021-01-01 Telephone [facility] 1.2.840.114 [id number] Univers 00:00:00 00:00:00 Cathy Hart SPECIALTY 350.1.13.10 [place] AT [phone] Nh apur[place] DALE [address] [place] [address] 2020-12-23 2020-12-23 Transition Sabino Nash 1.2.840.114 [id number] Univers 00:00:00 00:00:00 of Care Leonie Taylor 350.1.13.10 i ty of [place] [phone] [facility] 403 [place] 2020-12-16 2020-12-16 Telephone [facility] 1.2.840.114 [id number] Univers 00:00:00 00:00:00 Antonio SPECIALTY 350.1.13.10 ity of [facility] 4.2.7.2.[place] AT [phone] Nh apurva DALE 198 [facility] 2020-12-12 2020-12-12 Laboratory Only, Adc Test [facility] 1.2.840. 114 [id number] Univers 10:51:08 11:06:08 Only Cathy Ricardo 350.1.13. 10 ity of [place].686 [place] [phone] [facility] 353 [place] 2020-12-12 2020-12-12 Outpatient R NANETTE [facility] [id number] Univers 11:00:00 11:00:00 CATHY ity of [facility] 2020-12-09 2020-12-09 Orders Doctor GAUDENCIO 1.2.840.114 [id number] Univers 00:00:00 00:00:00 Only Unassigned, ESTRADA 350.1.13.10 ity of [place] [facility] 4.2.7.2.686 Rodrigo as [phone] [facility] 009 [place] 2020-12-08 2020-12-08 Patient [facility] 1.2.830.799 [id number] Univers 00:00:00 00:00:00 Secure Msg Antonio SPECIALTY 350.1.13.10 ity of [place] [facility] 4.2.7.2.[place] AT [phone] Nh dicananda RUBYRenita 198 [facility] 2020-12-05 2020-12-05 Telephone [facility] 1.2.840.114 [id number] Univers 00:00:00 00:00:00 Antonio SPECIALTY 350.1.13.10 ity of [place] C[place] AT [phone] Nh dicananda RUBYRenita 198 [facility] 2020-12-04 2020-12-04 Telephone [facility] 1.2.840.114 [id number] Univers 00:00:00 00:00:00 Antonio SPECIALTY 350.1.13.10 ity of [place] 4.2.[place].2.[place] AT [phone] Nh dicananda RUBYRenita 198 [facility] 2020-12-02 2020-12-02 [facility] 1.2.840.114 [id number] Univers 14:52:17 23:59:00 Encounter Antonio SPECIALTY 350.1.13.10 ity of [place] C[place] 4.2.7.2.[place] AT [phone] Nh dicananda RUBYRenita 804 [facility] 2020-12-02 2020-12-02 Office [facility] 1.2.679.017 [id number] Univers 11:19:31 12:10:19 Visit Antonio SPECIALTY 350.1.13.10 ity of [facility] 4.2.7.2.686 [place] [phone] Nh apurva DALE 198 [facility] 2020-12-02 2020-12-02 Outpatient Ksenia [facility] [id number] Univers 11:50:00 11:50:00 ANTONIO renita [facility] 2020-11-27 2020-11-27 [facility] 1.2.840.114 [id number] Univers 15:25:00 23:59:00 Encounter Antonio SPECIALTY 350.1.13.10 ity of [facility] 4.2.7.2.686 [place] AT [phone] Nh apurva DALE 809 [facility] 2020-11-27 2020-11-27 [facility] 1.2.473.266 [id number] Univers 15:14:18 16:21:09 Visit Antonio SPECIALTY 350.1.13.10 ity [facility] 4.2.7.2.686 [facility] CENTER AT [phone] Nh apurva DALE 198 [facility] 2020-11-27 2020-11-27 Outpatient Ksenia [facility] [id number] Univers 15:00:00 15:00:00 ANTONIO [facility] 2020-11-19 2020-11-19 Outpatient RICKEY Leon HCATO [id number] [facility] 14:10:29 14:10:29 Vance [facility] 2020-08-08 2020-08-08 Nurse Visit, [facility] 1.2 .840.114 [id number] Univers 15:11:27 15:30:04 Visit Cher Gleason STARCH COOKER 350.1.13. 10 ity [facility] 4.2.7.2.686 Rodrigo as MATERNAL [phone] Med ical & CHILD 107 [facility] 2020-08-08 2020-08-08 Nurse Visit, [facility] 1.2.840.114 [id number] 15:11:27 15:30:04 Visit Shalonda [place]OOK[place] 350.1.13.10 Nurse REGIONAL 4.2.7.2.686 MATERNAL [id number] & CHILD 107 [facility] 2020-08-08 2020-08-08 Outpatient R ROSIBEL [facility] [id number] Univers 15:00:00 15:00:00 CHER victoria o f [facility] 2020-08-08 2020-08-08 Outpatient R [facility] [id number] Univers 13:30:00 13:30:00 [facility] 2020-05-09 2020-05-09 Nurse Visit, [facility] Nurse [facility] 1.2 .840.114 [id number] Univers 08:07:49 08:48:50 Visit Vinita Trivedi [place] 350.1.13.10 ity [facility] 4.2.7.2.686 Rodrigo as MATERNAL [phone] Med ical & CHILD [address] [place] [address] 2020-05-09 2020-05-09 Nurse Visit, [facility] 1.2.840.114 [id number] 08:07:49 08:48:50 [facility] 350.1.13.10 Nurse REGIONAL 4.2.7.2.686 MATERNAL [phone] & CHILD 107 [facility] 2020-05-09 2020-05-09 Outpatient R SHIKHA [facility] [id number] Univers 08:00:00 08:00:00 VINITA victoria [facility] 2020-05-09 2020-05-09 Telephone Shikha [facility] 1.2.840.114 [id number] Univers 00:00:00 00:00:00 Vinita Rush [place]OOKER 350.1.13.10 it y of [facility] 4.2.7.2.686 Rodrigo as MATERNAL [phone] Med ical & CHILD [address] [place] [address] 2020-05-09 2020-05-09 [facility] 1.2.840.114 [id number] 00:00:00 00:00:00 Vinita Rush [place] 350.1.13.10 REGIONAL 4.2.7.2.686 MATERNAL [id number] & CHILD 107 [facility] 2020-05-07 2020-05-07 Patient Doctor [facility] 1.2.840.114 [id number] Univers 00:00:00 00:00:00 Secure Msg Unassigned, STARCH COOKER 350.1.13.10 ity of [place] [address].2.7.2.686 Rodrigo as MATERNAL [id number] [facility] & CHILD [address] [place] [address] 2020-05-06 2020-05-06 Telephone [facility] 1.2.130.489 [id number] Univers 00:00:00 00:00:00 Rosmitesha R [place]OOK[place] 350.1.13.10 ity of [place] [address].7.2.686 Rodrigo as MATERNAL [phone] [address] 2020-05-05 2020-05-05 Office [facility] 1.2.840.114 [id number] Univers 08:14:02 09:52:07 Visit Sonny Mccormack [place] 350.1.13.10 ity of [place] [address]..7.2.686 Rodrigo as MATERNAL [phone] [facility] & [address] 2020-05-05 2020-05-05 Outpatient R BRI [facility] [id number] Univers 08:30:00 08:30:00 SONNY tomasy o f [facility] 2020-05-05 2020-05-05 Orders Doctor GAUDENCIO 1.2.840.114 [id number] Univers 00:00:00 00:00:00 Only Unassigned, ESTRADA 350.1.13.10 ity of [place] [address].7.2.686 Rodrigo as [phone] [address] 2020-02-20 2020-02-20 Telephone [facility] 1.2.840.114 [id number] Univers 00:00:00 00:00:00 Vinita N [place]OOKER 350.1.13.10 it y of [facility] 42.7.2.686 Rodrigo as MATERNAL [phone] [facility] & CHILD [address] [place] [address] 2019-12-26 2019-12-26 Outpatient R BETZY [facility] [id number] Univers 12:00:00 12:00:00 William VALDEZ [facility] 2019-05-01 2019-05-01 Case Gina RATLIFF 1.2.840.114 [id number] Univers 00:00:00 00:00:00 Management , Elicia DORADO 350.1.13.10 ity of HOSPITAL 4.2.7.2.686 Rodrigo as [phone] [facility] [address] 2019-04-26 2019-04-26 Office Pool, [facility] Resident UNIVERSIT 1.2.8 40.114 [id number] [facility] 10:33:39 11:17:37 Visit Cale Otero Hattie [facility] 350.1.13.10 ity of CLINICS 4.2.7.2.[place] [phone] [facility] [address] 2019-03-27 2019-03-27 Patient Doctor GAUDENCIO 1.2.840.114 [id number] Univers 00:00:00 00:00:00 Secure Msg Unassigned, ESTRADA 350.1.13.10 ity of [place] HOSPITAL 4.2.7.2.686 Rodrigo as [phone] [facility] 044 [place] 2019-03-23 2019-03-23 Patient Doctor GAUDENCIO 1.2.840.114 [id number] Univers 00:00:00 00:00:00 Secure Msg Unassigned, ESTRADA 350.1.13.10 ity of [place] HOSPITAL 4.2.7.2.686 Rodrigo as [phone] [address] Results Test Description Test Time Test Comments Results Result [facility] e Comments TOTAL BETA HCG 2022-09-29 BETA University of [facility] 07:30:25 HCG<2.39Non-preg [facility] female and [place] male patients: <5 mIU/mL09/29/2022 1:30 AM [facility] Gestational Age ?Range (mIU/mL) 1-10 ?Weeks ?54-32879051-52 Weeks ?95510-93606285- 22 Weeks ?3769-49098629-9 0 Weeks ?7298-811768 Biotin has been reported to cause a negative bias, interpret results relative to patient's use of biotin. POCT TEST 2022-08-23 19:42:00 Test Item Value Reference Range Interpretation Comme nts POCT PREG (test code = 1605) Positive On board controls acceptable with C Line (test code = 3574) Yes POCT PREG LOT # (test code = 3575) POCT PREG TEST DATE (test code = 3576) [facility] URINALYSIS W/O SPECIFIC [id number] 19:42:00 Test Item Value Reference Range Interpretation Comments POCT PH U (test code = 3254) 6 mg/dl 5-8 POCT U LEUK EST (test code = 3+ Negative - Negative 3263) POCT U NIT (test code = 3262) Neg Negative - Negative POCT U PROT (test code = 3259) Trace Negative - Negative POCT U GLU (test code = 3256) Neg Negative - Negative POCT U KETONE (test code = 3258) None Negative - Negative POCT U BLD (test code = 3257) Large Negative - Negative [facility] [id number] 19:48:00 Test Item Value Reference Range Interpretation Comments POCT PREG (test code = 1605) Positive On board controls acceptable with C Yes Line (test code = 3574) POCT PREG LOT # (test code = 3575) POCT PREG TEST DATE (test code = 3576) [facility] [id number] 19:48:00 Test Item Value Reference Range Interpretation Comments POCT PREG (test code = 1605) Positive On board controls acceptable with C Yes Line (test code = 3574) POCT PREG LOT # (test code = 3575) POCT PREG TEST DATE (test code = 3576) [facility] LOWER EXTRM W/O C [id number] 14:22:00 [facility] 1995 Sex: F Patient Name: PLACIDO WALKER Unit No: [id number] EXAMS: CPT CODE: [id number] CT LOWER EXTRM W/O C [id number] CT OF THE RIGHT KNEE WITH SAGITTAL AND CORONAL RECONSTRUCTIONS DIAGNOSIS: There is a mildly comminuted depressed fracture of the anterior medial tibial plateau with 8 mm of depression. An avulsion fracture of the tibial spines is noted with presumed avulsion of the anterior cruciate ligament andposterior displacement of the tibia relative to the femur Also noted is a displaced fracture of thefibular head with proximal and medial displacement of the proximal fracture fragment. COMMENT: COMPARISON: No prior exams available. Scans were performed with thin sections and reconstructions were obtained. CT radiation dose optimization is achieved for this examination by the use of a CT protocol inaccordance with ACR practice standards and adherence to fermenter operator's recommendations. Multiple fractures are present as described. a t 1422 Reported and signed by: Claudio Aj MD CC: Vance Leon MD Technologist: RT Darrius(R) CTDI: DLP: Trnscrpt: 11/19/2020 (142) t.SDR.JCL [facility] NAME: PLACIDO WALKER [address] [facility] PHYS: [email or web address] - Vance Leon MD : 1995 AGE: 25 SEX: F [place], [place] [address] LOC: Y.RAD PHONE #: [phone] EXAM DATE: 11/19/2020 STATUS: REG CLI FAX #: [phone] RAD #: D/C DT PAGE 1 Signed Report Patient Name: PLACIDO WALKER Unit No: [id number] EXAMS: CPT CODE: [id number] CT L[place]TRM W/[place] [address] (Continued) Orig Print D/T: S: 11/19/2020 (1425) [facility] NAME: PLACIDO WALKER [address] [facility] PHYS: OMAR.[place] - Vance Leon MD : 1995 AGE: 25 SEX: F [place], [place] [address] LOC:OSCAR PHONE #: [phone] EXAM DATE: 11/19/2020 STATUS: REG CLI FAX #: [phone] RAD #: D/C DT PAGE 2 Signed ReportHIV [id number] 11:44:00 Test Item Value Reference Range Interpretation Comments HIV 1/2 Antibody Non-Reactive Non-Reactive N HIV1/2 Anti body screen (test code = result indicate s the HIV1/2AB) absence of HIV1 and ZAS4jiokqlfzs.H owever, A Non-Reactive screen result does not [...] rule o ut exposure or infection.If ac zuni HIV-1 is suspec alexis, HIV RNA Quantit ative is recommended. Hep B Surface [id number] 09:41:00 Test Item Value Reference Range Interpretation Comments Hep Bs Ag (test code = HBSAG) Nonreactive Non-Reactive A BHCG, Serum, [id number] 08:32:00 Test Item Value Reference Range Interpretation Comments Preg Qual [Se] (test code = BSHCG) POSITIVE Negative A Comprehensive Metabolic [id number] 08:31:00 Test Item Value Reference Range Interpretation [...] National Kidney Foundation,http ://nkd ep.nih.gov TIBC and [id number] 08:31:00 Test Item Value Reference Range Interpretation Comments Iron (test code = FE) 26 ug/dL 37-145 L UIBC (test code = UIBC) 406 ug/dL 112-346 H TIBC (test code = TIBC) 432 ug/dL 149-491 N % Saturation (test code = PSAT) 6 % 20-50 L CBC with [id number] 08:19:00 Test Item Value Reference Range Interpretation [...] code = ALYMPH) 2.6 K/cumm 0.5-4.6 N [place] Abs (test code = AMONO) 1.1 K/cumm 0.0-1.2 N Eos Abs (test code = AEOS) 0.27 K/cumm 0.00-0.74 N Baso Abs (test code = ABASO) 0.0 K/cumm 0.00-0.21 N RPR, [id number] 11:04:00 Test Item Value Reference Range Interpretation Comments RPR (test code = RPR) Non-Reactive Non-Reactive N Thyroid Stimulating Hormone (TSH)2017-01-26 05:33:00 Test Item Value Reference Range Interpretation Comments TSH (test code = TSH) 1.00 mIU/mL 0.270-4.200 N Comprehensive Metabolic [id number] 05:23:00 Test Item Value Reference Range Interpretation [...] ars ofage have not been validated by kyle MDRD study and rivka nicole be interpretedwith caution.eGFR Re sult Interpretation: eGFR > or = 60 is in t he Normal RangeeGF R < 60 may mean kidney diseaseeGFR < 1 5 may mean kidney failureRange s recommended by the National Kidney Foundation,http ://nkd ep.nih.gov Lipid [id number] 05:23:00 Test Item Value Reference Range Interpretation Comments Cholesterol (test 203 mg/dL 0-200 H code = CHOL) Triglycerides (test 153 mg/dL 9-200 N code = TRIG) HDL (test code = 73 mg/dL 50-60 H HDL) Chol/HDL (test code 2.8 Ratio 0.0-4.4 N = CHOLPHDL) LDL, Calculated 99 0-130 N (NOTE)RISK O F HEART (test code = LDLC) DISEASEPu blished by Japanese Heart AssociationAnal yte Optimal Boderli ne Increased RiskC HOL <200 200-239 >240TRI G <150 150-199 >200HDL Male: >60 <40HDL Fema le: >60 <50LDL <100 130 -159 >160LDL NEAR OP TIMAL IS 100-129 VLDL (test code = 31 mg/dL 5-40 N VLDL) LDL/HDL (test code = 1 LDLPHDL) CBC with [id number] 05:05:00 Test Item Value Reference Range Interpretation [...] code = ALYMPH) 2.2 K/cumm 0.5-4.6 N [place] Abs (test code = AMONO) 1.0 K/cumm 0.0-1.2 N Eos Abs (test code = AEOS) 0.29 K/cumm 0.00-0.74 N Baso Abs (test code = ABASO) 0.0 K/cumm 0.00-0.21 N
[2023-08-07 05:20] LABS: SARS-CoV-2 Antigen Rapid Res Negative (Negative)
[2023-08-07] MEDS ORDERED: ACETAMINOPHEN 500 MG TAB ONE (05:20)
[2023-08-07] MEDS ORDERED: ONDANSETRON 4 MG (ODT) TAB ONE (05:24)
[2023-08-07] MEDS ORDERED: IBUPROFEN 200 MG TAB PO ONE (06:51)
--- NOTE | 2023-08-07 07:09 | EDPHYS ---
Physician Documentation [facility] Name: Kelsea Toussaint Age: 28 yrs Sex: Female : 1995 Arrival Date: 08/07/2023 Time: 03:49 Bed 14 Private MD: ED Physician Marco Og HPI: 08/07 07:09 This 28 yrs old Female presents to ER via Ambulatory with complaints of Flu ms3 Symptoms. 07:09 28-year-old female with past medical history of ovarian cyst presents to the emergency ms3 department for 2 days of fever and posttussive vomiting. Patient states she was around her sister and niece did have flu. Patient denies any alleviating or inciting factors.. Historical: - Allergies: 05:26 Amoxicillin; pf1 05:26 Codeine; pf1 05:26 Morphine; pf1 05:26 PENICILLINS; pf1 05:26 Promethazine; pf1 - PMHx: 05:26 Ovarian cyst; pf1 - PSHx: 05:26 right leg; Right oopherectomy; pf1 - Immunization history:: Adult Immunizations not up to date, Client reports having NOT received the Covid vaccine. Last tetanus immunization: > 10 years ago Flu vaccine is not up to date. - Social history:: Smoking status: Patient denies any tobacco usage or history of. Patient uses alcohol, occasionally. Patient/guardian denies using street drugs. ROS: 07:09 Constitutional: Negative for fever, and chills. Neck: Negative for injury, pain, and ms3 swelling, Cardiovascular: Negative for chest pain, and palpitations. 07:09 Abdomen/GI: Negative for abdominal pain, nausea, vomiting, diarrhea, and constipation, MS/Extremity: Negative for injury and deformity, Skin: Negative for injury, rash, and discoloration, 07:09 Respiratory: Positive for cough, 07:09 All other systems are negative, Exam: 07:09 Constitutional: This is a well developed, well nourished patient who is awake, alert, ms3 and in no acute distress. Head/Face: Normocephalic, atraumatic. Neck: Trachea midline, no cervical lymphadenopathy. Supple, full range of motion without nuchal rigidity, or vertebral point tenderness. No Meningismus. Chest/axilla: Normal chest wall appearance and motion. Nontender with no deformity. Cardiovascular: Regular rate and rhythm with a normal S1 and S2. No gallops, murmurs, or rubs. Normal PMI, no JVD. No pulse deficits. Respiratory: Lungs have equal breath sounds bilaterally, clear to auscultation and percussion. No rales, rhonchi or wheezes noted. No increased work of breathing, no retractions or nasal flaring. Abdomen/GI: Soft, non-tender, with normal bowel sounds. No distension or tympany. No guarding or rebound. No evidence of tenderness throughout. Skin: Warm, dry with normal turgor. Normal color with no rashes, no lesions, and no evidence of cellulitis. MS/ Extremity: Pulses equal, no cyanosis. Neurovascular intact. Full, normal range of motion. Vital Signs: 04:54 BP 118 / 76; Pulse 92; Resp 18; Temp 103; Pulse Ox 99% on R/A; Weight 74.84 kg; Height pf1 5 ft. 0 in. ; Pain 0/10; 06:31 Temp 101(TE); jb4 07:01 Pulse 107; Resp 18; Pulse Ox 96% on R/A; jb4 04:54 Body Mass Index 32.22 (74.84 kg, 152.4 cm) pf1 04:54 Pain Scale: Adult pf1 MDM: 04:30 Patient medically screened. ms3 07:09 Differential Diagnosis: Bronchitis Influenza Upper Respiratory Infection. Data ms3 reviewed: vital signs, nurses notes, lab test result(s), and as a result, I will discharge patient. I considered the following discharge prescriptions or medication management in the emergency department Medications were administered in the Emergency Department. See MAR. Special discussion: I discussed with the patient/guardian in detail that at this point there is no indication for admission to the hospital. It is understood, however, that if the symptoms persist or worsen the patient needs to return immediately for re-evaluation. ED course: Discussed positive flu results with patient. Patient to follow-up primary care physician 2 to 3 days. Patient understands agrees plan. All questions were answered. Return precautions discussed include worsening symptoms, or any other concerns.. 08/07 04:49 Order name: Influenza Screen (a \T\ B); Complete Time: 06:24 pf1 08/07 04:49 Order name: SARS-COV-2 Antigen Rapid; Complete Time: 06:24 pf1 Administered Medications: 05:10 Drug: Acetaminophen PO 1000 mg PO once Route: PO; jb4 05:12 Drug: Ondansetron PO 4 mg PO once Route: PO; pf1 07:01 Drug: Ibuprofen PO 600 mg PO once Route: PO; jb4 Disposition Summary: 08/07/23 07:09 Discharge Ordered Notes: Location: Home ms3 Condition: Stable ms3 Diagnosis - Influenza B ms3 - Fever, unspecified ms3 - Nausea ms3 Followup: ms3 - With: Mike Vallejo DO - When: 2 - 3 days - Reason: Recheck today's complaints Discharge Instructions: - Discharge Summary Sheet ms3 - Fever, Adult ms3 - Nausea and Vomiting, Adult, [id number] ms3 - Influenza, Adult, [id number] ms3 Forms: - Work release form aa5 - Medication Reconciliation Form ms3 - Thank You Letter ms3 - Antibiotic Education ms3 - Prescription Opioid Use ms3 - Patient Portal Instructions ms3 - Leadership Thank You Letter ms3 Prescriptions: - ondansetron 4 mg Oral Tablet,disintegrating - take 1 tablet ORAL route every 8 hours; 10 tablet; Refills: 0, Product ms3 Selection Permitted - Tamiflu 75 mg Oral capsule - take 1 tablet ORAL route every 12 hours for 5 days; 10 tablet; Refills: 0, ms3 Product Selection Permitted Signatures: Dispatcher [employer] Cale Cortez, RN RN jb4 Marco Og DO DO ms3 Shanelle Au RN RN pf1
--- NOTE | 2023-08-07 07:09 | ER ---
Nurse's Notes [facility] Name: Kelsea Toussaint Age: 28 yrs Sex: Female : 1995 Arrival Date: 08/07/2023 Time: 03:49 Bed 14 Private MD: Diagnosis: Influenza B;Fever, unspecified;Nausea Presentation: 08/07 04:10 Chief complaint: Patient states: fever, cough,congestion with vomiting,onset 2 days. pf1 04:10 Coronavirus screen: Vaccine status: Patient reports being unvaccinated. Client denies pf1 travel out of the [place] in the last 14 days. Client presents with at least one sign or symptom that may indicate coronavirus-19. Ebola Screen: Patient negative for fever greater than or equal to 101.5 degrees Fahrenheit, and additional compatible Ebola Virus Disease symptoms. Initial Sepsis Screen: Does the patient meet any 2 criteria? Temp <36.0*C (96.8*F)) or > 38.3*C (100.9*F). Does the patient have a suspected source of infection? No. Patient's initial sepsis screen is negative. Risk Assessment: Do you want to hurt yourself or someone else? Patient reports no desire to harm self or others. 04:10 Method Of Arrival: Ambulatory pf1 04:10 Acuity: VICENTE 4 pf1 Historical: - Allergies: 05:26 Amoxicillin; pf1 05:26 Codeine; pf1 05:26 Morphine; pf1 05:26 PENICILLINS; pf1 05:26 Promethazine; pf1 - PMHx: 05:26 Ovarian cyst; pf1 - PSHx: 05:26 right leg; Right oopherectomy; pf1 - Immunization history:: Adult Immunizations not up to date, Client reports having NOT received the Covid vaccine. Last tetanus immunization: > 10 years ago Flu vaccine is not up to date. - Social history:: Smoking status: Patient denies any tobacco usage or history of. Patient uses alcohol, occasionally. Patient/guardian denies using street drugs. Assessment: 04:30 General: Appears in no apparent distress. uncomfortable, ill, Behavior is calm, jb4 cooperative, appropriate for age. Pain: Denies pain. Neuro: Level of Consciousness is awake, alert, obeys commands, Oriented to person, place, time, situation. Cardiovascular: Patient's skin is warm and dry. Respiratory: Airway is patent Respiratory effort is even, unlabored, Respiratory pattern is regular, symmetrical. GI: No signs and/or symptoms were reported involving the gastrointestinal system. : No signs and/or symptoms were reported regarding the genitourinary system. EENT: No signs and/or symptoms were reported regarding the EENT system. Derm: Skin is intact, Skin is pink, warm \T\ dry. Musculoskeletal: Circulation, motion, and sensation intact. Range of motion: intact in all extremities. 05:52 Reassessment: Patient appears in no apparent distress at this time. Patient and/or jb4 family updated on plan of care and expected duration. Pain level reassessed. Patient is alert, oriented x 3, equal unlabored respirations, skin warm/dry/pink. 07:01 Reassessment: Patient appears in no apparent distress at this time. Patient and/or jb4 family updated on plan of care and expected duration. Pain level reassessed. Patient is alert, oriented x 3, equal unlabored respirations, skin warm/dry/pink. 07:34 Reassessment: Patient is alert, oriented x 3, equal unlabored respirations, skin aa5 warm/dry/pink. Vital Signs: 04:54 BP 118 / 76; Pulse 92; Resp 18; Temp 103; Pulse Ox 99% on R/A; Weight 74.84 kg; Height pf1 5 ft. 0 in. ; Pain 0/10; 06:31 Temp 101(TE); jb4 07:01 Pulse 107; Resp 18; Pulse Ox 96% on R/A; jb4 04:54 Body Mass Index 32.22 (74.84 kg, 152.4 cm) pf1 04:54 Pain Scale: Adult pf1 ED Course: 04:07 Patient arrived in ED. gm2 04:08 Marco Og DO is Attending Physician. ms3 05:08 SARS-COV-2 Antigen Rapid Sent. pf1 05:08 Influenza Screen (a \T\ B) Sent. pf1 05:26 Triage completed. pf1 07:07 Mike Vallejo DO is Referral Physician. ms3 07:32 Patient has correct armband on for positive identification. aa5 07:35 No provider procedures requiring assistance completed. Patient did not have IV access aa5 during this emergency room visit. Administered Medications: 05:10 Drug: Acetaminophen PO 1000 mg PO once Route: PO; jb4 05:12 Drug: Ondansetron PO 4 mg PO once Route: PO; pf1 07:01 Drug: Ibuprofen PO 600 mg PO once Route: PO; jb4 Medication: 07:35 VIS not applicable for this client. aa5 Outcome: 07:09 Discharge ordered by MD. ms3 07:34 Discharged to home ambulatory, aa5 07:34 Condition: stable 07:34 Discharge instructions given to patient, Instructed on discharge instructions, follow up and referral plans. medication usage, Demonstrated understanding of instructions, follow-up care, medications, Prescriptions given X 2, 07:35 Patient left the ED. aa5 Signatures: Liliana Gipson, RN RN aa5 Cale Thompson, RN RN jb4 Marco Og DO DO ms3 Shanelle Au RN RN pf1 Cassi Shultz 2
[2023-08-07 08:04] VITALS: BP 118/76
[2023-08-07 08:05] VITALS: TEMP 101
[2023-08-07 08:06] VITALS: O2SAT 96
== END 2023-08-07 07:35 | disposition home or self-care (01) ==
LOC: ER 03:49
DX: J10.1 Influenza due to other identified influenza virus with other respiratory manifestations (principal); R11.0 Nausea; Z11.52 Encounter for screening for COVID-19
CPT/HCPCS: 36415; 87804; 87811; 99283; Q0162

== ENCOUNTER 2024-09-24 09:23 | Emergency (ER) | payer OTHER, SELFPAY ==
--- OUTSIDE RECORDS SUMMARY | 2024-09-24 09:28 | XMS REPORT | Continuity of Care Document ---
Author Name Unknown Address [address] [facility] [address] [place] [address] [facility] thconnect Address [address] [facility] [address] [facility] 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 Name Role Phone UNKNOWN, REFFERING Primary Care Physician UnaANTONIO Soares Attending Clinician Aminah vailable UNKNOWN, ATTENDING Attending Clinician Unavailab PATTIE Bee Attending Clinician Unavailable STEFANIE HOLLAND Attending Clinician Unavailable Stefanie Holland DO Attending Clinician [phone] AMERICA EGAN Attending Clinician Unavaila ble Lab, Ang-Rmchp Attending Clinician Unavailable America Egan CNM Attending Clinician CARA GLEASON Attending Clinician Unavail able Cliff Hickman MD Attending Clinician MERYL PORRAS Attending Clinician Unavailable MERYL PORRAS Attending Clinician Unavailable Trimester, [facility] Attending Clinician Unavailable Cara Girard Attending Clinician + Doctor Unassigned, Opal Attending Clinician U navailable Provider, [facility] Temp Attending Clinician Aminah SONNY Youssef Attending Clinician Unavailab ANIKET Welch Attending Clinician Unavail able Lynda PALOMARES, Aniket Love Attending Clinician [phone] Pcp, Patient Does Not Have A Attending Clinician Visit, [facility] Nurse Attending Clinician Unava ilsienna Gregory BACK JOINERSonny Moreno Attending Clinician + [phone] Antonio Hernández MD Attending Clinician JOHANNY SHERIFF Attending Clinician UnavailIris Rodriguez MD Attending Clinician NAMAN RICARDO Attending Clinician Unavaila ble Room, [facility] Attending Clinician Unavail able Naman Powers Attending Clinician [phone] CHRISTINA BRITT Attending Clinician Unavailable Christina Spann Attending Clinician [phone] Sarah CLARKE, Maida Sewell Attending Clinician Unavailable Leonie Nash RN Attending Clinician [phone] Only, Adc Test Attending Clinician Unavailable Vance Leon Attending Clinician Unavailable Richelle Angel Attending Clinician [phone] RICHELLE TRIVEDI Attending Clinician UnavailLALY Zamora Attending Clinician Unav Elicia Ness RN Attending Clinician + [phone] [facility] Unavailab Cale Pennington MD Attending Clinician [phone] THEO WING Attending Clinician Unavailable ANTONIO HERNÁNDEZ Admitting Clinician Aminah ANIKET Adames Admitting Clinician Unavail Aniket Hernandez MD Admitting Clinician Betty PALOMARES, Antonio Warren Admitting Clinician CHRISTINA BRITT Admitting Clinician Unavailable THEO WING Admitting Clinician Unavailable Payers Payer Name Policy Type Policy Number Effective Date Expirati on Date Source PHCS GENERIC [id number] 2020 00:00:00 MEDICAID PENDING PENDING 2021 00:00:00 [employer]BT[employer] [id number] 2020 00:00:00 [facility] [place] [facility] [id number] 00:00:00 [facility] [id number] 2024 00:00:00 Problems Condition Name Condition Details Condition Category Status Onset Date Resolution Date Last Treatment Date Treating Clinician Comments Source Multiparit y Multiparit y Disease Active 2021-09 00:00: 00 [facility] Supervisio n of high-risk Supervisio n of high-risk Disease Active 2021-09 00:00: 00 [facility] Vaginal bleeding during Vaginal bleeding during Disease Active 2021-09 00:00: 00 Overview: Formattin g of this note might be different from the original. Beta at [facility] [address] [place] [address] Gonorrhea Gonorrhea Disease Active 11-04 00:00: 00 [facility] Gonorrhea in Gonorrhea in Disease Active 11-04 00:00: 00 Overview: Formattin g of this note might be different from the original. pending corona [facility] Other general counseling and advice for contracept rose management Other general counseling and advice for contracept rose management Disease Active 2- 00:00: 00 [facility] Derangemen t of right knee ligament Derangemen t of right knee ligament Disease Active 5- 00:00: 00 Overview: Formattin g of this note might be different from the original. Added automatic ally from request for surgery [id number] [facility] Closed fracture of right tibial plateau, initial encounter Closed fracture of right tibial plateau, initial encounter Disease Active 12-16 00:00: 00 Overview: Formattin g of this note might be different from the original. Added automatic ally from request for surgery [id number] [facility] Knee dislocatio n, right, initial encounter Knee dislocatio n, right, initial encounter Disease Active 12-16 00:00: 00 [facility] Right knee pain, unspecifie d chronicity Right knee pain, unspecifie d chronicity Disease Active 12-02 00:00: 00 Overview: Formattin g of this note might be different from the original. Added automatic ally from request for surgery [id number] [facility] Right knee pain, unspecifie d chronicity Right knee pain, unspecifie d chronicity Disease Active 12-02 00:00: 00 Overview: Formattin g of this note might be different from the original. Added automatic ally from request for surgery [id number] [facility] Obesity in Obesity in Disease Active 8-10 00:00: 00 [facility] Over weight Over weight Disease Active 8-10 00:00: 00 [facility] Pain pelvic Pain pelvic Disease Active 8-10 00:00: 00 [facility] History of chlamydia History of chlamydia Disease Active 12-28 00:00: 00 [facility] History of depression History of depression Disease Active 12-28 00:00: 00 [facility] History of anxiety History of anxiety Disease Active 12-28 00:00: 00 [facility] History of suicide attempt History of suicide attempt Disease Active 04 00:00: 00 Overview: Formattin g of this note might be different from the original. 2017 with Tylenol overdose [facility] Right ovarian cyst Right ovarian cyst Disease Active 12-28 00:00: 00 [facility] Allergies, Adverse Reactions, Alerts Allergy Name Allergy Type Status Severity Reaction(s) Onset Date Inactive Date Treating Clinician Comments Source MORPHINE DRUG INGREDI Active Anaphylaxis 14 00:00: 00 [facility] PROMETHA ZINE DRUG INGREDI Active Anaphylaxis 03-09 00:00: 00 [facility] Morphine Propensi ty to adverse reaction s Active Anaphylaxis 03-09 00:00: 00 [facility] Prometha zine Propensi ty to adverse reaction s Active Anaphylaxis 03-09 00:00: 00 [facility] Penicill ins Propensi ty to adverse reaction s Active Rash 04-03 00:00: 00 [facility] PENICILL INS Drug Class Active Rash 04-03 00:00: 00 [facility] Penicill ins Propensi ty to adverse reaction s Active Rash 04-03 00:00: 00 [facility] Social History Social Habit Start Date Stop Date Quantity Comments Source ASSERTION 2022-07-16 00:00:[address] [facility] 2023-07-01 00:00:00 2023-07-01 00:00:00 Current drinker of alcohol (finding) [facility] Exposure to SARS-CoV-2 (event) 2022-09-18 00:00:00 2022-09-28 09:43:[address] [facility] Tobacco use and exposure 2022-08-23 00:00:00 2022-08-23 00:00:[address] Smokeless tobacco non-user [facility] History of Social function 2022-08-17 00:00:00 2022-08-17 00:00:[address] [facility] History SDOH Alcohol Frequency 2020-05-05 00:00:00 2020-05-05 00:00:[address] [facility] History SDOH Alcohol Std Drinks 2020-05-05 00:00:00 2020-05-05 00:00:[address] [facility] History SDOH Alcohol Binge 2020-05-05 00:00:00 2020-05-05 00:00:[address] [facility] Alcohol Comment 2016-09-10 00:00:00 2016-09-10 00:00:00 before she found out she was [facility] History of tobacco use 2014-09-10 00:00:[address] [facility] Sex Assigned At 1995 00:00:00 1995 00:00:[address] [facility] Smoking Status Start Date Stop Date Source Ex-smoker 2022-08-23 00:00:00 2022-08-23 00:00:00 [facility] Medications Ordered Medication Name Filled Medication Name Start Date Stop Date Current Medication? Ordering Clinician Indication Dosage Frequency Signature (SIG) Comments Components Source QUEtiapine (SEROQUEL) tablet 25 mg 11-16 12:15: 00 11-16 11:34 :00 No 25mg 25 mg, Oral, ONCE NOW, 1 dose, On Tue11/16/23 at 0615, DEVIN [facility] No known medications 2021-09 14:39: 56 No No known medication s [facility] ibuprofen 800 mg tablet 2021-09 00:00: 00 09-08 05:59 :00 No [id number] 800mg Take 1 tablet by mouth every 6 (six) hours as needed for Pain (scale 1-3) or Pain (scale 4-6) for up to 14 days. [facility] cefTRIAXone (ROCEPHIN) injection 500 mg 2021-09 20:15: 00 08-17 20:23 :00 No [id number] 500mg [facility] cefTRIAXone (ROCEPHIN) 250 mg in lidocaine 1% (PF) (XYLOCAINE) 1 mL injection 2021-09 20:00: 00 08-17 20:16 :37 No [id number] 250mg [facility] ibuprofen 600 mg tablet 05 00:00: 00 08-23 00:00 :00 No [id number] 600mg Take 1 tablet by mouth every 6 (six) hours as needed for Pain (scale 1-3) or Pain (scale 4-6). [facility] acetaminoph en 325 mg tablet 5-05 00:00: 00 08-23 00:00 :00 No [id number] 650mg Take 2 tablets by mouth every 6 (six) hours as needed for Pain (scale 1-3), Pain (scale 4-6) or Alternate with ibuprofen for pain scale 4-6. [facility] HYDROcodone -acetaminop hen 5-325 mg tablet 01-28 00:00: 00 02-05 04:59 :00 No [id number] 1{tbl} Take 1 tablet by mouth every 6 (six) hours as needed for Pain (scale 7-10) for up to 7 days. Indication s: acute pain [facility] methocarbam oL 500 mg tablet 02-03 00:00: 00 11-02 00:00 :00 No [id number] 500mg Take 1 tablet by mouth 4 (four) times daily. [facility] ketorolac 10 mg tablet 02-03 00:00: 00 11-02 00:00 :00 No [id number] 10mg Take 1 tablet by mouth every 8 (eight) hours. [facility] aspirin 81 mg EC tablet 12-19 13:07: 12-19 00:00 :00 No 81mg Take 81 mg by mouth daily. [facility] acetaminoph en (TYLENOL) 325 mg tablet 12-19 13:07: 12-19 00:00 :00 No Take by mouth every 6 (six) hours as needed. [facility] ibuprofen (ADVIL) 200 mg tablet 12-19 13:07: 12-19 00:00 :00 No 200mg Take 200 mg by mouth every 6 (six) hours as needed. [facility] gabapentin 100 mg capsule 12-19 00:00: 00 11-02 00:00 :00 No [id number] 100mg Take 1 capsule by mouth 3 (three) times daily. [facility] HYDROcodone -acetaminop hen 5-325 mg tablet 11-21 00:00: 00 12-19 00:00 :00 No 1{tbl} Take 1 tablet by mouth every 6 (six) hours as needed. [facility] Immunizations Ordered Immunization Name Filled Immunization Name Date Status Comments Source HPV9 2018-04-18 00:00:[address] [facility] HPV9 2018-04-18 00:00:[address] [facility] HPV9 2018-04-18 00:00:[address] [facility] HPV9 2018-04-18 00:00:[address] [facility] HPV9 2018-04-18 00:00:[address] [facility] HPV9 2018-04-18 00:00:[address] [facility] HPV9 2018-04-18 00:00:[address] [facility] HPV9 2018-04-18 00:00:[address] [facility] HPV9 2018-04-18 00:00:[address] [facility] HPV9 2018-04-18 00:00:[address] [facility] TDAP 2018-01-17 00:00:[address] [facility] TDAP 2018-01-17 00:00:[address] [facility] TDAP 2018-01-17 00:00:[address] [facility] TDAP 2018-01-17 00:00:[address] [facility] TDAP 2018-01-17 00:00:[address] [facility] TDAP 2018-01-17 00:00:[address] [facility] TDAP 2018-01-17 00:00:[address] [facility] TDAP 2018-01-17 00:00:[address] [facility] TDAP 2018-01-17 00:00:[address] [facility] TDAP 2018-01-17 00:00:[address] [facility] HPV9 2017-06-17 00:00:[address] [facility] HPV9 2017-06-17 00:00:[address] [facility] HPV9 2017-06-17 00:00:[address] [facility] HPV9 2017-06-17 00:00:[address] [facility] HPV9 2017-06-17 00:00:[address] [facility] HPV9 2017-06-17 00:00:[address] [facility] HPV9 2017-06-17 00:00:[address] [facility] HPV9 2017-06-17 00:00:[address] [facility] HPV9 2017-06-17 00:00:[address] [facility] HPV9 2017-06-17 00:00:[address] [facility] HPV9 2017-04-20 00:00:[address] [facility] HPV9 2017-04-20 00:00:[address] [facility] HPV9 2017-04-20 00:00:[address] [facility] HPV9 2017-04-20 00:00:[address] [facility] HPV9 2017-04-20 00:00:[address] [facility] HPV9 2017-04-20 00:00:[address] [facility] HPV9 2017-04-20 00:00:[address] [facility] HPV9 2017-04-20 00:00:[address] [facility] HPV9 2017-04-20 00:00:[address] [facility] HPV9 2017-04-20 00:00:[address] [facility] TDAP 2017-02-14 00:00:[address] [facility] TDAP 2017-02-14 00:00:[address] [facility] TDAP 2017-02-14 00:00:[address] [facility] TDAP 2017-02-14 00:00:[address] [facility] TDAP 2017-02-14 00:00:[address] [facility] TDAP 2017-02-14 00:00:[address] [facility] TDAP 2017-02-14 00:00:[address] [facility] TDAP 2017-02-14 00:00:[address] [facility] TDAP 2017-02-14 00:00:[address] [facility] TDAP 2017-02-14 00:00:[address] [facility] Influenza Virus Vaccine Quad IM 3+ YRS 2016-09-10 00:00:[address] [facility] Influenza Virus Vaccine Quad IM 3+ YRS 2016-09-10 00:00:[address] [facility] Influenza Virus Vaccine Quad IM 3+ YRS 2016-09-10 00:00:[address] [facility] Influenza Virus Vaccine Quad IM 3+ YRS 2016-09-10 00:00:[address] [facility] Influenza Virus Vaccine Quad IM 3+ YRS 2016-09-10 00:00:[address] [facility] Influenza Virus Vaccine Quad IM 3+ YRS 2016-09-10 00:00:[address] [facility] Influenza Virus Vaccine Quad IM 3+ YRS 2016-09-10 00:00:[address] [facility] Influenza Virus Vaccine Quad IM 3+ YRS 2016-09-10 00:00:[address] [facility] Influenza Virus Vaccine Quad IM 3+ YRS 2016-09-10 00:00:[address] [facility] Influenza Virus Vaccine Quad IM 3+ YRS 2016-09-10 00:00:[address] [facility] Meningococcal Polysaccharide (groups A, C, Y and W-135) conjugate vaccine (MCV4P) 2015-06-24 00:00:[address] [facility] Meningococcal Polysaccharide (groups A, C, Y and W-135) conjugate vaccine (MCV4P) 2015-06-24 00:00:[address] [facility] Meningococcal Polysaccharide (groups A, C, Y and W-135) conjugate vaccine (MCV4P) 2015-06-24 00:00:[address] [facility] Meningococcal Polysaccharide (groups A, C, Y and W-135) conjugate vaccine (MCV4P) 2015-06-24 00:00:[address] [facility] Meningococcal Polysaccharide (groups A, C, Y and W-135) conjugate vaccine (MCV4P) 2015-06-24 00:00:[address] [facility] Meningococcal Polysaccharide (groups A, C, Y and W-135) conjugate vaccine (MCV4P) 2015-06-24 00:00:[address] [facility] Meningococcal Polysaccharide (groups A, C, Y and W-135) conjugate vaccine (MCV4P) 2015-06-24 00:00:[address] [facility] Meningococcal Polysaccharide (groups A, C, Y and W-135) conjugate vaccine (MCV4P) 2015-06-24 00:00:[address] [facility] Meningococcal Polysaccharide (groups A, C, Y and W-135) conjugate vaccine (MCV4P) 2015-06-24 00:00:[address] [facility] Meningococcal Polysaccharide (groups A, C, Y and W-135) conjugate vaccine (MCV4P) 2015-06-24 00:00:[address] [facility] Td 2012-05-04 00:00:[address] [facility] Td 2012-05-04 00:00:[address] [facility] Td 2012-05-04 00:00:[address] [facility] Td 2012-05-04 00:00:[address] [facility] Td 2012-05-04 00:00:[address] [facility] Td 2012-05-04 00:00:[address] [facility] Td 2012-05-04 00:00:[address] [facility] Td 2012-05-04 00:00:[address] [facility] Td 2012-05-04 00:00:[address] [facility] TD, NOS 2012-05-04 00:00:[address] [facility] TD, NOS Unknown Completed [facility] Meningococcal Polysaccharide (groups A, C, Y and W-135) conjugate vaccine (MCV4P) Unknown Completed [facility] Influenza Virus Vaccine Quad IM 3+ YRS Unknown Completed [facility] TDAP Unknown Completed [facility] HPV9 [address] [facility] TD, NOS Unknown Completed [facility] Meningococcal Polysaccharide (groups A, C, Y and W-135) conjugate vaccine (MCV4P) Unknown Completed [facility] Influenza Virus Vaccine Quad IM 3+ YRS Unknown Completed [facility] TDAP Unknown Completed [facility] HPV9 Unknown Completed [facility] TD, NOS Unknown Completed [facility] Meningococcal Polysaccharide (groups A, C, Y and W-135) conjugate vaccine (MCV4P) Unknown Completed [facility] Influenza Virus Vaccine Quad IM 3+ YRS Unknown Completed [facility] TDAP Unknown Completed [facility] HPV9 Unknown Completed [facility] TD, NOS Unknown Completed [facility] Meningococcal Polysaccharide (groups A, C, Y and W-135) conjugate vaccine (MCV4P) Unknown Completed [facility] Influenza Virus Vaccine Quad IM 3+ YRS Unknown Completed [facility] TDAP Unknown Completed [facility] HPV9 Unknown Completed [facility] TD, NOS Unknown Completed [facility] Meningococcal Polysaccharide (groups A, C, Y and W-135) conjugate vaccine (MCV4P) Unknown Completed [facility] Influenza Virus Vaccine Quad IM 3+ YRS Unknown Completed [facility] TDAP Unknown Completed [facility] HPV9 Unknown Completed [facility] TD, NOS Unknown Completed [facility] Meningococcal Polysaccharide (groups A, C, Y and W-135) conjugate vaccine (MCV4P) Unknown Completed [facility] Influenza Virus Vaccine Quad IM 3+ YRS Unknown Completed [facility] TDAP Unknown Completed [facility] HPV9 Unknown Completed [facility] TD, NOS Unknown Completed [facility] Meningococcal Polysaccharide (groups A, C, Y and W-135) conjugate vaccine (MCV4P) Unknown Completed [facility] Influenza Virus Vaccine Quad IM 3+ YRS Unknown Completed [facility] TDAP Unknown Completed [facility] HPV9 Unknown Completed [facility] TD, NOS Unknown Completed [facility] Meningococcal Polysaccharide (groups A, C, Y and W-135) conjugate vaccine (MCV4P) Unknown Completed [facility] Influenza Virus Vaccine Quad IM 3+ YRS Unknown Completed [facility] TDAP Unknown Completed [facility] HPV9 Unknown Completed [facility] Vital Signs Vital Name Observation Time Observation Value Comments S ource Systolic blood pressure 2023-11-16 02:15:00 139 mm[Hg] [facility] Diastolic blood pressure 2023-11-16 02:15:00 92 mm[Hg] [facility] Heart rate 2023-11-16 02:15:00 90 /min [facility] Body temperature 2023-11-16 02:15:[address] [facility] Respiratory rate 2023-11-16 02:15:00 16 /min [facility] Oxygen saturation in Arterial blood by Pulse oximetry 2023-11-16 02:15:00 99 /min [facility] Body height 2023-11-15 21:46:00 152.4 cm [facility] Body weight 2023-11-15 21:46:00 72.576 kg [facility] BMI 2023-11-15 21:46:00 31.25 kg/m2 [facility] Systolic blood pressure 2022-08-24 16:07:00 121 mm[Hg] [facility] Diastolic blood pressure 2022-08-24 16:07:00 75 mm[Hg] [facility] Heart rate 2022-08-24 16:07:00 88 /min [facility] Body temperature 2022-08-24 16:07:[address] [facility] Respiratory rate 2022-08-24 16:07:00 18 /min [facility] Body height 2022-08-24 16:07:00 152.4 cm [facility] Body weight 2022-08-24 16:07:00 73.074 kg [facility] BMI 2022-08-24 16:07:00 31.46 kg/m2 [facility] Systolic blood pressure 2022-08-23 19:43:00 125 mm[Hg] [facility] Diastolic blood pressure 2022-08-23 19:43:00 80 mm[Hg] [facility] Body temperature 2022-08-23 19:43:[address] [facility] Respiratory rate 2022-08-23 19:43:00 18 /min [facility] Body height 2022-08-23 19:43:00 152.4 cm [facility] Body weight 2022-08-23 19:43:00 73.71 kg [facility] BMI 2022-08-23 19:43:00 31.74 kg/m2 [facility] Systolic blood pressure 2022-08-17 19:41:00 127 mm[Hg] [facility] Diastolic blood pressure 2022-08-17 19:41:00 71 mm[Hg] [facility] Heart rate 2022-08-17 19:41:00 110 /min [facility] Body temperature 2022-08-17 19:41:[address] [facility] Respiratory rate 2022-08-17 19:41:00 16 /min [facility] Body height 2022-08-17 19:41:00 152.4 cm [facility] Body weight 2022-08-17 19:41:00 74.072 kg [facility] BMI 2022-08-17 19:41:00 31.89 kg/m2 [facility] Procedures Procedure Date / Time Performed Performing Clinician Source POCT TEST 2023-11-16 02:07:[address] [facility] URINALYSIS 2023-11-15 23:41:00 [facility] URINE DRUG (IMMUNOASSAY) - COMPREHENSIVE DRUG SCREEN W/O REFLEX 2023-11-15 23:41:[address] [facility] COMP. METABOLIC PANEL ([id number]) 2023-11-15 22:24:00 Singer [facility] TOTAL BETA HCG ASSAY 2023-11-15 22:24:[address] [facility] SALICYLATE 2023-11-15 22:24:00 [facility] ETHANOL 2023-11-15 22:24:00 [facility] CBC WITH DIFF 2023-11-15 22:24:00 Stefanie Holland [facility] COVID-19 (MOLECULAR TESTING NUCLEIC ACID AMPLIFICATION) 2023-11-15 22:24:00 Singer [facility] COVID-19 (ID NOW RAPID TESTING) 2023-11-15 22:24:00 Singer [facility] LAB ONLY COVID INTERPRETATION 2023-11-15 22:24:[address] [facility] EMERGENCY DEPARTMENT DOCUMENTS 2023-11-15 06:01:00 Doctor Unassigned, Opal [facility] TOTAL BETA HCG ASSAY 2022-09-28 16:10:[address] [facility] POCT TEST 2022-08-23 19:42:[address] [facility] POCT URINALYSIS W/O SPECIFIC GRAVITY 2022-08-23 19:42:[address] [facility] ASSIGNMENT OF BENEFITS 2022-08-23 19:15:01 Docto r Unassigned, Opal [facility] GC & CHLAMYDIA AMPLIFIED ASSAY 2022-08-17 22:22:[address] [facility] POCT TEST 2022-08-17 19:45:[address] [facility] EXTERNAL PROVIDER RECORDS 2022-02-09 05:01:00 Do ctor Unassigned, Opal [facility] Encounters Start Date/Time End Date/Time Encounter Type Admission Type Attending [facility] Facility Care Department Encounter ID Source 2021-07-26 17:44:43 Outpatient ANTONIO WALKER [facility] [id number] [facility] 2021-07-26 14:14:14 Emergency [facility] [id number] [facility] 2021-07-26 07:52:18 Emergency [facility] [id number] [facility] 2021-07-26 05:03:23 Inpatient ANTONIO WALKER [facility] [id number] [facility] 2021-07-26 04:36:19 Inpatient ANTONIO HERNÁNDEZ [facility] SOR [id number] [facility] 2024-07-13 13:00:00 2024-07-13 13:00:00 Outpatient RODOLFO DANIEL [facility] [id number] [facility] 2024-02-21 07:45:00 2024-02-21 07:45:00 Outpatient PATTIE PETERSON [facility] [id number] [facility] 2023-11-15 16:14:00 2023-11-16 18:02:00 Emergency X STEFANIE HOLLAND [facility] ERT [id number] [facility] 2023-11-15 16:14:00 2023-11-16 18:02:00 Emergency Stefanie Holland [facility] 1.2.840.114 350.1.13.10 4.2.7.2.686 [id number] [facility] 2022-09-28 10:30:00 2022-09-28 10:30:00 Outpatient AMERICA LITTLE [facility] [id number] [facility] 2022-09-28 10:30:00 2022-09-28 10:30:00 Striker Out Visit Lab, [facility] America Egan [facility] 1.2.840.114 350.1.13.10 4.2.7.2.686 [id number] [facility] 2022-09-10 11:00:00 2022-09-10 11:00:00 Outpatient CARA FUNEZ [facility] [id number] [facility] 2022-09-09 00:00:00 2022-09-09 00:00:00 [facility] 1.2.840.114 350.1.13.10 4.2.7.2.686 [id number] [facility] 2022-09-07 00:00:00 2022-09-07 00:00:00 [facility] 1..840.114 350.1.13.10 4.2.7.2.686 [id number] [facility] 2022-09-03 10:30:00 2022-09-03 10:30:00 Outpatient AMERICA LITTLE [facility] [id number] [facility] 2022-09-01 00:00:00 2022-09-01 00:00:00 Patient [facility] 1..840.114 350.1.13.10 4.2.7.2.686 [id number] [facility] 2022-08-31 08:30:00 2022-08-31 08:30:00 Outpatient AMERICA LITTLE [facility] [id number] [facility] 2022-08-24 10:00:00 2022-08-24 10:47:49 Outpatient R MERYL PORRAS KARREN [facility] [id number] [facility] 2022-08-24 10:00:00 2022-08-24 10:47:49 Routine Visit Trimester, [facility] 1.114 350.1.13.10 4.2.7.2.686 [id number] [facility] 2022-08-23 13:30:00 2022-08-23 14:36:31 Outpatient R CARA GLEASON [facility] [id number] [facility] 2022-08-23 13:30:00 2022-08-23 14:36:31 Initial Visit Cara Gleason [facility] [[email or web address]] 1.840.114 350.1.13.10 4.2.7.2.686 [id number] [facility] 2022-08-23 00:00:00 2022-08-23 00:00:00 Orders Only Doctor Unassigned, Opal [facility] 1..114 350.1.13.10 4.2.7.2.686 [id number] [facility] 2022-08-17 13:15:00 2022-08-17 14:36:01 Outpatient R AMERICA EGAN [facility] [id number] [facility] 2022-08-17 13:15:00 2022-08-17 14:36:01 [facility]TER [facility] & CHILD [facility] [[email or web address]] 1.840.114 350.1.13.10 4.2.7.2.686 [id number] [facility] 2022-08-17 11:30:00 2022-08-17 11:30:00 Outpatient R [facility] [id number] [facility] 2022-05-17 10:30:00 2022-05-17 10:30:00 Outpatient R CARA GLEASON [facility] [id number] [facility] 2022-02-11 13:15:00 2022-02-11 13:15:00 Outpatient R [facility] [id number] [facility] 2022-02-09 00:00:00 2022-02-09 00:00:00 Orders Only Doctor Unassigned, Opal [facility] 1.840.114 350.1.13.10 4.2.7.2.686 [id number] [facility] 2022-02-01 10:30:00 2022-02-01 10:30:00 [facility] [id number] 2022-02-01 10:30:00 2022-02-01 10:30:00 Outpatient HCELLY DONALDSONUTDemetri [facility] [id number] [facility] 2022-02-01 00:00:00 2022-02-01 00:00:00 Telephone Cara Gleason [facility] 1..840.114 350.1.13.10 4.2.7.2.686 [id number] [facility] 2022-01-29 00:00:00 2022-01-29 00:00:00 Patient Secure Msg Doctor Unassigned, Opal [facility] 1.840.114 350.1.13.10 4.2.7.2.686 [id number] [facility] 2022-01-28 00:18:00 2022-01-28 09:00:00 Outpatient X ANIKET NGUYEN [facility] [id number] [facility] 2022-01-28 00:18:00 2022-01-28 09:00:00 Emergency [facility] 1..114 350.1.13.10 4.2.7.2.686 [id number] [facility] 2022-01-28 00:18:00 2022-01-28 09:00:00 Outpatient X , [facility] [id number] [facility] 2022-01-28 02:20:00 2022-01-28 05:25:00 Surgery [facility] 1.0.114 350.1.13.10 4.2.7.2.686 [id number] [facility] 2022-01-28 00:00:00 2022-01-28 00:00:00 Telephone Pcp, Patient Does Not Have A [facility] 1..114 350.1.13.10 4.2.7.2.686 [id number] [facility] 2021-11-17 00:00:00 2021-11-17 00:00:00 Telephone Cara Gleason [facility] [[email or web address]] 1..114 350.1.13.10 4.2.7.2.686 [id number] [facility] 2021-11-12 13:15:00 2021-11-12 13:15:00 Outpatient R CARA GLEASON [facility] [id number] [facility] 2021-11-06 09:00:00 2021-11-06 09:37:49 [facility] Sonny Gregory [facility]TER [facility] & CHILD [facility] [[email or web address]] 1..114 350.1.13.10 4.2.7.2.686 [id number] [facility] 2021-11-06 09:00:00 2021-11-06 09:00:00 Outpatient R GREGORY, SONNY [facility] [id number] [facility] 2021-11-04 00:00:00 2021-11-04 00:00:00 Telephone Cara Gleason [facility] GUL[facility] SLITTER [facility] CHILD [facility] [[email or web address]] 1.2.840.114 350.1.13.10 4.2.7.2.686 [id number] [facility] 2021-11-03 11:00:00 2021-11-03 11:00:00 Outpatient R GREGORY, SONNY [facility] [id number] [facility] 2021-11-03 00:00:00 2021-11-03 00:00:00 Telephone Cara Gleason [facility] G[facility] SLITTER [facility] CHILD [facility] [[email or web address]] 1.2.840.114 350.1.13.10 4.2.7.2.686 [id number] [facility] 2021-11-02 11:00:00 2021-11-02 11:58:37 Outpatient R CARA GLEASON [facility] [id number] [facility] 2021-11-02 11:00:00 2021-11-02 11:58:37 Office Visit Cara Gleason [email or web address]] ..840.114 350.1.13.10 4.2.7.2.686 [id number] [facility] 2021-11-02 11:00:00 2021-11-02 11:58:37 Outpatient R CARA GLEASON [facility] [id number] [facility] 2021-11-02 11:00:00 2021-11-02 11:00:00 Outpatient R CARA GLEASON [facility] [id number] [facility] 2021-07-30 16:20:00 2021-07-30 16:20:00 Outpatient R ANTONIO HERNÁNDEZ [facility] [id number] [facility] 2021-05-12 14:15:00 2021-05-12 14:15:00 Outpatient CARA FUNEZ [facility] [id number] [facility] 2021-04-23 16:44:50 2021-04-23 23:59:00 Hospital Encounter Antonio Hernández [facility] [place] [facility] 1.2.840.114 350.1.13.10 4.2.7.2.686 [id number] [facility] 2021-04-23 16:44:50 2021-04-23 23:59:00 Outpatient ANTONIO WALKER [facility] [id number] [facility] 2021-04-23 17:05:33 2021-04-23 17:15:56 Office Visit Antonio Hernández [facility] [place] [facility] 1.2.840.114 350.1.13.10 4.2.7.2.686 [id number] [facility] 2021-04-23 16:40:00 2021-04-23 16:40:00 Outpatient ANTONIO WALKER [facility] [id number] [facility] 2021-04-23 00:00:00 2021-04-23 00:00:00 Letter (Out) Antonio Hernández [facility] [place] [facility] .2.840.114 350.1.13.10 4.2.7.2.686 [id number] [facility] 2021-03-24 08:20:00 2021-03-24 08:20:00 Outpatient JOHANNY SIMS [facility] [id number] [facility] 2021-03-16 08:00:00 2021-03-16 08:00:00 Outpatient JOHANNY SIMS [facility] [id number] [facility] 2021-03-12 14:23:47 2021-03-12 23:59:00 Hospital Encounter Antonio Hernández [facility] [place] [facility] 1..840.114 350.1.13.10 4.2.7.2.686 [id number] [facility] 2021-03-12 14:23:47 2021-03-12 23:59:00 Outpatient R ANTONIO HERNÁNDEZ [facility] [id number] [facility] 2021-03-12 14:13:56 2021-03-12 14:57:27 Office Visit Antonio Hernández [facility] [place] [facility] 1.840.114 350.1.13.10 4.2.7.2.686 [id number] [facility] 2021-03-12 14:40:00 2021-03-12 14:40:00 Outpatient ANTONIO WALKER [facility] [id number] [facility] 2021-02-25 00:00:00 2021-02-25 00:00:00 Letter (Out) Iris Andrews [facility] [place] [facility] ..840.114 350.1.13.10 4.2.7.2.686 [id number] [facility] 2021-02-19 09:40:00 2021-02-19 09:40:00 Outpatient NAMAN FAN [facility] [id number] [facility] 2021-02-13 00:00:00 2021-02-13 00:00:00 Patient Secure Msg Antonio Hernández [facility] [place] [facility] ..840.114 350.1.13.10 4.2.7.2.686 [id number] [facility] 2021-02-12 00:00:00 2021-02-12 00:00:00 Patient Secure Msg Antonio Hernández [facility] [place] [facility] ..840.114 350.1.13.10 4.2.7.2.686 [id number] [facility] 2021-02-12 00:00:00 2021-02-12 00:00:00 Patient Secure Mscarlito Antonio Hernández [facility] 1.2.840.114 350.1.13.10 4.2.7.2.686 [id number] [facility] 2021-02-05 13:59:47 2021-02-05 14:29:47 Striker Out Visit Room, [facility] Antonio Hernández [facility] 1.2840.114 350.1.13.10 4.2.7.2.686 [id number] [facility] 2021-02-05 14:00:00 2021-02-05 14:00:00 Outpatient R [facility] [id number] [facility] 2021-02-04 00:00:00 2021-02-04 00:00:00 Telephone Antonio Hernández [facility] [place] [facility] 1.2.840.114 350.1.13.10 4.2.7.2.686 [id number] [facility] 2021-02-03 11:47:00 2021-02-03 15:25:00 Hospital Encounter Antonio Hernández [facility] ([facility]) 1.2.840.114 350.1.13.10 4.2.7.2.686 [id number] [facility] 2021-02-03 13:50:00 2021-02-03 15:11:00 Surgery Antonio Hernández [facility] [place] [facility] 1.2.840.114 350.1.13.10 4.2.7.2.686 [id number] [facility] 2021-02-03 00:00:00 2021-02-03 00:00:00 Orders Only Doctor Unassigned, Opal [facility] 1.2840.114 350.1.13.10 4.2.7.2.686 [id number] [facility] 2021-01-29 16:10:26 2021-01-29 23:59:00 Outpatient ANTONIO WALKER [facility] [id number] [facility] 2021-01-29 16:10:26 2021-01-29 23:59:00 Hospital Encounter Antonio Hernández [facility] 1.2840.114 350.1.13.10 4.2.7.2.686 [id number] [facility] 2021-01-29 16:50:00 2021-01-29 16:50:00 Outpatient ANTONIO WALKER [facility] [id number] [facility] 2021-01-29 15:49:26 2021-01-29 16:43:46 Office Visit Antonio Hernández [facility] 1.2.840.114 350.1.13.10 4.2.7.2.686 [id number] [facility] 2021-01-22 00:00:00 2021-01-22 00:00:00 Naman Johnson [facility] 1.2.840.114 350.1.13.10 4.2.7.2.686 [id number] [facility] 2021-01-15 15:42:36 2021-01-15 16:25:50 Office Visit Antonio Hernández [facility] [place] [facility] 1.2.840.114 350.1.13.10 4.2.7.2.686 [id number] [facility] 2021-01-15 15:00:00 2021-01-15 15:00:00 Outpatient ANTONIO WALKER [facility] [id number] [facility] 2021-01-13 22:42:00 2021-01-14 02:25:00 Emergency X CHRISTINA BRITT [facility] ERT [id number] [facility] 2021-01-13 22:42:00 2021-01-14 02:25:00 Emergency Christina Britt [facility] 1.2.840.114 350.1.13.10 4.2.7.2.686 [id number] [facility] 2021-01-14 00:00:00 2021-01-14 00:00:00 Patient Secure Antonio Hernández [facility] 1.2.840.114 350.1.13.10 4.2.7.2.686 [id number] [facility] 2021-01-14 00:00:00 2021-01-14 00:00:00 Patient Secure [facility] 1.2.840.114 350.1.13.10 4.2.7.2.686 [id number] [facility] 2021-01-13 00:00:00 2021-01-13 00:00:00 Nurse Triage Maida Smith [facility] 1.2.840.114 350.1.13.10 4.2.7.2.686 [id number] [facility] 2021-01-01 13:28:30 2021-01-01 13:48:30 Office Visit Naman Ricardo [facility] [place] [facility] 1.2.840.114 350.1.13.10 4.2.7.2.686 [id number] [facility] 2021-01-01 11:00:00 2021-01-01 11:00:00 Outpatient R NAMAN RICARDO [facility] [id number] [facility] 2021-01-01 00:00:00 2021-01-01 00:00:00 Telephone Naman Ricardo [facility] 1.2840.114 350.1.13.10 4.2.7.2.686 [id number] [facility] 2020-12-23 00:00:00 2020-12-23 00:00:00 Transition of Care Leonie Nash Melodie Goss 1.0.114 350.1.13.10 4.2.7.2.686 [id number] [facility] 2020-12-16 00:00:00 2020-12-16 00:00:00 Telephone Antonio Hernández [facility] [place] [facility] 1.840.114 350.1.13.10 4.2.7.2.686 [id number] [facility] 2020-12-12 10:51:08 2020-12-12 11:06:08 Laboratory Only Only, Adc Test Naman Ricardo [facility] 1.840.114 350.1.13.10 4.2.7.2.686 [id number] [facility] 2020-12-12 11:00:00 2020-12-12 11:00:00 Outpatient R NAMAN RICARDO [facility] [id number] [facility] 2020-12-09 00:00:00 2020-12-09 00:00:00 Orders Only Doctor Unassigned, Opal [facility] 1..114 350.1.13.10 4.2.7.2.686 [id number] [facility] 2020-12-08 00:00:00 2020-12-08 00:00:00 Patient Secure Msg Antonio Hernández [facility] [place] [facility] 1.840.114 350.1.13.10 4.2.7.2.686 [id number] [facility] 2020-12-05 00:00:00 2020-12-05 00:00:00 Telephone Antonio Hernández [facility] [place] [facility] 1.2.840.114 350.1.13.10 4.2.7.2.686 [id number] [facility] 2020-12-04 00:00:00 2020-12-04 00:00:00 Telephone Antonio Hernández [facility] [place] [facility] 1.2.840.114 350.1.13.10 4.2.7.2.686 [id number] [facility] 2020-12-02 14:52:17 2020-12-02 23:59:00 Hospital Encounter Antonio Hernández [facility] 1.2.840.114 350.1.13.10 4.2.7.2.686 [id number] [facility] 2020-12-02 11:19:31 2020-12-02 12:10:19 Office Visit Antonio Hernández [facility] 1.2.840.114 350.1.13.10 4.2.7.2.686 [id number] [facility] 2020-12-02 11:50:00 2020-12-02 11:50:00 Outpatient ANTONIO WALKER [facility] [id number] [facility] 2020-11-27 15:25:00 2020-11-27 23:59:00 Hospital Encounter Antonio Hernández [facility] SPECIALTY [facility] 1.2.840.114 350.1.13.10 4.2.7.2.686 [id number] [facility] 2020-11-27 15:14:18 2020-11-27 16:21:09 Office Visit Antonio Hernández [facility] 1.2.840.114 350.1.13.10 4.2.7.2.686 [id number] [facility] 2020-11-27 15:00:00 2020-11-27 15:00:00 Outpatient Ksenia HERNÁNDEZ ANTONIO [facility] [id number] [facility] 2020-11-19 14:10:29 2020-11-19 14:10:29 Outpatient Edward Vance [facility] [id number] [facility] 2020-08-08 15:11:27 2020-08-08 15:30:04 [facility] CHILD [facility] [[email or web address]] 1.2.840.114 350.1.13.10 4.2.7.2.686 [id number] 2020-08-08 15:11:27 2020-08-08 15:30:04 [facility] Cara Caballero [facility] GUL[facility] SLITTER [facility] CHILD [facility] [[email or web address]] 1.2.840.114 350.1.13.10 4.2.7.2.686 [id number] [facility] 2020-08-08 15:00:00 2020-08-08 15:00:00 Outpatient CARA FUNEZ [facility] [id number] [facility] 2020-08-08 13:30:00 2020-08-08 13:30:00 Outpatient R [facility] [id number] [facility] 2020-05-09 08:07:49 2020-05-09 08:48:50 [facility] Richelle [facility]rivedi [facility] 1.2.840.114 350.1.13.10 4.2.7.2.686 [id number] [facility] 2020-05-09 08:07:49 2020-05-09 08:48:50 [facility] G[facility] SL[facility]TER [facility] [[email or web address]] 1.2.840.114 350.1.13.10 4.2.7.2.686 [id number] 2020-05-09 08:00:00 2020-05-09 08:00:00 Outpatient R RICHELLE TRIVEDI [facility] [id number] [facility] 2020-05-09 00:00:00 2020-05-09 00:00:00 Telephone Richelle Trivedi [facility] GUL[facility] SLITTER [facility] & CHILD [facility] [[email or web address]] 1.2.840.114 350.1.13.10 4.2.7.2.686 [id number] [facility] 2020-05-09 00:00:00 2020-05-09 00:00:00 Telephone Richelle Trivedi [facility] [[email or web address]] [id number] 350.1.13.10 4.2.7.2.686 [id number] 2020-05-07 00:00:00 2020-05-07 00:00:00 Patient Secure Msg Doctor Unassigned, Opal [facility] [[email or web address]] [id number] 350.1.13.10 [id number] [id number] [facility] 2020-05-06 00:00:00 2020-05-06 00:00:00 Telephone Sonny Gregory [facility] [[email or web address]] [id number] 350.1.13.10 4.2.7.2.686 [id number] [facility] 2020-05-05 08:14:02 2020-05-05 09:52:07 Office Visit Snony Gregory [facility] [[email or web address]] [id number] 350.1.13.10 4.2.7.2.686 [id number] [facility] 2020-05-05 08:30:00 2020-05-05 08:30:00 Outpatient R SONNY GREGORY [facility] [id number] [facility] 2020-05-05 00:00:00 2020-05-05 00:00:00 Orders Only Doctor Unassigned, Opal [facility] 1.0.114 350.1.13.10 4.2.7.2.686 [id number] [facility] 2020-02-20 00:00:00 2020-02-20 00:00:00 Telephone Richelle Trivedi [facility] 1..114 350.1.13.10 [id number] [id number] [facility] 2019-12-26 12:00:00 2019-12-26 12:00:00 Outpatient R LALY TUBBS [facility] [id number] [facility] 2019-05-01 00:00:00 2019-05-01 00:00:00 Case Management Elciia Fuentes [facility] 1..114 [id number] [id number] [id number] [facility] 2019-04-26 10:33:39 2019-04-26 11:17:37 Office Visit Bhargav, [facility] Resident Cale Otero [facility] 1.114 [id number] [id number] [id number] [facility] 2019-03-27 00:00:00 2019-03-27 00:00:00 Patient Secure Msg Doctor Unassigned, Opal [facility] 1..114 350.1.13.10 [id number] [id number] [facility] 2019-03-23 00:00:00 2019-03-23 00:00:00 Patient Secure Msg Doctor Unassigned, Opal [facility] [id number] [id number] [id number] [id number] [facility] Results Test Description Test Time Test Comments Results Result Co mments Source [facility] BETA HCG [id number] 07:30:25BETA HCG<2.39Non- female and male patients: <5 mIU/mL09/29/2022 1:30 AM [facility] Gestational Age ?Range (mIU/mL) 1-10 ?Weeks ?[id number] Weeks ?[id number] Weeks ?8184-79193827-89 Weeks ?[id number] Biotin has been reported to cause a negative bias, interpret results relative to patient's use of biotin.[facility] TEST 2022-08-23 19:42:00* Test Item Value Reference Range Interpretation Comme nts POCT PREG (test code = 1605) Positive On board controls acceptable with C Line (test code = 3574) Yes POCT PREG LOT # (test code = 3575) POCT PREG TEST DATE ( test code = 3576) [facility] URINALYSIS W/O SPECIFIC [id number] 19:42:00* Test Item Value Reference Range Interpretation Comme nts POCT PH U (test code = 3254) 6 mg/dl 5-8 POCT U LEUK EST (test code = 3263) 3+ Negative - Negative POCT U NIT (test code = 3262) Neg Negative - Negati ve POCT U PROT (test code = 3259) Trace Negative - Negat rose POCT U GLU (test code = 3256) Neg Negative - Negati ve POCT U KETONE (test code = 3258) None Negative - Neg ative POCT U BLD (test code = 3257) Large Negative - Negati ve [facility] [id number] 19:48:00* Test Item Value Reference Range Interpretation Comme nts POCT PREG (test code = 1605) Positive On board controls acceptable with C Line (test code = 3574) Yes POCT PREG LOT # (test code = 3575) POCT PREG TEST DATE ( test code = 3576[id number] 19:48:00* Test Item Value Reference Range Interpretation Comme nts POCT PREG (test code = 1605) Positive On board controls acceptable with C Line (test code = 3574) Yes POCT PREG LOT # (test code = 3575) POCT PREG TEST DATE ( test code = 3576) [facility] LOWER EXTRM W/O C [id number] 14:22:00 [facility] 1995 Sex: F Patient Name: PLACIDO WALKER Unit No: [id number] EXAMS: CPT CODE: [id number] [place] L[place]TR[place] W/[place] [address] CT OF THE RIGHT KNEE WITH SAGITTAL AND CORONAL RECONSTRUCTIONS DIAGNOSIS: There is a mildly comminuted depressed fracture of the anterior medial tibial plateau with 8 mm of depression. An avulsion fracture of the tibial spines is noted with presumed avulsion of the anterior cruciate ligament and posterior displacement of the tibia relative to the femur Also noted is a displaced fractureof the fibular head with proximal and medial displacement of the proximal fracture fragment. COMMENT: COMPARISON: No prior exams available. Scans were performed with thin sections and reconstructionswere obtained. CT radiation dose optimization is achieved for this examination by the use of a CT protocol in accordance with ACR practice standards and adherence to medicare interviewer's recommendations. Multiple fractures are present as described. at 1422 Reported and signed by: Claudio Aj MD CC: Vance Leon MD Technolog ist: Enrique Mantilla,RT(R) CTDI: DLP: Trnscrpt: 11/19/2020 (1422) tERNESTOJCL [facility] NAME: PLACIDO WALKER [address] [facility] PHYS: BRIMA. - Vance Leon MD : 1995 AGE:25 SEX: F [place] [address] LOC: Y.RAD PHONE #: [phone] EXAM DATE: 11/19/2020 STATUS: REG CLI FAX #: [phone] RAD #: D/C DT PAGE 1 Signed Report Patient Name: PLACIDO WALKER Unit No: [id number] EXAMS: CPT CODE: [id number] CT L[place]TRM W/[place] [address] (Continued) Orig Print D/T: S: 11/19/2020 (1425) [facility] NAME: PLACIDO WALKER [address] [facility] PHYS: BRIMA. - Vance Leon MD : 1995 AGE: 25 SEX: F [place] [address] LOC: Y.RAD PHONE #: [phone] EXAM DATE: 11/19/2020 STATUS: REG CLI FAX #: [phone] RAD #: D/C DT PAGE 2 Signed ReportHIV [id number] 11:44:00* Test Item Value Reference Range Interpretation Comme nts HIV 1/2 Antibody (test code = HIV1/2AB) Non-Reactive Non-Reactive N HIV1/2 Antibody screen result indicates the absence of HIV1 and HHZ4inkvdllbf.However, A Non-Reactive screen result does not rule out exposure orinfection. If an acute infection is suspected, HIV RNA Quantitative is recommended. P24 Antigen (test code = P24) Non-Reactive Non-Reactive N P24 Ag screen re sult indicates the absence of P24 antigen, which is anindicator of HIV-1 acute infection.However, A Non-Reactive screen does not rule out exposure or infection.If acute HIV-1 is suspected, HIV RNA Quantitative is recommended. Hep B Surface [id number] 09:41:00* Test Item Value Reference Range Interpretation Comme nts Hep Bs Ag (test code = HBSAG) Nonreactive Non-Reactive A BHCG, Serum, [id number] 08:32:00* Test Item Value Reference Range Interpretation Comme nts Preg Qual [Se] (test code = BSHCG) POSITIVE Negative A Comprehensive Metabolic [id number] 08:31:00* Test Item Value Reference Range Interpretation Comme nts Sodium (test code = NA) 137 mmol/L 135-145 N Potassium (test code = K) 3.6 mmol/L 3.5-5.1 N Chloride (test code = CL) 102 mmol/L 98-105 N Carbon Dioxide (test code = CO2) 22 mmol/L 22-29 N Glucose (test code = GLU) 67 mg/dL 70-115 L Blood Urea Nitrogen (test code = BUN) 4 mg/dL 6-20 L Creatinine (test code = CREAT) 0.4 mg/dL 0.5-0.9 L Calcium (test code = CA) 8.9 mg/dL 8.3-10.5 N Prot Total (test code = TP) 5.6 g/dL 6.4-8.3 L Albumin (test code = ALB) 3.2 g/dL 3.5-5.2 L A/G Ratio (test code = AGRATIO) 1.3 Ratio Globulin (test code = GLOB) 2.4 2.9-3.1 L Bili Total (test code = TBIL) 0.4 mg/dL 0.1-0.9 N Alk Phos (test code = APHOS) 66 U/L 35-104 N AST (test code = AST) 22 U/L 1-32 N ALT (test code = ALT) 13 U/L 1-33 N BUN/Creatinine Ratio (test code = BCRATIO) 10.0 Anion Gap (test code = AGAP) 13 mmol/L 7-16 N Estimated GFR (test code = GFR) >60 mL/min/1.73m2 eGFR (estimated Glomerular Filtration Rate) is an estimated value,calculated from the patient's serum creatinine using the MDRD equation.It is NOT the patient's actual GFR. The eGFR provides a more clinicallyuseful measure of kidney disease than serum creatinine alone.This calculation takes sex and race into account, if the informationis provided. If the race is not provided, and the patient isAfrican-Nicarag[place], multiply by 1.212. If sex is not provided, and thepatient is female, multiply by 0.742. Results for patients <18 years ofage have not been validated by the MDRD study and should be interpretedwith caution.eGFR Result Interpretation:eGFR > or = 60 is in the Normal RangeeGFR < 60 may mean kidney diseaseeGFR < 15 may mean kidney failureRanges recommended by the National Kidney Foundation,http://nkdep .nih.gov TIBC and [id number] 08:31:00* Test Item Value Reference Range Interpretation Comme nts Iron (test code = FE) 26 ug/dL 37-145 L UIBC (test code = UIBC) 406 ug/dL 112-346 H TIBC (test code = TIBC) 432 ug/dL 149-491 N % Saturation (test code = PSAT) 6 % 20-50 L CBC with [id number] 08:19:00* Test Item Value Reference Range Interpretation Comme nts WBC (test code = WBC) 14.3 K/cumm [...] 11.5-14.5 N Platelet Count (test code = PLTCT) 363 K/cumm 140-440 N MPV (test code = MPV) 7.5 fL [...] code = ALYMPH) 2.6 K/cumm 0.5-4.6 N Brazos Abs (test code = AMONO) 1.1 K/cumm 0.0-1.2 N Eos Abs (test code = AEOS) 0.27 K/cumm 0.00-0.74 N Baso Abs (test code = ABASO) 0.0 K/cumm 0.00-0.21 N RPR, [id number] 11:04:00* Test Item Value Reference Range Interpretation Comme nts RPR (test code = RPR) Non-Reactive Non-Reactive N Thyroid Stimulating Hormone (TSH)2017-01-26 05:33:00* Test Item Value Reference Range Interpretation Comme nts TSH (test code = TSH) 1.00 mIU/mL 0.270-4.200 N Comprehensive Metabolic [id number] 05:23:00* Test Item Value Reference Range Interpretation Comme nts Sodium (test code = NA) 137 mmol/L 135-145 N Potassium (test code = K) 3.6 mmol/L 3.5-5.1 N Chloride (test code = CL) 104 mmol/L 98-105 N Carbon Dioxide (test code = CO2) 21 mmol/L 22-29 L Glucose (test code = GLU) 78 mg/dL 70-115 N Blood Urea Nitrogen (test code = BUN) 5 mg/dL 6-20 L Creatinine (test code = CREAT) 0.5 mg/dL 0.5-0.9 N Calcium (test code = CA) 8.5 mg/dL 8.3-10.5 N Prot Total (test code = TP) 5.2 g/dL 6.4-8.3 L Albumin (test code = ALB) 3.1 g/dL 3.5-5.2 L A/G Ratio (test code = AGRATIO) 1.5 Ratio Globulin (test code = GLOB) 2.1 2.9-3.1 L Bili Total (test code = TBIL) 0.3 mg/dL 0.1-0.9 N Alk Phos (test code = APHOS) 64 U/L 35-104 N AST (test code = AST) 14 U/L 1-32 N ALT (test code = ALT) 8 U/L 1-33 N BUN/Creatinine Ratio (test code = BCRATIO) 10.0 Anion Gap (test code = AGAP) 12 mmol/L 7-16 N Estimated GFR (test code = GFR) >60 mL/min/1.73m2 eGFR (estimated Glomerular Filtration Rate) is an estimated value,calculated from the patient's serum creatinine using the MDRD equation.It is NOT the patient's actual GFR. The eGFR provides a more clinicallyuseful measure of kidney disease than serum creatinine alone.This calculation takes sex and race into account, if the informationis provided. If the race is not provided, and the patient isAfrican-Nicaraguan, multiply by 1.212. If sex is not provided, and thepatient is female, multiply by 0.742. Results for patients <18 years ofage have not been validated by the MDRD study and should be interpretedwith caution.eGFR Result Interpretation:eGFR > or = 60 is in the Normal RangeeGFR < 60 may mean kidney diseaseeGFR < 15 may mean kidney failureRanges recommended by the National Kidney Foundation,http://nkdep .nih.gov Lipid [id number] 05:23:00* Test Item Value Reference Range Interpretation Comme nts Cholesterol (test code = CHOL) 203 mg/dL 0-200 H Triglycerides (test code = TRIG) 153 mg/dL 9-200 N HDL (test code = HDL) 73 mg/dL 50-60 H Chol/HDL (test code = CHOLPHDL) 2.8 Ratio 0.0-4.4 N LDL, Calculated (test code = LDLC) 99 0-130 N (NOTE)RISK OF HEART DISEASEPublished by [place] Heart AssociationAnalyte Optimal Boderline Increased RiskCHOL <200 200-239 >240TRIG <150 150-199 >200HDL Male: >60 <40HDL Female: >60 <50LDL <100 130-159 >160LDL NEAR OPTIMAL IS 100-129 VLDL (test code = VLDL) 31 mg/dL 5-40 N LDL/HDL (test code = LDLPHDL) 1 CBC with [id number] 05:05:00* Test Item Value Reference Range Interpretation Comme nts WBC (test code = WBC) 14.1 K/cumm [...] 11.5-14.5 N Platelet Count (test code = PLTCT) 321 K/cumm 140-440 N MPV (test code = MPV) 7.7 fL [...] code = ALYMPH) 2.2 K/cumm 0.5-4.6 N Brazos Abs (test code = AMONO) 1.0 K/cumm 0.0-1.2 N Eos Abs (test code = AEOS) 0.29 K/cumm 0.00-0.74 N Baso Abs (test code = ABASO) 0.0 K/cumm 0.00-0.21 N
--- NOTE | 2024-09-24 10:10 | RAD REPORT ---
EXAMINATION: ONE VIEW CHEST XR CLINICAL INDICATION: CHEST PAIN TECHNIQUE: Frontal chest projection is submitted. Examination is limited by patient positioning and t echnique. COMPARISON: 10/20/2018 FINDINGS: Mild linear opacity medial left lung base retrocardiac region favored to represent subsegmental atele ctasis. Lungs otherwise clear. The heart is upper limit of normal in size. No displaced fractures identified.
[2024-09-24 10:53] LABS: SARS-CoV-2 Antigen CONTROL BLUE LINE VIS/BG OK; SARS-CoV-2 Antigen Rapid Res Negative (Negative)
[2024-09-24 11:05] LABS: Absolute Basophils 0.1 K/uL (0-0.5); Absolute Eosinophils 0.3 K/uL (0-0.5); Absolute Lymphocytes (CBC) 2.4 K/uL (0.7-4.9); Absolute Monocytes 0.8 K/uL (0.1-1.3); Absolute Neutrophil 7.5 K/uL (1.8-8.0); Basophils % 0.6 % (0-1.3); Eosinophils % 2.3 % (0-4.4); Hematocrit 36.4 % (36.0-45.0); Hemoglobin 11.7 g/dL (12.0-15.0); Lymphocytes % 21.7 % (15.3-44.8); MCH 26.5 pg (27.0-35.0); MCHC 32.1 g/dL (32.0-36.0); MCV 82.5 fL (80-100); MPV 7.5 fL (7.6-11.3); Monocytes % 7.4 % (3.3-12.3); Nucleated Red Blood Cells % 0.1 % (0-0); Platelets 531 thou/uL (152-406); RBC Red Blood Cell Count 4.42 M/uL (3.86-4.86); Red Cell Distribution Width 16.3 % (12.1-15.2)
[2024-09-24 11:12] LABS: D-Dimer 1.25 FEUug/mL (0-0.500); PT Prothrombin Time 11.3 SECONDS (9.4-12.5); Protime INR 1.01
[2024-09-24 11:20] LABS: ALT/SGPT 25 U/L (13-56); AST/SGOT 22 U/L (15-37); Albumin 3.4 g/dL (3.4-5.0); Albumin/Globulin Ratio 0.8 (1.1-1.8); Alkaline Phosphatase 59 U/L (45-117); Anion Gap 9.1 mEq/L (5.0-15.0); BUN Blood Urea Nitrogen 4 mg/dL (7-18); Bicarbonate 24 mEq/L (21-32); Bilirubin Total 0.4 mg/dL (0.2-1.0); C-Reactive Protein 7.46 mg/L (<3.00); Globulin 4.5 g/dL (2.3-3.5); Glomerular Filtration Rate 109 ml/min (=/>90); Glucose Level 102 mg/dL (74-106); Magnesium 2.1 mg/dL (1.6-2.4); NT PRO-BNP 10 pg/mL (<125); Potassium 4.1 mEq/L (3.5-5.1); Protein, Total 7.9 g/dL (6.4-8.2); Sodium Level 134 mEq/L (136-145)
[2024-09-24 11:21] LABS: Bilirubin Direct < 0.2 mg/dL (0-0.2); Bilirubin Indirect, Calculated 0.2 mg/dL (0.2-0.8); Troponin High Sensitivity < 3.0 pg/mL (<58.9)
--- NOTE | 2024-09-24 12:10 | RAD REPORT ---
EXAMINATION: US RIGHT UPPER EXTREMITY VENOUS DOPPLER CLINICAL INDICATION: Pain;Weakness RIGHT TECHNIQUE: Complete bilateral duplex sonography of the RIGHT upper extremity veins was performed. The examination included compression for vein patency, color Doppler imaging and flow augmentation in response to distal compression of the internal jugular, brachiocephalic, subclavian, axillary, brachi al, radial, ulnar, cephalic and basilic veins. COMPARISON: No prior exam. FINDINGS: Duplex sonography testing of the veins of the RIGHT upper extremity was performed. Color flow imaging shows all veins to be compressible with [id number] color filling. Pulsatile and phasic flow is present within all upper extremity deep and superficial veins examined. IMPRESSION: There is no deep vein or superficial vein thrombosis.
--- NOTE | 2024-09-24 12:51 | RAD REPORT ---
EXAMINATION: CTA CHEST PE CLINICAL INDICATION: Female, 29 years old. arm pain;Chest pain TECHNIQUE: This examination was performed according to an angiographic protocol with 3D post-processi ng. This involves 3D reconstructions, MIPs, volume rendered images and/or shaded surface rendering. One or more of the following dose reduction techniques were used: Automated exposure control, adjustm ent of the mA and/or kV according to patient size, and/or iterative reconstruction. Unless otherwise specified, incidental findings do not require dedicated imaging follow-up. [id number]. COMPARISON: Same-day chest x-ray FINDINGS: LOWER NECK: Visualized thyroid gland and soft tissues are normal. LUNGS AND AIRWAYS: Airways are clear. No evidence of airspace or interstitial process.No suspicious a nd/or stable pulmonary nodules. PLEURA: No pleural effusion. No pneumothorax. Hemidiaphragms are normally positioned. MEDIASTINUM AND LYMPH NODES: No mediastinal mass or fluid collection. Normal size mediastinal, hilar, and axillary lymph nodes. Small to moderate hiatal hernia. THORACIC AORTA: No thoracic aortic aneurysm. PULMONARY ARTERIES: Caliber is within normal limits. No pulmonary embolus. HEART: Normal heart size. No coronary calcifications.No significant pericardial effusion. OSSEOUS STRUCTURES AND CHEST WALL: No fracture or suspicious osseous lesions. UPPER ABDOMEN: No significant abnormalities. IMPRESSION: No evidence of pulmonary emboli to the subsegmental level. Lungs are clear.
--- NOTE | 2024-09-24 13:00 | ER ---
Nurse's Notes [facility] Name: Kelsea Toussaint Age: 29 yrs Sex: Female : 1995 Arrival Date: 09/24/2024 Time: 09:23 Bed 20 Private MD: Diagnosis: Chest wall pain, arm pain- right Presentation: 09/24 09:37 Chief complaint: Patient states: intermittent R arm pain/ cool sensation that began 5 ss days ago. Denies injury. Coronavirus screen: Client denies travel out of the [place] in the last 14 days. Ebola Screen: Patient denies exposure to infectious person. Patient denies travel to an Ebola-affected area in the 21 days before illness onset. Initial Sepsis Screen: Does the patient meet any 2 criteria? No. Patient's initial sepsis screen is negative. Does the patient have a suspected source of infection? No. Patient's initial sepsis screen is negative. Risk Assessment: Do you want to hurt yourself or someone else? Patient reports no desire to harm self or others. Onset of symptoms was September 19, 2024. 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 - Infectious Disease History:: Denies. - Social history:: Smoking status: Patient denies any tobacco usage or history of. Screenin:32 [facility] ED Fall Risk Assessment (Adult) History of falling in the last 3 months, cm10 including since admission No falls in past 3 months (0 pts) Confusion or Disorientation No (0 pts) Intoxicated or Sedated No (0 pts) Impaired Gait No (0 pts) Mobility Assist Device Used No (0 pt) Altered Elimination No (0 pt) Score/Fall Risk Level 0 - 2 = Low Risk Oriented to surroundings, Maintained a safe environment, Hourly rounding (assess needs \T\ fall precautionary measures) done. Abuse screen: Denies threats or abuse. Denies injuries from another. Nutritional screening: No deficits noted. Tuberculosis screening: No symptoms or risk factors identified. Assessment: 11:31 General: Appears in no apparent distress. uncomfortable, Behavior is calm, cooperative, cm10 appropriate for age. Pain: Complains of pain in anterior aspect of right upper chest and right arm Pain does not radiate. Pain currently is 9 out of 10 on a pain scale. Pain began gradually. Neuro: No deficits noted. Level of Consciousness is awake, alert, obeys commands, Oriented to person, place, time, situation, Appropriate for age. Respiratory: No deficits noted. Airway is patent Respiratory effort is even, unlabored, Respiratory pattern is regular, symmetrical. 13:35 Reassessment: Patient appears in no apparent distress at this time. No changes from cm10 previously documented assessment. Patient and/or family updated on plan of care and expected duration. Pain level reassessed. Patient is alert, oriented x 3, equal unlabored respirations, skin warm/dry/pink. Vital Signs: 09:37 BP 132 / 93; Pulse 97; Resp 15; Temp 98.9(O); Pulse Ox 100% on R/A; Weight 77.11 kg; ss Height 5 ft. 0 in. ; Pain 6/10; 11:15 BP 137 / 90; Pulse 86; Resp 16; Pulse Ox 99% on R/A; cm10 13:30 BP 131 / 80; Pulse 80; Resp 15; Pulse Ox 100% on R/A; cm10 09:37 Body Mass Index 33.20 (77.11 kg, 152.4 cm) ss 09:37 Pain Scale: Adult ss ED Course: 09:24 Patient arrived in ED. ra3 09:25 Carolee Nettles PA-C is PHCP. sb4 09:25 Ita Mac MD is Attending Physician. sb4 09:55 Angela Dubon, RN is Primary Nurse. jl7 09:57 Triage completed. ss 09:57 Arm band placed on left wrist. ss 10:07 XRAY Chest (1 view) In Process Unspecified. EDMS 10:07 Primary Nurse role handed off by Angela Dubon, RN cm10 10:07 Wendy Harris, RN is Primary Nurse. cm10 10:43 Initial lab(s) drawn, by me, sent to lab. Inserted saline lock: 20 gauge in right zm antecubital area, using aseptic technique. Blood collected. Flushed with 10 mL NS. 10:43 Basic Metabolic Panel Sent. zm 10:43 CBC with Diff Sent. zm 10:43 D-Dimer Sent. zm 10:43 LFT's Sent. zm 10:43 Magnesium Sent. zm 10:43 NT PRO-BNP Sent. zm 10:43 PT-INR Sent. zm 10:43 Troponin HS Sent. zm 10:43 CRP Sent. zm 11:13 UPPER EXTREMITY VENOUS UNILATE In Process Unspecified. EDMS 11:32 Patient has correct armband on for positive identification. Placed in gown. Bed in low cm10 position. Call light in reach. Side rails up X 1. Provided Education on: ER process and procedures.. Client placed on continuous cardiac and pulse oximetry monitoring. NIBP monitoring applied. 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 12:43 CT Chest For PE Angio In Process Unspecified. EDMS 13:35 No provider procedures requiring assistance completed. IV discontinued, intact, cm10 bleeding controlled, No redness/swelling at site. Pressure dressing applied. Patient maintains SpO2 saturation greater than 95% on room air. 13:35 Sling applied to right arm. cm10 Administered Medications: No medications were administered Medication: 11:32 VIS not applicable for this client. cm10 Outcome: 13:00 Discharge ordered by . [email or web address] 13:36 Discharged to home ambulatory, cm10 13:36 Condition: good 13:36 Discharge instructions given to patient, Instructed on discharge instructions, follow up and referral plans. medication usage, Demonstrated understanding of instructions, follow-up care, medications, Prescriptions given X 2, 13:36 Patient left the ED. cm10 Signatures: Dispatcher [employer] EDMS Mahi Gomez RN RN ss Leal, Jahala, RN RN Nicole Fenton Sophia, PA-C PA-C sb4 Martinez, Clarissa RN RN [email or web address] Gisele Renteria ra3 Corrections: (The following items were deleted from the chart) 09:59 09:57 Arm band placed on ss ss
--- NOTE | 2024-09-24 13:00 | EDPHYS ---
Physician Documentation [facility] Name: Kelsea Toussaint Age: 29 yrs Sex: Female : 1995 Arrival Date: 09/24/2024 Time: 09:23 Bed 20 Private MD: ED Physician Ita Mac HPI: 09/24 09:55 This 29 yrs old Female presents to ER via Unassigned with complaints of Chest sb4 Pain, Arm Pain. 09:55 patient reports right sided chest wall pain and right arm pain x 5 days. denies any sb4 known injury. states she has been coughing some but denies any other URI symptoms. describes the pain as sharp/shooting. no medical history, no daily meds. no smoking history. 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 - Infectious Disease History:: Denies. - Social history:: Smoking status: Patient denies any tobacco usage or history of. ROS: 09:55 Constitutional: Negative for fever, chills, and weight loss, sb4 09:55 Cardiovascular: Positive for chest pain, 09:55 Respiratory: Positive for cough, 09:55 MS/extremity: Positive for decreased range of motion, pain, of the right arm, 09:55 All other systems are negative, Exam: 09:55 Constitutional: This is a well developed, well nourished patient who is awake, alert, sb4 and in no acute distress. Head/Face: Normocephalic, atraumatic. Eyes: Extra-ocular motions intact. Periorbital areas with no swelling, redness, or edema. ENT: Mucous membranes moist. Cardiovascular: Regular rate and rhythm with a normal S1 and S2. Respiratory: No increased work of breathing, no retractions or nasal flaring. Abdomen/GI: Soft, non-tender, no distension. Skin: Warm, dry with normal turgor. Normal color with no rashes, no lesions, and no evidence of cellulitis. 09:55 Chest/axilla: Inspection: normal, Palpation: tenderness, that is moderate, of the anterior aspect of right upper chest, that totally reproduces the patient's complaints, 09:55 Musculoskeletal/extremity: ROM: limited active range of motion due to pain, limited passive range of motion due to pain, Circulation is intact in all extremities. Pulses: are normal with no appreciated deficits, Sensation intact. Vital Signs: 09:37 BP 132 / 93; Pulse 97; Resp 15; Temp 98.9(O); Pulse Ox 100% on R/A; Weight 77.11 kg; ss Height 5 ft. 0 in. ; Pain 6/10; 11:15 BP 137 / 90; Pulse 86; Resp 16; Pulse Ox 99% on R/A; cm10 13:30 BP 131 / 80; Pulse 80; Resp 15; Pulse Ox 100% on R/A; cm10 09:37 Body Mass Index 33.20 (77.11 kg, 152.4 cm) ss 09:37 Pain Scale: Adult ss MDM: 09:34 Medical Screening Exam initiated sb4 12:59 Data reviewed: vital signs, nurses notes, lab test result(s), radiologic studies, and sb4 as a result, I will discharge patient. Counseling: I had a detailed discussion with the patient and/or guardian regarding the historical points, exam findings, and any diagnostic results supporting the discharge/admit diagnosis, lab results, radiology results, to return to the emergency department if symptoms worsen or persist or if there are any questions or concerns that arise at home. 09/24 09:45 Order name: Basic Metabolic Panel; Complete Time: 11:22 sb4 09/24 09:45 Order name: CBC with Diff; Complete Time: 11:10 sb4 09/24 09:45 Order name: D-Dimer; Complete Time: 11:13 sb4 09/24 09:45 Order name: LFT's; Complete Time: 11:22 sb4 09/24 09:45 Order name: Magnesium; Complete Time: 11: sb4 09/24 09:45 Order name: NT PRO-BNP; Complete Time: 11:22 sb4 09/24 09:45 Order name: PT-INR; Complete Time: 11:13 sb4 09/24 09:45 Order name: Troponin HS; Complete Time: 11:22 sb4 09/24 09:45 Order name: Test, Serum; Complete Time: 11:59 sb4 09/24 09:45 Order name: CRP; Complete Time: 11:22 sb4 09/24 10:03 Order name: SARS RAPID; Complete Time: 10:54 sb4 09/24 10:03 Order name: Flu; Complete Time: 11:02 sb4 09/24 09:45 Order name: XRAY Chest (1 view); Complete Time: 10:13 sb4 09/24 09:45 Order name: CT Chest For PE Angio; Complete Time: 12:56 sb4 09/24 10:06 Order name: UPPER EXTREMITY VENOUS UNILATE; Complete Time: 12:11 EDMS 09/24 09:45 Order name: EKG; Complete Time: 09:46 sb4 09/24 09:45 Order name: Cardiac monitoring; Complete Time: 10:01 sb4 09/24 09:45 Order name: EKG - Nurse/Tech; Complete Time: 10:01 sb4 09/24 09:45 Order name: IV Saline Lock; Complete Time: 10:43 sb4 09/24 09:45 Order name: Labs collected and sent; Complete Time: 10:43 sb4 09/24 09:45 Order name: O2 Per Protocol; Complete Time: 10:01 sb4 09/24 09:45 Order name: O2 Sat Monitoring; Complete Time: 10:01 sb4 09/24 13:30 Order name: Sling; Complete Time: 13:35 sb4 EC:02 Rate is 85 beats/min. Rhythm is regular, Normal Sinus Rhythm. ME interval is normal at sb4 144 msec. QRS interval is normal at 96 msec. QT interval is normal at 378 msec. No Q waves. T waves are Normal. No ST changes noted. Clinical impression: Normal ECG. Interpreted by me. Administered Medications: No medications were administered Disposition Summary: 09/24/24 13:00 Discharge Ordered Notes: Location: Home sb4 Problem: an ongoing problem sb4 Symptoms: are unchanged sb4 Condition: Stable sb4 Diagnosis - Chest wall pain, arm pain- right sb4 Followup: sb4 - With: Private Physician - When: As needed - Reason: Recheck today's complaints, Re-evaluation by your physician Discharge Instructions: - Discharge Summary Sheet sb4 - Musculoskeletal Pain sb4 - Pinched Nerve sb4 Forms: - Patient Portal Instructions sb4 - Leadership Thank You Letter sb4 - Work release form cm10 Prescriptions: - ketorolac 10 mg Oral tablet - take 1 tablet ORAL route every 6 hours for 3 days as needed for pain; 12 sb4 tablet; Refills: 0, Product Selection Permitted - Prednisone 20 mg Oral Tablet - take 2 tablets ORAL route once daily for 5 days; 10 tablet; Refills: 0, Product sb4 Selection Permitted Signatures: Dispatcher [employer] EDMS Mahi Gomez, RN RN Carolee Hoffman PAKristina PAKristina sb4 Wendy Harris RN RN cm10 Corrections: (The following items were deleted from the chart) 09:46 09:46 BASIC METABOLIC PANEL+C.LAB.BRZ ordered. EDMS EDMS 09:46 09:46 CBC+H.LAB.BRZ ordered. EDMS EDMS 09:46 09:46 D-DIMER+COAG.LAB.BRZ ordered. EDMS EDMS 09:46 09:46 HEPATIC FUNCTION+C.LAB.BRZ ordered. EDMS EDMS 09:46 09:46 MAGNESIUM+C.LAB.BRZ ordered. EDMS EDMS 09:46 09:46 PROBNP+C.LAB.BRZ ordered. EDMS EDMS 09:46 09:46 PROTIME (+INR)+COAG.LAB.BRZ ordered. EDMS EDMS 09:46 09:46 Troponin High Sensitivity+C.LAB.BRZ ordered. EDMS EDMS 09:46 09:46 TEST, SERUM+SC.LAB.BRZ ordered. EDMS EDMS 09:46 09:46 C-REACTIVE PROTEIN+C.LAB.BRZ ordered. EDMS EDMS 09:46 09:46 Extremity Venous Uni Ltd+US.RAD.BRZ ordered. EDMS EDMS 09:46 09:46 Chest For PE Angio+CT.RAD.BRZ ordered. EDMS EDMS 10:03 10:03 SARS-COV-2 Antigen Rapid+I.LAB.BRZ ordered. EDMS EDMS 10:03 10:03 Influenza Screen (A \T\ B)+BA.LAB.BRZ ordered. EDMS EDMS
[2024-09-24 15:41] VITALS: TEMP 98.9
[2024-09-24 15:46] VITALS: BP 131/80; O2SAT 100
--- NOTE | 2024-09-27 12:13 | EKG ---
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
== END 2024-09-24 13:36 | disposition home or self-care (01) ==
LOC: ER 09:23
DX: R07.89 Other chest pain (principal); M79.601 Pain in right arm; R05.9 Cough, unspecified; Z11.52 Encounter for screening for COVID-19
CPT/HCPCS: 93005; 85025; 80048; 36415; 83735; 84703; 85610; 85379; 80076; 84484; 83880; 86140; 87804 ×2; 71275; 71045; 93971; 99284; 87811; Q9967

== ENCOUNTER 2024-12-03 19:28 | Emergency (ER) | payer SELFPAY ==
--- OUTSIDE RECORDS SUMMARY | 2024-12-03 19:32 | XMS REPORT | Continuity of Care Document ---
Author Name Unknown Address [address] [facility] [address] [place] [address] [facility] Address [address] [address] [place] [address] Care Team Providers Care Business Performance Advisor Name Role Phone UNKNOWN, REFFERING Primary Care Physician ANTONIO Galvin Attending Clinician Aminah vailable UNKNOWN, ATTENDING Attending Clinician Unavailab PATTIE Bee Attending Clinician Unavailable NICHO ORDONEZ Attending Clinician Unavailable Nicho Ordonez DO Attending Clinician [phone] AMERICA VEGA Attending Clinician Unavaila ble Lab, Ang-[facility]p Attending Clinician Unavailable America Vega CNM Attending Clinician [phone] CHER GLEASON Attending Clinician Unavail able Vick PALOMARES, Cliff Anderson Attending Clinician ALLYSON OLIVARES Attending Clinician Unavailable ALLYSON OLIVARES Attending Clinician Unavailable Trimester, [facility] Attending Clinician Unavailable Cher Girard Attending Clinician + Doctor Unassigned, [place] Attending Clinician U navailable Provider, [facility] Temp Attending Clinician Aminah SONNY Youssef Attending Clinician Unavailab ANIKET Welch Attending Clinician Unavail sienna Nguyen MD, Aniket Love Attending Clinician Pcp, Patient Does Not Have A Attending Clinician Visit, [facility] Nurse Attending Clinician Unava ilsienna Gregory MATCH MAKER, Sonny Mccormack Attending Clinician + [phone] Antonio Magdaleno MD Attending Clinician JOHANNY SHERIFF Attending Clinician UnavailIris Rodriguez MD Attending Clinician [phone] CATHY FITZPATRICK Attending Clinician Unavaila ble Room, [facility] Attending Clinician Unavail able Cathy Powers Attending Clinician CHRISTINA BRITT Attending Clinician Unavailable Christina Spann Attending Clinician [phone] Sarah CLARKE, Maida Sewell Attending Clinician Unavailable Leonie Nash RN Attending Clinician [phone] Only, Adc Test Attending Clinician Unavailable Vance Leon Attending Clinician Unavailable Kareem ELLSWORTH, Vinita Rush Attending Clinician [phone] VINITA TRIVEDI Attending Clinician UnavailLALY Zamora Attending Clinician Unav lavinia Fuentes RN, Elicia Salgado Attending Clinician + [phone] [facility] Unavailab Cale Pennington MD Attending Clinician [phone] THEO WING Attending Clinician Unavailable ANTONIO MAGDALENO Admitting Clinician Aminah ANIKET Adames Admitting Clinician Unavail Aniket Hernandez MD Admitting Clinician Antonio Magdaleno MD Admitting Clinician CHRISTINA BRITT Admitting Clinician Unavailable THEO WING Admitting Clinician Unavailable Payers Payer Name Policy Type Policy Number Effective Date Expirati on Date Source PHCS GENERIC [id number] 2020 00:00:00 MEDICAID PENDING PENDING 2021 00:00:00 [employer]BT[employer] [id number] 2020 00:00:00 [facility] [place] [facility] [id number] 00:00:00 [facility] [id number] 2024 00:00:00 Problems Condition Name Condition Details Condition Category Status Onset Date Resolution Date Last Treatment Date Treating Clinician Comments Source Multiparit y Multiparit y Disease Active 2021-09 00:00: 00 [facility] Supervisio n of high-risk Supervisio n of high-risk Disease Active 2021-09 00:00: 00 [facility] Vaginal bleeding during Vaginal bleeding during Disease Active 2021-09 00:00: 00 Overview: Formattin g of this note might be different from the original. Beta at [facility] [address] [facility] Gonorrhea Gonorrhea Disease Active 2 00:00: 00 [facility] Gonorrhea in Gonorrhea in Disease Active 2 00:00: 00 Overview: Formattin g of this note might be different from the original. pending corona [facility] Other general counseling and advice for contracept rose management Other general counseling and advice for contracept rose management Disease Active 2- 00:00: 00 [facility] Derangemen t of right knee ligament Derangemen t of right knee ligament Disease Active 5- 00:00: 00 Overview: Formattin g of this note might be different from the original. Added automatic ally from request for surgery [id number] [facility] Closed fracture of right tibial plateau, initial encounter Closed fracture of right tibial plateau, initial encounter Disease Active 12-16 00:00: 00 Overview: Formattin g of this note might be different from the original. Added automatic ally from request for surgery [id number] [facility] Knee dislocatio n, right, initial encounter Knee dislocatio n, right, initial encounter Disease Active 12-16 00:00: 00 [facility] Right knee pain, unspecifie d chronicity Right knee pain, unspecifie d chronicity Disease Active 12-02 00:00: 00 Overview: Formattin g of this note might be different from the original. Added automatic ally from request for surgery [id number] [facility] Right knee pain, unspecifie d chronicity Right knee pain, unspecifie d chronicity Disease Active 12-02 00:00: 00 Overview: Formattin g of this note might be different from the original. Added automatic ally from request for surgery [id number] [facility] Obesity in Obesity in Disease Active 8-10 00:00: 00 [facility] Over weight Over weight Disease Active 8-10 00:00: 00 [facility] Pain pelvic Pain pelvic Disease Active 8-10 00:00: 00 [facility] History of chlamydia History of chlamydia Disease Active 12-28 00:00: 00 [facility] History of depression History of depression Disease Active 12-28 00:00: 00 [facility] History of anxiety History of anxiety Disease Active 12-28 00:00: 00 [facility] History of suicide attempt History of suicide attempt Disease Active 12-28 00:00: 00 Overview: Formattin g of this note might be different from the original. 2017 with Tylenol overdose [facility] Right ovarian cyst Right ovarian cyst Disease Active 12-28 00:00: 00 [facility] Allergies, Adverse Reactions, Alerts Allergy Name Allergy Type Status Severity Reaction(s) Onset Date Inactive Date Treating Clinician Comments Source MORPHINE DRUG INGREDI Active Anaphylaxis 14 00:00: 00 [facility] PROMETHA ZINE DRUG INGREDI Active Anaphylaxis 03-09 00:00: 00 [facility] Morphine Propensi ty to adverse reaction s Active Anaphylaxis 03-09 00:00: 00 [facility] Prometha zine Propensi ty to adverse reaction s Active Anaphylaxis 03-09 00:00: 00 [facility] Penicill ins Propensi ty to adverse reaction s Active Rash 04-03 00:00: 00 [facility] PENICILL INS Drug Class Active Rash 04-03 00:00: 00 [facility] Penicill ins Propensi ty to adverse reaction s Active Rash 04-03 00:00: 00 [facility] Social History Social Habit Start Date Stop Date Quantity Comments Source ASSERTION 2022-07-16 00:00:00 [facility] intake 2023-07-01 00:00:00 2023-07-01 00:00:00 Current drinker of alcohol (finding) [facility] Exposure to SARS-CoV-2 (event) 2022-09-18 00:00:00 2022-09-28 09:43:00 Not sure [facility] Tobacco use and exposure 2022-08-23 00:00:00 2022-08-23 00:00:00 Smokeless tobacco non-user [facility] History of Social function 2022-08-17 00:00:00 2022-08-17 00:00:00 [facility] History SDOH Alcohol Frequency 2020-05-05 00:00:00 2020-05-05 00:00:00 3 [facility] History SDOH Alcohol Std Drinks 2020-05-05 00:00:00 2020-05-05 00:00:00 3 [facility] History SDOH Alcohol Binge 2020-05-05 00:00:00 2020-05-05 00:00:00 99 [facility] Alcohol Comment 2016-09-10 00:00:00 2016-09-10 00:00:00 before she found out she was [facility] History of tobacco use 2014-09-10 00:00:00 Cigarette Smoker [facility] Sex Assigned At 1995 00:00:00 1995 00:00:00 [facility] Smoking Status Start Date Stop Date Source Ex-smoker 2022-08-23 00:00:00 2022-08-23 00:00:00 U [facility] Medications Ordered Medication Name Filled Medication Name Start Date Stop Date Current Medication? Ordering Clinician Indication Dosage Frequency Signature (SIG) Comments Components Source QUEtiapine (SEROQUEL) tablet 25 mg 11-16 12:15: 00 11-16 11:34 :00 No 25mg 25 mg, Oral, ONCE NOW, 1 dose, On Tue11/16/23 at 0615, DEVIN [facility] No known medications 2021-09 14:39: 56 No No known medication s [facility] ibuprofen 800 mg tablet 2021-09 00:00: 00 09-08 05:59 :00 No [id number] 800mg Take 1 tablet by mouth every 6 (six) hours as needed for Pain (scale 1-3) or Pain (scale 4-6) for up to 14 days. [facility] cefTRIAXone (ROCEPHIN) injection 500 mg 2021-09 20:15: 00 08-17 20:23 :00 No [id number] 500mg [facility] cefTRIAXone (ROCEPHIN) 250 mg in lidocaine 1% (PF) (XYLOCAINE) 1 mL injection 2021-09 20:00: 00 08-17 20:16 :37 No [id number] 250mg [facility] ibuprofen 600 mg tablet 05 00:00: 00 08-23 00:00 :00 No [id number] 600mg Take 1 tablet by mouth every 6 (six) hours as needed for Pain (scale 1-3) or Pain (scale 4-6). [facility] acetaminoph en 325 mg tablet 5-05 00:00: 00 08-23 00:00 :00 No [id number] 650mg Take 2 tablets by mouth every 6 (six) hours as needed for Pain (scale 1-3), Pain (scale 4-6) or Alternate with ibuprofen for pain scale 4-6. [facility] HYDROcodone -acetaminop hen 5-325 mg tablet 01-28 00:00: 00 02-05 04:59 :00 No [id number] 1{tbl} Take 1 tablet by mouth every 6 (six) hours as needed for Pain (scale 7-10) for up to 7 days. Indication s: acute pain [facility] methocarbam oL 500 mg tablet 02-03 00:00: 00 11-02 00:00 :00 No [id number] 500mg Take 1 tablet by mouth 4 (four) times daily. [facility] ketorolac 10 mg tablet 02-03 00:00: 00 11-02 00:00 :00 No [id number] 10mg Take 1 tablet by mouth every 8 (eight) hours. [facility] aspirin 81 mg EC tablet 12-19 13:07: 12-19 00:00 :00 No 81mg Take 81 mg by mouth daily. [facility] acetaminoph en (TYLENOL) 325 mg tablet 12-19 13:07: 12-19 00:00 :00 No Take by mouth every 6 (six) hours as needed. [facility] ibuprofen (ADVIL) 200 mg tablet 12-19 13:07: 12-19 00:00 :00 No 200mg Take 200 mg by mouth every 6 (six) hours as needed. [facility] gabapentin 100 mg capsule 12-19 00:00: 00 11-02 00:00 :00 No [id number] 100mg Take 1 capsule by mouth 3 (three) times daily. [facility] HYDROcodone -acetaminop hen 5-325 mg tablet 11-21 00:00: 00 12-19 00:00 :00 No 1{tbl} Take 1 tablet by mouth every 6 (six) hours as needed. [facility] Immunizations Ordered Immunization Name Filled Immunization Name Date Status Comments Source HPV9 2018-04-18 00:00:00 Completed [facility] HPV9 2018-04-18 00:00:00 Completed [facility] HPV9 2018-04-18 00:00:00 Completed [facility] HPV9 2018-04-18 00:00:00 Completed [facility] HPV9 2018-04-18 00:00:00 Completed [facility] HPV9 2018-04-18 00:00:00 Completed [facility] HPV9 2018-04-18 00:00:00 Completed [facility] HPV9 2018-04-18 00:00:00 Completed [facility] HPV9 2018-04-18 00:00:00 Completed [facility] HPV9 2018-04-18 00:00:00 Completed [facility] TDAP 2018-01-17 00:00:00 Completed [facility] TDAP 2018-01-17 00:00:00 Completed [facility] TDAP 2018-01-17 00:00:00 Completed [facility] TDAP 2018-01-17 00:00:00 Completed [facility] TDAP 2018-01-17 00:00:00 Completed [facility] TDAP 2018-01-17 00:00:00 Completed [facility] TDAP 2018-01-17 00:00:00 Completed [facility] TDAP 2018-01-17 00:00:00 Completed [facility] TDAP 2018-01-17 00:00:00 Completed [facility] TDAP 2018-01-17 00:00:00 Completed [facility] HPV9 2017-06-17 00:00:00 Completed [facility] HPV9 2017-06-17 00:00:00 Completed [facility] HPV9 2017-06-17 00:00:00 Completed [facility] HPV9 2017-06-17 00:00:00 Completed [facility] HPV9 2017-06-17 00:00:00 Completed [facility] HPV9 2017-06-17 00:00:00 Completed [facility] HPV9 2017-06-17 00:00:00 Completed [facility] HPV9 2017-06-17 00:00:00 Completed [facility] HPV9 2017-06-17 00:00:00 Completed [facility] HPV9 2017-06-17 00:00:00 Completed [facility] HPV9 2017-04-20 00:00:00 Completed [facility] HPV9 2017-04-20 00:00:00 Completed [facility] HPV9 2017-04-20 00:00:00 Completed [facility] HPV9 2017-04-20 00:00:00 Completed [facility] HPV9 2017-04-20 00:00:00 Completed [facility] HPV9 2017-04-20 00:00:00 Completed [facility] HPV9 2017-04-20 00:00:00 Completed [facility] HPV9 2017-04-20 00:00:00 Completed [facility] HPV9 2017-04-20 00:00:00 Completed [facility] HPV9 2017-04-20 00:00:00 Completed [facility] TDAP 2017-02-14 00:00:00 Completed [facility] TDAP 2017-02-14 00:00:00 Completed [facility] TDAP 2017-02-14 00:00:00 Completed [facility] TDAP 2017-02-14 00:00:00 Completed [facility] TDAP 2017-02-14 00:00:00 Completed [facility] TDAP 2017-02-14 00:00:00 Completed [facility] TDAP 2017-02-14 00:00:00 Completed [facility] TDAP 2017-02-14 00:00:00 Completed [facility] TDAP 2017-02-14 00:00:00 Completed [facility] TDAP 2017-02-14 00:00:00 Completed [facility] Influenza Virus Vaccine Quad IM 3+ YRS 2016-09-10 00:00:00 Completed [facility] Influenza Virus Vaccine Quad IM 3+ YRS 2016-09-10 00:00:00 Completed [facility] Influenza Virus Vaccine Quad IM 3+ YRS 2016-09-10 00:00:00 Completed [facility] Influenza Virus Vaccine Quad IM 3+ YRS 2016-09-10 00:00:00 Completed [facility] Influenza Virus Vaccine Quad IM 3+ YRS 2016-09-10 00:00:00 Completed [facility] Influenza Virus Vaccine Quad IM 3+ YRS 2016-09-10 00:00:00 Completed [facility] Influenza Virus Vaccine Quad IM 3+ YRS 2016-09-10 00:00:00 Completed [facility] Influenza Virus Vaccine Quad IM 3+ YRS 2016-09-10 00:00:00 Completed [facility] Influenza Virus Vaccine Quad IM 3+ YRS 2016-09-10 00:00:00 Completed [facility] Influenza Virus Vaccine Quad IM 3+ YRS 2016-09-10 00:00:00 Completed [facility] Meningococcal Polysaccharide (groups A, C, Y and W-135) conjugate vaccine (MCV4P) 2015-06-24 00:00:00 Completed [facility] Meningococcal Polysaccharide (groups A, C, Y and W-135) conjugate vaccine (MCV4P) 2015-06-24 00:00:00 Completed [facility] Meningococcal Polysaccharide (groups A, C, Y and W-135) conjugate vaccine (MCV4P) 2015-06-24 00:00:00 Completed [facility] Meningococcal Polysaccharide (groups A, C, Y and W-135) conjugate vaccine (MCV4P) 2015-06-24 00:00:00 Completed [facility] Meningococcal Polysaccharide (groups A, C, Y and W-135) conjugate vaccine (MCV4P) 2015-06-24 00:00:00 Completed [facility] Meningococcal Polysaccharide (groups A, C, Y and W-135) conjugate vaccine (MCV4P) 2015-06-24 00:00:00 Completed [facility] Meningococcal Polysaccharide (groups A, C, Y and W-135) conjugate vaccine (MCV4P) 2015-06-24 00:00:00 Completed [facility] Meningococcal Polysaccharide (groups A, C, Y and W-135) conjugate vaccine (MCV4P) 2015-06-24 00:00:00 Completed [facility] Meningococcal Polysaccharide (groups A, C, Y and W-135) conjugate vaccine (MCV4P) 2015-06-24 00:00:00 Completed [facility] Meningococcal Polysaccharide (groups A, C, Y and W-135) conjugate vaccine (MCV4P) 2015-06-24 00:00:00 Completed [facility] Td 2012-05-04 00:00:00 Completed [facility] Td 2012-05-04 00:00:00 Completed [facility] Td 2012-05-04 00:00:00 Completed [facility] Td 2012-05-04 00:00:00 Completed [facility] Td 2012-05-04 00:00:00 Completed [facility] Td 2012-05-04 00:00:00 Completed [facility] Td 2012-05-04 00:00:00 Completed [facility] Td 2012-05-04 00:00:00 Completed [facility] Td 2012-05-04 00:00:00 Completed [facility] TD, NOS 2012-05-04 00:00:00 Completed [facility] TD, NOS Unknown Completed [facility] Meningococcal Polysaccharide (groups A, C, Y and W-135) conjugate vaccine (MCV4P) Unknown [facility] Influenza Virus Vaccine Quad IM 3+ YRS Unknown Completed [facility] TDAP Unknown Completed [facility] HPV9 Unknown Completed [facility] TD, NOS Unknown Completed [facility] Meningococcal Polysaccharide (groups A, C, Y and W-135) conjugate vaccine (MCV4P) Unknown Completed [facility] Influenza Virus Vaccine Quad IM 3+ YRS Unknown Completed [facility] TDAP Unknown Completed [facility] HPV9 Unknown Completed [facility] TD, NOS Unknown Completed [facility] Meningococcal Polysaccharide (groups A, C, Y and W-135) conjugate vaccine (MCV4P) Unknown Completed [facility] Influenza Virus Vaccine Quad IM 3+ YRS Unknown Completed [facility] TDAP Unknown Completed [facility] HPV9 Unknown Completed [facility] TD, NOS Unknown Completed [facility] Meningococcal Polysaccharide (groups A, C, Y and W-135) conjugate vaccine (MCV4P) Unknown Completed [facility] Influenza Virus Vaccine Quad IM 3+ YRS Unknown Completed [facility] TDAP Unknown Completed [facility] HPV9 Unknown Completed [facility] TD, NOS Unknown Completed [facility] Meningococcal Polysaccharide (groups A, C, Y and W-135) conjugate vaccine (MCV4P) Unknown Completed [facility] Influenza Virus Vaccine Quad IM 3+ YRS Unknown Completed [facility] TDAP Unknown Completed [facility] HPV9 Unknown Completed [facility] TD, NOS Unknown Completed [facility] Meningococcal Polysaccharide (groups A, C, Y and W-135) conjugate vaccine (MCV4P) Unknown Completed [facility] Influenza Virus Vaccine Quad IM 3+ YRS Unknown Completed [facility] TDAP Unknown Completed [facility] HPV9 Unknown Completed [facility] TD, NOS Unknown Completed [facility] Meningococcal Polysaccharide (groups A, C, Y and W-135) conjugate vaccine (MCV4P) Unknown Completed [facility] Influenza Virus Vaccine Quad IM 3+ YRS Unknown Completed [facility] TDAP Unknown Completed [facility] HPV9 Unknown Completed [facility] TD, NOS Unknown Completed [facility] Meningococcal Polysaccharide (groups A, C, Y and W-135) conjugate vaccine (MCV4P) Unknown Completed [facility] Influenza Virus Vaccine Quad IM 3+ YRS Unknown Completed [facility] TDAP Unknown Completed [facility] HPV9 Unknown Completed [facility] Vital Signs Vital Name Observation Time Observation Value Comments S ource Systolic blood pressure 2023-11-16 02:15:00 139 mm[Hg] [facility] Diastolic blood pressure 2023-11-16 02:15:00 92 mm[Hg] [facility] Heart rate 2023-11-16 02:15:00 90 /min [facility] Body temperature 2023-11-16 02:15:00 36.72 [facility] Respiratory rate 2023-11-16 02:15:00 16 /min [facility] Oxygen saturation in Arterial blood by Pulse oximetry 2023-11-16 02:15:00 99 /min [facility] Body height 2023-11-15 21:46:00 152.4 cm [facility] Body weight 2023-11-15 21:46:00 72.576 kg [facility] BMI 2023-11-15 21:46:00 31.25 kg/m2 [facility] Systolic blood pressure 2022-08-24 16:07:00 121 mm[Hg] [facility] Diastolic blood pressure 2022-08-24 16:07:00 75 mm[Hg] [facility] Heart rate 2022-08-24 16:07:00 88 /min [facility] Body temperature 2022-08-24 16:07:00 35.83 [facility] Respiratory rate 2022-08-24 16:07:00 18 /min [facility] Body height 2022-08-24 16:07:00 152.4 cm [facility] Body weight 2022-08-24 16:07:00 73.074 kg [facility] BMI 2022-08-24 16:07:00 31.46 kg/m2 [facility] Systolic blood pressure 2022-08-23 19:43:00 125 mm[Hg] [facility] Diastolic blood pressure 2022-08-23 19:43:00 80 mm[Hg] [facility] Body temperature 2022-08-23 19:43:00 36.56 [facility] Respiratory rate 2022-08-23 19:43:00 18 /min [facility] Body height 2022-08-23 19:43:00 152.4 cm [facility] Body weight 2022-08-23 19:43:00 73.71 kg [facility] BMI 2022-08-23 19:43:00 31.74 kg/m2 [facility] Systolic blood pressure 2022-08-17 19:41:00 127 mm[Hg] [facility] Diastolic blood pressure 2022-08-17 19:41:00 71 mm[Hg] [facility] Heart rate 2022-08-17 19:41:00 110 /min [facility] Body temperature 2022-08-17 19:41:00 36.67 [facility] Respiratory rate 2022-08-17 19:41:00 16 /min [facility] Body height 2022-08-17 19:41:00 152.4 cm [facility] Body weight 2022-08-17 19:41:00 74.072 kg [facility] BMI 2022-08-17 19:41:00 31.89 kg/m2 [facility] Procedures Procedure Date / Time Performed Performing Clinician Source POCT TEST 2023-11-16 02:07:00 Pilar Ordonez [facility] URINALYSIS 2023-11-15 23:41:00 [facility] URINE DRUG (IMMUNOASSAY) - COMPREHENSIVE DRUG SCREEN W/O REFLEX 2023-11-15 23:41:00 Singer Nicho [facility] COMP. METABOLIC PANEL ([id number]) 2023-11-15 22:24:00 Singer [facility] TOTAL BETA HCG ASSAY 2023-11-15 22:24:00 Red Ceja [facility] SALICYLATE 2023-11-15 22:24:00 [facility] ETHANOL 2023-11-15 22:24:00 [facility] CBC WITH DIFF 2023-11-15 22:24:00 Singer Nicho [facility] COVID-19 (MOLECULAR TESTING NUCLEIC ACID AMPLIFICATION) 2023-11-15 22:24:00 Singer [facility] COVID-19 (ID NOW RAPID TESTING) 2023-11-15 22:24:00 Singer [facility] LAB ONLY COVID INTERPRETATION 2023-11-15 22:24:00 Singer Nicho [facility] EMERGENCY DEPARTMENT DOCUMENTS 2023-11-15 06:01:00 Doctor Unassigned, [place] [facility] TOTAL BETA HCG ASSAY 2022-09-28 16:10:00 Cliff Hickman [facility] POCT TEST 2022-08-23 19:42:00 Jose G Gleason [facility] POCT URINALYSIS W/O SPECIFIC GRAVITY 2022-08-23 19:42:00 Cher Gleason [facility] ASSIGNMENT OF BENEFITS 2022-08-23 19:15:01 Docto r Unassigned, [place] GC & CHLAMYDIA AMPLIFIED ASSAY 2022-08-17 22:22:00 America Vega [facility] POCT TEST 2022-08-17 19:45:00 Diana Vega [facility] EXTERNAL PROVIDER RECORDS 2022-02-09 05:01:00 Do ctor Unassigned, [place] [facility] Encounters Start Date/Time End Date/Time Encounter Type Admission Type Attending [facility] Care Facility Care Department Encounter ID Source 2021-07-26 17:44:43 Outpatient ANTONIO WALKER [facility] [id number] [facility] 2021-07-26 14:14:14 Emergency [facility] [id number] [facility] 2021-07-26 07:52:18 Emergency [facility] [id number] [facility] 2021-07-26 05:03:23 Inpatient ANTONIO WALKER [facility] [id number] [facility] 2021-07-26 04:36:19 Inpatient ANTONIO MAGDALENO [facility] SOR [id number] [facility] 2024-07-13 13:00:00 2024-07-13 13:00:00 Outpatient RODOLFO DANIEL [facility] [id number] [facility] 2024-02-21 07:45:00 2024-02-21 07:45:00 Outpatient PATTIE PETERSON [facility] [id number] [facility] 2023-11-15 16:14:00 2023-11-16 18:02:00 Emergency X NICHO ORDONEZ [facility] ERT [id number] [facility] 2023-11-15 16:14:00 2023-11-16 18:02:00 Emergency Nicho Ordonez [facility] 1.2.840.114 350.1.13.10 4.2.7.2.686 [id number] [facility] 2022-09-28 10:30:00 2022-09-28 10:30:00 Outpatient AMERICA LITTLE [facility] [id number] [facility] 2022-09-28 10:30:00 2022-09-28 10:30:00 Form Maker Visit Lab, [facility] America Vega [facility] [employer] INSPECTOR [facility] MAT[facility] & [facility]ILD [facility] 1.2.840.114 350.1.13.10 4.2.7.2.686 [id number] [facility] 2022-09-10 11:00:00 2022-09-10 11:00:00 Outpatient CHER FUNEZ [facility] [id number] [facility] 2022-09-09 00:00:00 2022-09-09 00:00:00 Case [facility] 1.2.840.114 350.1.13.10 4.2.7.2.686 [id number] [facility] 2022-09-07 00:00:00 2022-09-07 00:00:00 Telephone [facility] 1..840.114 350.1.13.10 4.2.7.2.686 [id number] [facility] 2022-09-03 10:30:00 2022-09-03 10:30:00 Outpatient AMERICA LITTLE [facility] [id number] [facility] 2022-09-01 00:00:00 2022-09-01 00:00:00 Patient Secure Msg [facility] 1..840.114 350.1.13.10 4.2.7.2.686 [id number] [facility] 2022-08-31 08:30:00 2022-08-31 08:30:00 Outpatient AMERICA LITTLE [facility] [id number] [facility] 2022-08-24 10:00:00 2022-08-24 10:47:49 Outpatient R ALLYSON OLIVARES KARREN [facility] [id number] [facility] 2022-08-24 10:00:00 2022-08-24 10:47:49 Routine Visit Trimester, [facility]-1st Allyson Olivares [facility] 1.114 350.1.13.10 4.2.7.2.686 [id number] [facility] 2022-08-23 13:30:00 2022-08-23 14:36:31 Outpatient R CHER GLEASON [facility] [id number] [facility] 2022-08-23 13:30:00 2022-08-23 14:36:31 Initial Visit Cher Gleason [facility] [employer] INSPECTOR [facility] MATERNAL & CHILD [facility] 1.84.114 350.1.13.10 4.2.7.2.686 [id number] [facility] 2022-08-23 00:00:00 2022-08-23 00:00:00 Orders Only Doctor Unassigned, [place] [facility] 1.114 350.1.13.10 4.2.7.2.686 [id number] [facility] 2022-08-17 13:15:00 2022-08-17 14:36:01 Outpatient R AMERICA VEGA [facility] [id number] [facility] 2022-08-17 13:15:00 2022-08-17 14:36:01 Office Visit Provider, [facility] [place] America Vega [facility] [employer] INSPECT[facility] 1.840.114 350.1.13.10 4.2.7.2.686 [id number] [facility] 2022-08-17 11:30:00 2022-08-17 11:30:00 Outpatient R [facility] [id number] [facility] 2022-05-17 10:30:00 2022-05-17 10:30:00 Outpatient R CHER GLEASON [facility] [id number] [facility] 2022-02-11 13:15:00 2022-02-11 13:15:00 Outpatient R [facility] [id number] [facility] 2022-02-09 00:00:00 2022-02-09 00:00:00 Orders Only Doctor Unassigned, [place] [facility] 1.840.114 350.1.13.10 4.2.7.2.686 [id number] [facility] 2022-02-01 10:30:00 2022-02-01 10:30:00 Outpatient R RAMON GREGORYJEREMIAHINDemetri [facility] [id number] [facility] 2022-02-01 10:30:00 2022-02-01 10:30:00 Outpatient SONNY DONALDSON [facility] [id number] [facility] 2022-02-01 00:00:00 2022-02-01 00:00:00 Telephone Cher Gleason [facility] MOT[employer] INSPECTOR [facility] 1..840.114 350.1.13.10 4.2.7.2.686 [id number] [facility] 2022-01-29 00:00:00 2022-01-29 00:00:00 Patient Secure Msg Doctor Unassigned, [place] [facility] 1.840.114 350.1.13.10 4.2.7.2.686 [id number] [facility] 2022-01-28 00:18:00 2022-01-28 09:00:00 Outpatient X ANIKET NGUYEN [facility] ERT [id number] [facility] 2022-01-28 00:18:00 2022-01-28 09:00:00 Emergency , [facility] 1..114 350.1.13.10 4.2.7.2.686 [id number] [facility] 2022-01-28 00:18:00 2022-01-28 09:00:00 Outpatient X [facility] [id number] [facility] 2022-01-28 02:20:00 2022-01-28 05:25:[address] [facility] 1.0.114 350.1.13.10 4.2.7.2.686 [id number] [facility] 2022-01-28 00:00:00 2022-01-28 00:00:00 Telephone Pcp, Patient Does Not Have A [facility] 1..114 350.1.13.10 4.2.7.2.686 [id number] [facility] 2021-11-17 00:00:00 2021-11-17 00:00:00 Telephone Cher Gleason [facility] MOT[employer]HICLE INSPECTOR [facility] MAT[facility]NAL & CHILD [facility] 1..114 350.1.13.10 4.2.7.2.686 [id number] [facility] 2021-11-12 13:15:00 2021-11-12 13:15:00 Outpatient R CHER GLEASON [facility] [id number] [facility] 2021-11-06 09:00:00 2021-11-06 09:37:49 Nurse Visit [facility] Sonny Gregory [facility] [employer] INSPECT[facility] 1..114 350.1.13.10 4.2.7.2.686 [id number] [facility] 2021-11-06 09:00:2021-11-06 09:00:00 Outpatient R BRI KANGDemetri [facility] [id number] [facility] 2021-11-04 00:00:00 2021-11-04 00:00:00 Telephone Cher Gleason [facility] [employer] INSPECT[facility] 1.2.840.114 350.1.13.10 4.2.7.2.686 [id number] 107 [id number] [facility] 2021-11-03 11:00:00 2021-11-03 11:00:00 Outpatient R RAMON GREGORYKANDIS [facility] [id number] [facility] 2021-11-03 00:00:00 2021-11-03 00:00:00 Telephone Cher Gleason [facility] MOT[employer]HICLE INSPECTOR [facility] 1.2.840.114 350.1.13.10 4.2.7.2.686 [id number] [facility] 2021-11-02 11:00:00 2021-11-02 11:58:37 Outpatient R CHER GLEASON [facility] [id number] [facility] 2021-11-02 11:00:00 2021-11-02 11:58:37 Office Visit Cher Gleason [facility] 1..840.114 350.1.13.10 4.2.7.2.686 [id number] [facility] 2021-11-02 11:00:00 2021-11-02 11:58:37 Outpatient R CHER GLEASON [facility] [id number] [facility] 2021-11-02 11:00:00 2021-11-02 11:00:00 Outpatient R CHER GLEASON [facility] [id number] [facility] 2021-07-30 16:20:00 2021-07-30 16:20:00 Outpatient R ANTONIO MAGDALENO [facility] [id number] [facility] 2021-05-12 14:15:00 2021-05-12 14:15:00 Outpatient Ksenia GLEASON CHER [facility] [id number] [facility] 2021-04-23 16:44:50 2021-04-23 23:59:00 Hospital Encounter Antonio Magdaleno [facility] 1.2.840.114 350.1.13.10 4.2.7.2.686 [id number] [facility] 2021-04-23 16:44:50 2021-04-23 23:59:00 Outpatient ANTONIO WALKER [facility] [id number] [facility] 2021-04-23 17:05:33 2021-04-23 17:15:56 Office Visit Antonio Magdaleno [facility] [place] [facility] 1.2.840.114 350.1.13.10 4.2.7.2.686 [id number] [facility] 2021-04-23 16:40:00 2021-04-23 16:40:00 Outpatient ANTONIO WALKER [facility] [id number] [facility] 2021-04-23 00:00:00 2021-04-23 00:00:00 Letter (Out) Antonio Magdaleno [facility] [place] .2.840.114 350.1.13.10 4.2.7.2.686 [id number] [facility] 2021-03-24 08:20:00 2021-03-24 08:20:00 Outpatient JOHANNY SIMS [facility] [id number] [facility] 2021-03-16 08:00:00 2021-03-16 08:00:00 Outpatient JOHANNY SIMS [facility] [id number] [facility] 2021-03-12 14:23:47 2021-03-12 23:59:00 Hospital Encounter Antonio Magdaleno [facility] [place] 1..840.114 350.1.13.10 4.2.7.2.686 [id number] [facility] 2021-03-12 14:23:47 2021-03-12 23:59:00 Outpatient R ANTONIO MAGDALENO [facility] [id number] [facility] 2021-03-12 14:13:56 2021-03-12 14:57:27 Office Visit Antonio Magdaleno [facility] 1..840.114 350.1.13.10 4.2.7.2.686 [id number] [facility] 2021-03-12 14:40:00 2021-03-12 14:40:00 Outpatient R ANTONIO MAGDALENO [facility] [id number] [facility] 2021-02-25 00:00:00 2021-02-25 00:00:00 Letter (Out) Iris Andrews [facility] ..840.114 350.1.13.10 4.2.7.2.686 [id number] [facility] 2021-02-19 09:40:00 2021-02-19 09:40:00 Outpatient CATHY FAN [facility] [id number] [facility] 2021-02-13 00:00:00 2021-02-13 00:00:00 Patient Secure Msg Antonio Magdaleno [facility] C[facility] ..840.114 350.1.13.10 4.2.7.2.686 [id number] [facility] 2021-02-12 00:00:00 2021-02-12 00:00:00 Patient Secure Msg Antonio Magdaleno [facility] ..840.114 350.1.13.10 4.2.7.2.686 [id number] [facility] 2021-02-12 00:00:00 2021-02-12 00:00:00 Patient Secure Mscarlito Antonio Magdaleno [facility] 1.2.840.114 350.1.13.10 4.2.7.2.686 [id number] [facility] 2021-02-05 13:59:47 2021-02-05 14:29:47 Form Maker Visit Room, Vls Ortho Cast Antonio Magdaleno [facility] CARE [place] [facility] 1.2840.114 350.1.13.10 4.2.7.2.686 [id number] [facility] 2021-02-05 14:00:00 2021-02-05 14:00:00 Outpatient R [facility] [id number] [facility] 2021-02-04 00:00:00 2021-02-04 00:00:00 Telephone Antonio Magdaleno [facility] 1.2840.114 350.1.13.10 4.2.7.2.686 [id number] [facility] 2021-02-03 11:47:00 2021-02-03 15:25:00 Hospital Encounter Antonio Magdaleno [facility] 1.2.840.114 350.1.13.10 4.2.7.2.686 [id number] [facility] 2021-02-03 13:50:00 2021-02-03 15:11:00 Surgery Antonio Magdaleno [facility] 1.2.840.114 350.1.13.10 4.2.7.2.686 [id number] [facility] 2021-02-03 00:00:00 2021-02-03 00:00:00 Orders Only Doctor Unassigned, [place] [facility] 1.2840.114 350.1.13.10 4.2.7.2.686 [id number] [facility] 2021-01-29 16:10:26 2021-01-29 23:59:00 Outpatient ANTONIO WALKER [facility] [id number] [facility] 2021-01-29 16:10:26 2021-01-29 23:59:00 Hospital Encounter Antonio Magdaleno [facility] 1.2840.114 350.1.13.10 4.2.7.2.686 [id number] [facility] 2021-01-29 16:50:00 2021-01-29 16:50:00 Outpatient ANTONIO WALKER [facility] [id number] [facility] 2021-01-29 15:49:26 2021-01-29 16:43:46 Office Visit Antonio Magdaleno [facility] 1.2.840.114 350.1.13.10 4.2.7.2.686 [id number] [facility] 2021-01-22 00:00:00 2021-01-22 00:00:00 Cathy Johnson [facility] 1.2.840.114 350.1.13.10 4.2.7.2.686 [id number] [facility] 2021-01-15 15:42:36 2021-01-15 16:25:50 Office Visit Antonio Magdaleno [facility] [place] [facility] 1.2840.114 350.1.13.10 4.2.7.2.686 [id number] [facility] 2021-01-15 15:00:00 2021-01-15 15:00:00 Outpatient ANTONIO WALKER [facility] [id number] [facility] 2021-01-13 22:42:00 2021-01-14 02:25:00 Emergency X CHRISTINA BRITT [facility] ERT [id number] [facility] 2021-01-13 22:42:00 2021-01-14 02:25:00 Emergency Christina Britt [facility] 1.2.840.114 350.1.13.10 4.2.7.2.686 [id number] [facility] 2021-01-14 00:00:00 2021-01-14 00:00:00 Patient Secure Antonio Magdaleno [facility] 1.2.840.114 350.1.13.10 4.2.7.2.686 [id number] [facility] 2021-01-14 00:00:00 2021-01-14 00:00:00 Patient Secure Msg Moraalejandro [facility] 1.2.840.114 350.1.13.10 4.2.7.2.686 [id number] [facility] 2021-01-13 00:00:00 2021-01-13 00:00:00 Nurse Triage Maida Smith [facility] 1.2.840.114 350.1.13.10 4.2.7.2.686 [id number] [facility] 2021-01-01 13:28:30 2021-01-01 13:48:30 Office Visit Cathy Fitzpatrick [facility] 1.2.840.114 350.1.13.10 4.2.7.2.686 [id number] [facility] 2021-01-01 11:00:00 2021-01-01 11:00:00 Outpatient R CATHY FITZPATRICK [facility] [id number] [facility] 2021-01-01 00:00:00 2021-01-01 00:00:00 Telephone Cathy Fitzpatrick [facility] 1.2840.114 350.1.13.10 4.2.7.2.686 [id number] [facility] 2020-12-23 00:00:00 2020-12-23 00:00:00 Transition of Care Leonie Nash Melodie Goss 1.0.114 350.1.13.10 4.2.7.2.686 [id number] [facility] 2020-12-16 00:00:00 2020-12-16 00:00:00 Telephone Antonio Magdaleno [facility] [place] [facility] 1.840.114 350.1.13.10 4.2.7.2.686 [id number] [facility] 2020-12-12 10:51:08 2020-12-12 11:06:08 Laboratory Only Only, Adc Test Cathy Fitzpatrick [facility] 1.840.114 350.1.13.10 4.2.7.2.686 [id number] [facility] 2020-12-12 11:00:00 2020-12-12 11:00:00 Outpatient R CATHY FITZPATRICK [facility] [id number] [facility] 2020-12-09 00:00:00 2020-12-09 00:00:00 Orders Only Doctor Unassigned, [place] [facility] 1.0.114 350.1.13.10 4.2.7.2.686 [id number] [facility] 2020-12-08 00:00:00 2020-12-08 00:00:00 Patient Secure Msg Antonio Magdaleno [facility] [facility] 1.840.114 350.1.13.10 4.2.7.2.686 [id number] [facility] 2020-12-05 00:00:00 2020-12-05 00:00:00 Telephone Antonio Magdaleno [facility] [facility] 1.2.840.114 350.1.13.10 4.2.7.2.686 [id number] [facility] 2020-12-04 00:00:00 2020-12-04 00:00:00 Telephone Antonio Magdaleno [facility] 1.2.840.114 350.1.13.10 4.2.7.2.686 [id number] [facility] 2020-12-02 14:52:17 2020-12-02 23:59:00 Hospital Encounter Antonio Magdaleno [facility] 1.2.840.114 350.1.13.10 4.2.7.2.686 [id number] [facility] 2020-12-02 11:19:31 2020-12-02 12:10:19 Office Visit Antonio Magdaleno [facility] 1.2.840.114 350.1.13.10 4.2.7.2.686 [id number] [facility] 2020-12-02 11:50:00 2020-12-02 11:50:00 Outpatient ANTONIO WALKER [facility] [id number] [facility] 2020-11-27 15:25:00 2020-11-27 23:59:00 Hospital Encounter Antonio Magdaleno [facility] SPECIALTY [facility] 1.2.840.114 350.1.13.10 4.2.7.2.686 [id number] [facility] 2020-11-27 15:14:18 2020-11-27 16:21:09 Office Visit Antonio Magdaleno [facility] SPECIALTY [facility] 1.2.840.114 350.1.13.10 4.2.7.2.686 [id number] [facility] 2020-11-27 15:00:00 2020-11-27 15:00:00 Outpatient Ksenia MAGDALENO ANTONIO [facility] [id number] [facility] 2020-11-19 14:10:29 2020-11-19 14:10:29 Outpatient EdwardVance josue [facility] [id number] [facility] 2020-08-08 15:11:27 2020-08-08 15:30:04 [facility] [employer] INS[employer] 1.2.840.114 350.1.13.10 4.2.7.2.686 [id number] 2020-08-08 15:11:27 2020-08-08 15:30:04 [facility] Cher Caballero [facility] [employer] INSPECT[facility] 1.2.840.114 350.1.13.10 4.2.7.2.686 [id number] [facility] 2020-08-08 15:00:00 2020-08-08 15:00:00 Outpatient CHER FUNEZ [facility] [id number] [facility] 2020-08-08 13:30:00 2020-08-08 13:30:00 Outpatient R [facility] [id number] [facility] 2020-05-09 08:07:49 2020-05-09 08:48:50 Nurse Visit Visit, [facility] Nurse Vinita Trivedi [facility] 1.2.840.114 350.1.13.10 4.2.7.2.686 [id number] [facility] 2020-05-09 08:07:49 2020-05-09 08:48:50 Nurse Visit Visit, JanelleRmchp Nurse [facility] [employer]LE INSPECTOR [facility] CHILD [facility] 1.2.840.114 350.1.13.10 4.2.7.2.686 [id number] 2020-05-09 08:00:00 2020-05-09 08:00:00 Outpatient R VINITA TRIVEDI [facility] [id number] [facility] 2020-05-09 00:00:00 2020-05-09 00:00:00 Telephone Vinita Trivedi [facility] [employer] INS[employer] 1.2.840.114 350.1.13.10 4.2.7.2.686 [id number] [facility] 2020-05-09 00:00:00 2020-05-09 00:00:00 Telephone Vinita Trivedi [facility] [employer] 1.2.840.114 350.1.13.10 4.2.7.2.686 [id number] 2020-05-07 00:00:00 2020-05-07 00:00:00 Patient Secure Msg Doctor Unassigned, [place] [facility] [employer] INSPECTOR [facility] 1.2.840.114 350.1.13.10 4.2.7.2.686 [id number] [facility] 2020-05-06 00:00:00 2020-05-06 00:00:00 Telephone Sonny Gregory [facility] MOT[employer] VE[employer]LE INSPECTOR [facility] 1.2.840.114 350.1.13.10 4.2.7.2.686 [id number] [facility] 2020-05-05 08:14:02 2020-05-05 09:52:07 Office Visit Sonny Gregory [facility] MOT[employer]HICLE INSPECTOR [facility] 1.2.840.114 350.1.13.10 4.2.7.2.686 [id number] [facility] 2020-05-05 08:30:00 2020-05-05 08:30:00 Outpatient R BRI RAMONKANDIS [facility] [id number] [facility] 2020-05-05 00:00:00 2020-05-05 00:00:00 Orders Only Doctor Unassigned, [place] [facility] 1.0.114 350.1.13.10 4.2.7.2.686 [id number] [facility] 2020-02-20 00:00:00 2020-02-20 00:00:00 Telephone Vinita Trivedi [facility] MOT[employer]LE INSPECTOR [facility] 1..114 350.1.13.10 4.2.7.2.686 [id number] [facility] 2019-12-26 12:00:00 2019-12-26 12:00:00 Outpatient R LALY T[facility] [id number] [facility] 2019-05-01 00:00:00 2019-05-01 00:00:00 Case Management Elicia Fuentes [facility] 1..114 350.1.13.10 4.2.7.2.686 [id number] [facility] 2019-04-26 10:33:39 2019-04-26 11:17:37 Office Visit Bhargav, [facility] Resident Cale Otero [facility] 1..114 350.1.13.10 4.2.7.2.686 [id number] [facility] 2019-03-27 00:00:00 2019-03-27 00:00:00 Patient Secure Msg Doctor Unassigned, [place] [facility] 1..114 350.1.13.10 4.2.7.2.686 [id number] [facility] 2019-03-23 00:00:00 2019-03-23 00:00:00 Patient Secure Msg Doctor Unassigned, [place] [facility] 1.2.840.114 350.1.13.10 4.2.7.2.686 [id number] [facility] Results Test Description Test Time Test Comments Results Result Co mments Source [facility] BETA HCG [id number] 07:30:25BETA HCG<2.39Non- female and male patients: <5 mIU/mL09/29/2022 1:30 AM [facility] Gestational Age ?Range (mIU/mL) 1-10 ?Weeks ?[id number] Weeks ?[id number] Weeks ?[id number] Weeks ?[id number] Biotin has been reported to cause a negative bias, interpret results relative to patient's use of biotin.[facility] TEST 2022-08-23 19:42:00* Test Item Value Reference Range Interpretation Comme nts POCT PREG (test code = 1605) Positive On board controls acceptable with C Line (test code = 3574) Yes POCT PREG LOT # (test code = 3575) POCT PREG TEST DATE ( test code = 3576) [facility] URINALYSIS W/O SPECIFIC [id number] 19:42:00* Test Item Value Reference Range Interpretation [...] = 3257) Large Negative - Negati ve [facility] [id number] 19:48:00* Test Item Value Reference Range Interpretation Comme nts POCT PREG (test code = 1605) Positive On board controls acceptable with C Line (test code = 3574) Yes POCT PREG LOT # (test code = 3575) POCT PREG TEST DATE ( test code = 3576) [id number]* Test Item Value Reference Range Interpretation Comme nts POCT PREG (test code = 1605) Positive On board controls acceptable with C Line (test code = 3574) Yes POCT PREG LOT # (test code = 3575) POCT PREG TEST DATE ( test code = 3576) [facility]- [facility] LOWER EXTRM W/O C [id number] 14:22:00 [facility] 1995 Sex: F Patient Name: PLACIDO WALKER Unit No: [id number] EXAMS: CPT CODE: [id number] CT L[place] EXTRM W/[place] [address] CT OF THE RIGHT KNEE WITH SAGITTAL [...] with ACR practice standards and 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 Multiple fractures are present as described. at 1422 Reported and signed by: Claudio Aj MD CC: Vance Leon MD Technologist: Enrique Mantilla,RT(R) CTDI: DLP: Trnscrpt: 11/19/2020 (1421) tERNESTOJCL [facility] NAME: PLACIDO WALKER [address] [facility] PHYS: BRIMA. - Vacne Leon MD : 1995 AGE: 25 SEX: F [place] [address] LOC: Y.RAD PHONE #: [phone] EXAM DATE: 11/19/2020 STATUS: REG CLI FAX #: [phone] RAD #: D/C DT PAGE 1 Signed Report Patient Name: PLACIDO WALKER Unit No: [id number] EXAMS: CPT CODE: [id number] CT L[place] EXTRM W/[place] [address] (Continued) Orig Print D/T: S: 11/19/2020 (142) [facility] NAME: PLACIDO WALKER [address] [facility] PHYS: BRIMA. - Vance Leon MD : 1995 AGE: 25 SEX: F [place] [address] LOC: Y.RAD PHONE #: [phone] EXAM DATE: 11/19/2020 STATUS: REG CLI FAX #: [phone] RAD #: D/C DT PAGE 2 Signed ReportHIV [id number] 11:44:00* Test Item Value Reference Range Interpretation Comme nts HIV 1/2 Antibody (test code = HIV1/2AB) Non-Reactive Non-Reactive N HIV1/2 Antibody screen result indicates the absence of HIV1 and ZJD9rpjayyewj.However, A Non-Reactive screen result does not rule [...] RNA Quantitative is recommended. Hep B Surface [id number] 09:41:00* Test Item Value Reference Range Interpretation Comme nts Hep Bs Ag (test code = HBSAG) Nonreactive Non-Reactive A BHCG, Serum, [id number] 08:32:00* Test Item Value Reference Range Interpretation Comme nts Preg Qual [Se] (test code = BSHCG) POSITIVE Negative A Comprehensive Metabolic [id number] 08:31:00* Test Item Value Reference Range Interpretation [...] race is not provided, and the patient isAfrican-[place]ore[place], multiply by 1.212. If sex is not [...] the National Kidney Foundation,http://nkdep .nih.gov TIBC and [id number] 08:31:00* Test Item Value Reference Range Interpretation Comme nts Iron (test code = FE) 26 ug/dL 37-145 L UIBC (test code = UIBC) 406 ug/dL 112-346 H TIBC (test code = TIBC) 432 ug/dL 149-491 N % Saturation (test code = PSAT) 6 % 20-50 L CBC with [id number] 08:19:00* Test Item Value Reference Range Interpretation [...] code = ALYMPH) 2.6 K/cumm 0.5-4.6 N [place] Abs (test code = AMONO) 1.1 K/cumm 0.0-1.2 N Eos Abs (test code = AEOS) 0.27 K/cumm 0.00-0.74 N Baso Abs (test code = ABASO) 0.0 K/cumm 0.00-0.21 N RPR, [id number] 11:04:00* Test Item Value Reference Range Interpretation Comme nts RPR (test code = RPR) Non-Reactive Non-Reactive N Thyroid Stimulating Hormone (TSH)2017-01-26 05:33:00* Test Item Value Reference Range Interpretation Comme nts TSH (test code = TSH) 1.00 mIU/mL 0.270-4.200 N Comprehensive Metabolic [id number] 05:23:00* Test Item Value Reference Range Interpretation [...] race is not provided, and the patient isAfrican-East [place]ore[place], multiply by 1.212. If sex is not [...] by the National Kidney Foundation,http://nkdep .nih.gov Lipid [id number] 05:23:00* Test Item Value Reference Range Interpretation Comme nts Cholesterol (test code = CHOL) 203 mg/dL 0-200 H Triglycerides (test code = TRIG) 153 mg/dL 9-200 N HDL (test code = HDL) 73 mg/dL 50-60 H Chol/HDL (test code = CHOLPHDL) 2.8 Ratio 0.0-4.4 N LDL, Calculated (test code = LDLC) 99 0-130 N (NOTE)RISK OF HEART DISEASEPublished by [place]ore[place] Heart AssociationAnalyte Optimal Boderline Increased RiskCHOL <200 200-239 >240TRIG <150 150-199 >200HDL Male: >60 <40HDL Female: >60 <50LDL <100 130-159 >160LDL NEAR OPTIMAL IS 100-129 VLDL (test code = VLDL) 31 mg/dL 5-40 N LDL/HDL (test code = LDLPHDL) 1 CBC with [id number] 05:05:00* Test Item Value Reference Range Interpretation [...] code = ALYMPH) 2.2 K/cumm 0.5-4.6 N [place] Abs (test code = AMONO) 1.0 K/cumm 0.0-1.2 N Eos Abs (test code = AEOS) 0.29 K/cumm 0.00-0.74 N Baso Abs (test code = ABASO) 0.0 K/cumm 0.00-0.21 N Notes Date/Time Note Provider Source 2023-11-16 15:17:36 [facility] @1515 ETA is 30-35min. SH Lu [facility] 2023-11-16 15:02:25 Nurse to Nurse with Blayne from [facility]. SH Galindo RN [facility] 2023-11-16 07:21:37 Psychiatric Re-Evaluation Note Emergency Department Date: November 16, 2023 I have reassessed the patient on this shift. The patient states or demonstrates that they are still having: Suicidal ideation or thoughts: Yes Homicidal ideation or thoughts: No Auditory and/or visual hallucinations: No Psychosis, paranoia, or other mental instability impairing normal decision making: No Suggested risk level of [place]: High On reassessment, the patient should still be transferred for psychiatric assessment and care: Yes If no, explain: The patient remains medically stable for psychiatric transfer. Yes If no, explain: The patient remains {: Voluntary for psychiatric treatment. The patient is being treated for the following medical conditions: None The patient has been given or is being treated with the following medications: Orders Placed This Encounter Medications QUEtiapine (SEROQUEL) tablet 25 mg Nicho Ordoenz DO Given seroquel for sleep last night. No aggressive behaviors. [facility] 2023-11-16 05:32:37 Nurse to nurse with Phoebe CLARKE from [facility] SH Mac RN [facility] 2023-11-16 01:36:01 Psychiatric Re-Evaluation Note Emergency Department Date: November 16, 2023 I have reassessed the patient on this shift. The patient states or demonstrates that they are still having: Suicidal ideation or thoughts: Yes Homicidal ideation or thoughts: No Auditory and/or visual hallucinations: No Psychosis, paranoia, or other mental instability impairing normal decision making: No Suggested risk level of [place]: High On reassessment, the patient should still be transferred for psychiatric assessment and care: Yes If no, explain: The patient remains medically stable for psychiatric transfer. Yes If no, explain: The patient remains {: Voluntary for psychiatric treatment. The patient is being treated for the following medical conditions: None The patient has been given or is being treated with the following medications: No orders of the defined types were placed in this encounter. Red Ceja MD [facility] EMERGENCY PHYSICIAN STAFF [facility] 2023-11-15 23:13:09 Medical Decision Making Problems Addressed: Suicidal ideation: complicated acute illness or injury Details: Patient Voluntary for inpatient admission Evaluated by [facility] they recommend inpatient evaluation and treatment Amount and/or Complexity of Data Reviewed External Data Reviewed: labs and notes. Labs: ordered. Decision-making details documented in ED Course. Discussion of management or test interpretation with external provider(s): Case discussed with [facility] email operations managercall center representative, they came and did a bed side evaluation and recommended inpatient treatment Risk Decision regarding hospitalization. [facility] 2023-11-15 20:30:00 Problem: Suicide, Risk of Goal: Absence of self-harm Outcome: Progressing as expected [facility] 2023-11-15 20:12:01 [facility] notified to send screener SH Toro RN [facility] 2023-11-15 16:46:19 Suicide Risk - Assessment and Plan [place]: 1) Have you wished you were or could go to sleep and not wake up?: Yes 2) Have you had thoughts of killing yourself?: Yes 3) Have you been thinking about how you might kill yourself?: Yes 3a) Describe: did not provide, multiple ways to achieve is what patient states 4) Suicidal ideation with some intent?: Yes 4a) Describe: states that she wanted to kill herself but decided to seek help 5) Have you worked out the details of the plan AND intend to follow through?: No 6) Suicidal Behavior or preparation for suicide?: No [place] Score: Suggested risk level: High SAFE-T: Current and past psychiatric diagnoses: Mood Disorder Presenting symptoms: Hopelessness or despair Family history: Other (see comments) (substance abuse) Activating Events: Current or pending isolation or feeling alone Precipitants / stressors: Triggering events leading to humiliation, shame, and/or despair Protective factors: Ability to cope with stress Access to Lethal Means: Does patient have access to a gun or access to guns?: No Specific Questions of Thoughts, Plans, Intent: Frequency- how many times have you had these thought?: Daily or almost dailly 2.Duration - When you have the thoughts, how long do they last?: 1-4 hours/a lot of the time 3.Controllability - could/can you stop thinking about killing yourself or wanting to if you want to? "Is it easy, a little hard, very hard, or are you unable?": Can control thoughts with some difficulty 4.Deterrents - are there things, anyone or anything (family, hoahaoism, pain of ) that have stopped you from wanting to or acting on thoughts of committing suicide?: Deterrents definitely stopped from attempting Reasons for ideation - What are the reasons you have for wanting to or kill yourself? Was it to end pain, stop the way you are feeling, or to get attention, or get revenge and reaction from others?: Equally to get attention, revenge or a reaction from others and to end/stop the pain Behavior Assessment: 1.Were there preparatory acts like buying pills, guns, giving things away, or writing suicide note?: No 2.Was an attempt aborted or self - interrupted?: No 3.Was an attempt interrupted by someone else?: No 4.Was there an actual attempt?: No 5.Is there non suicidal self injury? Cutting, biting, skin picking: No 6.For youth: parents or guardians should be asked about thoughts, plans, behaviors, mood changes, etc : No 7.Is there homicidal ideation: if so, describe: No Stratification: High Suicide Risk Moderate Suicide Risk Low Suicide Risk ?? Suicidal ideation with intent or intent with plan in past month (C-SSRS Suicidal Ideation #4 or #5) Or ?? Suicidal behavior within past 3 months (C-SSRS Suicidal Behavior) ?? Suicidal ideation with method, WITHOUT plan, intent or behavior in past month (C-SSRS Suicidal Ideation #3) Or ?? Suicidal behavior more than 3 months ago (C-SSRS Suicidal Behavior Lifetime) Or ?? Multiple risk factors and few protective factors ?? Wish to or Suicidal Ideation WITHOUT method, intent, plan or behavior (C-SSRS Suicidal Ideation #1 or #2) Or ?? Modifiable risk factors and strong protective factors Or ? No reported history of Suicidal Ideation or Behavior Location / Risk: Inpatient / Moderate: Suicidal ideation with intent and a plan in the past month but has protective factors, OR Suicidal behavior more than 3 months ago OR suicidal ideation with intent or method, no plan but has multiple risk factors and few protective factors. a. Directly address suicide risk with patient and family . b. Develop Safety plan including counseling about restriction and removal of firearms, medications, means to hang oneself, large sharp objects, etc. See safety plan. c. Consider transfer to Inpatient Psychiatry Hospital/ Inpatient Psychiatry Consult if unable to develop a safety plan. d. If patient is not transferred, will arrange for patient to be seen by Pediatric provider within one week of discharge, and will also place referral to outpatient behavioral health resources. [facility] 2023-11-15 15:43:50 Patient brought in by [facility] for suicidal thoughts that has been ongoing for several months. Patient was seen at the [facility], staff were busy and referred to the ER. Patient states she has a history of bipolar and a manic condition, but stopped taking her medications a long time ago. Patient states that she has a plan for suicide, but refuses to discuss it. SH Faulkner RN [facility] 2023-11-15 15:42:00 Psychiatric Re-Evaluation Note Emergency Department Date: November 15, 2023 I have reassessed the patient on this shift. The patient states or demonstrates that they are still having: Suicidal ideation or thoughts: Yes Homicidal ideation or thoughts: No Auditory and/or visual hallucinations: No Psychosis, paranoia, or other mental instability impairing normal decision making: No Suggested risk level of [place]: High On reassessment, the patient should still be transferred for psychiatric assessment and care: Yes If no, explain: The patient remains medically stable for psychiatric transfer. Yes If no, explain: The patient remains {: Voluntary for psychiatric treatment. The patient is being treated for the following medical conditions: None The patient has been given or is being treated with the following medications: No orders of the defined types were placed in this encounter. MD Bushra Polo Andres, MD 11/15/23 [id number] Cale Tomlinson MD 11/15/23 [id number] [facility] EMERGENCY PHYSICIAN STAFF [facility]
[2024-12-03] MEDS ORDERED: ONDANSETRON 4 MG (ODT) TAB ONE (19:34)
--- NOTE | 2024-12-03 19:38 | EDPHYS ---
Physician Documentation [facility] Name: Kelsea Toussaint Age: 29 yrs Sex: Female : 1995 Arrival Date: 12/03/2024 Time: 19:28 Bed IW1 Private MD: ED Physician Delvis Anaya HPI: 12/03 19:31 This 29 yrs old Female presents to ER via Unassigned with complaints of Covid+.kb 19:31 Pt is a 29 year old female who presents for headache, vomiting, fever, chills, cough, kb congestion that started this morning. States she took a covid test at home and it was positive. . Historical: - Allergies: 19:36 Amoxicillin; hb 19:36 Codeine; hb 19:36 Morphine; hb 19:36 PENICILLINS; hb 19:36 Promethazine; hb - PMHx: 19:36 Anxiety; depressive disorder; Ovarian cyst; hb - PSHx: 19:36 Right oopherectomy; right leg; hb - Immunization history:: Adult Immunizations up to date. - Infectious Disease History:: Denies. - Social history:: Smoking status: Patient denies any tobacco usage or history of. ROS: 19:31 Constitutional: As per HPI kb Exam: 19:31 Constitutional: This is a well developed, well nourished patient who is awake, alert, kb and in no acute distress. Head/Face: Normocephalic, atraumatic. ENT: Moist Mucous membranes Cardiovascular: Regular rate Respiratory: Respirations even and unlabored. No increased work of breathing. Talking in full sentences Skin: Warm, dry with normal turgor. Normal color. MS/ Extremity: Pulses equal, no cyanosis. Neurovascular intact. Full, normal range of motion. Neuro: Awake and alert, GCS 15, oriented to person, place, time, and situation. Vital Signs: 19:34 Pulse 99; Resp 16; Temp 99.2; Pulse Ox 100% on R/A; Weight 75.75 kg; Height 5 ft. 0 in. hb ; Pain 3/10; 19:34 Body Mass Index 32.61 (75.75 kg, 152.4 cm) hb 19:34 Pain Scale: Adult hb MDM: 19:30 Medical Screening Exam initiated kb 19:32 Differential diagnosis: covid, flu, uri. Data reviewed: vital signs, nurses notes. kb 19:36 I considered the following discharge prescriptions or medication management in the emergency department I discussed and recommended Over The Counter medications, Antibiotics: At this time antibiotics are not recommended, Antivirals: At this time, antivirals are not recommended. Counseling: I had a detailed discussion with the patient and/or guardian regarding the historical points, exam findings, and any diagnostic results supporting the discharge/admit diagnosis, the need for outpatient follow up, a family practitioner, to return to the emergency department if symptoms worsen or persist or if there are any questions or concerns that arise at home. Administered Medications: 19:44 Drug: Ondansetron Oral Disintegrating Tablet Oral Disintegrating Tablet 4 mg PO once hb Route: PO; Disposition Summary: 12/03/24 19:37 Discharge Ordered Notes: Location: [facility] Condition: Stable Diagnosis - SARS-associated coronavirus as the cause of diseases classified elsewhere kb Followup: kb - With: Emergency Department - When: As needed - Reason: Worsening of condition Followup: kb - With: Private Physician - When: 2 - 3 days - Reason: Recheck today's complaints, Continuance of care, Re-evaluation by your physician Discharge Instructions: - Discharge Summary Sheet kb - COVID-19 kb - Viral Illness, Adult kb Forms: - Work release form kb - Medication Reconciliation Form kb - Antibiotic Education kb - Prescription Opioid Use kb - Patient Portal Instructions - Leadership Thank You Letter Prescriptions: - ondansetron 4 mg Oral Tablet,disintegrating - take 1 tablet ORAL route every 6 hours As needed; 12 tablet; Refills: 0, kb Product Selection Permitted Signatures: Braynna Zhu FNP-C FNP-Joyce Velarde, RN RN
--- NOTE | 2024-12-03 19:38 | ER ---
Nurse's Notes [facility] Name: Kelsea Toussaint Age: 29 yrs Sex: Female : 1995 Arrival Date: 12/03/2024 Time: 19:28 Bed IW1 Private MD: Diagnosis: SARS-associated coronavirus as the cause of diseases classified elsewhere Presentation: 12/03 19:34 Chief complaint: Cough, congestion, fever, and chills that started today, home COVID hb test positive. Coronavirus screen: Client presents with at least one sign or symptom that may indicate coronavirus-19. Standard/surgical mask placed on the client. Provider contacted for isolation considerations. Ebola Screen: No symptoms or risks identified at this time. Initial Sepsis Screen: Does the patient meet any 2 criteria? No. Patient's initial sepsis screen is negative. Does the patient have a suspected source of infection? No. Patient's initial sepsis screen is negative. Risk Assessment: Do you want to hurt yourself or someone else? Patient reports no desire to harm self or others. Onset of symptoms was December 03, 2024. 19:34 Method Of Arrival: Ambulatory hb 19:34 Acuity: VICENTE 4 hb Triage Assessment: 19:37 General: Appears in no apparent distress. ill, Behavior is calm, cooperative. Pain: hb Pain currently is 3 out of 10 on a pain scale. Neuro: Level of Consciousness is awake, alert, obeys commands, Oriented to person, place, time, situation. Cardiovascular: Patient's skin is warm and dry. Respiratory: Respiratory effort is even, unlabored, Respiratory pattern is regular, symmetrical. Historical: - Allergies: 19:36 Amoxicillin; hb 19:36 Codeine; hb 19:36 Morphine; hb 19:36 PENICILLINS; hb 19:36 Promethazine; hb - PMHx: 19:36 Anxiety; depressive disorder; Ovarian cyst; hb - PSHx: 19:36 Right oopherectomy; right leg; hb - Immunization history:: Adult Immunizations up to date. - Infectious Disease History:: Denies. - Social history:: Smoking status: Patient denies any tobacco usage or history of. Vital Signs: 19:34 Pulse 99; Resp 16; Temp 99.2; Pulse Ox 100% on R/A; Weight 75.75 kg; Height 5 ft. 0 in. hb ; Pain 12/03; 19:34 Body Mass Index 32.61 (75.75 kg, 152.4 cm) hb 19:34 Pain Scale: Adult hb ED Course: 19:29 Patient arrived in ED. mr 19:30 Bryanna Zhu FNP-C is [facility]. kb 19:30 Delvis Anaya MD is Attending Physician. kb 19:36 Triage completed. hb 19:37 Arm band placed on. hb Administered Medications: 19:44 Drug: Ondansetron Oral Disintegrating Tablet Oral Disintegrating Tablet 4 mg PO once hb Route: PO; Outcome: 19:37 Discharge ordered by . kb 19:44 Patient left the ED. hb Signatures: Bryanna Zhu FNP-C FNP-Phoebe Ramires, Reg Reg BaughJoyce, RN RN hb
[2024-12-03 20:20] VITALS: TEMP 99.2; O2SAT 100
== END 2024-12-03 19:44 | disposition home or self-care (01) ==
LOC: ER 19:28
DX: U07.1 COVID-19 (principal)
CPT/HCPCS: 99282; Q0162